=== PATIENT | female | born 1960 | race Caucasian/White ===

== ENCOUNTER → 2016-07-15 | Outpatient (CLI) | payer OTHER ==
[~2016-07-15] MED LIST: ACET500C35 PO; ALBUAER INH; ALBUAER2 INH; AMT50 PO; ASPEC81 PO; AVSI100 INJ; BACL10TA PO; BUTA1CAP18 PO; CHOL1000 PO; CHOLPOW PO; CLIN1LOT5 TOP; DENOINJ PO; DICY20TA10 PO; DIPH-416 PO; DXM/4 PO; FLUT0.15 NAE; FLVHFA110 INH; FRCT/ PO; GADAVIST IV PRN; IBUP-1459 PO; INSDGI SC; INSUINJ14 SC; LAMO100T16 PO; LAMO150T32 PO; LOVA10TA3 PO; LRS10 PO; MDR4 PO; MECL1TAB42 PO; METH1TAB81 PO; MONT1TAB5 PO; MORP1TAB11 PO; MULT-506 PO; NVLGI/PEN SC; OXYC-106 PO; OXYC-57 PO; OXYC5TAB PO; PENT400T2 PO; POLY335019 PO; POTA20TA16 PO; PRLSR20 PO; PRM/45 PO; PRMVC PV; PROC1TAB5 PO; PROM25TA16 PO; ROPI1TAB PO; STDN; SUMA1INJ5 INJ; SUMA50TA15 PO; TIZA4CAP PO; TPM100 PO; TRN400 PO; VERA120C3 PO; VITA1CAP5 PO; VITA1TAB4 PO; VTME400 PO; XLD/500 PO; [UNRECOGNIZED DRUG - OTHER]
--- NOTE | 2016-07-15 11:34 | DIAGNOSTIC IMAGING REPORT ---
MRI OF THE BRAIN WITHOUT AND WITH IV CONTRAST CLINICAL HISTORY: Intracranial metastasis. COMPARISON STUDY: 04/15/2016 TECHNIQUE: MRI of the brain was performed from the vertex to the skull base utilizing various T1 and T2 weighted sequences. Following the IV administration of 5 mL of Gadavist contrast, additional enhanced images were obtained. FINDINGS: Sagittal T1, axial diffusion, proton density and T2 weighted axial, coronal FLAIR, and pre and post axial T1-weighted images were acquired. These were supplemented with post gadolinium coronal T1 weighted images. There is an irregular rim-enhancing 22 mm right dural based parafalcine posterior parietal lobe mass with extensive vasogenic edema. This lesion appears slightly larger than on the preceding study. No additional enhancing masses are visualized. There is increasing surrounding vasogenic edema. Axial diffusion-weighted images reveal no evidence of acute or subacute infarction. There is no evidence of ventricular dilatation. There is slight mass effect on the posterior aspect of the right lateral ventricle. There is minimal right to left midline shift Proton density T2-weighted and FLAIR images reveal extensive vasogenic edema adjacent to the enhancing right parietal mass. There are no abnormal flow voids. There are postsurgical changes of a suboccipital craniotomy. IMPRESSION: 1. Slight further increase in the size of the right parietal lobe mass with increasing associated vasogenic edema 2. No additional lesions identified Electronically signed by: Dallin Valadez M.D. 07/15/2016 11:32 AM Dictated Date/Time: 07/15/2016 11:26 AM
== END | disposition home or self-care (01) ==
LOC: C.MRIBC 10:26
PROVIDERS: ATTEND Specialist
DX: C79.31 Secondary malignant neoplasm of brain (principal)

== ENCOUNTER → 2016-08-04 | Outpatient (CLI) | payer OTHER ==
[~2016-08-04] MED LIST changes: -GADAVIST IV PRN
[2016-08-04 13:49] VITALS: BP 126/83; PULSE 88; TEMP 36.9; O2SAT 96
--- NOTE | 2016-08-04 16:17 | Radiation Oncology Follow-Up ---
Radiation Oncology Follow-Up Date of Visit Aug 04, 2016. (Conchita Conner PA-C) Reason For Visit 6 month follow-up (Conchita Conner PA-C) Radiation Completion Date 12/31/15 (Conchita Conner PA-C) Diagnosis (1) Breast cancer Status: Chronic Onset Date: 02/14/2015 Stage: IV Permanent Comment: DIAGNOSIS: Left breast cancer, invasive ductal carcinoma, grade 3, ER negative, TN weakly positive, Her2 negative, cT1N1, ypT1N0(i+) with a indeterminate lesion in the right parietal lobe followed with MRI TREATMENT: 1. Neoadjuvant chemotherapy - AC/T chemotherapy (Dr. Junior Washington) 2. Lumpectomy with SLN - 08/21/2015 (Dr. Zurita) 3. Status post gamma knife radiation therapy to single brain lesion at [facility] 4. Status post completion of radiation therapy 12/31/2015 received 7240 cGy, left breast, supraclavicular, and axilla area. 5. Status post lung wedge resection 02/10/2016 due to metastatic breast carcinoma 6. Ongoing treatment with Gemzar, Herceptin, Perjeta, and Xgeva. 7. Brain MRI is followed by Dr. Fernando at [facility] Last Edited By: Conchita Conner on Aug 04, 2016 16:05 (Conchita Conner PA-C) Interim History Ms. Blue is a 55-year-old female with a history of Arnold-Chiari malformation who was recently diagnosed with oligometastatic breast cancer. She was initially diagnosed after having palpable axillary adenopathy in January 2015 and having an FNA biopsy which revealed breast cancer. She subsequently underwent neoadjuvant chemotherapy and received AC/T treatment underneath the supervision of Dr. Junior Washington. She then underwent a lumpectomy and sentinel lymph node biopsy on 08/21/[address] Anjali Zurita which revealed a partial response at the primary site of disease and no residual disease in the axilla ypT1N0(+). Afterwards, she did have a follow-up MRI of the brain for her Arnold -Chiari malformation and she did have a solitary 8mm brain metastasis that was treated with gamma knife radiosurgery at [facility]. Due to the fact that she had no other evidence of disease and had a very good performance status, she elected for consolidation radiation therapy to her left breast and axilla which completed in December 2015. She received 5040 cGy to the breast and chest wall and a boost of 2200 cGy to account for multiple prolonged interruptions in her treatment. She now presents for her 1 month follow-up evaluation. In the interim, she did have a PET/CT scan completed on 01/08/2016 which did show an equivocal call left lower lobe mass measuring 1.5 cm in the greatest dimension with minimal FDG avidity on the corresponding PET scan. She did see Dr. Junior Washington regarding this imaging result and he recommended close observation with a repeat scan in 2 months. However, the patient is relatively anxious and wanted to be seen by thoracic surgery so she is seeing Dr. Keyur Livingston next to discuss a potential biopsy or the need for further follow up with repeat imaging. She underwent resection of the metastatic lesion to the lung which was found to be metastatic breast cancer. She continues to be followed closely by Dr. Washington medical oncology. In Dr. Fernando from [facility] for metastatic disease of the brain. She is currently on chemotherapy as well as Herceptin and Xgeva. She had a PET scan 06/03/2016. She was found to have metabolic activity in the sternum as well as left anterior seventh rib. These areas are currently not painful. She recently had an MRI of the brain on 07/15/2016. This showed slight further increase in the size of the right parietal lobe mass with increasing associated vasogenic edema. The neurosurgeon placed her on his tapering dose of steroids. This is now been completed. She was on Trental and vitamin E which she will also soon be completed. She continues to have her headaches. She feels these are stable. When on the tapering dose of prednisone she did have improvement in the headaches. She's had some fullness and discomfort of the breast. She saw Dr. Anjali Zurita. She underwent mammography. It is felt that this was an infectious process. She was given an antibiotic and the breasts greatly improved. She also had an infection of the upper posterior thigh and she is on antibiotic therapy currently for this skin infection. (Conchita Conner PA-C) Allergies Coded Allergies: Erythromycin (Unverified Adverse Reaction, Unknown, GI UPSET, 04/15/16) Home Medications Scheduled Amitriptyline Hcl (Elavil), 50 MG PO HS Baclofen (Baclofen), 10 MG PO TID Cholecalciferol (Vitamin D3), 1 TAB PO DAILY Denosumab (Xgeva), 1 APPLN PO Q6WK Estrogens, Conjugated (Premarin), 0.5 MG PO DAILY Fluticasone Propionate (Flovent Hfa), 2 PUFFS INH BID Fluticasone Propionate (Nasal) (Flonase Allergy Relief), 2 SPRAYS JUDE QAM Insulin Glargine (Lantus), 8 UNITS SC QAM Lamotrigine (Lamictal), 100 MG PO BID Lovastatin (Mevacor), 10 MG PO QPM Montelukast Sodium (Montelukast Sodium), 10 MG PO QAM Multivitamin (Multivitamin), 1 TAB PO QAM Omeprazole (Prilosec), 20 MG PO QAM Ropinirole (Requip), 1 MG PO TID Topiramate (Topiramate), 200 MG PO BID Scheduled PRN Albuterol (Ventolin), 2 PUFFS INH QID PRN for SOB/Wheezing Ynbhplnpmk-Rfigmgbgvbmmk-Qkwxs (Fioricet/Codeine), 1 TAB PO Q4 PRN for Headache Dicyclomine Hcl (Dicyclomine Hcl), 20 MG PO Q6 PRN for GI Upset Diphenoxylate/Atropine (Lomotil), 1 TAB PO QID PRN for Diarrhea Insulin Aspart Penfill (Novolog Penfill), 1-20 UNITS SC AC PRN for hyperglycemia Meclizine Hcl (Meclizine Hcl), 25 MG PO Q6H PRN for Dizziness or Vertigo Oxycodone/Acetaminophen 10MG/325MG (Percocet 10MG/325MG), 1 TAB PO q4-6Hprn PRN for Pain Promethazine HCl (Promethazine HCl), 25 MG PO Q4H PRN for Nausea or Vomiting Review of Systems Gastrointestinal: Symptoms: Nausea GI Comments: Promethazine for nausea - due to chemo Oral: Symptoms: No Problems Respiratory: Symptoms: WNL Urinary: Symptoms: WNL Skin: Symptoms: No Problems Other Skin Symptoms: Wound on left posterior thigh - "boil" managed by PCP Breast: Right Upper Arm Measurement: 24.0 Right Mid Arm Measurement: 21.0 Right Wrist Measurement: 14.2 Left Upper Arm Measurement: 25.0 Left Mid Arm Measurement: 20.5 Left Wrist Measurement: 14.2 Arm Dominence: Right (Conchita Conner PA-C) Physical Exam Vital Signs Date Time Temp Pulse Resp B/P Pulse Ox O2 Delivery O2 Flow Rate FiO2 08/04/16 13:49 36.9 88 16 126/83 96 Fatigue: None General Appearance: no apparent distress Eyes: normal inspection, EOMI ENT: normal ENT inspection, hearing grossly normal Neck: no adenopathy, thyroid normal Respiratory/Chest: lungs clear, no respiratory distress, no accessory muscle use Breast: Breast examination reveals well-healed incisions of the left breast. There are no masses or tenderness no axillary adenopathy. There is some mild firmness in the upper outer quadrant. There is no erythema or edema and no sign of infection currently. There are no skin retractions or nipple changes. Right breast showed no masses or tenderness and no axillary adenopathy. Cardiovascular: regular rate, rhythm, no gallop, no murmur Abdomen: non tender, soft Extremities: no pedal edema Neurologic/Psychiatric: no motor/sensory deficits, alert, normal mood/affect Skin: warm/dry Lymphatic: no adenopathy (Conchita Conner PA-C) Additional Studies MRI OF THE BRAIN WITHOUT AND WITH IV CONTRAST CLINICAL HISTORY: Intracranial metastasis. COMPARISON STUDY: 04/15/2016 TECHNIQUE: MRI of the brain was performed from the vertex to the skull base utilizing various T1 and T2 weighted sequences. Following the IV administration of 5 mL of Gadavist contrast, additional enhanced images were obtained. FINDINGS: Sagittal T1, axial diffusion, proton density and T2 weighted axial, coronal FLAIR, and pre and post axial T1-weighted images were acquired. These were supplemented with post gadolinium coronal T1 weighted images. There is an irregular rim-enhancing 22 mm right dural based parafalcine posterior parietal lobe mass with extensive vasogenic edema. This lesion appears slightly larger than on the preceding study. No additional enhancing masses are visualized. There is increasing surrounding vasogenic edema. Axial diffusion-weighted images reveal no evidence of acute or subacute infarction. There is no evidence of ventricular dilatation. There is slight mass effect on the posterior aspect of the right lateral ventricle. There is minimal right to left midline shift Proton density T2-weighted and FLAIR images reveal extensive vasogenic edema adjacent to the enhancing right parietal mass. There are no abnormal flow voids. There are postsurgical changes of a suboccipital craniotomy. IMPRESSION: 1. Slight further increase in the size of the right parietal lobe mass with increasing associated vasogenic edema 2. No additional lesions identified (Conchita Conner PA-C) Assessment & Plan Patient was seen and examined by Dr. Washington. Her MRI was reviewed. She'll continue her regular follow-up with Dr. Washington for medical oncology. She continues on the above chemotherapy. She is currently showing no increased neurologic symptoms. Her headaches are stable. A follow-up appointment with our office was not given. She may call if she has any questions or concerns would be happy to see her. She also may return if directed by Dr. Junior Washington. (Conchita Conner PA-C) I agree with note created by Conchita Conner PA-C. I reviewed the patient's chart and information with her. I have examined and evaluated the patient. I reviewed relevant clinical information and answered the patient's and/or family' s questions. (Veeral. Washington MD) Total Time In Follow-Up I spent 15 minutes speaking to patient performing examination. I said 15 minutes reviewing information in completing this note. (Conchita Conner PA-C) I spent 15 minutes examining and counseling the patient. (Veeral. Washington MD) Copy To Junior Washington M.D.; Marbin Peace D.O.
== END | disposition home or self-care (01) ==
LOC: C.ONC 13:37
PROVIDERS: ATTEND Radiology Radiation Oncology
DX: Z08 Encounter for follow-up examination after completed treatment for malignant neoplasm (principal); Z92.3 Personal history of irradiation; Z85.3 Personal history of malignant neoplasm of breast

== ENCOUNTER → 2016-09-24 | Outpatient (CLI) | payer OTHER ==
[~2016-09-24] MED LIST changes: -ACET500C35 PO; +GADAVIST IV PRN; -OXYC5TAB PO; -SUMA50TA15 PO; -VTME400 PO
--- NOTE | 2016-09-24 15:06 | DIAGNOSTIC IMAGING REPORT ---
MRI OF THE BRAIN WITHOUT AND WITH IV CONTRAST CLINICAL HISTORY: Metastatic breast carcinoma. History of gamma knife surgery. COMPARISON STUDY: 07/15/2016 TECHNIQUE: MRI of the brain was performed from the vertex to the skull base utilizing various T1 and T2 weighted sequences. Following the IV administration of 5.5 mL of Gadavist contrast, additional enhanced images were obtained. FINDINGS: Sagittal T1, axial diffusion, proton density and T2 weighted axial, coronal FLAIR, and pre and post axial T1-weighted images were acquired. These were supplemented with post gadolinium coronal T1 weighted images. There is slight interval increase in the size of the right posterior parietal dural based parafalcine mass which currently measures 20 x 23 mm. There is associated extensive vasogenic edema which has increased when compared the preceding study. No additional masses are visualized. There is left hemispheric artifact secondary to a metallic foreign body within the left scalp. Axial diffusion-weighted images reveal no evidence of acute or subacute infarction. There is no hydrocephalus. There is 8 mm of right to left midline shift. There are no abnormal flow voids. There are postsurgical changes of a suboccipital craniotomy. IMPRESSION: 1. Slight further increase in the size of the right parietal lobe mass with increasing associated vasogenic edema. Electronically signed by: Dallin Valadez M.D. 09/24/2016 3:05 PM Dictated Date/Time: 09/24/2016 3:00 PM
== END | disposition home or self-care (01) ==
LOC: C.MRIBC 13:50
PROVIDERS: ATTEND Specialist
DX: C79.31 Secondary malignant neoplasm of brain (principal)

== ENCOUNTER → 2016-11-05 | Outpatient (CLI) | payer OTHER ==
[~2016-11-05] MED LIST changes: +AMIT75TA2 PO; +ATV/1 PO; +CEPH-571 PO; +CLIN300C2 PO; +DLCS RE; -GADAVIST IV PRN; +LDDP5 TD; +LEVE500T13 PO; +LPR25 PO; +RLSI SQ; +SULF800T23 PO; +SUMA6KIT
--- NOTE | 2016-11-05 12:24 | DIAGNOSTIC IMAGING REPORT ---
C-SPINE ROUTINE 4 OR 5 VIEWS CLINICAL HISTORY: Metastatic breast carcinoma. Neck pain. COMPARISON STUDY: 05/31/2013 FINDINGS: The prevertebral soft tissues are normal. No fractures or subluxations are visualized. No destructive lesions are evident. IMPRESSION: Normal cervical spine series were age. No conventional radiographic evidence of skeletal metastasis Electronically signed by: Dallin Valadez M.D. 11/05/2016 12:23 PM Dictated Date/Time: 11/05/2016 12:22 PM
--- NOTE | 2016-11-05 12:27 | DIAGNOSTIC IMAGING REPORT ---
THORACIC SPINE 3 VIEWS HISTORY: Breast carcinoma. Back pain. Breast [id number] Breast cancer metastasized to [id number] COMPARISON: None. FINDINGS: There is no fracture. No subluxation. Disc spaces are preserved. IMPRESSION: Negative study Electronically signed by: Bob Hatch M.D. 11/05/2016 12:26 PM Dictated Date/Time: 11/05/2016 12:24 PM
== END | disposition home or self-care (01) ==
LOC: C.RADBC 11:53
PROVIDERS: ATTEND Psychiatry & Neurology Neurology
DX: C50.919 Malignant neoplasm of unspecified site of unspecified female breast (principal); M62.830 Muscle spasm of back

== ENCOUNTER → 2016-11-13 | Outpatient (CLI) | payer OTHER ==
[2016-11-13 14:43] LABS: BASO % 0.3 %; BASO ABS # 0.02 K/uL (0-0.2); COMPLETE YES; EOS % 1.2 %; HEMATOCRIT 38.2 % (37-47); IG% 0.3 %; LYMPH % 13.4 %; LYMPH ABS # 0.92 K/uL (1.2-3.4); MEAN CELL VOLUME 100.8 fL (80-100); MEAN CORPUSCULAR HGB CONC 32.7 g/dl (32-36); MEAN PLATELET VOLUME 9.5 fL (7.4-10.4); MONO % 3.5 %; NEUT % 81.3 %; PLATELET COUNT 203 K/uL (130-400); RED BLOOD COUNT 3.79 M/uL (4.2-5.4); WHITE BLOOD COUNT 6.89 K/uL (4.8-10.8)
[2016-11-13 14:54] LABS: CALCIUM 9.1 mg/dl (8.5-10.1)
[2016-11-13 14:55] LABS: MAGNESIUM 2.3 mg/dl (1.8-2.4)
[2016-11-13 17:47] LABS: LYME DISEASE AB IGG NEG (NEG); LYME DISEASE AB IGM NEG (NEG)
--- NOTE | 2016-12-03 09:07 | CODING QUERY NO DIAGNOSIS ---
TREATMENT RENDERED WITHOUT A DIAGNOSIS To promote full compliance with coding requirements relating to patient care, physician participation is requested in all cases of records administrator uncertainty. Please assist us with providing a diagnosis/symptom for the test(s) below: A diagnosis/symptom was not documented on your Order. A valid diagnosis/symptom is required to bill all insurances. Please remember that we are unable to code a diagnosis of rule out, probable, possible, questionable, or suspected. Tests that require a diagnosis: * CALCIUM DIAGNOSIS: * MAGNESIUM DIAGNOSIS: * CBC W/ AUTO DIFF DIAGNOSIS: * ERTHROCYTE SEDIMENTATION RATE DIAGNOSIS: * LYME IGG & IGM +WB CONFIRM DIAGNOSIS: Provider Signature: Date: Thank you [facility] Information Management Once completed, please kindly fax back to [phone] For questions please call [phone]
== END | disposition home or self-care (01) ==
LOC: C.LABBC 10:07
PROVIDERS: ATTEND Anesthesiology
DX: G43.709 Chronic migraine without aura, not intractable, without status migrainosus (principal); E11.9 Type 2 diabetes mellitus without complications; M62.838 Other muscle spasm; M79.7 Fibromyalgia; C50.911 Malignant neoplasm of unspecified site of right female breast; C50.912 Malignant neoplasm of unspecified site of left female breast; G47.00 Insomnia, unspecified; M62.830 Muscle spasm of back; G89.29 Other chronic pain

== ENCOUNTER 2016-11-17 13:22 | Emergency (ER) | payer OTHER ==
[~2016-11-17] VITALS: Ht 152.4 cm; Wt 52.3 kg
[~2016-11-17 13:22] MED LIST changes: -ALBUAER INH; -AMIT75TA2 PO; -ASPEC81 PO; -ATV/1 PO; -AVSI100 INJ; -CEPH-571 PO; -CHOLPOW PO; -CLIN1LOT5 TOP; -CLIN300C2 PO; -DLCS RE; -DXM/4 PO; -FRCT/ PO; -IBUP-1459 PO; -LAMO150T32 PO; -LDDP5 TD; -LEVE500T13 PO; -LPR25 PO; -LRS10 PO; -MDR4 PO; -METH1TAB81 PO; -MORP1TAB11 PO; -NVLGI/PEN SC; -OXYC-57 PO; -PENT400T2 PO; -POLY335019 PO; -POTA20TA16 PO; -PRMVC PV; -PROC1TAB5 PO; -RLSI SQ; -STDN; -SULF800T23 PO; -SUMA1INJ5 INJ; -SUMA6KIT; -TRN400 PO; -VERA120C3 PO; -VITA1CAP5 PO; -VITA1TAB4 PO; -XLD/500 PO; -[UNRECOGNIZED DRUG - OTHER]
[2016-11-17 13:27] VITALS: Ht 152.4 cm; Wt 52.3 kg
[2016-11-17 14:39] LABS: CALCIUM 8.4 mg/dl (8.5-10.1); POTASSIUM 3.6 mmol/L (3.5-5.1)
[2016-11-17 14:40] LABS: BASO % 0.4 %; BASO ABS # 0.02 K/uL (0-0.2); COMPLETE YES; EOS % 1.2 %; HEMATOCRIT 38.5 % (37-47); IG% 0.2 %; LYMPH % 7.4 %; LYMPH ABS # 0.37 K/uL (1.2-3.4); MEAN CELL VOLUME 98.5 fL (80-100); MEAN CORPUSCULAR HGB CONC 32.5 g/dl (32-36); MEAN PLATELET VOLUME 8.6 fL (7.4-10.4); MONO % 9.9 %; NEUT % 80.9 %; PLATELET COUNT 397 K/uL (130-400); RED BLOOD COUNT 3.91 M/uL (4.2-5.4); WHITE BLOOD COUNT 4.97 K/uL (4.8-10.8)
[2016-11-17 15:09] LABS: BUN/CREATININE RATIO 14.2 (10-20); CREATININE 0.72 mg/dl (0.60-1.20); MAGNESIUM 2.2 mg/dl (1.8-2.4)
[2016-11-17] MEDS ORDERED: GADAVIST IV PRN (15:45)
--- NOTE | 2016-11-17 15:56 | DIAGNOSTIC IMAGING REPORT ---
MRI OF THE BRAIN COMBO CLINICAL HISTORY: Metastatic breast cancer. Gait and balance. Fall. COMPARISON STUDY: MRI of the brain dated 09/24/2016. CT of the brain dated 04/15/2016. TECHNIQUE: MRI of the brain was performed utilizing various T1 and T2-weighted sequences in the axial, sagittal, and coronal planes. Contrast-enhanced sequences were acquired following the administration of 5 cc of Gadavist. The examination is degraded by susceptibility artifact along the left posterior parietal cortex related to a metallic foreign body in the scalp. FINDINGS: Brain parenchyma: There is an enlarging solid and cystic posterior right parafalcine mass with significant associated edema. This measures 3.4 x 3.6 x 2.2 cm (previously measured 2.2 x 2.3 x 2.0 cm) and causes significant mass effect. There is effacement of the overlying cortical sulci and approximately 9 mm of right to left midline shift. There is a new left occipital lesion seen on coronal postcontrast image #22 measuring 7 mm. No hemorrhage is identified and there is no restricted diffusion typical for acute ischemia. No extra-axial fluid collection is seen. The cerebellar tonsils are normal in configuration. Ventricles, sulci, and cisterns: See above. Pituitary and sella: Unremarkable. Intracranial vasculature: Normal flow voids are maintained at the skull base. Orbits: The bony orbits are grossly intact. Orbital contents are normal in appearance noting a right ocular lens implant. Sinuses and mastoids: Clear. Calvarium: There are postoperative changes from suboccipital craniectomy. Cervical cord: Partially visualized cervical spinal cord is normal in morphology and signal intensity. IMPRESSION: 1. There has been continued enlargement of a complex posterior right parafalcine mass with increasing surrounding edema and right to left midline shift when compared to the 09/24/2016 examination. 2. There is a new 7 mm left occipital lesion identified. 3. There is no hemorrhage or evidence of acute ischemia. Electronically signed by: Antonio Akhtar M.D. 11/17/2016 3:55 PM Dictated Date/Time: 11/17/2016 3:43 PM
[2016-11-17] MEDS ORDERED: OXYC-57 PO (15:59)
[2016-11-17] MEDS ORDERED: LAMO150T32 PO (15:59)
[2016-11-17] MEDS ORDERED: ALBUAER INH (15:59)
[2016-11-17] MEDS ORDERED: VERA120C3 PO (15:59)
[2016-11-17] MEDS ORDERED: STDN (15:59)
[2016-11-17] MEDS ORDERED: INSDGI SC (15:59)
[2016-11-17] MEDS ORDERED: PROC1TAB5 PO (15:59)
[2016-11-17] MEDS ORDERED: NVLGI/PEN SC (15:59)
[2016-11-17] MEDS ORDERED: IBUP-1459 PO (15:59)
[2016-11-17] MEDS ORDERED: SUMA1INJ5 INJ (15:59)
[2016-11-17] MEDS ORDERED: TRN400 PO (15:59)
[2016-11-17] MEDS ORDERED: POLY335019 PO (15:59)
[2016-11-17] MEDS ORDERED: DXM/4 PO (16:03)
[2016-11-17] MEDS ORDERED: CHOLPOW PO (16:03)
[2016-11-17] MEDS ORDERED: CLIN1LOT5 TOP (16:03)
[2016-11-17] MEDS ORDERED: POTA20TA16 PO (16:03)
[2016-11-17] MEDS ORDERED: TIZA4CAP PO (16:16)
[2016-11-17] MEDS ORDERED: PRMVC PV (16:16)
[2016-11-17] MEDS ORDERED: VITA1TAB4 PO (16:16)
[2016-11-17] MEDS ORDERED: ONDANSETRON INJ 2 MG/ML 2 ML VIAL IV STA (17:16)
[2016-11-17] MEDS ORDERED: HYDROmorphone INJ 1 MG/ML SYR IV STA (17:16)
--- NOTE | 2016-11-17 17:32 | EMERGENCY ROOM VISIT NOTE ---
History First contact with patient: 13:38 Chief Complaint: NEURO SYMPTOMS Stated Complaint: OFF BALANCE Nursing Triage Summary: pt reports balance has been off and falling.has fallen 5-6 x in last 3-4 days. pt has hx of brain tumor. sent here by neuro and PT History of Present Illness The patient is a 56 year old female who presents to the Emergency Room being sent here by her neurologist, Dr. Goodman for being off balance and falling 5-6 times in the last 3-4 days. The patient was at physical therapy today and her therapist noticed that she was "leaning to the left". She then told her therapist about her feeling off balance and falling several times over the last 3-4 days. The therapist contacted Dr. Goodman who sent her to the emergency room. The patient has a primary cancer of breast cancer with metastatic cancer to the brain. She had an occipital lesion which was removed with a gamma knife August 2015. She currently has a right parietal mass which they are monitoring. Her last MRI was 09/25/2016. This revealed a 20 x 23 mm lesion in the right parietal region which was slightly increased from prior exam. The patient denies any dizziness or visual changes. The patient has headaches but that is not new. She also has pain in her upper thoracic region which also is not new. She did have an x-ray performed recently which did not reveal any metastatic lesions in the thoracic spine. The patient is currently under chemotherapy with Dr. Washington. Her regimen is 2 weeks on one week off. Last week was her week off. Her chemotherapy day is Wednesdays. Review of Systems 10 system review was performed and was negative unless stated otherwise history of present illness. 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 (11) History of breast cancer (12) Hypertension (13) Increased intracranial pressure (14) Irritable bowel syndrome (15) Mass of left lung (16) Metastasis to brain (17) Osteoporosis Surgical Problems: (1) History of cataract surgery (2) History of Chiari malformation (3) History of lumpectomy of left breast (4) History of tonsillectomy and adenoidectomy (5) S/p axillary lymph node biopsy (6) S/p breast cyst removal (7) S/P craniotomy (8) S/p Gamma knife radiosurgery for brain metastatic lesion (9) S/p insertion tunneled central venous access with SQ port (10) S/P partial mastectomy (11) S/P sinus surgery (12) S/P tonsillectomy and adenoidectomy (13) S/P tubal ligation (14) Status post gamma knife treatment Family History Asthma DAUGHTER SON Diabetes mellitus MOTHER Hypertension FATHER Stroke FATHER GRANDFATHER Social History Smoking Status: Never Smoker Drug Use: none Marital Status: Occupation Status: disabled Current/Historical Medications Scheduled Amitriptyline Hcl (Elavil), 75 MG PO HS Baclofen (Lioresal), 20 MG PO TID Cholecalciferol (Vitamin D3), 1 TAB PO DAILY Cholestyramine (Bulk) (Cholestyramine), 4 GM PO QID Clindamycin Phosphate (Topical (Clindamycin Phosphate), 1 APPLN TOP BID Estrogens, Conjugated (Premarin), 1 APPLN PV DAILY Fluticasone Propionate (Flovent Hfa), 2 PUFFS INH BID Fluticasone Propionate (Nasal) (Flonase Allergy Relief), 2 SPRAYS JUDE QAM Insulin Aspart (Novolog Flexpen), 1 UNIT SC UD Insulin Glargine (Lantus), 9 UNITS SC DAILY Lamotrigine (Lamictal), 150 MG PO BID Lovastatin (Mevacor), 10 MG PO QPM Montelukast Sodium (Montelukast Sodium), 10 MG PO QAM Multivitamin (Multivitamin), 1 TAB PO QAM Omeprazole (Prilosec), 20 MG PO QAM Pentoxifylline (Pentoxifylline ER), 400 MG PO BID Potassium Ext Rel (Klor-Con), 20 MEQ PO BID Ropinirole (Requip), 1 MG PO TID Tizanidine (Zanaflex), 4 MG PO QPM Topiramate (Topiramate), 200 MG PO BID Verapamil Hcl (Verapamil Hcl Sr), 120 MG PO BID Vitamin E (Vitamin E), 400 UNITS PO BID Scheduled PRN Albuterol Sulfate (Proventil Hfa), 2 PUFFS INH QID PRN for SOB/Wheezing Jyzjenqtxe-Lvttksvdnfzty-Mpuzu (Fioricet/Codeine), 1 TAB PO Q4 PRN for Headache Dicyclomine Hcl (Dicyclomine Hcl), 20 MG PO Q6 PRN for GI Upset Diphenoxylate/Atropine (Lomotil), 1 TAB PO QID PRN for Diarrhea Ibuprofen (Motrin), 400 MG PO Q8 PRN for Pain Meclizine Hcl (Meclizine Hcl), 25 MG PO Q6H PRN for Dizziness or Vertigo Oxycodone/Acetaminophen 5MG/325MG (Percocet 5MG/325MG), 1 TABLET PO Q6H PRN for Pain Polyethylene Glycol 3350 (Miralax), 17 GM PO DAILY PRN for Constipation Prochlorperazine Maleate (Compazine), 10 MG PO Q6H PRN for Nausea Promethazine HCl (Promethazine HCl), 25 MG PO Q6 PRN for Nausea or Vomiting Sumatriptan Succinate (Sumatriptan Succinate), 6 MG INJ PRN PRN for Migraine Miscellaneous Medications Butorphanol Tartrate (Butorphanol Tartrate) Allergies Coded Allergies: Erythromycin (Unverified Adverse Reaction, Unknown, GI UPSET, 04/15/16) Physical Exam Vital Signs Date Time Temp Pulse Resp B/P Pulse Ox O2 Delivery O2 Flow Rate FiO2 11/17/16 16:45 92 18 143/89 98 Room Air 11/17/16 13:27 36.6 112 20 150/84 97 Room Air Physical Exam GENERAL: 56-year-old white female appears in no acute distress. MENTAL Status: Alert and oriented 3. HEAD: Atraumatic, nontender to palpation throughout. EYES: PERRLA. EOMs intact. EARS: Canals clear. TMs without fluid level noted. NECK: Supple, no lymphadenopathy noted. No carotid bruits noted. LUNGS: Clear auscultation without wheezes rales or rhonchi. CARDIAC: Regular rate and rhythm without murmur. Pulses is full and equal throughout. NEURO:Cranial nerves two through 12 intact. Cerebellar function intact with [id number]. Fine motor intact with alternating finger motions. Negative pronator drift. When the patient ambulated her torso angled to the left. Medical Decision & Procedures ER Provider Diagnostic Interpretation: MRI OF THE BRAIN COMBO CLINICAL HISTORY: Metastatic breast cancer. Gait and balance. Fall. COMPARISON STUDY: MRI of the brain dated 09/24/2016. CT of the brain dated 04/15/2016. TECHNIQUE: MRI of the brain was performed utilizing various T1 and T2-weighted sequences in the axial, sagittal, and coronal planes. Contrast-enhanced sequences were acquired following the administration of 5 cc of Gadavist. The examination is degraded by susceptibility artifact along the left posterior parietal cortex related to a metallic foreign body in the scalp. FINDINGS: Brain parenchyma: There is an enlarging solid and cystic posterior right parafalcine mass with significant associated edema. This measures 3.4 x 3.6 x 2.2 cm (previously measured 2.2 x 2.3 x 2.0 cm) and causes significant mass effect. There is effacement of the overlying cortical sulci and approximately 9 mm of right to left midline shift. There is a new left occipital lesion seen on coronal postcontrast image #22 measuring 7 mm. No hemorrhage is identified and there is no restricted diffusion typical for acute ischemia. No extra-axial fluid collection is seen. The cerebellar tonsils are normal in configuration. Ventricles, sulci, and cisterns: See above. Pituitary and sella: Unremarkable. Intracranial vasculature: Normal flow voids are maintained at the skull base. Orbits: The bony orbits are grossly intact. Orbital contents are normal in appearance noting a right ocular lens implant. Sinuses and mastoids: Clear. Calvarium: There are postoperative changes from suboccipital craniectomy. Cervical cord: Partially visualized cervical spinal cord is normal in morphology and signal intensity. IMPRESSION: 1. There has been continued enlargement of a complex posterior right parafalcine mass with increasing surrounding edema and right to left midline shift when compared to the 09/24/2016 examination. 2. There is a new 7 mm left occipital lesion identified. 3. There is no hemorrhage or evidence of acute ischemia. Electronically signed by: Antonio Akhtar M.D. 11/17/2016 3:55 PM Laboratory Results 11/17/16 14:15 Red Blood Count 3.91, Mean Corpuscular Volume 98.5, Mean Corpuscular Hemoglobin 32.0, Mean Corpuscular Hemoglobin Concent 32.5, Mean Platelet Volume 8.6, Neutrophils (%) (Auto) 80.9, Lymphocytes (%) (Auto) 7.4, Monocytes (%) (Auto) 9.9, Eosinophils (%) (Auto) 1.2, Basophils (%) (Auto) 0.4, Neutrophils # (Auto) 4.02, Lymphocytes # (Auto) 0.37, Monocytes # (Auto) 0.49, Eosinophils # (Auto) 0.06, Basophils # (Auto) 0.02 11/17/16 14:15 Test 11/17/16 14:15 White Blood Count 4.97 K/uL (4.8-10.8) Red Blood Count 3.91 M/uL (4.2-5.4) Hemoglobin 12.5 g/dL (12.0-16.0) Hematocrit 38.5 % (37-47) Mean Corpuscular Volume 98.5 fL (80-100) Mean Corpuscular Hemoglobin 32.0 pg (25-34) Mean Corpuscular Hemoglobin Concent 32.5 g/dl (32-36) Platelet Count 397 K/uL (130-400) Mean Platelet Volume 8.6 fL (7.4-10.4) Neutrophils (%) (Auto) 80.9 % Lymphocytes (%) (Auto) 7.4 % Monocytes (%) (Auto) 9.9 % Eosinophils (%) (Auto) 1.2 % Basophils (%) (Auto) 0.4 % Neutrophils # (Auto) 4.02 K/uL (1.4-6.5) Lymphocytes # (Auto) 0.37 K/uL (1.2-3.4) Monocytes # (Auto) 0.49 K/uL (0.11-0.59) Eosinophils # (Auto) 0.06 K/uL (0-0.5) Basophils # (Auto) 0.02 K/uL (0-0.2) RDW Standard Deviation 53.3 fL (36.4-46.3) RDW Coefficient of Variation 14.9 % (11.5-14.5) Immature Granulocyte % (Auto) 0.2 % Immature Granulocyte # (Auto) 0.01 K/uL (0.00-0.02) Anion Gap 5.0 mmol/L (3-11) Est Creatinine Clear Calc Drug Dose 62.7 ml/min Estimated GFR () 108.5 Estimated GFR (Non- 93.6 BUN/Creatinine Ratio 14.2 (10-20) Calcium Level 8.4 mg/dl (8.5-10.1) Magnesium Level 2.2 mg/dl (1.8-2.4) ED Course The patient was evaluated. The patient's EMR and medication list were reviewed. I reviewed the patient's most recent MRI of the brain of 09/25/2016. I discussed the case with Dr. Vazquez who agreed with treatment plan. IV access was obtained. The patient requested that her port not be use. CBC, renal profile and magnesium level was ordered. Labs are reviewed and were unremarkable. MRI of the brain with and without contrast was ordered and interpreted by the radiologist as above with enlarging right parietal brain mass with midline shift as well as a new occipital lesion. The patient was informed of the findings. I consulted Dr. Goodman and spoke with him about the patient. He stated that the patient needs neurosurgery and will need to be transferred. He recommended either [facility] or [facility] since she is already under the care of Dr. Soto at [facility]. I informed the patient of the new findings and gave her the option of poor she would like to be transferred. She opted for [facility]. I spoke with Dr. Ash in neurosurgery who agreed to accept the patient through the emergency room. I spoke with the transfer center and they do not require and accepting ER physician in addition to Dr. Ash. Dr. Vazquez completed all the necessary transfer forms. While awaiting transfer the patient started complaining of pain and was given Dilaudid 1 mg IV and Zofran 4 mg IV push. The patient will be transferred by ALS. Medical Decision Differential diagnosis include cardiac arrhythmia, benign positional vertigo, metastatic brain lesion My concerns were for enlarging metastatic brain lesion therefore an MRI was ordered. Impression Primary Impression: Malignant neoplasm metastatic to brain Additional Impression: Ataxia Departure Information Dispostion Transfer Acute Care Facility Condition GOOD Referrals Marbin Peace D.O. (PCP) Patient Instructions [facility] Problem Qualifiers
[2016-11-17] MEDS ORDERED: HYDROmorphone INJ 1 MG/ML SYR ONE (19:34)
[2016-11-17 19:40] VITALS: BP 138/82; PULSE 89; O2SAT 98
[2016-11-26] MEDS ORDERED: DXM/4 PO (10:54)
[2016-11-26] MEDS ORDERED: [UNRECOGNIZED DRUG - OTHER] (10:54)
[2016-11-30] MEDS ORDERED: ASPEC81 PO ×2 (10:23→10:25)
[2016-11-30] MEDS ORDERED: DXM/4 PO (10:25)
[2017-01-21] MEDS ORDERED: AMT50 PO (15:15)
[2017-01-21] MEDS ORDERED: XLD/500 PO (15:16)
[2017-01-22] MEDS ORDERED: PENT400T2 PO (10:08)
[2017-01-22] MEDS ORDERED: VITA1CAP5 PO (10:08)
[2017-02-09] MEDS ORDERED: DXM/4 PO (17:27)
[2017-05-10] MEDS ORDERED: MORP1TAB11 PO (18:36)
[2017-05-10] MEDS ORDERED: OXYC-57 PO (18:36)
[2017-05-10] MEDS ORDERED: LEVE500T13 PO (18:36)
[2017-05-10] MEDS ORDERED: LPR25 PO (18:36)
[2017-05-10] MEDS ORDERED: DXM/4 PO (18:36)
[2017-05-10] MEDS ORDERED: LDDP5 TD (19:25)
[2017-05-10] MEDS ORDERED: RLSI SQ (19:25)
[2017-05-10] MEDS ORDERED: DLCS RE (19:25)
== END 2016-11-17 19:40 | disposition short-term general hospital (02) ==
LOC: C.EDB 13:23
DX: C50.919 Malignant neoplasm of unspecified site of unspecified female breast (principal); C79.31 Secondary malignant neoplasm of brain; R27.0 Ataxia, unspecified; J30.9 Allergic rhinitis, unspecified; J45.909 Unspecified asthma, uncomplicated; K22.70 Barrett's esophagus without dysplasia; M54.2 Cervicalgia; G93.5 Compression of brain; E10.9 Type 1 diabetes mellitus without complications; M79.7 Fibromyalgia; G40.409 Other generalized epilepsy and epileptic syndromes, not intractable, without status epilepticus; I10 Essential (primary) hypertension; K58.9 Irritable bowel syndrome, unspecified; R91.8 Other nonspecific abnormal finding of lung field; M81.0 Age-related osteoporosis without current pathological fracture; Z90.10 Acquired absence of unspecified breast and nipple; Z79.4 Long term (current) use of insulin; Z82.5 Family history of asthma and other chronic lower respiratory diseases; Z83.3 Family history of diabetes mellitus; Z82.49 Family history of ischemic heart disease and other diseases of the circulatory system; Z82.3 Family history of stroke

== ENCOUNTER 2016-11-27 11:22 | Inpatient (IN) | payer OTHER ==
[~2016-11-27] VITALS: Ht 152.4 cm; Wt 54.8 kg
[~2016-11-27 11:22] MED LIST changes: +ALBUAER INH; -ALBUAER2 INH; +CHOLPOW PO; +CLIN1LOT5 TOP; -DENOINJ PO; +DXM/4 PO; +IBUP-1459 PO; -INSUINJ14 SC; -LAMO100T16 PO; +LAMO150T32 PO; +NVLGI/PEN SC; -OXYC-106 PO; +OXYC-57 PO; +POLY335019 PO; +POTA20TA16 PO; -PRM/45 PO; +PRMVC PV; +PROC1TAB5 PO; +STDN; +VERA120C3 PO
[2016-11-27] MEDS ORDERED: SODIUM CHLORIDE 0.9% 1000ML 1,000 ML IV SCH (11:35)
[2016-11-27 12:18] LABS: BASO % 0.2 %; BASO ABS # 0.02 K/uL (0-0.2); COMPLETE YES; EOS % 0.2 %; HEMATOCRIT 40.4 % (37-47); IG% 0.8 %; LYMPH % 5.3 %; LYMPH ABS # 0.58 K/uL (1.2-3.4); MEAN CELL VOLUME 99.3 fL (80-100); MEAN CORPUSCULAR HEMOGLOBIN 31.7 pg (25-34); MEAN CORPUSCULAR HGB CONC 31.9 g/dl (32-36); MEAN PLATELET VOLUME 8.5 fL (7.4-10.4); MONO % 0.9 %; NEUT % 92.6 %; PLATELET COUNT 415 K/uL (130-400); RED BLOOD COUNT 4.07 M/uL (4.2-5.4); WHITE BLOOD COUNT 10.95 K/uL (4.8-10.8)
[2016-11-27 12:31] LABS: INR 0.9 (0.9-1.1); PARTIAL THROMBOPLASTIN RATIO 1.2; PROTHROMBIN TIME (PATIENT) 9.8 SECONDS (9.0-12.0)
[2016-11-27 12:36] LABS: BLOOD UREA NITROGEN 16 mg/dl (7-18); BUN/CREATININE RATIO 23.3 (10-20); CARBON DIOXIDE 29 mmol/L (21-32); CHLORIDE 103 mmol/L (98-107); CREATININE 0.69 mg/dl (0.60-1.20); GLUCOSE 173 mg/dl (70-99); POTASSIUM 3.5 mmol/L (3.5-5.1); SODIUM 138 mmol/L (136-145)
[2016-11-27 12:38] LABS: CALCIUM 8.5 mg/dl (8.5-10.1)
[2016-11-27 12:41] LABS: CKMB/CK RATIO 1.4 (0-3.0)
--- NOTE | 2016-11-27 13:27 | DIAGNOSTIC IMAGING REPORT ---
CT OF THE HEAD WITHOUT CONTRAST CLINICAL HISTORY: Possible stroke. Slurred speech. Recent gamma knife therapy. Metastatic breast cancer. COMPARISON STUDY: MRI of the brain November 17, 2016. CT DOSE: 614.27 mGy.cm TECHNIQUE: Helical axial images of the head were obtained without IV contrast. Automated exposure control was utilized for the study. FINDINGS: No acute intracranial hemorrhage is present. Note is again made of the complex right posterior parafalcine mass as shown and MRI of November 17, 2016. This is suboptimally assessed on this unenhanced CT but measures approximately 3.9 x 2.2 cm. Extensive associated vasogenic edema is similar to prior MRI. There is mass effect with mild leftward midline shift of 8 mm. This is unchanged. The basilar cisterns are patent. The patient is status post suboccipital craniectomy. The small left occipital lobe lesion shown on prior MRI is not evident on this exam due to technique. No suspicious calvarial lesions are present. There is no calvarial fracture. IMPRESSION: 1. No acute intracranial hemorrhage. 2. No significant change in appearance of the brain since MRI of November 17, 2016 when allowing for differences in technique. Redemonstration of the right posterior parafalcine metastasis with extensive associated vasogenic edema and mass effect, as described above. Stable sulcal effacement and leftward midline shift. Electronically signed by: Jewel Couch M.D. 11/27/2016 1:25 PM Dictated Date/Time: 11/27/2016 1:12 PM
[2016-11-27] MEDS ORDERED: MoRPHine SULFATE 2 MG/ML CARP IV PRN (14:45)
[2016-11-27] MEDS ORDERED: GLUCAGON FOR INJ 1 MG VIAL SQ PRN (14:45)
[2016-11-27] MEDS ORDERED: ACETAMINOPHEN 325 MG TAB PO PRN (14:45)
[2016-11-27] MEDS ORDERED: GLUCOSE 10 TABS/TUBE PO PRN (14:45)
[2016-11-27] MEDS ORDERED: DEXTROSE 50% 50 ML SYR IV PRN (14:45)
[2016-11-27] MEDS ORDERED: GLUCOSE 40% GEL 15 GM TUBE PO PRN (14:45)
[2016-11-27] MEDS ORDERED: ONDANSETRON INJ 2 MG/ML 2 ML VIAL IV PRN (14:45)
[2016-11-27] MEDS ORDERED: PHARMACY GLYCEMIC MGMT CONSULT PRN (14:50)
[2016-11-27] MEDS ORDERED: ENOXAPARIN 40 MG/0.4 ML SYR SQ ONE (14:54)
[2016-11-27] MEDS ORDERED: MDR4 PO (14:57)
[2016-11-27] MEDS ORDERED: PHARMACIST DISCHARGE MED REC CONSULT PRN (15:00)
[2016-11-27] MEDS ORDERED: ALBUTEROL HFA 8 GM INHALER INH PRN (15:00)
[2016-11-27] MEDS ORDERED: PROCHLORPERAZINE MALEATE 10 MG TAB PO PRN (15:00)
[2016-11-27] MEDS ORDERED: PROMETHAZINE HCL 25 MG TAB PO PRN (15:00)
--- NOTE | 2016-11-27 15:18 | Pharmacy Progress Note ---
Glycemic Control Intl Consult Date of Service Nov 27, 2016. Scope Glycemic Pharmacist consulted by Dr Riddle on 11/27/16 for glycemic control and to write orders per [facility] inpatient glycemic control protocol Objective Weight (Kilograms): 52.400 Accuchecks BSG (last 24hrs): Test 11/27/16 12:03 11/27/16 12:22 Random Glucose 173 mg/dl (70-99) Bedside Glucose 166 mg/dl (70-90) Laboratory Data (last 24hrs) Test 11/27/16 12:03 Anion Gap 6.0 mmol/L BUN/Creatinine Ratio 23.3 Blood Urea Nitrogen 16 mg/dl Creatinine 0.69 mg/dl Potassium Level 3.5 mmol/L Sodium Level 138 mmol/L White Blood Count 10.95 K/uL Red Blood Count 4.07 M/uL Hemoglobin 12.9 g/dL Hematocrit 40.4 % Mean Corpuscular Volume 99.3 fL Mean Corpuscular Hemoglobin 31.7 pg Mean Corpuscular Hemoglobin Concent 31.9 g/dl Platelet Count 415 K/uL Mean Platelet Volume 8.5 fL Neutrophils (%) (Auto) 92.6 % Lymphocytes (%) (Auto) 5.3 % Monocytes (%) (Auto) 0.9 % Eosinophils (%) (Auto) 0.2 % Basophils (%) (Auto) 0.2 % Neutrophils # (Auto) 10.14 K/uL Lymphocytes # (Auto) 0.58 K/uL Monocytes # (Auto) 0.10 K/uL Eosinophils # (Auto) 0.02 K/uL Basophils # (Auto) 0.02 K/uL Recent Pertinent Medications Outpatient Anti-diabetic Regimen: * Lantus 9 units daily (up to 12-14 units if on steroid taper) * Novolog: CR = 20 Risk Factors for Insulin Resistance: * Diet * Steroids Assessment & Plan ASSESSMENT: * 56 yo T1DM F admitted with neurological symptoms, known to our glycemic service from prior admission * Most recent A1c from 2016 shows good glycemic control- order new A1c with labs * Due to recent brain surgery, pt on outpatient methylprednisolone taper which has been continued * BSG taken in ER 166 mg/dL * Will initiate weight-based Novolog now and order Lantus for tomorrow AM * In previous admissions she has required home Lantus when she was on IV steroids RTC * ADA & AACE recommend a goal blood sugar range 140-180 mg/dl for the majority of critically ill & non-critically ill patients. However, more stringent targets may be selected in individual cases. PLAN FOR INPATIENT GLYCEMIC CONTROL: * Basal insulin with LANTUS 8 units SQ daily- will decide tomorrow * Correctional Insulin with NOVOLOG per scale ACHS or Q6hrs while NPO * Goal Range: Low 140 mg/dL - High 180 mg/dL * Correction Factor: 45 mg/dL/unit * Nutritional / Prandial insulin per carb ratio of 1 unit per 15 grams CHO consumed * Please note that the plan above was derived based on current level of insulin resistance and hospital stress. These recommendations are appropriate for inpatient admission only. Plan of care upon discharge will need to be reassessed to avoid potential outpatient hypo/hyperglycemia. Thank you.
--- NOTE | 2016-11-27 15:21 | EMERGENCY ROOM VISIT NOTE ---
History Report prepared by [place]ard: Chaim Arce Under the Supervision of: Dr. Mina Rodriguez D.O. First contact with patient: 11:29 Chief Complaint: STROKE SYMPTOMS Stated Complaint: BRAIN SURG. 11/19-SPEECH SLURRING, THINKING PROBLEM History of Present Illness The patient is a 56 year old female who presents to the Emergency Room with complaints of improving neurologic symptoms beginning yesterday. Per , the patient has had slurred speech, favoring her left side, and has been "stumbling around" today. He states that the patient's speech has improved since it began, but states that the patient is having "a lot of trouble getting her thoughts out". He states that he last saw the patient well yesterday before she went to sleep about 17.5 hours ago. The patient had brain surgery 8 days ago for metastasized breast cancer. She also complains of a headache. Pt denies change in vision, fevers, chest pain, shortness of breath, weakness, numbness, nausea, vomiting, diarrhea, pain with urination, and melena. She denies noticing any problems with speech. She denies any recent falls. The patient is currently undergoing treatment for breast cancer and is receiving radiation and chemotherapy treatments. She has not had a treatment for several weeks. The patient's notes that the patient was recently found to have a new lesion on her spine. Source of History: patient, spouse/significant other () Onset: Yesterday Quality: other (neurologic symptoms) Timing: other (improving) Associated Symptoms: + headache, No chest pain, No SOB, No nausea, No vomiting, No diarrhea, No urinary symptoms Review of Systems See HPI for pertinent positives & negatives. A total of 10 systems reviewed and were otherwise negative. 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 (11) History of breast cancer (12) Hypertension (13) Increased intracranial pressure (14) Irritable bowel syndrome (15) Mass of left lung (16) Metastasis to brain (17) Osteoporosis (18) TIA (transient ischemic attack) Surgical Problems: (1) History of cataract surgery (2) History of Chiari malformation (3) History of lumpectomy of left breast (4) History of tonsillectomy and adenoidectomy (5) S/p axillary lymph node biopsy (6) S/p breast cyst removal (7) S/P craniotomy (8) S/p Gamma knife radiosurgery for brain metastatic lesion (9) S/p insertion tunneled central venous access with SQ port (10) S/P partial mastectomy (11) S/P sinus surgery (12) S/P tonsillectomy and adenoidectomy (13) S/P tubal ligation (14) Status post gamma knife treatment Family History Asthma DAUGHTER SON Diabetes mellitus MOTHER Hypertension FATHER Stroke FATHER GRANDFATHER Social History Smoking Status: Never Smoker Drug Use: none Marital Status: Occupation Status: disabled Current/Historical Medications Scheduled Amitriptyline Hcl (Elavil), 75 MG PO HS Baclofen (Lioresal), 20 MG PO TID Butorphanol Tartrate (Butorphanol Tartrate), 1 SPRY NA UD Cholecalciferol (Vitamin D3), 1 TAB PO DAILY Cholestyramine (Bulk) (Cholestyramine), 4 GM PO QID Clindamycin Phosphate (Topical (Clindamycin Phosphate), 1 APPLN TOP BID Estrogens, Conjugated (Premarin), 1 APPLN PV DAILY Fluticasone Propionate (Flovent Hfa), 2 PUFFS INH BID Fluticasone Propionate (Nasal) (Flonase Allergy Relief), 2 SPRAYS JUDE QAM Insulin Aspart (Novolog Flexpen), 1 UNIT SC UD Insulin Glargine (Lantus), 9 UNITS SC DAILY Lamotrigine (Lamictal), 150 MG PO BID Lovastatin (Mevacor), 10 MG PO QPM Methylprednisolone (Methylprednisolone), 2 TAB PO Q8 Montelukast Sodium (Montelukast Sodium), 10 MG PO QAM Multivitamin (Multivitamin), 1 TAB PO QAM Omeprazole (Prilosec), 20 MG PO QAM Potassium Ext Rel (Klor-Con), 20 MEQ PO BID Ropinirole (Requip), 1 MG PO TID Tizanidine (Zanaflex), 4 MG PO QPM Topiramate (Topiramate), 200 MG PO BID Verapamil Hcl (Verapamil Hcl Sr), 120 MG PO BID Scheduled PRN Albuterol Sulfate (Proventil Hfa), 2 PUFFS INH QID PRN for SOB/Wheezing Culoajqxbx-Qyitqsfvvvyrt-Hddpd (Fioricet/Codeine), 1 TAB PO Q4 PRN for Headache Dicyclomine Hcl (Dicyclomine Hcl), 20 MG PO Q6 PRN for GI Upset Diphenoxylate/Atropine (Lomotil), 1 TAB PO QID PRN for Diarrhea Ibuprofen (Motrin), 400 MG PO Q8 PRN for Pain Meclizine Hcl (Meclizine Hcl), 25 MG PO Q6H PRN for Dizziness or Vertigo Oxycodone/Acetaminophen 5MG/325MG (Percocet 5MG/325MG), 1 TABLET PO Q6H PRN for Pain Polyethylene Glycol 3350 (Miralax), 17 GM PO DAILY PRN for Constipation Prochlorperazine Maleate (Compazine), 10 MG PO Q6H PRN for Nausea Promethazine HCl (Promethazine HCl), 25 MG PO Q6 PRN for Nausea or Vomiting Allergies Coded Allergies: Erythromycin (Unverified Adverse Reaction, Unknown, GI UPSET, 04/15/16) Physical Exam Vital Signs Date Time Temp Pulse Resp B/P (MAP) Pulse Ox O2 Delivery O2 Flow Rate FiO2 11/27/16 15:02 87 18 124/78 95 Room Air 11/27/16 13:09 98 Room Air 11/27/16 13:09 92 18 141/94 98 Room Air 11/27/16 11:26 36.6 116 18 165/89 99 Room Air Physical Exam GENERAL: Sitting up in bed, disheveled, no acute distress EYE EXAM: normal conjunctiva, PERRL and EOM's intact OROPHARYNX: no exudate, no erythema, lips, buccal mucosa, and tongue normal and mucous membranes are moist NECK: supple, no nuchal rigidity, no adenopathy, non-tender LUNGS: Clear to auscultation. Normal chest wall mechanics HEART: no murmurs, S1 normal and S2 normal ABDOMEN: abdomen soft, non-tender, normo-active bowel sounds, no masses, no rebound or guarding. BACK: Back is symmetrical on inspection and there is no deformity, no midline tenderness, no CVA tenderness. SKIN: no rashes and no bruising UPPER EXTREMITIES: upper extremities are grossly normal. LOWER EXTREMITIES: No pitting edema. NEURO EXAM: Awake, alert and oriented to person, place and time. Slight slurred speech. Cranial nerves II-XII otherwise intact. No drift to the upper extremities. Finger to nose intact. Medical Decision & Procedures ER Provider Diagnostic Interpretation: CT:Per my review, radiologist interpretation. CT OF THE HEAD WITHOUT CONTRAST FINDINGS: No acute intracranial hemorrhage is present. Note is again made of the complex right posterior parafalcine mass as shown and MRI of November 17, 2016. This is suboptimally assessed on this unenhanced CT but measures approximately 3.9 x 2.2 cm. Extensive associated vasogenic edema is similar to prior MRI. There is mass effect with mild leftward midline shift of 8 mm. This is unchanged. The basilar cisterns are patent. The patient is status post suboccipital craniectomy. The small left occipital lobe lesion shown on prior MRI is not evident on this exam due to technique. No suspicious calvarial lesions are present. There is no calvarial fracture. IMPRESSION: 1. No acute intracranial hemorrhage. 2. No significant change in appearance of the brain since MRI of November 17, 2016 when allowing for differences in technique. Redemonstration of the right posterior parafalcine metastasis with extensive associated vasogenic edema and mass effect, as described above. Stable sulcal effacement and leftward midline shift. Electronically signed by: Jewel Couch M.D. Laboratory Results 11/27/16 12:03 Red Blood Count 4.07, Mean Corpuscular Volume 99.3, Mean Corpuscular Hemoglobin 31.7, Mean Corpuscular Hemoglobin Concent 31.9, Mean Platelet Volume 8.5, Neutrophils (%) (Auto) 92.6, Lymphocytes (%) (Auto) 5.3, Monocytes (%) (Auto) 0.9, Eosinophils (%) (Auto) 0.2, Basophils (%) (Auto) 0.2, Neutrophils # (Auto) 10.14, Lymphocytes # (Auto) 0.58, Monocytes # (Auto) 0.10, Eosinophils # (Auto) 0.02, Basophils # (Auto) 0.02 11/27/16 12:03 Test 11/27/16 12:03 11/27/16 12:22 White Blood Count 10.95 K/uL (4.8-10.8) Red Blood Count 4.07 M/uL (4.2-5.4) Hemoglobin 12.9 g/dL (12.0-16.0) Hematocrit 40.4 % (37-47) Mean Corpuscular Volume 99.3 fL (80-100) Mean Corpuscular Hemoglobin 31.7 pg (25-34) Mean Corpuscular Hemoglobin Concent 31.9 g/dl (32-36) Platelet Count 415 K/uL (130-400) Mean Platelet Volume 8.5 fL (7.4-10.4) Neutrophils (%) (Auto) 92.6 % Lymphocytes (%) (Auto) 5.3 % Monocytes (%) (Auto) 0.9 % Eosinophils (%) (Auto) 0.2 % Basophils (%) (Auto) 0.2 % Neutrophils # (Auto) 10.14 K/uL (1.4-6.5) Lymphocytes # (Auto) 0.58 K/uL (1.2-3.4) Monocytes # (Auto) 0.10 K/uL (0.11-0.59) Eosinophils # (Auto) 0.02 K/uL (0-0.5) Basophils # (Auto) 0.02 K/uL (0-0.2) RDW Standard Deviation 51.6 fL (36.4-46.3) RDW Coefficient of Variation 14.4 % (11.5-14.5) Immature Granulocyte % (Auto) 0.8 % Immature Granulocyte # (Auto) 0.09 K/uL (0.00-0.02) Prothrombin Time 9.8 SECONDS (9.0-12.0) Prothromb Time International Ratio 0.9 (0.9-1.1) Activated Partial Thromboplast Time 30.7 SECONDS (21.0-31.0) Partial Thromboplastin Ratio 1.2 Anion Gap 6.0 mmol/L (3-11) Est Creatinine Clear Calc Drug Dose 65.4 ml/min Estimated GFR () 112.8 Estimated GFR (Non- 97.3 BUN/Creatinine Ratio 23.3 (10-20) Calcium Level 8.5 mg/dl (8.5-10.1) Total Creatine Kinase 50 U/L (26-192) Creatine Kinase MB 0.7 ng/ml (0.5-3.6) Creatine Kinase MB Ratio 1.4 (0-3.0) Troponin I < 0.015 ng/ml (0-0.045) Bedside Prothrombin Time INR 0.9 (0.9-1.1) Bedside Glucose 166 mg/dl (70-90) Laboratory results per my review. Medications Administered Medications (Trade) Dose Ordered Sig/Crow Route Start Time Stop Time Status Last Admin Dose Admin Sodium Chloride 1,000 ml @ 50 mls/hr Q20H IV 11/27/16 11:35 12/27/16 11:34 11/27/16 13:08 50 MLS/HR ECG Indication: other (neurologic symptoms) Rate (beats per minute): 99 Rhythm: sinus rhythm Findings: left axis deviation, other (Non-specific ST changes in the lateral leads) Comparison ECG Date: November 17, 2016 Change: Non-specific ST changes are new. ED Course ED COURSE: Vital signs were reviewed and showed tachycardia and hypertension The patients medical record was reviewed The above diagnostic studies were performed and reviewed. ED treatments and interventions as stated above. 1131: The patient was evaluated in room A9B. A complete history and physical examination was performed. 1135: Ordered Sodium Chloride 1000 ml @ 50 mls/hr IV. 1341: Upon reevaluation, the patient is resting comfortably. I discussed my findings with the patient and she understands and agrees with the treatment plan. Based on the patients age, coexisting illnesses, exam and lab findings the decision to treat as an inpatient was made. The patient remained stable while under my care. The patient will be evaluated for further management. Medical Decision Differential diagnoses includes but is not limited to toxic, metabolic, infectious, traumatic, cardiac, neurologic, hematologic, psychiatric and inflammatory etiologies. Patient is a 56-year-old female with metastatic breast cancer who recently received gamma knife therapy in [place] on 11/19 who presents the ER for slurred speech, difficulty walking and aphasia. The symptoms completely resolved upon presentation. CT head shows no acute change. She floated neurologically intact with exception of mild slurred speech. CBC along with BMP , and troponin were negative. She does take steroids. She was updated regards to findings. She is admitted for further workup of a TIA versus worsening cerebral edema versus worsening mass. Consults Time Called: 1332 Consulting Physician: Dr. Venkatesh Chew Returned Call: [phone] I reviewed the patient's case with Dr. Riddle. She will evaluate the patient for further management. Impression Primary Impression: TIA (transient ischemic attack) Additional Impression: Cerebral edema Scribe Attestation The scribe's documentation has been prepared under my direction and personally reviewed by me in its entirety. I confirm that the note above accurately reflects all work, treatment, procedures, and medical decision making performed by me. Departure Information Dispostion Being Evaluated By Hospitalist Referrals Marbin Peace D.O. (PCP) Patient Instructions My [facility] Problem Qualifiers Primary Impression: TIA (transient ischemic attack) Transient cerebral ischemia type: unspecified Qualified Codes: G45.9 - Transient cerebral ischemic attack, unspecified
--- NOTE | 2016-11-27 15:21 | History and Physical ---
History & Physical Date & Time of Service: Nov 27, 2016 at 15:02 Chief Complaint: Brain Surg. 11/19-Speech Slurring, Thinking Problem Primary Care Physician: Marbin Peace D.O. History of Present Illness Source: patient, family, clinic records, hospital records 56 yo F with breast cancer diagnosed in May 2015 who has been treated with left breast mastectomy and chemo has had a recurrence of symptoms of dysequilibrium, HANDLEY and garbled speech this morning, bringing her to the ER for evaluation. She has recently had a recurrence of brain mets and underwent repeat gamma knife surgery at [facility] on 11/19. She admits to feeling as though "the inside of my head is swollen" and having a posterior headache. Shortly after arrival to the ER her symptoms resolved and she currently has no neurologic deficits. She states that intermittently ovr the past year, she would experience episodes of dysquilibrium or an "odd sense of balance" along with chronic headaches. She also has a h/o seizure disorder prior to the diagnosis of breast cancer and states that this is well controlled with medication. She has a lifelong h/o migraines thught 2/2 Chiari malformation for which she underwent surgery in the past but was unsuccessful in controlling her symptoms. She still has persistent posterior headaches which are present today. She denies any visual changes, trouble or pain with swallowing, trouble moving arms or legs. She has been on a high dose steroid taper since the surgery and she has been off of her chemotherapy for the last 3 weeks which consisted of Gemzar, Herceptin, Perjeta (and Xgeva). She is seen by Dr. Junior Washington and Dr. Rabia Washington for upcoming planned XRT to an L1 lesion that is new, and based on recent PET findings is concerning for mets. This was planned for next week. Past Medical/Surgical History Medical Problems: (1) Allergic rhinitis Status: Chronic (2) Asthma Status: Chronic (3) Medina's esophagus Status: Chronic (4) Brain metastases Status: Chronic (5) Breast cancer Permanent Comment: DIAGNOSIS: Left breast cancer, invasive ductal carcinoma, grade 3, ER negative, LA weakly positive, Her2 negative, cT1N1, ypT1N0(i+) with a indeterminate lesion in the right parietal lobe followed with MRI TREATMENT: 1. Neoadjuvant chemotherapy - AC/T chemotherapy (Dr. Junior Washington) 2. Lumpectomy with SLN - 08/21/2015 (Dr. Zurita) 3. Status post gamma knife radiation therapy to single brain lesion at [facility] 4. Status post completion of radiation therapy 12/31/2015 received 7240 cGy, left breast, supraclavicular, and axilla area. 5. Status post lung wedge resection 02/10/2016 due to metastatic breast carcinoma 6. Ongoing treatment with Gemzar, Herceptin, Perjeta, and Xgeva. 7. Brain MRI is followed by Dr. Fernando at [facility] 8. Status post gamma knife radiation therapy to 3 lesions 11/19/2016 9. 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 (12) History of breast cancer Status: Resolved (13) Hypertension Status: Chronic (14) Irritable bowel syndrome Status: Chronic (15) Mass of left lung Status: Chronic (16) Metastasis to brain Status: Resolved (17) Metastatic cancer to spine Status: Chronic (18) Osteoporosis Status: Chronic Surgical Problems: (1) History of cataract surgery Status: Chronic (2) History of Chiari malformation Status: Resolved (3) History of lumpectomy of left breast Status: Resolved (4) History of tonsillectomy and adenoidectomy Status: Resolved (5) S/p axillary lymph node biopsy Status: Chronic (6) S/p breast cyst removal Status: Chronic (7) S/P craniotomy Permanent Comment: 09/27/2014- suboccipital craniectomy, C1 laminectomy, duraplasty, mocrodissection Status: Chronic (8) S/p Gamma knife radiosurgery for brain metastatic lesion Permanent Comment: 09/24/2015 Status: Chronic (9) S/p insertion tunneled central venous access with SQ port Status: Chronic (10) S/P partial mastectomy Status: Chronic (11) S/P sinus surgery Status: Chronic (12) S/P tonsillectomy and adenoidectomy Status: Chronic (13) S/P tubal ligation Status: Chronic (14) Status post gamma knife treatment Status: Resolved Family History Asthma DAUGHTER SON Diabetes mellitus MOTHER Hypertension FATHER Stroke FATHER GRANDFATHER Social History Smoking Status: Never Smoker Smokeless Tobacco Use: No Alcohol Use: none Drug Use: none Marital Status: Housing status: lives with significant other Occupational Status: disabled Immunizations History of Influenza Vaccine: Yes Influenza Vaccine Date: Apr 30, 2016 History of Tetanus Vaccine?: Yes Tetanus Immunization Date: Oct 03, 2015 History of Pneumococcal: Yes Pneumococcal Date: Aug 13, 2008 History of Hepatitis B Vaccine: Yes Hepatitis Immunization Date: November 18, 2009 Multi-Drug Resistant Organisms History of MDRO: Yes Type of MDRO: MRSA Allergies Coded Allergies: Erythromycin (Unverified Adverse Reaction, Unknown, GI UPSET, 04/15/16) Home Medications Scheduled Amitriptyline Hcl (Elavil), 75 MG PO HS Baclofen (Lioresal), 20 MG PO TID Butorphanol Tartrate (Butorphanol Tartrate), 1 SPRY NA UD Cholecalciferol (Vitamin D3), 1 TAB PO DAILY Cholestyramine (Bulk) (Cholestyramine), 4 GM PO QID Clindamycin Phosphate (Topical (Clindamycin Phosphate), 1 APPLN TOP BID Estrogens, Conjugated (Premarin), 1 APPLN PV DAILY Fluticasone Propionate (Flovent Hfa), 2 PUFFS INH BID Fluticasone Propionate (Nasal) (Flonase Allergy Relief), 2 SPRAYS JUDE QAM Insulin Aspart (Novolog Flexpen), 1 UNIT SC UD Insulin Glargine (Lantus), 9 UNITS SC DAILY Lamotrigine (Lamictal), 150 MG PO BID Lovastatin (Mevacor), 10 MG PO QPM Methylprednisolone (Methylprednisolone), 2 TAB PO Q8 Montelukast Sodium (Montelukast Sodium), 10 MG PO QAM Multivitamin (Multivitamin), 1 TAB PO QAM Omeprazole (Prilosec), 20 MG PO QAM Potassium Ext Rel (Klor-Con), 20 MEQ PO BID Ropinirole (Requip), 1 MG PO TID Tizanidine (Zanaflex), 4 MG PO QPM Topiramate (Topiramate), 200 MG PO BID Verapamil Hcl (Verapamil Hcl Sr), 120 MG PO BID Scheduled PRN Albuterol Sulfate (Proventil Hfa), 2 PUFFS INH QID PRN for SOB/Wheezing Lbgdnohjae-Gjrcwhvjkcijp-Wnkku (Fioricet/Codeine), 1 TAB PO Q4 PRN for Headache Dicyclomine Hcl (Dicyclomine Hcl), 20 MG PO Q6 PRN for GI Upset Diphenoxylate/Atropine (Lomotil), 1 TAB PO QID PRN for Diarrhea Ibuprofen (Motrin), 400 MG PO Q8 PRN for Pain Meclizine Hcl (Meclizine Hcl), 25 MG PO Q6H PRN for Dizziness or Vertigo Oxycodone/Acetaminophen 5MG/325MG (Percocet 5MG/325MG), 1 TABLET PO Q6H PRN for Pain Polyethylene Glycol 3350 (Miralax), 17 GM PO DAILY PRN for Constipation Prochlorperazine Maleate (Compazine), 10 MG PO Q6H PRN for Nausea Promethazine HCl (Promethazine HCl), 25 MG PO Q6 PRN for Nausea or Vomiting Review of Systems Ten systems were reviewed and negative except as indicated in HPI. Physical Exam Vital Signs Date Time Temp Pulse Resp B/P (MAP) Pulse Ox O2 Delivery O2 Flow Rate FiO2 11/27/16 13:09 98 Room Air 11/27/16 13:09 92 18 141/94 98 Room Air 11/27/16 11:26 36.6 116 18 165/89 99 Room Air GEN: WNWD, in no acute distress, alert and appropriate HEENT: NC/AT, PERRL, normal sclerae, facial erythema/flushing noted on cheeks MMM, pharynx non-acute CARDIO: reg rate, S1/2 heard without m/g/r LUNGS: CTA bilaterally, no crackles, rales or wheezes, good diaphragmatic excursion ABD: soft, non-tender, non-distended, no rebound or guarding, +BS EXTREMITY: RP and DP palpable 2+ bilat, no LE swelling or edema, extremities are warm and well-perfused NEURO: CN 2-12 intact, sensation intact throughout, coordination intact, Romberg negative MUSC: 5/5 strength throughout, no focal deficits, normal gait SKIN: warm and dry Diagnostics Laboratory Results Results Past 24 Hours Test 11/27/16 12:03 11/27/16 12:22 Range/Units White Blood Count 10.95 4.8-10.8 K/uL Red Blood Count 4.07 4.2-5.4 M/uL Hemoglobin 12.9 12.0-16.0 g/dL Hematocrit 40.4 37-47 % Mean Corpuscular Volume 99.3 80-100 fL Mean Corpuscular Hemoglobin 31.7 25-34 pg Mean Corpuscular Hemoglobin Concent 31.9 32-36 g/dl Platelet Count 415 130-400 K/uL Mean Platelet Volume 8.5 7.4-10.4 fL Neutrophils (%) (Auto) 92.6 % Lymphocytes (%) (Auto) 5.3 % Monocytes (%) (Auto) 0.9 % Eosinophils (%) (Auto) 0.2 % Basophils (%) (Auto) 0.2 % Neutrophils # (Auto) 10.14 1.4-6.5 K/uL Lymphocytes # (Auto) 0.58 1.2-3.4 K/uL Monocytes # (Auto) 0.10 0.11-0.59 K/uL Eosinophils # (Auto) 0.02 0-0.5 K/uL Basophils # (Auto) 0.02 0-0.2 K/uL RDW Standard Deviation 51.6 36.4-46.3 fL RDW Coefficient of Variation 14.4 11.5-14.5 % Immature Granulocyte % (Auto) 0.8 % Immature Granulocyte # (Auto) 0.09 0.00-0.02 K/uL Prothrombin Time 9.8 9.0-12.0 SECONDS Prothromb Time International Ratio 0.9 0.9-1.1 Activated Partial Thromboplast Time 30.7 21.0-31.0 SECONDS Partial Thromboplastin Ratio 1.2 Sodium Level 138 136-145 mmol/L Potassium Level 3.5 3.5-5.1 mmol/L Chloride Level 103 98-107 mmol/L Carbon Dioxide Level 29 21-32 mmol/L Anion Gap 6.0 3-11 mmol/L Blood Urea Nitrogen 16 7-18 mg/dl Creatinine 0.69 0.60-1.20 mg/dl Est Creatinine Clear Calc Drug Dose 65.4 ml/min Estimated GFR () 112.8 Estimated GFR (Non- 97.3 BUN/Creatinine Ratio 23.3 10-20 Random Glucose 173 70-99 mg/dl Calcium Level 8.5 8.5-10.1 mg/dl Total Creatine Kinase 50 26-192 U/L Creatine Kinase MB 0.7 0.5-3.6 ng/ml Creatine Kinase MB Ratio 1.4 0-3.0 Troponin I < 0.015 0-0.045 ng/ml Bedside Prothrombin Time INR 0.9 0.9-1.1 Bedside Glucose 166 70-90 mg/dl Diagnostic Radiology MR ANGIOGRAM OF THE BRAIN CLINICAL HISTORY: Slurred speech. Change in mental status. Recent brain surgery. COMPARISON STUDY: MRI of the brain performed concurrently on 11/27/2016. TECHNIQUE: 3-D [id number] MR angiography of the intracranial circulation is performed. 3-D tumble views are created and assessed. IV contrast was not administered for this examination. The examination is modestly degraded by motion artifact. FINDINGS: There is a small left posterior communicating artery. The internal carotid arteries are widely patent bilaterally, as are the anterior and middle cerebral arteries. The vertebrobasilar system and posterior cerebral arteries are widely patent. The vertebral arteries are codominant. There is no aneurysm, high-grade stenosis, or focal vessel cutoff seen throughout the intracranial circulation. IMPRESSION: Unremarkable MR angiogram MRI OF THE BRAIN COMBO CLINICAL HISTORY: Recent brain surgery. Metastatic breast cancer. Loss of balance. Slurred speech. Change in mental status. COMPARISON STUDY: CT of the brain dated 11/27/2016. MRI of the brain dated 11/17/2016. TECHNIQUE: MRI of the brain was performed utilizing various T1 and T2-weighted sequences in the axial, sagittal, and coronal planes. Contrast-enhanced sequences were acquired following the administration of 5 cc of Gadavist. The examination is degraded by susceptibility artifact along the left posterior parietal cortex related to a metallic foreign body in the scalp. FINDINGS: Brain parenchyma: There is unchanged appearance of a solid and cystic posterior right parafalcine mass with significant associated edema as compared to study performed 1 week previously. This measures 3.2 x 3.5 x 2.0 cm (previously measured 3.4 x 3.6 x 2.2 cm) and causes significant mass effect. There is effacement of the overlying cortical sulci and approximately 8 mm of right to left midline shift. A left occipital lesion is also unchanged, best seen on coronal postcontrast image #22 and measuring 7 mm. No new lesions are seen from the 11/17/2016 examination. No hemorrhage is identified and there is no restricted diffusion typical for acute ischemia. No extra-axial fluid collection is seen. The cerebellar tonsils are normal in configuration. Ventricles, sulci, and cisterns: See above. Pituitary and sella: Unremarkable. Intracranial vasculature: Normal flow voids are maintained at the skull base. Orbits: The bony orbits are grossly intact. Orbital contents are normal in appearance noting a right ocular lens implant. Sinuses and mastoids: Clear. Calvarium: There are postoperative changes from suboccipital craniectomy. Cervical cord: Partially visualized cervical spinal cord is normal in morphology and signal intensity. IMPRESSION: 1. There is unchanged appearance of a complex posterior right parafalcine mass with marked surrounding edema and right to left midline shift as compared to the 11/17/2016 examination. 2. A 7 mm left occipital lesion is also unchanged. No new lesions are identified. 3. There is no hemorrhage or evidence of acute ischemia. MR ANGIOGRAM OF THE NECK COMBO CLINICAL HISTORY: Slurred speech. Change in mental status. Recent brain surgery. COMPARISON STUDY: No priors. TECHNIQUE: Axial 3-D [id number] MR angiography of the neck is performed. Subsequently, following the IV administration of 5 cc of Gadavist coronal MR angiogram of the neck was performed to corroborate the findings. 3-D reformats are created and assessed. All measurements were calculated based on NASCET criteria. Subtraction imaging was utilized. FINDINGS: Visualized portions of the thoracic aorta are normal in caliber. The arch demonstrates standard 3-vessel anatomy. The subclavian arteries are widely patent. The right common carotid artery is widely patent, as are the right internal and external carotid arteries. The left common carotid artery is widely patent, as are the left internal and external carotid arteries. The vertebral arteries are widely patent and codominant. The partially visualized intracranial vessels at the skull base appear clear. The jugular veins are patent. IMPRESSION: Unremarkable MR angiogram of the neck. CT OF THE HEAD WITHOUT CONTRAST CLINICAL HISTORY: Possible stroke. Slurred speech. Recent gamma knife therapy. Metastatic breast cancer. COMPARISON STUDY: MRI of the brain November 17, 2016. CT DOSE: 614.27 mGy.cm TECHNIQUE: Helical axial images of the head were obtained without IV contrast. Automated exposure control was utilized for the study. FINDINGS: No acute intracranial hemorrhage is present. Note is again made of the complex right posterior parafalcine mass as shown and MRI of November 17, 2016. This is suboptimally assessed on this unenhanced CT but measures approximately 3.9 x 2.2 cm. Extensive associated vasogenic edema is similar to prior MRI. There is mass effect with mild leftward midline shift of 8 mm. This is unchanged. The basilar cisterns are patent. The patient is status post suboccipital craniectomy. The small left occipital lobe lesion shown on prior MRI is not evident on this exam due to technique. No suspicious calvarial lesions are present. There is no calvarial fracture. IMPRESSION: 1. No acute intracranial hemorrhage EKG SR 99 Impression Assessment and Plan 56 yo F with h/o breast ca with mets to spine and brain s/p recent gamma knife surgery presents with TIA symptoms 1. TIA-etiology may be new vascular issue (true TIA), pt is low risk except that her father had a stroke in her 30s and she has a hypergoagulable state in the setting of active malignancy. Other possibility includes but not limited to radiation side effect, steroid side effect, worsening of her chronic headaches (similar to complicated migraine), new brain mets in addition to what was present last month. Will treat as TIA for now medically with ASA 325 and statin, place on tele, consult Neuro, obtain MRI/MRA of head and neck and TTE. 2. Brain mets-cont dexamethasone. Appreciate Rad Onc input on dosage and taper recommendations. 3. L1 mets to spine-planned for outpatient XRT to spine next week. Consult Rad Onc to see if this should be done as inpatient. Percocet PRN pain 4. Breast cancer with mets-off chemotherapy, will consult Dr. Washington for assistance with overall management. Question if she should be on hormone replacement therapy with active breast cancer?? (taking intravaginal premarin) 5. Epilepsy-on topomax and lamictal. Cont meds, seizure precautions. Defer to Neurology whether obtaining levels is needed. 6. h/o MRSA-contact precautions 7. DMI- Home Lantus dose ordered and ISS with coverage. Apprec pharm consult. 8. Chronic migraines, cont current therapy 9. HTN-controlled DVT proph-Lovenox FULL CODE-discussed with she and on admission Dispo-to telemetry [facility]iddle [facility] Level [facility] Care Telemetry Resuscitation Status FULL RESUSCITATION VTE Prophylaxis VTE Risk Assessment Done? Y/N: Yes Risk Level: Moderate Given or contraindicated: Enoxaparin (Lovenox)SQ
[2016-11-27] MEDS: OXYCODONE/ACETAMINOPHEN 5-325 TAB PO PRN ×2 (15:44→21:50)
[2016-11-27] MEDS ORDERED: BACLOFEN 10 MG TAB PO PRN (16:45)
[2016-11-27] MEDS ORDERED: ASPIRIN 325 MG ECTAB PO ONE (17:00)
[2016-11-27] MEDS ORDERED: GADAVIST IV PRN (17:15)
[2016-11-27 17:35] VITALS: BP 139/81; PULSE 85; TEMP 36.7; O2SAT 97; Ht 152.4 cm; Wt 54.8 kg
--- NOTE | 2016-11-27 17:43 | DIAGNOSTIC IMAGING REPORT ---
MR ANGIOGRAM OF THE NECK COMBO CLINICAL HISTORY: Slurred speech. Change in mental status. Recent brain surgery. COMPARISON STUDY: No priors. TECHNIQUE: Axial 3-D lpet-dn-[id number] MR angiography of the neck is performed. Subsequently, following the IV administration of 5 cc of Gadavist coronal MR angiogram of the neck was performed to corroborate the findings. 3-D reformats are created and assessed. All measurements were calculated based on NASCET criteria. Subtraction imaging was utilized. FINDINGS: Visualized portions of the thoracic aorta are normal in caliber. The arch demonstrates standard 3-vessel anatomy. The subclavian arteries are widely patent. The right common carotid artery is widely patent, as are the right internal and external carotid arteries. The left common carotid artery is widely patent, as are the left internal and external carotid arteries. The vertebral arteries are widely patent and codominant. The partially visualized intracranial vessels at the skull base appear clear. The jugular veins are patent. IMPRESSION: Unremarkable MR angiogram of the neck. Electronically signed by: Antonio Akhtar M.D. 11/27/2016 5:41 PM Dictated Date/Time: 11/27/2016 5:38 PM
--- NOTE | 2016-11-27 17:45 | DIAGNOSTIC IMAGING REPORT ---
MR ANGIOGRAM OF THE BRAIN CLINICAL HISTORY: Slurred speech. Change in mental status. Recent brain surgery. COMPARISON STUDY: MRI of the brain performed concurrently on 11/27/2016. TECHNIQUE: 3-D [id number] MR angiography of the intracranial circulation is performed. 3-D tumble views are created and assessed. IV contrast was not administered for this examination. The examination is modestly degraded by motion artifact. FINDINGS: There is a small left posterior communicating artery. The internal carotid arteries are widely patent bilaterally, as are the anterior and middle cerebral arteries. The vertebrobasilar system and posterior cerebral arteries are widely patent. The vertebral arteries are codominant. There is no aneurysm, high-grade stenosis, or focal vessel cutoff seen throughout the intracranial circulation. IMPRESSION: Unremarkable MR angiogram of the brain. Electronically signed by: Antonio Akhtar M.D. 11/27/2016 5:43 PM Dictated Date/Time: 11/27/2016 5:41 PM
--- NOTE | 2016-11-27 17:55 | DIAGNOSTIC IMAGING REPORT ---
MRI OF THE BRAIN COMBO CLINICAL HISTORY: Recent brain surgery. Metastatic breast cancer. Loss of balance. Slurred speech. Change in mental status. COMPARISON STUDY: CT of the brain dated 11/27/2016. MRI of the brain dated 11/17/2016. TECHNIQUE: MRI of the brain was performed utilizing various T1 and T2-weighted sequences in the axial, sagittal, and coronal planes. Contrast-enhanced sequences were acquired following the administration of 5 cc of Gadavist. The examination is degraded by susceptibility artifact along the left posterior parietal cortex related to a metallic foreign body in the scalp. FINDINGS: Brain parenchyma: There is unchanged appearance of a solid and cystic posterior right parafalcine mass with significant associated edema as compared to study performed 1 week previously. This measures 3.2 x 3.5 x 2.0 cm (previously measured 3.4 x 3.6 x 2.2 cm) and causes significant mass effect. There is effacement of the overlying cortical sulci and approximately 8 mm of right to left midline shift. A left occipital lesion is also unchanged, best seen on coronal postcontrast image #22 and measuring 7 mm. No new lesions are seen from the 11/17/2016 examination. No hemorrhage is identified and there is no restricted diffusion typical for acute ischemia. No extra-axial fluid collection is seen. The cerebellar tonsils are normal in configuration. Ventricles, sulci, and cisterns: See above. Pituitary and sella: Unremarkable. Intracranial vasculature: Normal flow voids are maintained at the skull base. Orbits: The bony orbits are grossly intact. Orbital contents are normal in appearance noting a right ocular lens implant. Sinuses and mastoids: Clear. Calvarium: There are postoperative changes from suboccipital craniectomy. Cervical cord: Partially visualized cervical spinal cord is normal in morphology and signal intensity. IMPRESSION: 1. There is unchanged appearance of a complex posterior right parafalcine mass with marked surrounding edema and right to left midline shift as compared to the 11/17/2016 examination. 2. A 7 mm left occipital lesion is also unchanged. No new lesions are identified. 3. There is no hemorrhage or evidence of acute ischemia. Electronically signed by: Antonio Akhtar M.D. 11/27/2016 5:54 PM Dictated Date/Time: 11/27/2016 5:48 PM
[2016-11-27] MEDS: DEXAMETHASONE 4 MG TAB PO SCH ×2 (18:00→23:51)
[2016-11-27] MEDS: POTASSIUM CHLORIDE 20 MEQ TABCR PO SCH (18:00)
[2016-11-27] MEDS: INSULIN ASPART 100 UNITS/ML 3 ML PEN SC SCH ×3 (18:03→20:40)
--- NOTE | 2016-11-27 19:07 | Radiation Oncology Progress Nt ---
Radiation Oncology Progress Nt Date of Service Date of Service: Nov 27, 2016. Subjective Pt evaluation today including: conversation w/ patient, conversation w/ spa consultant Ms. Blue is a 56 year old female with a history of metastatic breast cancer to the brain and bone. We recently saw the patient in follow-up evaluation due to newly diagnosed metastatic disease involving the lumbar spine. The patient underwent CT simulation for treatment planning and we are currently planning her radiation therapy for her metastatic disease in the lumbar spine. We have been asked to evaluate her in the inpatient setting due to a TIA episode which was felt to be due to recent radiation therapy completed at [facility] in [place] utilizing the gamma knife. Objective Vital Signs Date Time Temp Pulse Resp B/P (MAP) Pulse Ox O2 Delivery O2 Flow Rate FiO2 11/27/16 17:35 36.7 85 18 139/81 97 Room Air 11/27/16 16:16 88 18 124/78 97 11/27/16 15:02 87 18 124/78 95 Room Air 11/27/16 13:09 98 Room Air 11/27/16 13:09 92 18 141/94 98 Room Air 11/27/16 11:26 36.6 116 18 165/89 99 Room Air Physical Exam General Appearance: WD/WN, no apparent distress Neurologic/Psychiatric: radiology assistant II-XII nml as tested, no motor/sensory deficits, alert, normal mood/affect, oriented x [address] Head (11/27/2016) - IMPRESSION: 1. No acute intracranial hemorrhage. 2. No significant change in appearance of the brain since MRI of November 17, 2016 when allowing for differences in technique. Redemonstration of the right posterior parafalcine metastasis with extensive associated vasogenic edema and mass effect , as described above. Stable sulcal effacement and leftward midline shift. Neck MRA (11/27/2016) - IMPRESSION: Unremarkable MR angiogram of the neck. MRI of Brain (11/27/2016) - IMPRESSION: 1. There is unchanged appearance of a complex posterior right parafalcine mass with marked surrounding edema and right to left midline shift as compared to the 11/17/2016 examination. 2. A 7 mm left occipital lesion is also unchanged. No new lesions are identified. 3. There is no hemorrhage or evidence of acute ischemia. Head MRA (11/27/2016) - IMPRESSION: Unremarkable MR angiogram of the brain. Laboratory Results Last 24 Hours Test 11/27/16 12:03 11/27/16 12:22 11/27/16 17:42 White Blood Count 10.95 K/uL Red Blood Count 4.07 M/uL Hemoglobin 12.9 g/dL Hematocrit 40.4 % Mean Corpuscular Volume 99.3 fL Mean Corpuscular Hemoglobin 31.7 pg Mean Corpuscular Hemoglobin Concent 31.9 g/dl Platelet Count 415 K/uL Mean Platelet Volume 8.5 fL Neutrophils (%) (Auto) 92.6 % Lymphocytes (%) (Auto) 5.3 % Monocytes (%) (Auto) 0.9 % Eosinophils (%) (Auto) 0.2 % Basophils (%) (Auto) 0.2 % Neutrophils # (Auto) 10.14 K/uL Lymphocytes # (Auto) 0.58 K/uL Monocytes # (Auto) 0.10 K/uL Eosinophils # (Auto) 0.02 K/uL Basophils # (Auto) 0.02 K/uL RDW Standard Deviation 51.6 fL RDW Coefficient of Variation 14.4 % Immature Granulocyte % (Auto) 0.8 % Immature Granulocyte # (Auto) 0.09 K/uL Prothrombin Time 9.8 SECONDS Prothromb Time International Ratio 0.9 Activated Partial Thromboplast Time 30.7 SECONDS Partial Thromboplastin Ratio 1.2 Sodium Level 138 mmol/L Potassium Level 3.5 mmol/L Chloride Level 103 mmol/L Carbon Dioxide Level 29 mmol/L Anion Gap 6.0 mmol/L Blood Urea Nitrogen 16 mg/dl Creatinine 0.69 mg/dl Est Creatinine Clear Calc Drug Dose 65.4 ml/min Estimated GFR () 112.8 Estimated GFR (Non- 97.3 BUN/Creatinine Ratio 23.3 Random Glucose 173 mg/dl Calcium Level 8.5 mg/dl Total Creatine Kinase 50 U/L Creatine Kinase MB 0.7 ng/ml Creatine Kinase MB Ratio 1.4 Troponin I < 0.015 ng/ml Bedside Prothrombin Time INR 0.9 Bedside Glucose 166 mg/dl 127 mg/dl Assessment and Plan Ms. Blue is a 56-year-old female with metastatic breast cancer to the brain, bone and liver. The patient recently completed a course of Gamma knife radiosurgery at [facility] in [place]. The patient was admitted to the hospital due to a possible stroke/TIA. The patient did have multiple neurological studies completed and all which were negative and stable. Overall, the patient is symptomatically doing better. We been asked to evaluate the patient for consideration of management with respect her previous radiosurgery. We have recommended potentially reaching out to Dr. Soto from [facility] who did treat this patient. In the interim, the patient may be started on Decadron 4 mg every 6 hours with a taper starting within 3 days if the patient is asymptomatic. Otherwise, we suspect that the patient is having potential side effects from her recent course of radiation therapy which should subside with the next several days. If there is suspicion for another underlying etiology, the patient should be evaluated by other consultants including potentially neurology and/or neurosurgery given her history of Arnold-Chiari malformation. With respect to the patient's metastatic disease in the lumbar spine, the patient has been scheduled for palliative radiation therapy in the outpatient setting beginning next week. The patient is aware about this as well. At this point, we will sign off on the case. Please call us with any further questions or concerns.
[2016-11-27 19:53] VITALS: BP 135/86; PULSE 80; TEMP 36.8; O2SAT 95
[2016-11-27] MEDS: FLUTICASONE HFA 110MCG INHALER INH SCH (20:04)
[2016-11-27] MEDS: VERAPAMIL HCL 120 MG TABCR PO SCH (20:06)
[2016-11-27] MEDS: ATORVASTATIN 40 MG TAB PO SCH (20:06)
[2016-11-27] MEDS: MONTELUKAST SOD 10 MG TAB PO SCH (20:06)
[2016-11-27] MEDS: TOPIRAMATE 100 MG TAB PO SCH (20:07)
[2016-11-27] MEDS: AMITRIPTYLINE HCL 50 MG TAB PO SCH (20:07)
[2016-11-27] MEDS: ROPINIROLE HCL 1 MG TAB PO SCH (20:09)
[2016-11-27] MEDS: HEPARIN SOD 5000 UNIT/0.5 ML CARP SQ SCH (20:40)
[2016-11-27] MEDS ORDERED: BACLOFEN TAB 20 MG TAB PO SCH (21:00)
[2016-11-27] MEDS ORDERED: METHYLPREDNISOLONE 4 MG TAB PO SCH (22:00)
[2016-11-27 23:31] VITALS: BP 127/72; PULSE 84; TEMP 36.3; O2SAT 97
[2016-11-28] VITALS (7 sets, daily range): BP systolic 109–157; BP diastolic 76–98; PULSE 66–91; TEMP 36.6–37; O2SAT 97–99
[2016-11-28] MEDS ORDERED: INSULIN ASPART 100 UNITS/ML 3 ML PEN SC SCH (02:00)
[2016-11-28] MEDS: OXYCODONE/ACETAMINOPHEN 5-325 TAB PO PRN ×3 (03:28→21:33)
[2016-11-28] MEDS: DEXAMETHASONE 4 MG TAB PO SCH (06:00)
[2016-11-28] MEDS: HEPARIN SOD 5000 UNIT/0.5 ML CARP SQ SCH ×3 (06:00→20:40)
[2016-11-28 07:07] LABS: BUN/CREATININE RATIO 27.8 (10-20); CALCIUM 8.3 mg/dl (8.5-10.1); CREATININE 0.69 mg/dl (0.60-1.20)
[2016-11-28 07:10] LABS: CHOLESTEROL/HDL RATIO 2.1
[2016-11-28 07:17] LABS: ESTIMATED AVERAGE GLUCOSE 131 mg/dl; HA1C FLAG Normal (Normal)
[2016-11-28] MEDS: TOPIRAMATE 100 MG TAB PO SCH ×2 (08:52→20:34)
[2016-11-28] MEDS: MULTIVITAMIN TAB PO SCH (08:52)
[2016-11-28] MEDS: PANTOprazole SOD 40 MG TAB PO SCH (08:52)
[2016-11-28] MEDS: CHOLECALCIFEROL 1000 INTER.UNIT TAB PO SCH (08:52)
[2016-11-28] MEDS: POTASSIUM CHLORIDE 20 MEQ TABCR PO SCH ×2 (08:53→16:50)
[2016-11-28] MEDS: ROPINIROLE HCL 1 MG TAB PO SCH ×3 (08:54→20:32)
[2016-11-28] MEDS: VERAPAMIL HCL 120 MG TABCR PO SCH ×2 (08:55→20:33)
[2016-11-28] MEDS: FLUTICASONE PROPIONATE NA SPR 16 GM BTL NAE SCH (08:56)
[2016-11-28] MEDS: FLUTICASONE HFA 110MCG INHALER INH SCH ×2 (08:56→20:30)
[2016-11-28] MEDS: INSULIN ASPART 100 UNITS/ML 3 ML PEN SC SCH ×4 (08:59→20:36)
[2016-11-28] MEDS: INSULIN GLARGINE SOLOSTAR 100 UNITS/ML 3 ML PEN SC SCH (09:00)
[2016-11-28] MEDS ORDERED: INSULIN GLARGINE SOLOSTAR 100 UNITS/ML 3 ML PEN SC SCH (09:00)
[2016-11-28] MEDS ORDERED: PREMARIN VAG CRM 14 APPLN/30 GM TUBE PV SCH (09:00)
[2016-11-28] MEDS ORDERED: ASPIRIN 325 MG ECTAB PO SCH (09:00)
--- NOTE | 2016-11-28 09:22 | Pharmacy Progress Note ---
Glycemic Control: Progress Nt Date of Service Nov 28, 2016. Scope Glycemic Pharmacist consulted by Dr Riddle on 11/27/16 for glycemic control and to write orders per [facility] inpatient glycemic control protocol. Objective Accuchecks BSG (last 24hrs): Test 11/27/16 12:03 11/27/16 12:22 11/27/16 17:42 11/27/16 20:32 Random Glucose 173 mg/dl (70-99) Bedside Glucose 166 mg/dl (70-90) 127 mg/dl (70-90) 135 mg/dl (70-90) Test 11/28/16 01:52 11/28/16 06:23 11/28/16 06:30 Bedside Glucose 165 mg/dl (70-90) 147 mg/dl (70-90) Random Glucose 157 mg/dl (70-99) Laboratory Data (last 24hrs) Test 11/27/16 12:03 11/28/16 06:23 Anion Gap 6.0 mmol/L 7.0 mmol/L BUN/Creatinine Ratio 23.3 27.8 Blood Urea Nitrogen 16 mg/dl 19 mg/dl Creatinine 0.69 mg/dl 0.69 mg/dl Potassium Level 3.5 mmol/L 4.0 mmol/L Sodium Level 138 mmol/L 142 mmol/L White Blood Count 10.95 K/uL Red Blood Count 4.07 M/uL Hemoglobin 12.9 g/dL Hematocrit 40.4 % Mean Corpuscular Volume 99.3 fL Mean Corpuscular Hemoglobin 31.7 pg Mean Corpuscular Hemoglobin Concent 31.9 g/dl Platelet Count 415 K/uL Mean Platelet Volume 8.5 fL Neutrophils (%) (Auto) 92.6 % Lymphocytes (%) (Auto) 5.3 % Monocytes (%) (Auto) 0.9 % Eosinophils (%) (Auto) 0.2 % Basophils (%) (Auto) 0.2 % Neutrophils # (Auto) 10.14 K/uL Lymphocytes # (Auto) 0.58 K/uL Monocytes # (Auto) 0.10 K/uL Eosinophils # (Auto) 0.02 K/uL Basophils # (Auto) 0.02 K/uL Hemoglobin A1c 6.2 % HbA1c: Test 11/28/16 06:23 Hemoglobin A1c 6.2 % (4.5-5.6) H Recent Pertinent Medications Outpatient Anti-diabetic Regimen: * Lantus 9-10 units daily (up to 12-15 units if on steroid taper) * Novolog: CF:75,CR:20 Risk Factors for Insulin Resistance: * Diet * Steroids Assessment & Plan ASSESSMENT: * 56 yo T1DM F admitted with neurological symptoms, known to our glycemic service from prior admission * Most recent A1c from 2016 shows good glycemic control- order new A1c with labs * Due to recent brain surgery, pt on outpatient methylprednisolone taper which has been changed to dexamethasone 4 mg PO Q6hr * ER pharmacist was able to speak with patient on admission to verify home regimen (noted above) * Due to recent steroid taper- she took 15 units 11/27/16 NUTRITION AND DIETETICS INSTRUCTOR * Pt's steroids orders were changed again this afternoon to d/c dexamethasone and give Solumedrol 500 mg IV bolus X 1 * In previous admissions she has required home Lantus when she was on IV steroids RTC * I hesitate to change her orders as the patient is very insulin sensitive and carb ratio never changes when she is on steroids, typically her Lantus is adjusted by a few units * Continue similar regimen to home and monitor closely with additional checks * ADA & AACE recommend a goal blood sugar range 140-180 mg/dl for the majority of critically ill & non-critically ill patients. However, more stringent targets may be selected in individual cases. PLAN FOR INPATIENT GLYCEMIC CONTROL: * Basal insulin with LANTUS 12 units SQ daily (may need adjusted slightly up or down depending on trend) * Correctional Insulin with NOVOLOG per scale ACHS + 00,04 * Goal Range: Low 140 mg/dL - High 180 mg/dL * Correction Factor: 60 mg/dL/unit * Nutritional / Prandial insulin per carb ratio of 1 unit per 15 grams CHO consumed (consider changing to 20?) * Please note that the plan above was derived based on current level of insulin resistance and hospital stress. These recommendations are appropriate for inpatient admission only. Plan of care upon discharge will need to be reassessed to avoid potential outpatient hypo/hyperglycemia. Thank you.
--- NOTE | 2016-11-28 09:35 | Neurology Consultation ---
Neurology Consultation Date of Consultation: Nov 28, 2016. Attending Physician: Pooja. Washington S Primary Care Physician: Marbin Peace D.O. Reason for Consultation: Patient is a 56-year-old, who was asked to see the request of Dr. 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 History of Present Illness Source: patient, caregiver, clinic records, hospital records This patient has a very long and complicated history. She has had long- standing migrainous and mixed headaches for decades. They've been very refractory and they ended up such that she had to retire on disability from chronic fatigue and chronic headaches about 8 years ago. In her early 20s, she had some significant seizures but has had no seizures for 30 years, on medication. She first saw Dr. Goodman in January 2011 for these refractory headaches. She has tried and failed a large number of medications for migraine and headache prevention as well as treatment. Currently she is on amitriptyline 50 mg each evening, verapamil 120 mg twice a day, and topiramate 200 mg twice a day for headache prevention. MRI of the brain showed a Chiari malformation and she ended up having decompressive surgery by Dr. Bonilla in September 2014. This really did not help her headaches. By February 2015 she was noted to have a a left breast mass ended up having a left mastectomy (he is partial) with positive axillary nodes and ended up getting some chemotherapy in the fall of 2014 through June 2015. By July 2015 she had another biopsy and was noted to have a right parafalcine/ parietal mass with edema. She had a lumpectomy in July 2015 as well. In August 2015 she underwent gamma knife treatment at [facility] for the right parietal lesion. Following this she had an increase in headaches and ended up being hospitalized. She was seen by Dr. Do. Steroids and narcotics helped Patient then received radiation to her left chest with a total of 7240 cGy. After a lung mass was noted she had a wedge resection on the left in January 2016. She continued receiving chemotherapy with gemcitabine, Herceptin, and Perjeta. She has been seeing Dr. Goodman for headaches this year. She started getting low back pain several months ago. Recent studies in October 2016 revealed an MRI showing a new posterior fossa and left occipital metastasis as well as the original right parietal, para fall seen lesion with edema. A PET scan showed a new L1 bony lesion. Last week she received gamma knife radiation at [facility] to her brain lesions. She is scheduled for radiation to her lumbar spine next week. Her chemotherapy has been put on hold. She has been having trouble sleeping for the last 4-5 days. She is quite fatigued since gamma knife procedure and she woke at 0730 hours on November 27 with increased bioccipital headache of a sharp pressure sensation and the inability to get words out correctly. When she did get the word out she wanted to say it seemed garbled and slurred. Her balance was worse but she didn't notice any new weakness or numbness. Her hands have been numb and tingling intermittently for some time however. She had no incontinence of urine or alterations in consciousness. She arrived in the emergency room at 1126 hours on November 27 with a blood pressure of 168/89, pulse 116, respiratory 18, and temperature 36.6. O2 saturation was 99%. On examination she was felt to be slightly slurred with her speech but otherwise no focal neurologic deficits or meningeal signs were noted. CT scan of the head showed no change in the right para fall seen lesion and no hemorrhage MR angiography of the head and neck were unremarkable with no significant stenoses or other vascular anomalies. MRI of the brain showed the large) fall seen mass unchanged from previous study. There is significant edema with a 8 mm right to left shift, also unchanged from one week ago. She has small enhancing lesions in the posterior fossa and left occipital lesion of approximately 1 cm in size consistent with metastases. These do not have a lot of edema around them. Patient has had no further incidents. Her headache is a little better than yesterday but she still has the rash around her right eye and bioccipital headache. Her speech is back to normal and her balance is much improved. She has no new weakness or numbness in the limbs no vision symptoms, vertigo, or incontinence. Her mood is reasonable. Percocet helps. Decadron is of some help. Past Medical/Surgical History Medical Problems: (1) Ataxia Status: Acute (2) Brain tumor Status: Acute (3) Cerebral edema Status: Acute (4) Headache Status: Acute (5) Headache Status: Acute (6) Intractable headache Status: Acute (7) Intractable headache Status: Acute (8) Malignant neoplasm metastatic to brain Status: Acute (9) Sinus pain Status: Acute Breast cancer post surgery, radiation therapy, and chemotherapy. Multiple J[employer]ET [employer]ER metastases secondary to breast cancer, 1 which is large and old, two which are small and quite new. Post gamma knife radiation to the large lesion 14 months ago and gamma knife treatment to the new lesions last week Several month history of low back pain, now with L1 bony metastatic lesion from breast cancer, recently seen on PET scan History of seizures, in her early 20s, well controlled on lamotrigine. History of severe, refractory migrainous and other headaches, failing multiple medications for headache prevention and treatment. She is currently on verapamil and topiramate which helped some. History of thoracic area back spasms on baclofen and tizanidine which are of some help. 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 Bonilla History of tonsillectomy and tubal ligation Post left pulmonary wedge resection for metastases January 2016 Family History Mother age 83 with Parkinson's disease and diabetes Father age 32 with hypertension and a massive stroke Social History Patient has never smoked cigarettes but had considerable secondhand smoke from her mother Patient occasionally have a drink of alcohol socially but none recently. 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 She had to retire on disability from her headaches and fatigue 8 years ago. Smoking Status: Never smoker Smokeless Tobacco Use: No Alcohol Use: none Drug Use: none Marital Status: Housing Status: lives with significant other Occupation Status: retired, disabled Allergies Coded Allergies: Erythromycin (Unverified Adverse Reaction, Unknown, GI UPSET, 04/15/16) Current Inpatient Medications Current Inpatient Medications Medications (Trade) Dose Ordered Sig/Crow Route Start Time Stop Time Status Last Admin Dose Admin Acetaminophen (Tylenol Tab) 650 mg Q4H PRN PO 11/27/16 14:45 12/27/16 14:44 Ondansetron HCl (Zofran Inj) 4 mg Q6H PRN IV 11/27/16 14:45 12/27/16 14:44 Morphine Sulfate (MoRPHine SULFATE INJ) 2 mg Q2H PRN IV 11/27/16 14:45 12/11/16 14:44 Aspirin (Ecotrin Tab) 325 mg QAM PO 11/28/16 09:00 12/28/16 08:59 Polyethylene (Miralax Powder Packet) 17 gm DAILY PRN PO 11/27/16 14:45 12/27/16 14:44 Insulin Aspart (novoLOG ASPART) SLIDING SCALE If C... ACHS SC 11/27/16 16:00 12/27/16 15:59 11/27/16 18:03 2 UNITS Glucose (Glucose 40% Gel) 15-30 GRAMS 15 GRAMS... UD PRN PO 11/27/16 14:45 12/27/16 14:44 Glucose (Glucose Chew Tab) 4-8 Tablets 4 Tabl... UD PRN PO 11/27/16 14:45 12/27/16 14:44 Dextrose (Dextrose 50% 50ML Syringe) 25-50ML OF 50% DW IV FOR... UD PRN IV 11/27/16 14:45 12/27/16 14:44 Glucagon (Glucagon Inj) 1 mg UD PRN SQ 11/27/16 14:45 12/27/16 14:44 Miscellaneous Information (Consult Glycemic Management Pharmacy) 1 UD PRN N/A 11/27/16 14:50 12/27/16 14:49 Miscellaneous Information (Pharmacist Discharge Med Rec Consult) 1 UD PRN N/A 11/27/16 15:00 12/27/16 14:59 Heparin Sodium (Porcine) (Heparin Sq 5000 Unit/0.5ml) 5,000 unit Q8 SQ 11/27/16 22:00 12/27/16 21:59 Albuterol (Ventolin Hfa Inhaler) 2 puffs QID PRN INH 11/27/16 15:00 12/27/16 14:59 Amitriptyline HCl (Elavil Tab) 75 mg HS PO 11/27/16 21:00 12/27/16 20:59 11/27/16 20:07 75 MG Cholecalciferol (Vitamin D Tab) 1,000 inter.unit DAILY PO 11/28/16 09:00 12/28/16 08:59 Estrogens Conjugated (Premarin Vag Crm) 1 appln DAILY PV 11/28/16 09:00 12/28/16 08:59 Fluticasone Propionate (Flovent Hfa 110MCG Inhaler) 2 puffs BID INH 11/27/16 21:00 12/27/16 20:59 11/27/16 20:04 2 PUFFS Fluticasone Propionate (Flonase Nasal Cotuit) 2 sprays QAM JUDE 11/28/16 09:00 12/28/16 08:59 Lamotrigine (Lamictal Tab) 150 mg BID PO 11/27/16 21:00 12/27/16 20:59 11/27/16 20:08 150 MG Montelukast Sodium (Singulair Tab) 10 mg PM PO 11/27/16 21:00 12/27/16 20:59 11/27/16 20:06 10 MG Multivitamins (Multivitamin Tab) 1 tab QAM PO 11/28/16 09:00 12/28/16 08:59 Oxycodone/ Acetaminophen (Percocet 5-325mg Tab) 1 tab Q6H PRN PO 11/27/16 15:00 12/11/16 14:59 11/28/16 03:28 1 TAB Potassium Chloride (Klor-Con Tab) 20 meq BIDM PO 11/27/16 16:45 12/27/16 16:44 11/27/16 18:00 20 MEQ Prochlorperazine Maleate (Compazine Tab) 10 mg Q6H PRN PO 11/27/16 15:00 12/27/16 14:59 Promethazine HCl (Phenergan Tab) 25 mg Q6 PRN PO 11/27/16 15:00 12/27/16 14:59 Ropinirole HCl (Requip Tab) 1 mg TID PO 11/27/16 21:00 12/27/16 20:59 11/27/16 20:09 1 MG Topiramate (Topamax Tab) 200 mg BID PO 11/27/16 21:00 12/27/16 20:59 11/27/16 20:07 200 MG Verapamil HCl (Calan-Sr Tab) 120 mg BID PO 11/27/16 21:00 12/27/16 20:59 11/27/16 20:06 120 MG Atorvastatin Calcium (Lipitor Tab) 40 mg HS PO 11/27/16 21:00 12/27/16 20:59 11/27/16 20:06 40 MG Pantoprazole Sodium (Protonix Tab) 40 mg QAM PO 11/28/16 09:00 12/28/16 08:59 Baclofen (Lioresal Tab) 10 mg TID PRN PO 11/27/16 16:45 12/27/16 16:44 Dexamethasone (Decadron Tab) 4 mg Q6H PO 11/27/16 18:00 12/27/16 17:59 11/28/16 06:00 4 MG Gadobutrol (Gadavist) 5 mmol UD PRN IV 11/27/16 17:15 12/01/16 17:14 Heparin Sodium (Porcine) (Heparin 100 Unit/ml 5ml Flush) 5 ml PRN PRN IV 11/28/16 06:45 12/28/16 06:44 Insulin Glargine (Lantus Solostar Pen) 12 unit QAM SC 11/28/16 09:00 12/28/16 08:59 Review of Systems Constitutional: + fatigue, No weakness Eyes: No worsening of vision, No diplopia ENT: No sore throat, No tinnitus, No trouble swallowing Respiratory: No cough, No shortness of breath Cardiovascular: No chest pain, No palpitations Abdomen: No pain, No nausea Musculoskeletal: No joint pain, No muscle pain Genitourinary - Female: No dysuria, No urinary incontinence Neurologic: No memory loss, No weakness, No numbness/tingling, No vertigo, No balance problems Psychiatric: No depression symptoms, No anxiety Endocrine: + fatigue Hematologic / Lymphatic: No abnormal bleeding/bruising Integumentary: No rash Allergic / Immunologic: No hives Physical Exam Vital Signs (Past 24 Hrs): Date Time Temp Pulse Resp B/P (MAP) Pulse Ox O2 Delivery O2 Flow Rate FiO2 11/28/16 04:00 Room Air 11/28/16 03:23 36.6 66 18 109/77 (88) 97 Room Air 11/28/16 00:01 Room Air 11/27/16 23:31 36.3 84 16 127/72 (90) 97 Room Air 11/27/16 20:00 Room Air 11/27/16 19:53 36.8 80 20 135/86 (102) 95 Room Air 11/27/16 17:35 36.7 85 18 139/81 97 Room Air 11/27/16 16:16 88 18 124/78 97 6/2/17 15:02 87 18 124/78 95 Room Air 11/27/16 13:09 98 Room Air 11/27/16 13:09 92 18 141/94 98 Room Air 11/27/16 11:26 36.6 116 18 165/89 99 Room Air The patient is right handed. The patient is awake and alert. Speech is normal without aphasia or dysarthria. Mentation and thought processes are intact with orientation and normal fund of knowledge. Mood and affect are normal and appropriate. Appearance and grooming are normal. The discs are sharp with positive venous pulsations. There are no exudates, hemorrhages, or blood vessel changes seen. Pupils are 4mm bilaterally and reactive to light. Extraocular eye muscles are intact without nystagmus. Visual acuity and visual manning seem normal grossly to confrontation. There are no deficits to sensation of the face bilaterally. Corneal reflexes are positive bilaterally. Facial strength and symmetry is normal bilaterally. Hearing seems intact grossly to voice and finger rub. Palate moves well without asymmetry. There is normal sternocleidomastoid and trapezius strength bilaterally. Tongue is midline with good strength bilaterally. Neck is with full range of motion without discomfort. There are no cervical bruits. There are no cranial or ocular bruits. Heart is without murmur. Cervical, thoracic, and lumbar spine are nontender to palpation. Gait is narrow based and stable with arm swing and turns. Stance eyes open or close is stable. With outstretched arms there is no drift. There are no resting, postural, or action tremors. There is no ataxia with [id number] testing. There is good facility in the hands. There are no abnormal involuntary movements noted. 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 Motor strength is 5/5 diffusely in the legs bilaterally including hip flexors, quadriceps, hamstring, gastrocnemius, tibialis anterior, tibialis posterior, and peroneii muscles bilaterally. Toe extensors are normal and there is good bulk in the extensor digitorum brevis muscle bilaterally. The limbs have good tone without rigidity or spasticity, and there is no atrophy noted. Muscle bulk is normal, there is no tenderness, no myotonia noted to percussion, and no fasciculations seen. Sensory examination is intact to pin and touch throughout all four limbs. Reflexes are 1/4 in the biceps, triceps, brachioradialis, quadriceps, and Achilles tendons bilaterally. Toes are downgoing with plantar stimulation bilaterally. Peripheral pulses are present and of normal quality distally in all four limbs. There is no peripheral edema noted. Laboratory Results Past 24 Hours: 11/27/16 12:03 Red Blood Count 4.07, Mean Corpuscular Volume 99.3, Mean Corpuscular Hemoglobin 31.7, Mean Corpuscular Hemoglobin Concent 31.9, Mean Platelet Volume 8.5, Neutrophils (%) (Auto) 92.6, Lymphocytes (%) (Auto) 5.3, Monocytes (%) (Auto) 0.9, Eosinophils (%) (Auto) 0.2, Basophils (%) (Auto) 0.2, Neutrophils # (Auto) 10.14, Lymphocytes # (Auto) 0.58, Monocytes # (Auto) 0.10, Eosinophils # (Auto) 0.02, Basophils # (Auto) 0.02 11/28/16 06:23 Test 11/27/16 12:03 11/27/16 12:22 11/28/16 06:23 11/28/16 06:30 White Blood Count 10.95 K/uL (4.8-10.8) Red Blood Count 4.07 M/uL (4.2-5.4) Hemoglobin 12.9 g/dL (12.0-16.0) Hematocrit 40.4 % (37-47) Mean Corpuscular Volume 99.3 fL (80-100) Mean Corpuscular Hemoglobin 31.7 pg (25-34) Mean Corpuscular Hemoglobin Concent 31.9 g/dl (32-36) Platelet Count 415 K/uL (130-400) Mean Platelet Volume 8.5 fL (7.4-10.4) Neutrophils (%) (Auto) 92.6 % Lymphocytes (%) (Auto) 5.3 % Monocytes (%) (Auto) 0.9 % Eosinophils (%) (Auto) 0.2 % Basophils (%) (Auto) 0.2 % Neutrophils # (Auto) 10.14 K/uL (1.4-6.5) Lymphocytes # (Auto) 0.58 K/uL (1.2-3.4) Monocytes # (Auto) 0.10 K/uL (0.11-0.59) Eosinophils # (Auto) 0.02 K/uL (0-0.5) Basophils # (Auto) 0.02 K/uL (0-0.2) RDW Standard Deviation 51.6 fL (36.4-46.3) RDW Coefficient of Variation 14.4 % (11.5-14.5) Immature Granulocyte % (Auto) 0.8 % Immature Granulocyte # (Auto) 0.09 K/uL (0.00-0.02) Prothrombin Time 9.8 SECONDS (9.0-12.0) Prothromb Time International Ratio 0.9 (0.9-1.1) Activated Partial Thromboplast Time 30.7 SECONDS (21.0-31.0) Partial Thromboplastin Ratio 1.2 Total Creatine Kinase 50 U/L (26-192) Creatine Kinase MB 0.7 ng/ml (0.5-3.6) Creatine Kinase MB Ratio 1.4 (0-3.0) Troponin I < 0.015 ng/ml (0-0.045) Bedside Prothrombin Time INR 0.9 (0.9-1.1) Anion Gap 7.0 mmol/L (3-11) Est Creatinine Clear Calc Drug Dose 65.4 ml/min Estimated GFR () 112.8 Estimated GFR (Non- 97.3 BUN/Creatinine Ratio 27.8 (10-20) Estimated Average Glucose 131 mg/dl Hemoglobin A1c 6.2 % (4.5-5.6) Calcium Level 8.3 mg/dl (8.5-10.1) Triglycerides Level 97 mg/dl (0-150) Cholesterol Level 227 mg/dl (0-200) HDL Cholesterol 108 mg/dl LDL Cholesterol, Calculated 100 mg/dl VLDL Cholesterol, Calculated 19 mg/dl Cholesterol/HDL Ratio 2.1 Bedside Glucose 147 mg/dl (70-90) Imaging MRI OF THE BRAIN COMBO CLINICAL HISTORY: Recent brain surgery. Metastatic breast cancer. Loss of balance. Slurred speech. Change in mental status. COMPARISON STUDY: CT of the brain dated 11/27/2016. MRI of the brain dated 11/17/2016. TECHNIQUE: MRI of the brain was performed utilizing various T1 and T2-weighted sequences in the axial, sagittal, and coronal planes. Contrast-enhanced sequences were acquired following the administration of 5 cc of Gadavist. The examination is degraded by susceptibility artifact along the left posterior parietal cortex related to a metallic foreign body in the scalp. FINDINGS: Brain parenchyma: There is unchanged appearance of a solid and cystic posterior right parafalcine mass with significant associated edema as compared to study performed 1 week previously. This measures 3.2 x 3.5 x 2.0 cm (previously measured 3.4 x 3.6 x 2.2 cm) and causes significant mass effect. There is effacement of the overlying cortical sulci and approximately 8 mm of right to left midline shift. A left occipital lesion is also unchanged, best seen on coronal postcontrast image #22 and measuring 7 mm. No new lesions are seen from the 11/17/2016 examination. No hemorrhage is identified and there is no restricted diffusion typical for acute ischemia. No extra-axial fluid collection is seen. The cerebellar tonsils are normal in configuration. Ventricles, sulci, and cisterns: See above. Pituitary and sella: Unremarkable. Intracranial vasculature: Normal flow voids are maintained at the skull base. Orbits: The bony orbits are grossly intact. Orbital contents are normal in appearance noting a right ocular lens implant. Sinuses and mastoids: Clear. Calvarium: There are postoperative changes from suboccipital craniectomy. Cervical cord: Partially visualized cervical spinal cord is normal in morphology and signal intensity. IMPRESSION: 1. There is unchanged appearance of a complex posterior right parafalcine mass with marked surrounding edema and right to left midline shift as compared to the 11/17/2016 examination. 2. A 7 mm left occipital lesion is also unchanged. No new lesions are identified. 3. There is no hemorrhage or evidence of acute ischemia. Electronically signed by: Antonio Akhtar M.D. 11/27/2016 5:54 PM Impression Overall, this is a very complicated patient neurologically. 1. Events November 27 consisting of increased headaches, slurred speech and difficulty with word finding as well as balance issues. She currently has no speech problems or balance issues and no focal neurologic findings, meningeal signs, or encephalopathy. Etiology of this is likely related to her cerebral edema and central nervous system metastases. Although I cannot entirely exclude a TIA, she has no evidence of previous cerebrovascular disease and MR angiography of the head and neck was unremarkable. Risk factors for stroke include long-standing diabetes. 2. Headaches. Her headaches have been refractory and lifelong. Her migrainous headaches have been fairly well controlled on medication. Currently, her headaches are more likely due to increased cerebral edema with the mild midline shift from increased intracranial pressure. Each time she gets gamma knife radiation treatment she has an increase in her headaches and symptoms. 3. History of seizure disorder. This is long-standing and she has not had any seizures since her early 20s, being quite controlled on Lamictal. 4. Low back pain for the last 3 months. She has a new L1 bony lesion seen on PET scan consistent with metastases. 5. Post Chiari malformation surgery September 2014, with no improvement on headaches. 6. Metastatic breast cancer followed by oncology and radiation oncology. She has had new lesions of the brain and spine discovered in the last month Plan 1. Keep topiramate, amitriptyline, Lamictal, and verapamil the same for now. 2. Consider 500 mg of IV Solu-Medrol today instead of Decadron to see if this will help her headache better. Tomorrow we will assess if she needs another 500 mg or convert her back to Decadron. 3. Continue Percocet as needed for pain. 4. I have no issue with continuing 81 mg baby aspirin tablet daily although we would need to protect her stomach. Theoretically, she is at risk for increased bleeding with her J[employer]ET [employer]PARER metastases. 5. I see no need for additional neurologic testing at this time. I've spoken with Dr. Washington regarding this case including the differential diagnoses and treatment options.
--- NOTE | 2016-11-28 10:50 | Progress Note ---
Internal Med Progress Note Date of Service: Nov 28, 2016. Provider Documentation: SUBJECTIVE: Patient is doing better. Slurred speech, gait imbalance on presentation completely resolved in few hours. Headaches + occipital near site of lesions where gamma knife surgery was performed on 11/19 No nausea, vomiting, localized weakness, sensory loss OBJECTIVE: Vital Signs-as noted below Exam: General-AAOX3, no distress Eyes-No icterus, PEERLA Lungs-AEBE, no wheezing, rhonchi Heart-S1, S2 normal, no murmurs Abdomen-Soft, non tender, non distended, BS present Extremities-No edema Neuro-AAOX3, Power 5/5 all ext,no sensory loss, cranial nerves intact Lab data as noted below. ASSESSMENT & PLAN: Patient has a very complicated past history, comes in with c/o increased headaches, slurred speech and difficulty with word finding as well as balance issues. ASSESSMENT AND PLAN: EPISODE OF SLURRED SPEECH/WORD FINDING DIFFICULTY WITH ACUTE ON CHRONIC HEADACHES: Patient has a complicated PMH as mentioned above. She does have hx of migraines and headaches since neurological procedures- gamma knife as mentioned above. Came back with above symptoms, lasting for few hours which resolved after arrival to ED. Currently, has headaches but no other neurological symptoms or deficits -Etiology likely related to her cerebral edema and central nervous system metastases. Cannot completely exclude TIA, but no evidence of previous cerebrovascular disease and MR angiography of the head and neck was unremarkable. -Had a detailed discussion with Neurologist, Dr Rodriguez about plan -Will continue with Aspirin started this admission, but at a reduced dose of 81 mg than 325 mg as there is an increased risk of bleeding in mets. If continues to do well, may consider discontinuing in future weighing the risks vs benefits -Work up - MRI- . There is unchanged appearance of a complex posterior right parafalcine mass with marked surrounding edema and right to left midline shift as compared to the 11/17/2016 examination. 2. A 7 mm left occipital lesion is also unchanged. No new lesions are identified. No new hemorrhage or stroke, MRA head/neck- unremarkable, CT head- Redemonstration of the right posterior parafalcine metastasis with extensive associated vasogenic edema and mass effect, as described above. Stable sulcal effacement and leftward midline shift. HBA1C- 6.2, LDL- 100 HEADACHES- ACUTE ON CHRONIC Her headaches have been refractory and lifelong. Her migrainous headaches have been fairly well controlled on medication- Topiramate, Lamictal, Verapamil. -Currently, her headaches are more likely due to increased cerebral edema with the mild midline shift from increased intracranial pressure. Each time she gets gamma knife radiation treatment she has an increase in her headaches and symptoms and this is likely related to her recent procedure- 11/19 (Gamma knife surgery) at [facility] -Will give IV solu medrol 500 mg today with the hope of decreasing some inflammation/edema to help with headaches. Will re assess tomorrow for need of additional dose of IV solumedrol and than eventually convert back to tapering decadron doses as prior to admission -Continue with Topiramte, Lamictal, Verapamil, Amitriptyline as prior to home doses. BREAST CARCINOMA WITH METASTASIS S/P Chemo/Radiation -Had new lesions in brain and spine last month -Recently had a new L1 Bony lesion on PET scan--> plan is for radiation rx outpatient -MRI- unchanged from one last week- metastatic lesions with significant edema and midline shift. Did undergo gamma knife surgeries in past and one recently last month 11/19 at [facility] -Continue with pain medication HISTORY OF SEIZURE -Not had any seizures since in her 20s, controlled on lamictal HX OF CHIARI MALFORMATION SURGERY IN 10/10 -No improvement in headaches post surgery DM- ISS, Accuchecks -Monitor on high dose steroids HTN Stable DVT PROPHYLAXIS Lovenox SQ- high risk for ca DISPOSITION Likely discharge tomorrow if improving. Discussed with neurology Vital Signs: Date Time Temp Pulse Resp B/P (MAP) Pulse Ox O2 Delivery O2 Flow Rate FiO2 11/28/16 08:00 36.6 91 16 157/98 (117) 99 Room Air 11/28/16 04:00 Room Air 11/28/16 03:23 36.6 66 18 109/77 (88) 97 Room Air 11/28/16 00:01 Room Air 11/27/16 23:31 36.3 84 16 127/72 (90) 97 Room Air 11/27/16 20:00 Room Air 11/27/16 19:53 36.8 80 20 135/86 (102) 95 Room Air 11/27/16 17:35 36.7 85 18 139/81 97 Room Air 11/27/16 16:16 88 18 124/78 97 11/27/16 15:02 87 18 124/78 95 Room Air 11/27/16 13:09 98 Room Air 11/27/16 13:09 92 18 141/94 98 Room Air 11/27/16 11:26 36.6 116 18 165/89 99 Room Air Lab Results: Results Past 24 Hours Test 11/27/16 12:03 11/27/16 12:22 11/27/16 17:42 11/27/16 20:32 Range/Units White Blood Count 10.95 4.8-10.8 K/uL Red Blood Count 4.07 4.2-5.4 M/uL Hemoglobin 12.9 12.0-16.0 g/dL Hematocrit 40.4 37-47 % Mean Corpuscular Volume 99.3 80-100 fL Mean Corpuscular Hemoglobin 31.7 25-34 pg Mean Corpuscular Hemoglobin Concent 31.9 32-36 g/dl Platelet Count 415 130-400 K/uL Mean Platelet Volume 8.5 7.4-10.4 fL Neutrophils (%) (Auto) 92.6 % Lymphocytes (%) (Auto) 5.3 % Monocytes (%) (Auto) 0.9 % Eosinophils (%) (Auto) 0.2 % Basophils (%) (Auto) 0.2 % Neutrophils # (Auto) 10.14 1.4-6.5 K/uL Lymphocytes # (Auto) 0.58 1.2-3.4 K/uL Monocytes # (Auto) 0.10 0.11-0.59 K/uL Eosinophils # (Auto) 0.02 0-0.5 K/uL Basophils # (Auto) 0.02 0-0.2 K/uL RDW Standard Deviation 51.6 36.4-46.3 fL RDW Coefficient of Variation 14.4 11.5-14.5 % Immature Granulocyte % (Auto) 0.8 % Immature Granulocyte # (Auto) 0.09 0.00-0.02 K/uL Prothrombin Time 9.8 9.0-12.0 SECONDS Prothromb Time International Ratio 0.9 0.9-1.1 Activated Partial Thromboplast Time 30.7 21.0-31.0 SECONDS Partial Thromboplastin Ratio 1.2 Sodium Level 138 136-145 mmol/L Potassium Level 3.5 3.5-5.1 mmol/L Chloride Level 103 98-107 mmol/L Carbon Dioxide Level 29 21-32 mmol/L Anion Gap 6.0 3-11 mmol/L Blood Urea Nitrogen 16 7-18 mg/dl Creatinine 0.69 0.60-1.20 mg/dl Est Creatinine Clear Calc Drug Dose 65.4 ml/min Estimated GFR () 112.8 Estimated GFR (Non- 97.3 BUN/Creatinine Ratio 23.3 10-20 Random Glucose 173 70-99 mg/dl Calcium Level 8.5 8.5-10.1 mg/dl Total Creatine Kinase 50 26-192 U/L Creatine Kinase MB 0.7 0.5-3.6 ng/ml Creatine Kinase MB Ratio 1.4 0-3.0 Troponin I < 0.015 0-0.045 ng/ml Bedside Prothrombin Time INR 0.9 0.9-1.1 Bedside Glucose 166 127 135 70-90 mg/dl Test 11/28/16 01:52 11/28/16 06:23 11/28/16 06:30 Range/Units Bedside Glucose 165 147 70-90 mg/dl Sodium Level 142 136-145 mmol/L Potassium Level 4.0 3.5-5.1 mmol/L Chloride Level 107 98-107 mmol/L Carbon Dioxide Level 28 21-32 mmol/L Anion Gap 7.0 3-11 mmol/L Blood Urea Nitrogen 19 7-18 mg/dl Creatinine 0.69 0.60-1.20 mg/dl Est Creatinine Clear Calc Drug Dose 65.4 ml/min Estimated GFR () 112.8 Estimated GFR (Non- 97.3 BUN/Creatinine Ratio 27.8 10-20 Random Glucose 157 70-99 mg/dl Estimated Average Glucose 131 mg/dl Hemoglobin A1c 6.2 4.5-5.6 % Calcium Level 8.3 8.5-10.1 mg/dl Triglycerides Level 97 0-150 mg/dl Cholesterol Level 227 0-200 mg/dl HDL Cholesterol 108 mg/dl LDL Cholesterol, Calculated 100 mg/dl VLDL Cholesterol, Calculated 19 mg/dl Cholesterol/HDL Ratio 2.1
[2016-11-28] MEDS ORDERED: METHYLPREDNISOLONE IV 500 MG in DEXTROSE 5% 250ML 250 ML IV ONE (11:15)
[2016-11-28] MEDS: POLYETHYLENE (MIRALAX) 17 GM PACK PO PRN (12:38)
[2016-11-28] MEDS ORDERED: MoRPHine SULFATE 2 MG/ML CARP IV PRN (14:45)
[2016-11-28] MEDS ORDERED: NURSING VERBAL MED ORDER ONE (14:45)
--- NOTE | 2016-11-28 15:39 | Hematology/Oncology Prog Note ---
Hematology/Onc Progress Note Date of Service Nov 28, 2016. Subjective 56 year old female, a case of left breast carcinoma, locally advanced disease with palpable left axillary lymph madonna involvement, ER negative, WA weakly positive, Her2/Vikas was negative, she received neoadjuvant chemotherapy in the form of dose dense AC followed by weekly paclitaxel x 12 between 03/11/2015-2015. She underwent lumpectomy and sentinel biopsy on 08/21/2015, final pathology showed residual 1.2 cm invasive carcinoma, grade 3, 1 sentinel lymph node showed isolated tumor cells, another sentinel lymph nodes showed no residual carcinoma, overall she had a very good response with the chemotherapy treatment. She completed adjuvant radiation treatment to the left breast. PET-CT scan (December,) showed new left lower lobe 1.5 cm metabolically active lesion, S/P resection of that mass which is consistent with the poorly differentiated carcinoma consistent with breast primary, hormonal negative, Her2 /Vikas--> Positive by IHC. Started on systemic chemotherapy in the form gemcitabine, Herceptin and pertuzumab on 03/12/2016. She does complain of chronic headache for the last several years, brain imaging done in April, showed no new suspicious findings but MRI of the brain done in July, showed 5 mm focus involving the right parietal lobe suspicious for metastatic disease. Repeat MRI done about 1 month after showed further enlargement of the right parietal lobe lesion measuring 8 mm. Status stereotactic the radiation treatment to the right parietal lobe lesion. PET-CT scan done in April, showed 5 mm started lesion, left 7th rib lesion, multiple hypodensities noted in the liver which was there in the previous MRI done about a year back. PET-CT scan done in August, showed metabolically active left pleural thickening which could be postsurgical, slight increase uptake noted previously noted bone lesions but no other new findings noted. PET-CT scan done on 11/25/2016 showed interval progression of the disease with metabolically active left pleural nodular thickening with some small left pleural effusion, new metabolically active left lobe of the liver lesion (2.6 cm ), metabolic active L1 lesion and stable sternal lesion noted. Recently she had follow-up MRI of the brain at [facility], found to have new posterior foci and occipital metastatic disease as well as the original right parietal lobe metastatic focus without edema noted. She had gamma knife radiation treatment the recently few days back at [facility] under the guidance of Dr. Aguirre. Few days back she was seen by radiation oncologist Dr. Washington for palliative radiation treatment to the L1 vertebral body lesion which is causing lower back pain in her case. Earlier she tolerated chemotherapy treatment quite well, no cardiac side effects noted, her treatment was complicated by infections which required antibiotic treatment an incision drainage of the abscess involving the thigh. Now she is admitted Hospital for slurring of the speech, increasing headache, trouble in the ambulation with some imbalance, had several brain imaging study during this hospitalization, MRI of the brain done on 11/27/2016 showed right parafalcine mass with marked surrounding edema, 7 mm left occipital lesion noted. No hemorrhage or acute ischemia noted. She was seen by neurologist Dr. Rodriguez and now she is on high-dose steroid therapy , improvement of the speech noted, presently she does not any focal neurological symptoms. I saw her at bedside today, she still complains of headache, no nausea or vomiting, no blurring of vision, no diplopia, no new cardiac or pulmonary symptoms, no new infectious complications. No new GI symptoms. Denies any increasing shortness of breath, no leg edema. No bleeding from any sites. On exam: - Alert and oriented x3, well built woman, not in any distress. - HEENT: no icterus, no pallor, Throat: Normal. - Neck: No palpable cervical lymphadenopathy. - Chest: clear to auscultation. - Abdomen: soft, nontender, no hepatomegaly, no splenomegaly. - No focal neuro deficit. - Extremities: no finger clubbing, no leg edema. -WBC 02841, H&H of 12.9/40, Platelet count of 415,000, BUN/Creat: 19/0.6, normal liver function test. (11/26/2016). ASSESSMENT AND PLAN: 56-year-old female, a case of left breast carcinoma, she had a palpable left axillary lymph madonna involvement at that time the diagnosis in February,, she received neoadjuvant dose dense AC followed by weekly paclitaxel which was completed in June,, she then underwent lumpectomy and sentinel lymph madonna biopsy in July,, final pathology showed residual 1.2 cm grade 3 invasive ductal carcinoma, hormonal negative, Her2/Vikas-- > negative, 1 sentinel lymph node positive for isolated tumor cells noted. She then completed adjuvant radiation treatment to the left breast and left axilla. She had shingles focus of metastatic lesion involving the right parietal lobe ( early 2015), S/P stereotactic radiation treatment to the area at [facility] Follow-up PET-CT scan done in December, showed new metabolically active left lower lobe 1.5 cm lesion, underwent wedge resection, final pathology showed recurrence of left breast cancer, hormonal negative but surprisingly it was Her2 /Vikas--> Positive by IHC. Started on systemic chemotherapy with gemcitabine, Herceptin and pertuzumab in February,. Recent the follow-up PET-CT scan done last week showed interval disease progression with metabolic active left pleural nodular thickening, 2.6 cm left lobe of the liver lesion which is new, new L1 vertebral body lesion which is causing local pain. Recently she had a follow-up brain MRI at [facility] which showed a new brain lesions and had stereotactic radiation treatment to that area and now she is admitted in the hospital for neurological symptoms in the form of unsteadiness, increasing headache, receiving high-dose of steroid with improvement of the speech but has persistent headache but no other focal neurological symptoms at this time. I reviewed with her regarding the recent the PET-CT scan which shows disease progression, she is on gemcitabine, Herceptin and pertuzumab chemotherapy since February,, I am planning to discontinue that chemotherapy. She will receive palliative radiation treatment to the symptomatic L1 vertebral body lesion (starting next week). Oral chemotherapy in the form of Xeloda can be considered, will decide about that as an outpatient basis. She is diabetic and now with the high dose of steroid therapy, we have to watch her blood sugars very carefully. She had infectious complications in the past. Thanks for the consultation. Dr. Junior Washington Hem/Onc (This note was completed using the dictation program Fluency Direct. As such, there may be misspellings, word substitutions, or other variations that should not change the essence of the clinical content of this encounter note. If there is need for further clarification, please direct questions to the provider listed above.) Vital Signs Vital Signs Past 12 Hours Date Time Temp Pulse Resp B/P (MAP) Pulse Ox O2 Delivery O2 Flow Rate FiO2 11/28/16 12:00 Room Air 11/28/16 11:40 36.9 90 20 153/91 (111) 98 Room Air 11/28/16 08:00 36.6 91 16 157/98 (117) 99 Room Air 11/28/16 08:00 Room Air 11/28/16 04:00 Room Air
[2016-11-28] MEDS ORDERED: PERFLUTREN LIPID MICROSPHERE (DEFINITY) IV ONE (16:14)
--- NOTE | 2016-11-28 20:16 | ECHOCARDIOGRAM REPORT ---
*NOTICE TO RECEIVING LIBERTARIAN AGENCY This information is strictly Confidential and protected under [place] law. [place] law prohibits you from making any further disclosure of this information unless further disclosure is expressly permitted by the written consent of the person to whom it pertains or is authorized by law. A general authorization for the release of medical or other information is not sufficient for this purpose. Hospital accepts no responsibility if the information is made available to any other person, INCLUDING THE PATIENT. Interpretation Summary * Name: KANU BAL Study Date: 11/28/2016 03:57 PM BP: 109/77 mmHg * Patient Location: .2E\S\E211\S\1 HR: 83 * : 1960 (M/d/yyyy) Gender: Female Height: 60 in * Age: 56 yrs Ethnicity: CA Weight: 115 lb * Ordering Physician: Shu Riddle * Referring Physician: Self, Referred * Performed By: Keyur Lawrence RDCS * * Reason For Study: Cerebral ischemia/embolus BSA: 1.5 m2 * -- Conclusions -- * No regional wall motion abnormalities noted. * There is no LV mural thrombus. * The LV Ejection Fraction = 60-65%. * Grade I diastolic dysfunction, (abnormal relaxation pattern). Procedure Details * A complete two-dimensional transthoracic echocardiogram was performed (2D, M-mode, Doppler and color flow Doppler). * The study was technically difficult. * The study was technically difficult, but visualization was adequate with the administration of Definity ultrasound contrast. * A contrast injection of Definity was performed to improve assessment of LV function. * Contrast was injected into an intravenous site in the central line. * One vial of Definity ultrasound contrast was diluted in normal saline to a total volume of 10 ml. A total of '3' ml of solution was administered during imaging. * Lot # [id number] of Definity utilized for procedure. * Expiration date . * The attending nurse who injected the contrast agent was TIMO Peralta. * A saline contrast injection was performed to assess for cardiac shunting. * The attending nurse who injected the saline contrast was TIMO Peralta. Left Ventricle * The left ventricle is normal in size. * There is no thrombus. * There is normal left ventricular wall thickness. * Left ventricular systolic function is normal. * Ejection Fraction = 60-65%. * The left ventricular wall motion is normal. * No regional wall motion abnormalities noted. Right Ventricle * The right ventricle is normal size. * The right ventricular systolic function is normal as assessed by tricuspid annular plane systolic excursion (TAPSE) (normal >1.5 cm). Atria * The left atrial size is normal. * Right atrial size is normal. * The interatrial septum is intact with no evidence for an atrial septal defect. Mitral Valve * The mitral valve is normal. * There is no mitral valve stenosis. * Significant mitral regurgitation is absent. Tricuspid Valve * The tricuspid valve is normal. * There is no tricuspid stenosis. * Significant tricuspid regurgitation is absent. * Doppler findings do not suggest pulmonary hypertension. Aortic Valve * The aortic valve is trileaflet. * Aortic stenosis is absent. * There is no significant aortic regurgitation. Pulmonic Valve * The pulmonary valve is not well seen, but the Doppler examination is normal without significant regurgitation or stenosis. Great Vessels * The aortic root and proximal ascending aorta are normal sized. Pericardium/Pleural * There is no pericardial effusion. Great Vessels * Normal inferior vena cava diameter and respiratory variation suggests normal central venous pressure. * Normal inferior vena cava size and collapsability with sniff indicates a normal right atrial pressure of 3 mmHg Left Ventricular Diastolic Function * Grade I diastolic dysfunction, (abnormal relaxation pattern). MMode 2D Measurements and Calculations IVSd 0.86 cm IVSs 1.2 cm LVIDd 4.6 cm LVIDs 3.2 cm LVPWd 0.82 cm LVPWs 1.3 cm IVS/LVPW 1.0 FS 28.9 % EDV(Teich) 95.9 ml ESV(Teich) 42.5 ml EF(Teich) 55.7 % EDV(cubed) 95.6 ml ESV(cubed) 34.3 ml EF(cubed) 64.1 % % IVS thick 35.0 % % LVPW thick 64.0 % LV mass(C)d 124.0 grams LV mass(C)dI 84.0 grams/m\S\2 LV mass(C)s 130.1 grams LV mass(C)sI 88.2 grams/m\S\2 SV(Teich) 53.4 ml SI(Teich) 36.2 ml/m\S\2 SV(cubed) 61.2 ml SI(cubed) 41.5 ml/m\S\2 EPSS 0.66 cm Ao root diam 2.8 cm Ao root area 6.1 cm\S\2 ACS 2.0 cm LA dimension 3.2 cm asc Aorta Diam 2.8 cm LA/Ao 1.1 LVOT diam 1.9 cm LVOT area 2.9 cm\S\2 LVAd ap4 26.8 cm\S\2 LVLd ap4 7.4 cm EDV(MOD-sp4) 82.0 ml LVAs ap4 13.8 cm\S\2 LVLs ap4 6.2 cm ESV(MOD-sp4) 26.0 ml EF(MOD-sp4) 68.3 % LVAd ap2 21.7 cm\S\2 LVLd ap2 6.3 cm EDV(MOD-sp2) 63.0 ml LVAs ap2 11.8 cm\S\2 LVLs ap2 6.2 cm ESV(MOD-sp2) 19.0 ml EF(MOD-sp2) 69.8 % SV(MOD-sp4) 56.0 ml SI(MOD-sp4) 38.0 ml/m\S\2 SV(MOD-sp2) 44.0 ml SI(MOD-sp2) 29.8 ml/m\S\2 Doppler Measurements and Calculations MV E max billy 84.9 cm/sec MV A max billy 80.5 cm/sec MV E/A 1.1 MV dec time 0.17 sec Ao V2 max 111.3 cm/sec Ao max PG 5.0 mmHg Ao max PG (full) 2.6 mmHg ANAMARIA(V,A) 2.0 cm\S\2 ANAMARIA(V,D) 2.0 cm\S\2 LV V1 max PG 2.3 mmHg LV V1 max 76.5 cm/sec
[2016-11-28] MEDS: ATORVASTATIN 40 MG TAB PO SCH (20:32)
[2016-11-28] MEDS: MONTELUKAST SOD 10 MG TAB PO SCH (20:32)
[2016-11-28] MEDS: AMITRIPTYLINE HCL 50 MG TAB PO SCH (20:32)
[2016-11-28] MEDS: PREMARIN VAG CRM 14 APPLN/30 GM TUBE PV SCH (20:34)
[2016-11-29 00:01] VITALS: BP 130/73; PULSE 67; TEMP 36.5; O2SAT 96
[2016-11-29 03:01] VITALS: BP 112/73; PULSE 68; TEMP 36.4; O2SAT 96
[2016-11-29] MEDS: INSULIN ASPART 100 UNITS/ML 3 ML PEN SC SCH ×6 (04:33→21:04)
[2016-11-29] MEDS: OXYCODONE/ACETAMINOPHEN 5-325 TAB PO PRN ×3 (04:33→20:58)
[2016-11-29] MEDS: HEPARIN SOD 5000 UNIT/0.5 ML CARP SQ SCH ×3 (04:34→20:45)
[2016-11-29 06:40] LABS: HEMATOCRIT 37.2 % (37-47); MEAN CELL VOLUME 98.7 fL (80-100); MEAN CORPUSCULAR HGB CONC 31.5 g/dl (32-36); MEAN PLATELET VOLUME 8.5 fL (7.4-10.4); PLATELET COUNT 369 K/uL (130-400); RED BLOOD COUNT 3.77 M/uL (4.2-5.4); WHITE BLOOD COUNT 13.93 K/uL (4.8-10.8)
[2016-11-29 07:11] LABS: BUN/CREATININE RATIO 26.3 (10-20); CALCIUM 8.2 mg/dl (8.5-10.1); CREATININE 0.66 mg/dl (0.60-1.20); POTASSIUM 4.1 mmol/L (3.5-5.1)
[2016-11-29 07:23] LABS: BASO % 0.1 %; BASO ABS # 0.01 K/uL (0-0.2); COMPLETE YES; IG% 0.5 %; LYMPH % 9.1 %; LYMPH ABS # 1.27 K/uL (1.2-3.4); MONO % 3.8 %; NEUT % 86.5 %
--- NOTE | 2016-11-29 07:36 | Neurology Progress Notes ---
Neurology Progress Note Date of Service Nov 29, 2016. Subjective Patient did very well yesterday after IV Solu-Medrol. Her headache was remarkably better down to a 4 out of 10 (which is quite good for her). She had decreased low back pain as well. She was feeling well until about 11 PM when her headache became worse and she had some blurry vision. She had no new balance problems or speech issues. She had no new weakness or numbness of her limbs. She slept fairly well. Now she is experiencing a rather significant headache this morning but has no vision problems. Echocardiogram was unremarkable. Laboratory studies revealed an elevated white count (steroid) and a glucose of 130. Calcium was mildly low at 8.2. Objective Date Time Temp Pulse Resp B/P (MAP) Pulse Ox O2 Delivery O2 Flow Rate FiO2 11/29/16 04:00 Room Air 11/29/16 03:01 36.4 68 16 112/73 (86) 96 Room Air 11/29/16 00:01 36.5 67 18 130/73 (92) 96 Room Air 11/28/16 23:59 Room Air 11/28/16 20:05 36.7 73 18 133/76 (95) 99 Room Air 11/28/16 20:00 97 Room Air 11/28/16 20:00 97 Room Air 11/28/16 16:00 97 Room Air 11/28/16 15:52 37.0 80 18 128/83 (98) 97 Room Air 11/28/16 12:00 Room Air 11/28/16 11:40 36.9 90 20 153/91 (111) 98 Room Air 11/28/16 08:00 36.6 91 16 157/98 (117) 99 Room Air 11/28/16 08:00 Room Air Last 24 Hours Test 11/28/16 11:21 11/28/16 16:08 11/28/16 20:13 11/29/16 00:26 Bedside Glucose 155 mg/dl 176 mg/dl 158 mg/dl 159 mg/dl Test 11/29/16 04:30 11/29/16 06:19 11/29/16 06:48 Bedside Glucose 137 mg/dl 129 mg/dl White Blood Count 13.93 K/uL Red Blood Count 3.77 M/uL Hemoglobin 11.7 g/dL Hematocrit 37.2 % Mean Corpuscular Volume 98.7 fL Mean Corpuscular Hemoglobin 31.0 pg Mean Corpuscular Hemoglobin Concent 31.5 g/dl Platelet Count 369 K/uL Mean Platelet Volume 8.5 fL Neutrophils (%) (Auto) 86.5 % Lymphocytes (%) (Auto) 9.1 % Monocytes (%) (Auto) 3.8 % Eosinophils (%) (Auto) 0.0 % Basophils (%) (Auto) 0.1 % Neutrophils # (Auto) 12.05 K/uL Lymphocytes # (Auto) 1.27 K/uL Monocytes # (Auto) 0.53 K/uL Eosinophils # (Auto) 0.00 K/uL Basophils # (Auto) 0.01 K/uL RDW Standard Deviation 50.4 fL RDW Coefficient of Variation 14.1 % Immature Granulocyte % (Auto) 0.5 % Immature Granulocyte # (Auto) 0.07 K/uL Sodium Level 144 mmol/L Potassium Level 4.1 mmol/L Chloride Level 109 mmol/L Carbon Dioxide Level 28 mmol/L Anion Gap 7.0 mmol/L Blood Urea Nitrogen 17 mg/dl Creatinine 0.66 mg/dl Est Creatinine Clear Calc Drug Dose 74.0 ml/min Estimated GFR () 114.5 Estimated GFR (Non- 98.8 BUN/Creatinine Ratio 26.3 Random Glucose 130 mg/dl Calcium Level 8.2 mg/dl Exam: She is awake and alert. Speech is normal without aphasia or dysarthria. Mood and affect are normal and appropriate. Thought processes are intact. Extraocular eye muscles are intact without nystagmus. There is no facial droop. Stance is normal sitting up in the chair. Coordination is normal in the arms. Strength is symmetrical in the limbs. There are no abnormal involuntary movements. Current Inpatient Medications Medications (Trade) Dose Ordered Sig/Crow Route Start Time Stop Time Status Last Admin Dose Admin Acetaminophen (Tylenol Tab) 650 mg Q4H PRN PO 11/27/16 14:45 12/27/16 14:44 Ondansetron HCl (Zofran Inj) 4 mg Q6H PRN IV 11/27/16 14:45 12/27/16 14:44 Polyethylene (Miralax Powder Packet) 17 gm DAILY PRN PO 11/27/16 14:45 12/27/16 14:44 11/28/16 12:38 17 GM Insulin Aspart (novoLOG ASPART) SLIDING SCALE If C... ACHS SC 11/27/16 16:00 12/27/16 15:59 11/28/16 16:50 4 UNITS Glucose (Glucose 40% Gel) 15-30 GRAMS 15 GRAMS... UD PRN PO 11/27/16 14:45 12/27/16 14:44 Glucose (Glucose Chew Tab) 4-8 Tablets 4 Tabl... UD PRN PO 11/27/16 14:45 12/27/16 14:44 Dextrose (Dextrose 50% 50ML Syringe) 25-50ML OF 50% DW IV FOR... UD PRN IV 11/27/16 14:45 12/27/16 14:44 Glucagon (Glucagon Inj) 1 mg UD PRN SQ 11/27/16 14:45 12/27/16 14:44 Miscellaneous Information (Consult Glycemic Management Pharmacy) 1 ea UD PRN N/A 11/27/16 14:50 12/27/16 14:49 Heparin Sodium (Porcine) (Heparin Sq 5000 Unit/0.5ml) 5,000 unit Q8 SQ 11/27/16 22:00 12/27/16 21:59 Albuterol (Ventolin Hfa Inhaler) 2 puffs QID PRN INH 11/27/16 15:00 12/27/16 14:59 Amitriptyline HCl (Elavil Tab) 75 mg HS PO 11/27/16 21:00 12/27/16 20:59 11/28/16 20:32 75 MG Cholecalciferol (Vitamin D Tab) 1,000 inter.unit DAILY PO 11/28/16 09:00 12/28/16 08:59 11/28/16 08:52 1,000 INTER.UNIT Fluticasone Propionate (Flovent Hfa 110MCG Inhaler) 2 puffs BID INH 11/27/16 21:00 12/27/16 20:59 11/28/16 20:30 2 PUFFS Fluticasone Propionate (Flonase Nasal [place]) 2 sprays QAM JUDE 11/28/16 09:00 12/28/16 08:59 11/28/16 08:56 2 SPRAYS Lamotrigine (Lamictal Tab) 150 mg BID PO 11/27/16 21:00 12/27/16 20:59 11/28/16 20:30 150 MG Montelukast Sodium (Singulair Tab) 10 mg PM PO 11/27/16 21:00 12/27/16 20:59 11/28/16 20:32 10 MG Multivitamins (Multivitamin Tab) 1 tab QAM PO 11/28/16 09:00 12/28/16 08:59 11/28/16 08:52 1 TAB Oxycodone/ Acetaminophen (Percocet 5-325mg Tab) 1 tab Q6H PRN PO 11/27/16 15:00 12/11/16 14:59 11/29/16 04:33 1 TAB Potassium Chloride (Klor-Con Tab) 20 meq BIDM PO 11/27/16 16:45 12/27/16 16:44 11/28/16 16:50 20 MEQ Prochlorperazine Maleate (Compazine Tab) 10 mg Q6H PRN PO 11/27/16 15:00 12/27/16 14:59 Promethazine HCl (Phenergan Tab) 25 mg Q6 PRN PO 11/27/16 15:00 12/27/16 14:59 Ropinirole HCl (Requip Tab) 1 mg TID PO 11/27/16 21:00 12/27/16 20:59 11/28/16 20:32 1 MG Topiramate (Topamax Tab) 200 mg BID PO 11/27/16 21:00 12/27/16 20:59 11/28/16 20:34 200 MG Verapamil HCl (Calan-Sr Tab) 120 mg BID PO 11/27/16 21:00 12/27/16 20:59 11/28/16 20:33 120 MG Atorvastatin Calcium (Lipitor Tab) 40 mg HS PO 11/27/16 21:00 12/27/16 20:59 11/28/16 20:32 40 MG Pantoprazole Sodium (Protonix Tab) 40 mg QAM PO 11/28/16 09:00 12/28/16 08:59 11/28/16 08:52 40 MG Baclofen (Lioresal Tab) 10 mg TID PRN PO 11/27/16 16:45 12/27/16 16:44 11/28/16 08:55 10 MG Gadobutrol (Gadavist) 5 mmol UD PRN IV 11/27/16 17:15 12/01/16 17:14 Heparin Sodium (Porcine) (Heparin 100 Unit/ml 5ml Flush) 5 ml PRN PRN IV 11/28/16 06:45 12/28/16 06:44 11/28/16 16:29 5 ML Insulin Glargine (Lantus Solostar Pen) 12 unit QAM SC 11/28/16 09:00 12/28/16 08:59 11/28/16 09:00 12 UNIT Morphine Sulfate (MoRPHine SULFATE INJ) 2 mg Q4H PRN IV 11/28/16 14:45 12/11/16 14:44 11/29/16 00:21 2 MG Aspirin (Ecotrin Tab) 81 mg QAM PO 11/29/16 09:00 12/29/16 08:59 Insulin Aspart (novoLOG ASPART) SLIDING SCALE If C... 0000,0400 SC 11/29/16 00:00 12/29/16 00:00 Estrogens Conjugated (Premarin Vag Crm) 1 appln HS PV 11/28/16 21:00 12/28/16 20:59 11/28/16 20:34 1 APPLN Impression Overall, this is a very complicated patient neurologically. 1. Events November 27 consisted of increased headaches, slurred speech, difficulty with word finding, and nonspecific balance issues. She currently has no speech problems or balance issues and no focal neurologic findings, meningeal signs, or encephalopathy. Etiology of this is likely related to her cerebral edema and central nervous system metastases. Although I cannot entirely exclude a TIA, she has no evidence of previous cerebrovascular disease and MR angiography of the head and neck was unremarkable. Risk factors for stroke include long-standing diabetes. 2. Headaches. Her headaches have been refractory and lifelong. Her migrainous headaches have been fairly well controlled on medication. Currently, her headaches are more likely due to increased cerebral edema (with the mild midline shift) creating increased intracranial pressure. Each time she received gamma knife radiation treatment, she had an increase in her headaches and symptoms. 3. History of seizure disorder. This is long-standing and she has not had any seizures since her early 20s, being quite controlled on Lamictal. 4. Low back pain for the last 3 months. She has a new L1 bony lesion seen on PET scan consistent with metastases. 5. Post Chiari malformation surgery September 2014, with no improvement on headaches. 6. Metastatic breast cancer followed by oncology and radiation oncology. She has had new lesions of the brain and spine discovered in the last month Plan 1. Keep topiramate, amitriptyline, Lamictal, and verapamil the same for now. 2. One more dose of 500 mg IV Solu-Medrol today After this, continue Decadron with slow taper 3. Continue Percocet as needed for pain. 4. Continue 81 mg baby aspirin tablet daily, although we would need to protect her stomach. Theoretically, she is at risk for increased bleeding with her [employer] metastases. 5. I see no need for additional neurologic testing at this time. I have no further neurologic testing or treatment recommendations to make at this time. Please contact me if I can be of further assistance on this case. Otherwise, she will follow-up with Dr. Goodman as an outpatient.
[2016-11-29 07:55] VITALS: BP 108/68; PULSE 79; TEMP 36.6; O2SAT 97
[2016-11-29] MEDS: ROPINIROLE HCL 1 MG TAB PO SCH ×3 (08:26→20:59)
[2016-11-29] MEDS: TOPIRAMATE 100 MG TAB PO SCH ×2 (08:26→20:59)
[2016-11-29] MEDS: VERAPAMIL HCL 120 MG TABCR PO SCH ×2 (08:27→21:00)
[2016-11-29] MEDS: PANTOprazole SOD 40 MG TAB PO SCH (08:27)
[2016-11-29] MEDS: FLUTICASONE HFA 110MCG INHALER INH SCH ×2 (08:28→21:00)
[2016-11-29] MEDS: FLUTICASONE PROPIONATE NA SPR 16 GM BTL NAE SCH (08:28)
[2016-11-29] MEDS: ASPIRIN 81 MG ECTAB PO SCH (08:28)
[2016-11-29] MEDS: MULTIVITAMIN TAB PO SCH (08:29)
[2016-11-29] MEDS: CHOLECALCIFEROL 1000 INTER.UNIT TAB PO SCH (08:30)
[2016-11-29] MEDS: POTASSIUM CHLORIDE 20 MEQ TABCR PO SCH ×2 (08:30→17:56)
[2016-11-29] MEDS: INSULIN GLARGINE SOLOSTAR 100 UNITS/ML 3 ML PEN SC SCH (08:35)
--- NOTE | 2016-11-29 10:43 | Progress Note ---
Internal Med Progress Note Date of Service: Nov 29, 2016. Provider Documentation: SUBJECTIVE: Patient is doing better. Slurred speech, gait imbalance on presentation completely resolved in few hours of presentation. No nausea, vomiting, localized weakness, sensory loss. Headaches + occipital near site of lesions where gamma knife surgery was performed on 11/19. Improved after IV solu medrol x 1 dose of 500 mg and but re curred at 11 PM and today AM it is worse again OBJECTIVE: Vital Signs-as noted below Exam: General-AAOX3, no distress Eyes-No icterus, PEERLA Lungs-AEBE, no wheezing, rhonchi Heart-S1, S2 normal, no murmurs Abdomen-Soft, non tender, non distended, BS present Extremities-No edema Neuro-AAOX3, Power 5/5 all ext,no sensory loss, cranial nerves intact Lab data as noted below. ASSESSMENT & PLAN: Patient has a very complicated past history, comes in with c/o increased headaches, slurred speech and difficulty with word finding as well as balance issues. ASSESSMENT AND PLAN: EPISODE OF SLURRED SPEECH/WORD FINDING DIFFICULTY WITH ACUTE ON CHRONIC HEADACHES: Patient has a complicated PMH as mentioned above. She does have hx of migraines and headaches since neurological procedures- gamma knife as mentioned above. Came back with above symptoms, lasting for few hours which resolved after arrival to ED. Currently, has headaches but no other neurological symptoms or deficits -Etiology likely related to her cerebral edema and central nervous system metastases. Cannot completely exclude TIA, but no evidence of previous cerebrovascular disease and MR angiography of the head and neck was unremarkable. -Had a detailed discussion with Neurologist, Dr Rodriguez about plan -Will continue with Aspirin started this admission, but at a reduced dose of 81 mg than 325 mg as there is an increased risk of bleeding in mets. If continues to do well, may consider discontinuing in future weighing the risks vs benefits -Work up - MRI- . There is unchanged appearance of a complex posterior right parafalcine mass with marked surrounding edema and right to left midline shift as compared to the 11/17/2016 examination. 2. A 7 mm left occipital lesion is also unchanged. No new lesions are identified. No new hemorrhage or stroke, MRA head/neck- unremarkable, CT head- Redemonstration of the right posterior parafalcine metastasis with extensive associated vasogenic edema and mass effect, as described above. Stable sulcal effacement and leftward midline shift. HBA1C- 6.2, LDL- 100 HEADACHES- ACUTE ON CHRONIC Her headaches have been refractory and lifelong. Her migrainous headaches have been fairly well controlled on medication- Topiramate, Lamictal, Verapamil. -Currently, her headaches are more likely due to increased cerebral edema with the mild midline shift from increased intracranial pressure. Each time she gets gamma knife radiation treatment she has an increase in her headaches and symptoms and this is likely related to her recent procedure- 11/19 (Gamma knife surgery) at [facility] -S/P IV solu medrol 500 mg yesterday---> Helped significantly. Recurred today AM--> Will give another dose of IV 500 mg Solu medrol today. -Change to Decadron taper as prior to admission but with a longer taper. -Continue with Topiramte, Lamictal, Verapamil, Amitriptyline as prior to home doses. -Continue with percocet prn at prior to home dose BREAST CARCINOMA WITH METASTASIS TO BRAIN, BONE, LIVER S/P Chemo/Radiation -Had new lesions in brain and spine last month -Recently had a new L1 Bony lesion on PET scan--> plan is for radiation rx outpatient -MRI- unchanged from one last week- metastatic lesions with significant edema and midline shift. Did undergo gamma knife surgeries in past and one recently last month 11/19 at [facility] -Continue with pain medication -Hem/Onc consulted- will follow up closely outpatient due to recent spread noted on PET scan outpatient HISTORY OF SEIZURE -Not had any seizures since in her 20s, controlled on lamictal HX OF CHIARI MALFORMATION SURGERY IN 10/10 -No improvement in headaches post surgery DM- ISS, Accuchecks -Monitor on high dose steroids HTN Stable DVT PROPHYLAXIS Lovenox SQ- high risk for ca DISPOSITION Likely discharge today evening if improvement in headaches Discussed with neurology about discharge plan. Appreciate inputs Follow up with PCP, neurology, hem/onc outpatient Vital Signs: Date Time Temp Pulse Resp B/P (MAP) Pulse Ox O2 Delivery O2 Flow Rate FiO2 11/29/16 07:55 36.6 79 20 108/68 (81) 97 Room Air 11/29/16 04:00 Room Air 11/29/16 03:01 36.4 68 16 112/73 (86) 96 Room Air 11/29/16 00:01 36.5 67 18 130/73 (92) 96 Room Air 11/28/16 23:59 Room Air 11/28/16 20:05 36.7 73 18 133/76 (95) 99 Room Air 11/28/16 20:00 97 Room Air 11/28/16 20:00 97 Room Air 11/28/16 16:00 97 Room Air 11/28/16 15:52 37.0 80 18 128/83 (98) 97 Room Air 11/28/16 12:00 Room Air 11/28/16 11:40 36.9 90 20 153/91 (111) 98 Room Air Lab Results: Results Past 24 Hours Test 11/28/16 11:21 11/28/16 16:08 11/28/16 20:13 11/29/16 00:26 Range/Units Bedside Glucose 155 176 158 159 70-90 mg/dl Test 11/29/16 04:30 11/29/16 06:19 11/29/16 06:48 Range/Units Bedside Glucose 137 129 70-90 mg/dl White Blood Count 13.93 4.8-10.8 K/uL Red Blood Count 3.77 4.2-5.4 M/uL Hemoglobin 11.7 12.0-16.0 g/dL Hematocrit 37.2 37-47 % Mean Corpuscular Volume 98.7 80-100 fL Mean Corpuscular Hemoglobin 31.0 25-34 pg Mean Corpuscular Hemoglobin Concent 31.5 32-36 g/dl Platelet Count 369 130-400 K/uL Mean Platelet Volume 8.5 7.4-10.4 fL Neutrophils (%) (Auto) 86.5 % Lymphocytes (%) (Auto) 9.1 % Monocytes (%) (Auto) 3.8 % Eosinophils (%) (Auto) 0.0 % Basophils (%) (Auto) 0.1 % Neutrophils # (Auto) 12.05 1.4-6.5 K/uL Lymphocytes # (Auto) 1.27 1.2-3.4 K/uL Monocytes # (Auto) 0.53 0.11-0.59 K/uL Eosinophils # (Auto) 0.00 0-0.5 K/uL Basophils # (Auto) 0.01 0-0.2 K/uL RDW Standard Deviation 50.4 36.4-46.3 fL RDW Coefficient of Variation 14.1 11.5-14.5 % Immature Granulocyte % (Auto) 0.5 % Immature Granulocyte # (Auto) 0.07 0.00-0.02 K/uL Sodium Level 144 136-145 mmol/L Potassium Level 4.1 3.5-5.1 mmol/L Chloride Level 109 98-107 mmol/L Carbon Dioxide Level 28 21-32 mmol/L Anion Gap 7.0 3-11 mmol/L Blood Urea Nitrogen 17 7-18 mg/dl Creatinine 0.66 0.60-1.20 mg/dl Est Creatinine Clear Calc Drug Dose 74.0 ml/min Estimated GFR () 114.5 Estimated GFR (Non- 98.8 BUN/Creatinine Ratio 26.3 10-20 Random Glucose 130 70-99 mg/dl Calcium Level 8.2 8.5-10.1 mg/dl
[2016-11-29] MEDS ORDERED: METHYLPREDNISOLONE IV 500 MG in DEXTROSE 5% 250ML 250 ML IV ONE (11:30)
[2016-11-29 11:42] VITALS: BP 131/75; PULSE 86; TEMP 36.9; O2SAT 100
[2016-11-29 15:53] VITALS: BP 122/67; PULSE 93; TEMP 36.4; O2SAT 96
[2016-11-29 20:22] VITALS: BP 139/77; PULSE 74; TEMP 37; O2SAT 100
[2016-11-29] MEDS: PREMARIN VAG CRM 14 APPLN/30 GM TUBE PV SCH (20:59)
[2016-11-29] MEDS: MONTELUKAST SOD 10 MG TAB PO SCH (21:00)
[2016-11-29] MEDS: ATORVASTATIN 40 MG TAB PO SCH (21:00)
[2016-11-29] MEDS: AMITRIPTYLINE HCL 50 MG TAB PO SCH (21:01)
[2016-11-29] MEDS: POLYETHYLENE (MIRALAX) 17 GM PACK PO PRN (21:08)
[2016-11-30 00:14] VITALS: BP 116/68; PULSE 79; TEMP 37; O2SAT 98
[2016-11-30] MEDS: OXYCODONE/ACETAMINOPHEN 5-325 TAB PO PRN (04:04)
[2016-11-30 04:24] VITALS: BP 111/62; PULSE 68; TEMP 36.6; O2SAT 97
[2016-11-30] MEDS: HEPARIN SOD 5000 UNIT/0.5 ML CARP SQ SCH (06:00)
[2016-11-30 06:47] LABS: HEMATOCRIT 43.3 % (37-47); MEAN CORPUSCULAR HEMOGLOBIN 32.1 pg (25-34); MEAN CORPUSCULAR HGB CONC 32.1 g/dl (32-36); MEAN PLATELET VOLUME 8.9 fL (7.4-10.4); PLATELET COUNT 426 K/uL (130-400); RED BLOOD COUNT 4.33 M/uL (4.2-5.4); WHITE BLOOD COUNT 17.23 K/uL (4.8-10.8)
[2016-11-30 07:22] LABS: BUN/CREATININE RATIO 24.2 (10-20); CALCIUM 8.5 mg/dl (8.5-10.1); CREATININE 0.79 mg/dl (0.60-1.20); POTASSIUM 3.5 mmol/L (3.5-5.1)
[2016-11-30 07:32] LABS: BASO % 0.1 %; BASO ABS # 0.01 K/uL (0-0.2); COMPLETE YES; IG% 0.6 %; LYMPH ABS # 1.55 K/uL (1.2-3.4); MONO % 3.3 %
[2016-11-30 08:04] VITALS: BP 113/59; PULSE 86; TEMP 37.1; O2SAT 99
[2016-11-30] MEDS: TOPIRAMATE 100 MG TAB PO SCH (08:23)
[2016-11-30] MEDS: ASPIRIN 81 MG ECTAB PO SCH (08:23)
[2016-11-30] MEDS: ROPINIROLE HCL 1 MG TAB PO SCH (08:23)
[2016-11-30] MEDS: POTASSIUM CHLORIDE 20 MEQ TABCR PO SCH (08:25)
[2016-11-30] MEDS: PANTOprazole SOD 40 MG TAB PO SCH (08:26)
[2016-11-30] MEDS: MULTIVITAMIN TAB PO SCH (08:26)
[2016-11-30] MEDS: VERAPAMIL HCL 120 MG TABCR PO SCH (08:27)
[2016-11-30] MEDS: CHOLECALCIFEROL 1000 INTER.UNIT TAB PO SCH (08:27)
[2016-11-30] MEDS: FLUTICASONE PROPIONATE NA SPR 16 GM BTL NAE SCH (08:28)
[2016-11-30] MEDS: FLUTICASONE HFA 110MCG INHALER INH SCH (08:28)
[2016-11-30] MEDS: INSULIN ASPART 100 UNITS/ML 3 ML PEN SC SCH (08:31)
[2016-11-30] MEDS: INSULIN GLARGINE SOLOSTAR 100 UNITS/ML 3 ML PEN SC SCH (08:32)
--- NOTE | 2016-11-30 10:16 | Progress Note ---
Internal Med Progress Note Date of Service: Nov 30, 2016. Provider Documentation: SUBJECTIVE: Patient is doing better. Slurred speech, gait imbalance on presentation completely resolved in few hours of presentation. No nausea, vomiting, localized weakness, sensory loss. Headaches + occipital near site of lesions where gamma knife surgery was performed on 11/19. Improved after IV solu medrol x 2 doses of 500 mg and but persistent. OBJECTIVE: Vital Signs-as noted below Exam: General-AAOX3, no distress Eyes-No icterus, PEERLA Lungs-AEBE, no wheezing, rhonchi Heart-S1, S2 normal, no murmurs Abdomen-Soft, non tender, non distended, BS present Extremities-No edema Neuro-AAOX3, Power 5/5 all ext,no sensory loss, cranial nerves intact Lab data as noted below. ASSESSMENT & PLAN: Patient has a very complicated past history, comes in with c/o increased headaches, slurred speech and difficulty with word finding as well as balance issues. ASSESSMENT AND PLAN: EPISODE OF SLURRED SPEECH/WORD FINDING DIFFICULTY WITH ACUTE ON CHRONIC HEADACHES: Patient has a complicated PMH as mentioned above. She does have hx of migraines and headaches since neurological procedures- gamma knife as mentioned above. Came back with above symptoms, lasting for few hours which resolved after arrival to ED. Currently, has headaches but no other neurological symptoms or deficits -Etiology likely related to her cerebral edema and central nervous system metastases. Cannot completely exclude TIA, but no evidence of previous cerebrovascular disease and MR angiography of the head and neck was unremarkable. -Had a detailed discussion with Neurologist, Dr Rodriguez about plan -Will continue with Aspirin started this admission, but at a reduced dose of 81 mg than 325 mg as there is an increased risk of bleeding in mets. If continues to do well, may consider discontinuing in future weighing the risks vs benefits -Work up - MRI- . There is unchanged appearance of a complex posterior right parafalcine mass with marked surrounding edema and right to left midline shift as compared to the 11/17/2016 examination. 2. A 7 mm left occipital lesion is also unchanged. No new lesions are identified. No new hemorrhage or stroke, MRA head/neck- unremarkable, CT head- Redemonstration of the right posterior parafalcine metastasis with extensive associated vasogenic edema and mass effect, as described above. Stable sulcal effacement and leftward midline shift. HBA1C- 6.2, LDL- 100 HEADACHES- ACUTE ON CHRONIC Her headaches have been refractory and lifelong. Her migrainous headaches have been fairly well controlled on medication- Topiramate, Lamictal, Verapamil. -Currently, her headaches are more likely due to increased cerebral edema with the mild midline shift from increased intracranial pressure. Each time she gets gamma knife radiation treatment she has an increase in her headaches and symptoms and this is likely related to her recent procedure- 11/19 (Gamma knife surgery) at [facility] -S/P IV solu medrol 500 mg x 2 ---> Helped significantly. But recurred. Would avoid further doses of IV solu medrol. -Change to Decadron taper as prior to admission - restart taper today. Would avoid higher doses due to concern about side effects -Continue with Topiramte, Lamictal, Verapamil, Amitriptyline as prior to home doses. -Continue with percocet prn at prior to home dose BREAST CARCINOMA WITH METASTASIS TO BRAIN, BONE, LIVER S/P Chemo/Radiation -Had new lesions in brain and spine last month -Recently had a new L1 Bony lesion on PET scan--> plan is for radiation rx outpatient -MRI- unchanged from one last week- metastatic lesions with significant edema and midline shift. Did undergo gamma knife surgeries in past and one recently last month 11/19 at [facility] -Continue with pain medication -Hem/Onc consulted- will follow up closely outpatient due to recent spread noted on PET scan outpatient. Has an appointment tomorrow HISTORY OF SEIZURE -Not had any seizures since in her 20s, controlled on lamictal HX OF CHIARI MALFORMATION SURGERY IN 10/10 -No improvement in headaches post surgery DM- ISS, Accuchecks -Monitor on high dose steroids HTN Stable DVT PROPHYLAXIS Lovenox SQ- high risk for ca DISPOSITION Headaches persistent, but they are tolerable as prior to admission./ chronic headaches. Okay to discharge home today Has appointment with her Hem/Onc, Radiation oncology tomorrow. Vital Signs: Date Time Temp Pulse Resp B/P (MAP) Pulse Ox O2 Delivery O2 Flow Rate FiO2 11/30/16 08:04 37.1 86 20 113/59 (77) 99 Room Air 11/30/16 08:00 Room Air 11/30/16 04:24 36.6 68 16 111/62 (78) 97 Room Air 11/30/16 04:00 Room Air 11/30/16 00:14 37.0 79 16 116/68 (84) 98 Room Air 11/29/16 23:59 Room Air 11/29/16 20:22 37.0 74 18 139/77 (97) 100 Room Air 11/29/16 20:00 Room Air 11/29/16 16:00 Room Air 11/29/16 15:53 36.4 93 18 122/67 (85) 96 Room Air 11/29/16 12:00 Room Air 11/29/16 11:42 36.9 86 18 131/75 (93) 100 Room Air Lab Results: Results Past 24 Hours Test 11/29/16 10:52 11/29/16 16:04 11/29/16 19:49 11/30/16 06:30 Range/Units Bedside Glucose 113 254 185 70-90 mg/dl White Blood Count 17.23 4.8-10.8 K/uL Red Blood Count 4.33 4.2-5.4 M/uL Hemoglobin 13.9 12.0-16.0 g/dL Hematocrit 43.3 37-47 % Mean Corpuscular Volume 100.0 80-100 fL Mean Corpuscular Hemoglobin 32.1 25-34 pg Mean Corpuscular Hemoglobin Concent 32.1 32-36 g/dl Platelet Count 426 130-400 K/uL Mean Platelet Volume 8.9 7.4-10.4 fL Neutrophils (%) (Auto) 87.0 % Lymphocytes (%) (Auto) 9.0 % Monocytes (%) (Auto) 3.3 % Eosinophils (%) (Auto) 0.0 % Basophils (%) (Auto) 0.1 % Neutrophils # (Auto) 14.99 1.4-6.5 K/uL Lymphocytes # (Auto) 1.55 1.2-3.4 K/uL Monocytes # (Auto) 0.57 0.11-0.59 K/uL Eosinophils # (Auto) 0.00 0-0.5 K/uL Basophils # (Auto) 0.01 0-0.2 K/uL RDW Standard Deviation 51.3 36.4-46.3 fL RDW Coefficient of Variation 14.1 11.5-14.5 % Immature Granulocyte % (Auto) 0.6 % Immature Granulocyte # (Auto) 0.11 0.00-0.02 K/uL Sodium Level 144 136-145 mmol/L Potassium Level 3.5 3.5-5.1 mmol/L Chloride Level 107 98-107 mmol/L Carbon Dioxide Level 31 21-32 mmol/L Anion Gap 6.0 3-11 mmol/L Blood Urea Nitrogen 19 7-18 mg/dl Creatinine 0.79 0.60-1.20 mg/dl Est Creatinine Clear Calc Drug Dose 61.8 ml/min Estimated GFR () 97.0 Estimated GFR (Non- 83.7 BUN/Creatinine Ratio 24.2 10-20 Random Glucose 106 70-99 mg/dl Calcium Level 8.5 8.5-10.1 mg/dl Test 11/30/16 06:57 Range/Units Bedside Glucose 105 70-90 mg/dl
[2016-11-30] MEDS ORDERED: ASPEC81 PO ×2 (10:23→10:25)
[2016-11-30] MEDS ORDERED: DXM/4 PO (10:25)
--- NOTE | 2016-11-30 10:27 | Discharge Instructions ---
Discharge Instructions Date of Service Nov 30, 2016. Admission Reason for Admission: TIA Discharge Discharge Diagnosis / Problem: 1. Headaches 2. Stroke ruled out Discharge Goals Goal(s): Improve disease control Activity Recommendations Activity Limitations: resume your previous activity (as tolerated prior to admission) . Instructions / Follow-Up Instructions / Follow-Up MEDICATION CHANGES: 1. New medication: Aspirin 81 mg daily 2. New medication; Decadron taper as directed. MONITOR: Blood sugar outpatient while being on steroids FOLLOW UP 1. Follow up with Dr Peace 12/01/16 at 11:00 AM 2. Follow up with Dr Junior walker tomorrow as scheduled 3. Follow up with Radiation oncology tomorrow as scheduled 4. Follow up with Dr Goodman , neurology as scheduled Current Hospital Diet Patient's current hospital diet: AHA Diet (Heart Healthy), Diabetes Type 2 Diet Discharge Diet Recommended Diet: AHA Diet (Heart Healthy), Low Sodium Diet (2gm Na), Diabetes Type 2 Diet Pending Studies Studies pending at discharge: no Laboratory Results Hemoglobin A1c Test 11/28/16 06:23 Range/Units Estimated Average Glucose 131 mg/dl Hemoglobin A1c 6.2 H 4.5-5.6 % Lipid Panel Test 11/28/16 06:23 Range/Units Triglycerides Level 97 0-150 mg/dl Cholesterol Level 227 H 0-200 mg/dl HDL Cholesterol 108 mg/dl Cholesterol/HDL Ratio 2.1 LDL Cholesterol, Calculated 100 mg/dl Medical Emergencies . Who to Call and When: Medical Emergencies: If at any time you feel your situation is an emergency, please call 911 immediately. . Non-Emergent Contact Non-Emergency issues call your: Primary Care Provider . . "Provider Documentation" section prepared by Dania Walker. . VTE Core Measure Inpt VTE Proph given/why not?: Enoxaparin (Lovenox)SQ
--- NOTE | 2016-11-30 10:31 | Discharge Summary ---
Discharge Summary Date of Service Nov 30, 2016. Discharge Summary Admission Date: Nov 27, 2016 at 14:48 Discharge Date: Nov 30, 2016 Discharge Disposition: Home Principal Diagnosis: 1. Episode of slurred speech/word finding difficulty, stroke ruled out 2. Headaches, acute on chronic likely secondary to Gamma knife procedure/ vasogenic edema/brain mets 3. Leucocytosis secondary to steroids Secondary Diagnoses/Problems: 1. 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 DM-2 3. HTN 4. Hx of Chiari malformation s/p surgery 5. History of seizure disorder Procedures: Tele monitoring MRI brain MRA Head/neck CT head IV Solumedrol x 2 doses 500 mg each Consultations: Neurology, Dr Rodriguez Pending Studies/Follow-Up: Instructions / Follow-Up Instructions / Follow-Up MEDICATION CHANGES: 1. New medication: Aspirin 81 mg daily 2. New medication; Decadron taper as directed. MONITOR: Blood sugar outpatient while being on steroids FOLLOW UP 1. Follow up with Dr Peace 12/01/16 at 11:00 AM 2. Follow up with Dr Junior walker tomorrow as scheduled 3. Follow up with Radiation oncology tomorrow as scheduled Medication Reconciliation New Medications: Dexamethasone (Decadron) 4 Mg Tab 4 TAB PO UD for 30 Days, #50 TAB Take it as directed Aspirin (Aspirin EC Low Dose) 81 Mg Ectab 81 MG PO QAM for 30 Days, #30 TAB 0 Refills Continued Medications: Albuterol Sulfate (Proventil Hfa) 108 Mcg/Act Aer 2 PUFFS INH QID PRN for SOB/Wheezing Amitriptyline Hcl (Elavil) 50 Mg Tab 75 MG PO HS Baclofen (Lioresal) 10 Mg Tab 20 MG PO TID, TAB Apelqrdnyl-Tttuzmgnqbkbd-Fnbfu (Fioricet/Codeine) 1 Cap Cap 1 TAB PO Q4 PRN for Headache Butorphanol Tartrate (Butorphanol Tartrate) 25 Sprays/2.5 Ml [place] 1 SPRY NA UD, #3 Cholecalciferol (Vitamin D3) 1,000 Unit Tab 1 TAB PO DAILY for 30 Days, #30 TAB 5 Refills Cholestyramine (Bulk) (Cholestyramine) 1 Pow Pow 4 GM PO QID Clindamycin Phosphate (Topical (Clindamycin Phosphate) 1 % Lot 1 APPLN TOP BID for 30 Days, #60 ML Dicyclomine Hcl (Dicyclomine Hcl) 20 Mg Tab 20 MG PO Q6 PRN for GI Upset, 1 Refill Diphenoxylate/Atropine (Lomotil) Tab 1 TAB PO QID PRN for Diarrhea, TAB Estrogens, Conjugated (Premarin) 14 Appln/30 Gm Cr 1 APPLN PV DAILY Fluticasone Propionate (Flovent Hfa) 120 Puffs/40395 Mcg Aero 2 PUFFS INH BID, 2 Refills Fluticasone Propionate (Nasal) (Flonase Allergy Relief) 50 Mcg/Act Spr 2 SPRAYS JUDE QAM Ibuprofen (Motrin) 400 Mg Tab 400 MG PO Q8 PRN for Pain, TAB Insulin Aspart (Novolog Flexpen) 100 Units/Ml Inj 1 UNIT SC UD INJECT 1 UNIT FOR EVERY 20 GRAMS OF CARBS Insulin Glargine (Lantus) 100 Unit/Ml Inj 9 UNITS SC DAILY *PATIENT INCREASES DOSE TO 12-14 UNITS DAILY WHEN TAKING STEROID TAPERS. Lamotrigine (Lamictal) 150 Mg Tab 150 MG PO BID, #180 Lovastatin (Mevacor) 10 Mg Tab 10 MG PO QPM, TAB Meclizine Hcl (Meclizine Hcl) 25 Mg Tab 25 MG PO Q6H PRN for Dizziness or Vertigo Montelukast Sodium (Montelukast Sodium) 10 Mg Tab 10 MG PO QAM, 5 Refills Multivitamin (Multivitamin) Tab 1 TAB PO QAM, TAB Omeprazole (Prilosec) 20 Mg Capcr 20 MG PO QAM Oxycodone/Acetaminophen 5MG/325MG (Percocet 5MG/325MG) Tab 1 TABLET PO Q6H PRN for Pain, TAB PAIN Polyethylene Glycol 3350 (Miralax) 1 Pow Pow 17 GM PO DAILY PRN for Constipation, #255 GM Potassium Ext Rel (Klor-Con) 20 Meq Tabcr 20 MEQ PO BID, TAB Prochlorperazine Maleate (Compazine) 10 Mg Tab 10 MG PO Q6H PRN for Nausea, TAB Promethazine HCl (Promethazine HCl) 25 Mg Tab 25 MG PO Q6 PRN for Nausea or Vomiting, TAB Ropinirole (Requip) 1 Mg Tab 1 MG PO TID Tizanidine (Zanaflex) 4 Mg Cap 4 MG PO QPM, CAP Topiramate (Topiramate) 100 Mg Tab 200 MG PO BID Verapamil Hcl (Verapamil Hcl Sr) 120 Mg Cap 120 MG PO BID Discontinued Medications: Methylprednisolone (Methylprednisolone) 4 Mg Tab 2 TAB PO Q8 Admission Information HPI (per Admitting provider): 56 yo F with breast cancer diagnosed in May 2015 who has been treated with left breast mastectomy and chemo has had a recurrence of symptoms of dysequilibrium, HANDLEY and garbled speech this morning, bringing her to the ER for evaluation. She has recently had a recurrence of brain mets and underwent repeat gamma knife surgery at [facility] on 11/19. She admits to feeling as though "the inside of my head is swollen" and having a posterior headache. Shortly after arrival to the ER her symptoms resolved and she currently has no neurologic deficits. She states that intermittently ovr the past year, she would experience episodes of dysquilibrium or an "odd sense of balance" along with chronic headaches. She also has a h/o seizure disorder prior to the diagnosis of breast cancer and states that this is well controlled with medication. She has a lifelong h/o migraines thught 2/2 Chiari malformation for which she underwent surgery in the past but was unsuccessful in controlling her symptoms. She still has persistent posterior headaches which are present today. She denies any visual changes, trouble or pain with swallowing, trouble moving arms or legs. She has been on a high dose steroid taper since the surgery and she has been off of her chemotherapy for the last 3 weeks which consisted of Gemzar, Herceptin, Perjeta (and Xgeva). She is seen by Dr. Junior Walker and Dr. Rabia Walker for upcoming planned XRT to an L1 lesion that is new, and based on recent PET findings is concerning for mets. This was planned for next week. Physical Exam (per Admitting): GEN: WNWD, in no acute distress, alert and appropriate HEENT: NC/AT, PERRL, normal sclerae, facial erythema/flushing noted on cheeks MMM, pharynx non-acute CARDIO: reg rate, S1/2 heard without m/g/r LUNGS: CTA bilaterally, no crackles, rales or wheezes, good diaphragmatic excursion ABD: soft, non-tender, non-distended, no rebound or guarding, +BS EXTREMITY: RP and DP palpable 2+ bilat, no LE swelling or edema, extremities are warm and well-perfused NEURO: CN 2-12 intact, sensation intact throughout, coordination intact, Romberg negative MUSC: 5/5 strength throughout, no focal deficits, normal gait SKIN: warm and dry Hospital Course Patient has a very complicated past history, comes in with c/o increased headaches, slurred speech and difficulty with word finding as well as balance issues. ASSESSMENT AND PLAN: EPISODE OF SLURRED SPEECH/WORD FINDING DIFFICULTY WITH ACUTE ON CHRONIC HEADACHES: Patient has a complicated PMH as mentioned above. She does have hx of migraines and headaches since neurological procedures- gamma knife as mentioned above. Came back with above symptoms, lasting for few hours which resolved after arrival to ED. Currently, has headaches but no other neurological symptoms or deficits -Etiology likely related to her cerebral edema and central nervous system metastases. Cannot completely exclude TIA, but no evidence of previous cerebrovascular disease and MR angiography of the head and neck was unremarkable. -Had a detailed discussion with Neurologist, Dr Rodriguez about plan -Will continue with Aspirin started this admission, but at a reduced dose of 81 mg than 325 mg as there is an increased risk of bleeding in mets. If continues to do well, may consider discontinuing in future weighing the risks vs benefits -Work up - MRI- . There is unchanged appearance of a complex posterior right parafalcine mass with marked surrounding edema and right to left midline shift as compared to the 11/17/2016 examination. 2. A 7 mm left occipital lesion is also unchanged. No new lesions are identified. No new hemorrhage or stroke, MRA head/neck- unremarkable, CT head- Redemonstration of the right posterior parafalcine metastasis with extensive associated vasogenic edema and mass effect, as described above. Stable sulcal effacement and leftward midline shift. HBA1C- 6.2, LDL- 100 HEADACHES- ACUTE ON CHRONIC Her headaches have been refractory and lifelong. Her migrainous headaches have been fairly well controlled on medication- Topiramate, Lamictal, Verapamil. -Currently, her headaches are more likely due to increased cerebral edema with the mild midline shift from increased intracranial pressure. Each time she gets gamma knife radiation treatment she has an increase in her headaches and symptoms and this is likely related to her recent procedure- 11/19 (Gamma knife surgery) at [facility] -S/P IV solu medrol 500 mg x 2 ---> Helped significantly. But recurred. Would avoid further doses of IV solu medrol. -Change to Decadron taper as prior to admission - restart taper today. Would avoid higher doses due to concern about side effects -Continue with Topiramte, Lamictal, Verapamil, Amitriptyline as prior to home doses. -Continue with percocet prn at prior to home dose LEUCOCYTOSIS Secondary to high dose of steroids received while in hospital -No signs of infection BREAST CARCINOMA WITH METASTASIS TO BRAIN, BONE, LIVER S/P Chemo/Radiation -Had new lesions in brain and spine last month -Recently had a new L1 Bony lesion on PET scan--> plan is for radiation rx outpatient -MRI- unchanged from one last week- metastatic lesions with significant edema and midline shift. Did undergo gamma knife surgeries in past and one recently last month 11/19 at [facility] -Continue with pain medication -Hem/Onc consulted- will follow up closely outpatient due to recent spread noted on PET scan outpatient. Has an appointment tomorrow HISTORY OF SEIZURE -Not had any seizures since in her 20s, controlled on lamictal HX OF CHIARI MALFORMATION SURGERY IN 10/10 -No improvement in headaches post surgery DM- ISS, Accuchecks -Monitor on high dose steroids HTN Stable DVT PROPHYLAXIS Lovenox SQ- high risk for ca DISPOSITION Headaches persistent, but they are tolerable as prior to admission./ chronic headaches. Okay to discharge home today Has appointment with her Hem/Onc, Radiation oncology tomorrow. Total time spent on discharge = 35 minutes This includes examination of the patient, discharge planning, medication reconciliation, and communication with other providers. Discharge Instructions Activity Recommendations Activity Limitations: resume your previous activity (as tolerated prior to admission) . Instructions / Follow-Up Instructions / Follow-Up MEDICATION CHANGES: 1. New medication: Aspirin 81 mg daily 2. New medication; Decadron taper as directed. MONITOR: Blood sugar outpatient while being on steroids FOLLOW UP 1. Follow up with Dr Peace 12/01/16 at 11:00 AM 2. Follow up with Dr Junior walker tomorrow as scheduled 3. Follow up with Radiation oncology tomorrow as scheduled Current Hospital Diet Patient's current hospital diet: AHA Diet (Heart Healthy), Diabetes Type 2 Diet Discharge Diet Recommended Diet: AHA Diet (Heart Healthy), Low Sodium Diet (2gm Na), Diabetes Type 2 Diet Pending Studies Studies pending at discharge: no Laboratory Results Hemoglobin A1c Test 6/3/17 06:23 Range/Units Estimated Average Glucose 131 mg/dl Hemoglobin A1c 6.2 H 4.5-5.6 % Lipid Panel Test 11/28/16 06:23 Range/Units Triglycerides Level 97 0-150 mg/dl Cholesterol Level 227 H 0-200 mg/dl HDL Cholesterol 108 mg/dl Cholesterol/HDL Ratio 2.1 LDL Cholesterol, Calculated 100 mg/dl Medical Emergencies . Who to Call and When: Medical Emergencies: If at any time you feel your situation is an emergency, please call 911 immediately. . Non-Emergent Contact Non-Emergency issues call your: Primary Care Provider . . "Provider Documentation" section prepared by Dania Walker. . VTE Core Measure Inpt VTE Proph given/why not?: Enoxaparin (Lovenox)SQ
[2016-11-30 10:32] VITALS: BP 113/59; PULSE 86; TEMP 37.1; O2SAT 99
--- NOTE | 2016-11-30 15:34 | Hematology/Oncology Prog Note ---
Hematology/Onc Progress Note Date of Service Nov 30, 2016. Diagnoses See Below Medications Medications Administered Medications (Trade) Dose Ordered Sig/Crow Route Start Time Stop Time Status Last Admin Dose Admin Sodium Chloride 1,000 ml @ 50 mls/hr Q20H IV 11/27/16 11:35 11/27/16 16:18 DC 11/27/16 13:08 50 MLS/HR Acetaminophen (Tylenol Tab) 650 mg Q4H PRN PO 11/27/16 14:45 11/30/16 13:17 DC 11/30/16 08:37 650 MG Aspirin (Ecotrin Tab) 325 mg QAM PO 11/28/16 09:00 11/28/16 10:52 DC 11/28/16 08:51 325 MG Polyethylene (Miralax Powder Packet) 17 gm DAILY PRN PO 11/27/16 14:45 11/30/16 13:17 DC 11/29/16 21:08 17 GM Insulin Aspart (novoLOG ASPART) SLIDING SCALE If C... ACHS SC 11/27/16 16:00 11/30/16 13:17 DC 11/30/16 08:31 2 UNITS Aspirin (Ecotrin Tab) 325 mg NOW ONCE PO 11/27/16 17:00 11/27/16 17:01 DC 11/27/16 18:01 325 MG Amitriptyline HCl (Elavil Tab) 75 mg HS PO 11/27/16 21:00 11/30/16 13:17 DC 11/29/16 21:01 75 MG Cholecalciferol (Vitamin D Tab) 1,000 inter.unit DAILY PO 11/28/16 09:00 11/30/16 13:17 DC 11/30/16 08:27 1,000 INTER.UNIT Fluticasone Propionate (Flovent Hfa 110MCG Inhaler) 2 puffs BID INH 11/27/16 21:00 11/30/16 13:17 DC 11/30/16 08:28 2 PUFFS Fluticasone Propionate (Flonase Nasal [place]) 2 sprays QAM JUDE 11/28/16 09:00 11/30/16 13:17 DC 11/30/16 08:28 2 SPRAYS Lamotrigine (Lamictal Tab) 150 mg BID PO 11/27/16 21:00 11/30/16 13:17 DC 11/30/16 08:24 150 MG Montelukast Sodium (Singulair Tab) 10 mg PM PO 11/27/16 21:00 11/30/16 13:17 DC 11/29/16 21:00 10 MG Multivitamins (Multivitamin Tab) 1 tab QAM PO 11/28/16 09:00 11/30/16 13:17 DC 11/30/16 08:26 1 TAB Oxycodone/ Acetaminophen (Percocet 5-325mg Tab) 1 tab Q6H PRN PO 11/27/16 15:00 11/30/16 13:17 DC 11/30/16 04:04 1 TAB Potassium Chloride (Klor-Con Tab) 20 meq BIDM PO 11/27/16 16:45 11/30/16 13:17 DC 11/30/16 08:25 20 MEQ Ropinirole HCl (Requip Tab) 1 mg TID PO 11/27/16 21:00 11/30/16 13:17 DC 11/30/16 08:23 1 MG Topiramate (Topamax Tab) 200 mg BID PO 11/27/16 21:00 11/30/16 13:17 DC 11/30/16 08:23 200 MG Verapamil HCl ([place]-Sr Tab) 120 mg BID PO 11/27/16 21:00 11/30/16 13:17 DC 11/30/16 08:27 120 MG Atorvastatin Calcium (Lipitor Tab) 40 mg HS PO 11/27/16 21:00 11/30/16 13:17 DC 11/29/16 21:00 40 MG Pantoprazole Sodium (Protonix Tab) 40 mg QAM PO 11/28/16 09:00 11/30/16 13:17 DC 11/30/16 08:26 40 MG Baclofen (Lioresal Tab) 10 mg TID PRN PO 11/27/16 16:45 11/30/16 13:17 DC 11/28/16 08:55 10 MG Dexamethasone (Decadron Tab) 4 mg Q6H PO 11/27/16 18:00 11/28/16 10:52 DC 11/28/16 06:00 4 MG Heparin Sodium (Porcine) (Heparin 100 Unit/ml 5ml Flush) 5 ml PRN PRN IV 11/28/16 06:45 11/30/16 13:17 DC 11/28/16 16:29 5 ML Insulin Glargine (Lantus Solostar Pen) 12 unit QAM SC 11/28/16 09:00 11/30/16 08:54 DC 11/30/16 08:32 12 UNIT Morphine Sulfate (MoRPHine SULFATE INJ) 2 mg Q4H PRN IV 11/28/16 14:45 11/30/16 13:17 DC 11/29/16 00:21 2 MG Aspirin (Ecotrin Tab) 81 mg QAM PO 11/29/16 09:00 11/30/16 13:17 DC 11/30/16 08:23 81 MG Methylprednisolone Sodium Succinate 500 mg/Dextrose 258 ml @ 250 mls/hr TODAY@1115 ONCE IV 11/28/16 11:15 11/28/16 12:16 DC 11/28/16 12:33 250 MLS/HR Estrogens Conjugated (Premarin Vag Crm) 1 appln HS PV 11/28/16 21:00 11/30/16 13:17 DC 11/29/16 20:59 1 APPLN Perflutren Lipid Microsphere (Definity) 3 ml ONE ONCE IV 11/28/16 16:14 11/28/16 16:15 DC 11/28/16 16:15 3 ML Methylprednisolone Sodium Succinate 500 mg/Dextrose 258 ml @ 250 mls/hr 1130 ONCE IV 11/29/16 11:30 11/29/16 12:31 DC 11/29/16 11:28 250 MLS/HR Subjective Patient was rounded on briefly bedside prior to discharge today. She reports that her headache has improved since starting on high dose steroid and she is now going to be discharged on a Decadron taper. she does have intermittent blurred vision. She has constant intracranial pressure. She has no respiratory complaints. She has had some constipation with using p.r.n. narcotic. She is currently on MiraLax regimen. She plans to take some magnesium citrate when she returns home. Review of Systems: Abdomen: + see HPI Neurologic: + see HPI Vital Signs Vital Signs Past 12 Hours Date Time Temp Pulse Resp B/P (MAP) Pulse Ox O2 Delivery O2 Flow Rate FiO2 11/30/16 12:00 Room Air 11/30/16 10:32 37.1 86 20 99 Room Air 11/30/16 08:04 37.1 86 20 113/59 (77) 99 Room Air 11/30/16 08:00 Room Air 11/30/16 04:24 36.6 68 16 111/62 (78) 97 Room Air 11/30/16 04:00 Room Air Physical Exam Constitutional: General Apperance: heathly-appearing, well-developed Lungs: Respiratory Effort: no dyspnea Auscuitation: breath sounds normal Cardiovascular: Heart Auscultation: RRR Neurologic: Cranial Nerves: grossly intact Laboratory 11/29/16 06:19 Red Blood Count 3.77, Mean Corpuscular Volume 98.7, Mean Corpuscular Hemoglobin 31.0, Mean Corpuscular Hemoglobin Concent 31.5, Mean Platelet Volume 8.5, Neutrophils (%) (Auto) 86.5, Lymphocytes (%) (Auto) 9.1, Monocytes (%) (Auto) 3.8, Eosinophils (%) (Auto) 0.0, Basophils (%) (Auto) 0.1, Neutrophils # (Auto) 12.05, Lymphocytes # (Auto) 1.27, Monocytes # (Auto) 0.53, Eosinophils # (Auto) 0.00, Basophils # (Auto) 0.01 11/30/16 06:30 Red Blood Count 4.33, Mean Corpuscular Volume 100.0, Mean Corpuscular Hemoglobin 32.1, Mean Corpuscular Hemoglobin Concent 32.1, Mean Platelet Volume 8.9, Neutrophils (%) (Auto) 87.0, Lymphocytes (%) (Auto) 9.0, Monocytes (%) ( Auto) 3.3, Eosinophils (%) (Auto) 0.0, Basophils (%) (Auto) 0.1, Neutrophils # ( Auto) 14.99, Lymphocytes # (Auto) 1.55, Monocytes # (Auto) 0.57, Eosinophils # ( Auto) 0.00, Basophils # (Auto) 0.01 11/28/16 06:23 11/29/16 06:19 11/30/16 06:30 Test 11/27/16 17:42 11/27/16 20:32 11/28/16 01:52 11/28/16 06:23 Bedside Glucose 127 mg/dl (70-90) 135 mg/dl (70-90) 165 mg/dl (70-90) Anion Gap 7.0 mmol/L (3-11) Est Creatinine Clear Calc Drug Dose 65.4 ml/min Estimated GFR () 112.8 Estimated GFR (Non- 97.3 BUN/Creatinine Ratio 27.8 (10-20) Estimated Average Glucose 131 mg/dl Hemoglobin A1c 6.2 % (4.5-5.6) Calcium Level 8.3 mg/dl (8.5-10.1) Triglycerides Level 97 mg/dl (0-150) Cholesterol Level 227 mg/dl (0-200) HDL Cholesterol 108 mg/dl LDL Cholesterol, Calculated 100 mg/dl VLDL Cholesterol, Calculated 19 mg/dl Cholesterol/HDL Ratio 2.1 Test 11/28/16 06:30 11/28/16 11:21 11/28/16 16:08 11/28/16 20:13 Bedside Glucose 147 mg/dl (70-90) 155 mg/dl (70-90) 176 mg/dl (70-90) 158 mg/dl (70-90) Test 11/29/16 00:26 11/29/16 04:30 11/29/16 06:19 11/29/16 06:48 Bedside Glucose 159 mg/dl (70-90) 137 mg/dl (70-90) 129 mg/dl (70-90) White Blood Count 13.93 K/uL (4.8-10.8) Red Blood Count 3.77 M/uL (4.2-5.4) Hemoglobin 11.7 g/dL (12.0-16.0) Hematocrit 37.2 % (37-47) Mean Corpuscular Volume 98.7 fL (80-100) Mean Corpuscular Hemoglobin 31.0 pg (25-34) Mean Corpuscular Hemoglobin Concent 31.5 g/dl (32-36) Platelet Count 369 K/uL (130-400) Mean Platelet Volume 8.5 fL (7.4-10.4) Neutrophils (%) (Auto) 86.5 % Lymphocytes (%) (Auto) 9.1 % Monocytes (%) (Auto) 3.8 % Eosinophils (%) (Auto) 0.0 % Basophils (%) (Auto) 0.1 % Neutrophils # (Auto) 12.05 K/uL (1.4-6.5) Lymphocytes # (Auto) 1.27 K/uL (1.2-3.4) Monocytes # (Auto) 0.53 K/uL (0.11-0.59) Eosinophils # (Auto) 0.00 K/uL (0-0.5) Basophils # (Auto) 0.01 K/uL (0-0.2) RDW Standard Deviation 50.4 fL (36.4-46.3) RDW Coefficient of Variation 14.1 % (11.5-14.5) Immature Granulocyte % (Auto) 0.5 % Immature Granulocyte # (Auto) 0.07 K/uL (0.00-0.02) Anion Gap 7.0 mmol/L (3-11) Est Creatinine Clear Calc Drug Dose 74.0 ml/min Estimated GFR () 114.5 Estimated GFR (Non- 98.8 BUN/Creatinine Ratio 26.3 (10-20) Calcium Level 8.2 mg/dl (8.5-10.1) Test 11/29/16 10:52 11/29/16 16:04 11/29/16 19:49 11/30/16 06:30 Bedside Glucose 113 mg/dl (70-90) 254 mg/dl (70-90) 185 mg/dl (70-90) White Blood Count 17.23 K/uL (4.8-10.8) Red Blood Count 4.33 M/uL (4.2-5.4) Hemoglobin 13.9 g/dL (12.0-16.0) Hematocrit 43.3 % (37-47) Mean Corpuscular Volume 100.0 fL (80-100) Mean Corpuscular Hemoglobin 32.1 pg (25-34) Mean Corpuscular Hemoglobin Concent 32.1 g/dl (32-36) Platelet Count 426 K/uL (130-400) Mean Platelet Volume 8.9 fL (7.4-10.4) Neutrophils (%) (Auto) 87.0 % Lymphocytes (%) (Auto) 9.0 % Monocytes (%) (Auto) 3.3 % Eosinophils (%) (Auto) 0.0 % Basophils (%) (Auto) 0.1 % Neutrophils # (Auto) 14.99 K/uL (1.4-6.5) Lymphocytes # (Auto) 1.55 K/uL (1.2-3.4) Monocytes # (Auto) 0.57 K/uL (0.11-0.59) Eosinophils # (Auto) 0.00 K/uL (0-0.5) Basophils # (Auto) 0.01 K/uL (0-0.2) RDW Standard Deviation 51.3 fL (36.4-46.3) RDW Coefficient of Variation 14.1 % (11.5-14.5) Immature Granulocyte % (Auto) 0.6 % Immature Granulocyte # (Auto) 0.11 K/uL (0.00-0.02) Anion Gap 6.0 mmol/L (3-11) Est Creatinine Clear Calc Drug Dose 61.8 ml/min Estimated GFR () 97.0 Estimated GFR (Non- 83.7 BUN/Creatinine Ratio 24.2 (10-20) Calcium Level 8.5 mg/dl (8.5-10.1) Test 11/30/16 06:57 11/30/16 11:25 Bedside Glucose 105 mg/dl (70-90) 83 mg/dl (70-90) Assessment & Plan 1. Stage IV breast cancer, hormonal negative, Her-2 positive with known metastasis to the brain (right parietal, underwent RT in early 2015, SRS for recent multiple new brain lesions), lung (s/p LLL metastatectomy in 01/10), more recently left pleura involvement, bony mets with L1 involvement, liver * Gemcitabine/Herceptin/Perjeta to be discontinued and patient to start palliative Xeloda * To start palliative RT to L1 on 12/02/16 * Patient being discharged on Decadron taper for continued control of intracranial edema related to metastatic disease * Patient to have f/u with neurosurgeon- Dr. Soto * Patient has medical oncology follow up tomorrow * * I have discussed the patient's case, impression and plan with Jessica Bell. Her note reflects my findings and plan. She was discharged before I could see her in the hospital but I am planning to see her in the office on the following day. Dr. Junior [place] Hem/Onc
[2016-12-01] MEDS ORDERED: INSULIN GLARGINE SOLOSTAR 100 UNITS/ML 3 ML PEN SC SCH (09:00)
[2017-01-21] MEDS ORDERED: AMT50 PO (15:15)
[2017-01-21] MEDS ORDERED: XLD/500 PO (15:16)
[2017-01-22] MEDS ORDERED: PENT400T2 PO (10:08)
[2017-01-22] MEDS ORDERED: VITA1CAP5 PO (10:08)
[2017-02-09] MEDS ORDERED: DXM/4 PO (17:27)
[2017-05-10] MEDS ORDERED: DXM/4 PO (18:36)
[2017-05-10] MEDS ORDERED: LEVE500T13 PO (18:36)
[2017-05-10] MEDS ORDERED: LPR25 PO (18:36)
[2017-05-10] MEDS ORDERED: OXYC-57 PO (18:36)
[2017-05-10] MEDS ORDERED: MORP1TAB11 PO (18:36)
[2017-05-10] MEDS ORDERED: DLCS RE (19:25)
[2017-05-10] MEDS ORDERED: RLSI SQ (19:25)
[2017-05-10] MEDS ORDERED: LDDP5 TD (19:25)
== END 2016-11-30 13:17 | disposition home or self-care (01) | DRG 92 ==
LOC: C.EDB 11:23 → C.2E 14:48 → ENRESERV 15:06 → EDBEDREQ 15:07
PROVIDERS: ADMIT Hospitalist; ATTEND Internal Medicine
DX: R47.81 Slurred speech (principal); C79.51 Secondary malignant neoplasm of bone; C78.7 Secondary malignant neoplasm of liver and intrahepatic bile duct; C79.31 Secondary malignant neoplasm of brain; R51 Headache; D72.829 Elevated white blood cell count, unspecified; T38.0X5A Adverse effect of glucocorticoids and synthetic analogues, initial encounter; C50.919 Malignant neoplasm of unspecified site of unspecified female breast; E11.9 Type 2 diabetes mellitus without complications; G40.909 Epilepsy, unspecified, not intractable, without status epilepticus; Z83.3 Family history of diabetes mellitus; Z82.49 Family history of ischemic heart disease and other diseases of the circulatory system; Z82.3 Family history of stroke; Z79.4 Long term (current) use of insulin

== ENCOUNTER 2016-12-10 07:11 | Day surgery (SDC) | payer OTHER ==
[2016-12-07 09:45] VITALS: BMI 22.0
[~2016-12-10] VITALS: Ht 152.4 cm; Wt 52.5 kg
[~2016-12-10 07:11] MED LIST changes: -DXM/4 PO; +LACTATED RINGER'S 1000ML 1,000 ML IV SCH
[2016-12-10 07:35] VITALS: BP 124/79; PULSE 82; TEMP 36.7; O2SAT 99; Ht 152.4 cm; Wt 52.5 kg
[2016-12-10] MEDS ORDERED: LACTATED RINGER'S 1000ML 1,000 ML IV ONE (08:17)
--- NOTE | 2016-12-10 08:20 | Endo History and Physical ---
History & Physical Date of Service: Dec 10, 2016. Chief Complaint: Abnormal PET Referring Physician: Dr. Junior Washington History of Present Illness Patient with a long history of Breast cancer referred for EUS evaluation due to a new large liver mass seen on a recent PET scan. Past Medical History Diabetes, Asthma, Cancer, Hypertension Past Surgical History Hx Cardiac Surgery: No Hx Pacemaker: No Hx Abdominal Surgery: Yes (TUBAL) Hx Post-Op Nausea and Vomiting: No Hx Cancer Surgery: Yes (r breast lumpectomy) Hx Thoracic Surgery: Yes (leftlobectomy/WEDGE RESECTION) Hx Orthopedic: Yes (C1 LAMINECTOMY) Hx Urinary Tract Surgery: No Social History Smoking Status: Never Smoker Hx Substance Use: No Hx Alcohol Use: Yes (VERY RARE) Allergies Coded Allergies: Erythromycin (Unverified Adverse Reaction, Unknown, GI UPSET, 12/10/16) Current Medications Reported Home Medications Medications Dose Route/Sig Max Daily Dose Days Date Category Dose Instructions Premarin (Estrogens, Conjugated) 14 Appln/30 Gm Cr 1 Appln PV DAILY 11/17/16 Reported Zanaflex (Tizanidine HCl) 4 Mg Cap 4 Mg PO QPM 11/17/16 Reported Clindamycin Phosphate (Clindamycin Phosphate (Topical) 1 % Lot 1 Appln TOP BID 30 11/17/16 Reported Cholestyramine (Cholestyramine (Bulk)) 1 Pow Pow 4 Gm PO QID 11/17/16 Reported Klor-Con (Potassium Chloride) 20 Meq Tabcr 20 Meq PO BID 11/17/16 Reported Miralax (Polyethylene Glycol 3350) 1 Pow Pow 17 Gm PO DAILY PRN 11/17/16 Reported Novolog Flexpen (Insulin Aspart) 100 Units/Ml Inj 1 Unit SC UD 11/17/16 Reported INJECT 1 UNIT FOR EVERY 20 GRAMS OF CARBS Proventil Hfa (Albuterol Sulfate) 108 Mcg/Act Aer 2 Puffs INH QID PRN 11/17/16 Reported Motrin (Ibuprofen) 400 Mg Tab 400 Mg PO Q8 PRN 11/17/16 Reported Verapamil Hcl Sr (Verapamil Hcl) 120 Mg Cap 120 Mg PO BID 11/17/16 Reported Percocet 5MG/325MG (Oxycodone/Acetaminophen) Tab 1 Tablet PO Q6H PRN 11/17/16 Reported PAIN Lantus (Insulin Glargine) 100 Unit/Ml Inj 9 Units SC QAM 11/17/16 Reported *PATIENT INCREASES DOSE TO 12-14 UNITS DAILY WHEN TAKING STEROID TAPERS. Butorphanol Tartrate 25 Sprays/2.5 Ml [place] 1 [place] NA UD 11/17/16 Reported Lamictal (Lamotrigine) 150 Mg Tab 150 Mg PO BID 11/17/16 Reported Lioresal (Baclofen) 10 Mg Tab 20 Mg PO TID 11/13/16 Reported Vitamin D3 (Cholecalciferol) 1,000 Unit Tab 1 Tab PO DAILY 30 05/01/16 Reported Elavil (Amitriptyline HCl) 50 Mg Tab 75 Mg PO HS 05/01/16 Reported Flonase Allergy Relief (Fluticasone Propionate (Nasal)) 50 Mcg/Act Spr 2 Sprays JUDE QAM 02/07/16 Reported Topiramate 100 Mg Tab 200 Mg PO BID 10/29/15 Reported Meclizine Hcl 25 Mg Tab 25 Mg PO Q6H PRN 09/04/15 Reported Fioricet/Codeine (Jtpfaujhta-Zarybokctfmeb-Qhlnz) 1 Cap Cap 1 Tab PO Q4 PRN 09/04/15 Reported Dicyclomine Hcl 20 Mg Tab 20 Mg PO Q6 PRN 09/04/15 Reported Flovent Hfa (Fluticasone Propionate) 120 Puffs/71617 Mcg Aero 2 Puffs INH BID 09/04/15 Reported Multivitamin (Multivitamins) Tab 1 Tab PO QAM 09/04/15 Reported Lomotil (Diphenoxylate HCl/Atropine) Tab 1 Tab PO QID PRN 09/04/15 Reported Promethazine HCl 25 Mg Tab 25 Mg PO Q6 PRN 09/04/15 Reported Montelukast Sodium 10 Mg Tab 10 Mg PO QAM 09/04/15 Reported Prilosec (Omeprazole) 20 Mg Capcr 20 Mg PO QAM 09/07/14 Reported Mevacor (Lovastatin) 10 Mg Tab 10 Mg PO QPM 09/07/14 Reported Requip (Ropinirole HCl) 1 Mg Tab 1 Mg PO TID 09/21/13 Reported Vital Signs Weight (Kilograms): 52.5 Height (Feet): 5 Height (Inches): 0 Physical Exam General Appearance: no apparent distress Respiratory/Chest: Auscultation: breath sounds normal Cardiovascular: Heart Auscultation: RRR Abdomen: Inspection & Palpation: soft Assessment and Plan EGD / EUS planned for evaluation of a large left sided liver mass. EUS guided FNA requested by oncology for further evaluation. We have discussed the risks to include bleeding, infection, perforation, pain, hematoma, bile leak and insufficient celluarity.
[2016-12-10 08:21] LABS: BASO % 0.1 %; BASO ABS # 0.01 K/uL (0-0.2); EOS % 2.9 %; HEMATOCRIT 42.4 % (37-47); LYMPH % 11.5 %; LYMPH ABS # 1.19 K/uL (1.2-3.4); MEAN CELL VOLUME 96.8 fL (80-100); MEAN CORPUSCULAR HEMOGLOBIN 31.3 pg (25-34); MEAN PLATELET VOLUME 8.9 fL (7.4-10.4); MONO % 2.1 %; NEUT % 82.4 %; PLATELET COUNT 314 K/uL (130-400); RED BLOOD COUNT 4.38 M/uL (4.2-5.4); WHITE BLOOD COUNT 10.39 K/uL (4.8-10.8)
[2016-12-10 08:29] LABS: COMPLETE YES; MEAN CORPUSCULAR HGB CONC 32.3 g/dl (32-36)
[2016-12-10] MEDS ORDERED: METH1TAB81 PO (08:31)
[2016-12-10] MEDS ORDERED: MIDAZOLAM HCL 1 MG/ML 2ML VIAL ONE (08:31)
[2016-12-10] MEDS ORDERED: LIDOCAINE HCL 2% 2 ML VIAL (20MG/ML) ONE (08:31)
[2016-12-10] MEDS ORDERED: PROPOFOL IV EMULSION 10 MG/ML 20 ML VIAL IV ONE ×3 (08:31→09:18)
[2016-12-10] MEDS ORDERED: ONDANSETRON INJ 2 MG/ML 2 ML VIAL IV PRN ×2 (08:45→10:00)
[2016-12-10] MEDS ORDERED: FENTANYL CITRATE INJ 50 MCG/1 ML 2 ML VIAL IV PRN (08:45)
[2016-12-10] MEDS ORDERED: ATROPINE SULFATE 0.1 MG/ML 5ML SYR IV PRN (08:45)
[2016-12-10] MEDS ORDERED: PHENYLEPHRINE 100MCG/ML 5ML SYR ONE (09:01)
--- NOTE | 2016-12-10 09:55 | [facility] Post Operative Brief Note ---
Immediate Operative Summary Operative Date Dec 10, 2016. Pre-Operative Diagnosis Large Liver Mass Post-Operative Diagnosis Large Liver Mass Procedure(s) Performed Upper Endoscopic Ultrasonography, Liver Biopsy Surgeon Dr. Mauri Zurita Telephone Cleaner Surgeon(s) none Estimated Blood Loss 0 ml Findings 2 cm liver mass (FNA) Diffuse gastritis Specimens Specimens: 4 passes at liver mass gastric biopsy Anesthesia MAC Complication(s) None Disposition Recovery Room / PACU
--- NOTE | 2016-12-10 09:56 | Discharge Instructions ---
Endoscopy Patient Instructions Date / Procedure(s) Performed Dec 10, 2016. EGD, Other (endoscopic ultrasound) Allergy Information Coded Allergies: Erythromycin (Unverified Adverse Reaction, Unknown, GI UPSET, 12/10/16) Discharge Date / Findings Dec 10, 2016. 2 cm liver mass (biosied) Diffuse gastritis (biopsied) Medication Instructions Reported Home Medications Medications Dose Route/Sig Max Daily Dose Days Date Category Dose Instructions Medrol (Methylprednisolone) 4 Mg Tab 8 Mg PO UD 12/10/16 Reported pt on steroid taper currently Premarin (Estrogens, Conjugated) 14 Appln/30 Gm Cr 1 Appln PV DAILY 11/17/16 Reported Zanaflex (Tizanidine HCl) 4 Mg Cap 4 Mg PO QPM 11/17/16 Reported Clindamycin Phosphate (Clindamycin Phosphate (Topical) 1 % Lot 1 Appln TOP BID 30 11/17/16 Reported Cholestyramine (Cholestyramine (Bulk)) 1 Pow Pow 4 Gm PO QID 11/17/16 Reported Klor-Con (Potassium Chloride) 20 Meq Tabcr 20 Meq PO BID 11/17/16 Reported Miralax (Polyethylene Glycol 3350) 1 Pow Pow 17 Gm PO DAILY PRN 11/17/16 Reported Novolog Flexpen (Insulin Aspart) 100 Units/Ml Inj 1 Unit SC UD 11/17/16 Reported INJECT 1 UNIT FOR EVERY 20 GRAMS OF CARBS Proventil Hfa (Albuterol Sulfate) 108 Mcg/Act Aer 2 Puffs INH QID PRN 11/17/16 Reported Motrin (Ibuprofen) 400 Mg Tab 400 Mg PO Q8 PRN 11/17/16 Reported Verapamil Hcl Sr (Verapamil Hcl) 120 Mg Cap 120 Mg PO BID 11/17/16 Reported Percocet 5MG/325MG (Oxycodone/Acetaminophen) Tab 1 Tablet PO Q6H PRN 11/17/16 Reported PAIN Lantus (Insulin Glargine) 100 Unit/Ml Inj 9 Units SC QAM 11/17/16 Reported *PATIENT INCREASES DOSE TO 12-14 UNITS DAILY WHEN TAKING STEROID TAPERS. Butorphanol Tartrate 25 Sprays/2.5 Ml [place] 1 [place] NA UD 11/17/16 Reported Lamictal (Lamotrigine) 150 Mg Tab 150 Mg PO BID 11/17/16 Reported Lioresal (Baclofen) 10 Mg Tab 20 Mg PO TID 11/13/16 Reported Vitamin D3 (Cholecalciferol) 1,000 Unit Tab 1 Tab PO DAILY 30 05/01/16 Reported Elavil (Amitriptyline HCl) 50 Mg Tab 75 Mg PO HS 05/01/16 Reported Flonase Allergy Relief (Fluticasone Propionate (Nasal)) 50 Mcg/Act Spr 2 Sprays JUDE QAM 02/07/16 Reported Topiramate 100 Mg Tab 200 Mg PO BID 10/29/15 Reported Meclizine Hcl 25 Mg Tab 25 Mg PO Q6H PRN 09/04/15 Reported Fioricet/Codeine (Gjotwzopqk-Ibmnmrdixubkb-Fbqnj) 1 Cap Cap 1 Tab PO Q4 PRN 09/04/15 Reported Dicyclomine Hcl 20 Mg Tab 20 Mg PO Q6 PRN 09/04/15 Reported Flovent Hfa (Fluticasone Propionate) 120 Puffs/93164 Mcg Aero 2 Puffs INH BID 09/04/15 Reported Multivitamin (Multivitamins) Tab 1 Tab PO QAM 09/04/15 Reported Lomotil (Diphenoxylate HCl/Atropine) Tab 1 Tab PO QID PRN 09/04/15 Reported Promethazine HCl 25 Mg Tab 25 Mg PO Q6 PRN 09/04/15 Reported Montelukast Sodium 10 Mg Tab 10 Mg PO QAM 09/04/15 Reported Prilosec (Omeprazole) 20 Mg Capcr 20 Mg PO QAM 09/07/14 Reported Mevacor (Lovastatin) 10 Mg Tab 10 Mg PO QPM 09/07/14 Reported Requip (Ropinirole HCl) 1 Mg Tab 1 Mg PO TID 09/21/13 Reported Provider Instructions Activity Restrictions - No exercising or heavy lifting for 24 hours. - Do not drink alcohol the day of the procedure. - Do not drive a car or operate machinery until the day after the procedure. - Do not make any important decisions or sign important papers in 24 hours after the procedure. Following Day: - Return to full activity which may include returning to work/school. Diet Start your diet with liquids and light foods (jello, soup, juice, toast). Then eat your usual diet if not nauseated. Treatment For Common After Affects For mild abdominal pain, bloating, or excessive gas: - Rest - Eat lightly - Lie on right side Follow-Up Information Follow-up with Dr. Washington as scheduled Follow-up with Dr. Peace with regard to rash Anesthesia Information What You Should Know You have had a procedure that required some medicine to reduce anxiety and discomfort. This treatment is called moderate sedation. After receiving the treatment, you may be sleepy, but you will be able to breathe on your own. The effects of the treatment may last for several hours. Follow these instructions along with Activity/Diet recommendations noted above: * Do NOT do anything where dizziness or clumsiness would be dangerous. * Rest quietly at home today, then you can be up and about tomorrow. * Have a responsible person stay with you the rest of today. * You may have had an I.V. today. If so, you may take the dressing off later today. Recommendations Call your doctor if: * Trouble breathing * Continuous vomiting for more than 24 hours * Temperature above 101 degrees * Severe abdominal pain or bloating * Pain not relieved by pain medicine ordered * There is increased drainage or redness from any incision * A large amount of rectal bleeding greater than 2-3 tablespoons. (If you had a polyp/s removed or have hemorrhoids, a small amount of blood - from the rectum is to be expected.) * You have any unanswered questions or concerns. IN THE EVENT OF A SERIOUS EMERGENCY, GO TO THE NEAREST EMERGENCY ROOM Your discharge instructions were prepared by provider Mauri Zurita. Patient Instructions Signature Page Sabrina Blue Patient (or Guardian) Signature/Date: I have read and understand the instructions given to me by my caregivers. Caregiver/RN/Doctor Signature/Date: The above-named patient and/or guardian has received patient instructions on this date. + Original Patient Signature Page (only) stays with chart. Please make copy for patient.
--- NOTE | 2016-12-10 09:59 | GI REPORT ---
Procedure Date: 12/10/2016 8:46 AM Procedure: Upper GI endoscopy Indications: Abnormal PET scan of the GI tract Medicines: Monitored Anesthesia Care Complications: No immediate complications. Estimated blood loss: Minimal. Estimated Blood Loss: Estimated blood loss was minimal. Procedure: Pre-Anesthesia Assessment: - Prior to the procedure, a History and Physical was performed, and patient medications, allergies and sensitivities were reviewed. The patient's tolerance of previous anesthesia was reviewed. - The risks and benefits of the procedure and the sedation options and risks were discussed with the patient. All questions were answered and informed consent was obtained. - Patient identification and proposed procedure were verified prior to the procedure by the physician, the nurse and the machine operator helper. The procedure was verified in the procedure room. - Pre-procedure physical examination revealed no contraindications to sedation. - ASA Grade Assessment: III - A patient with severe systemic disease. - After reviewing the risks and benefits, the patient was deemed in satisfactory condition to undergo the procedure. - The anesthesia plan was to use monitored anesthesia care (MAC). - The physical status of the patient was re-assessed after the procedure. After obtaining informed consent, the endoscope was passed under direct vision. Throughout the procedure, the patient's blood pressure, pulse, and oxygen saturations were monitored continuously. The On-site loaner was introduced through the mouth, and advanced to the third part of duodenum. The upper GI endoscopy was accomplished without difficulty. The patient tolerated the procedure well. Findings: The examined esophagus was normal. The Z-line was regular and was found 37 cm from the incisors. Diffuse moderate inflammation characterized by congestion (edema), erythema and granularity was found in the entire examined stomach. Biopsies were taken with a cold forceps for histology. Estimated blood loss was minimal. The examined duodenum was normal. Impression: - Normal esophagus. - Z-line regular, 37 cm from the incisors. - Gastritis. Biopsied. - Normal examined duodenum. Recommendation: - Perform an upper endoscopic ultrasound (UEUS) today. - Await pathology results. - Continue Omeprazole 20 mg per day Mauri Zurita D.O. Mauri Zurita DO 12/10/2016 9:57:58 AM This report has been signed electronically. Note Initiated On: 12/10/2016 8:46 AM I attest to the content of the Intraoperative Record and orders documented therein, exceptions below
--- NOTE | 2016-12-10 10:03 | GI REPORT ---
Procedure Date: 12/10/2016 8:45 AM Procedure: Upper EUS Indications: Abnormal abdominal PET scan Medicines: Monitored Anesthesia Care Complications: No immediate complications. Estimated blood loss: Minimal. Estimated Blood Loss: Estimated blood loss was minimal. Procedure: Pre-Anesthesia Assessment: - Prior to the procedure, a History and Physical was performed, and patient medications, allergies and sensitivities were reviewed. The patient's tolerance of previous anesthesia was reviewed. - The risks and benefits of the procedure and the sedation options and risks were discussed with the patient. All questions were answered and informed consent was obtained. - Patient identification and proposed procedure were verified prior to the procedure by the physician, the nurse and the social worker assistant. The procedure was verified in the procedure room. - Pre-procedure physical examination revealed no contraindications to sedation. - After reviewing the risks and benefits, the patient was deemed in satisfactory condition to undergo the procedure. - ASA Grade Assessment: III - A patient with severe systemic disease. - The anesthesia plan was to use monitored anesthesia care (MAC). - The heart rate, respiratory rate, oxygen saturations, blood pressure, adequacy of pulmonary ventilation, and response to care were monitored throughout the procedure. - The physical status of the patient was re-assessed after the procedure. After obtaining informed consent, the endoscope was passed under direct vision. Throughout the procedure, the patient's blood pressure, pulse, and oxygen saturations were monitored continuously. The Endosonoscope was introduced through the mouth, and advanced to the second part of duodenum. The upper EUS was accomplished without difficulty. The patient tolerated the procedure well. Findings: Endosonographic Finding : There was no sign of significant endosonographic abnormality in the common bile duct. The maximum diameter of the duct was 3 mm. No stones and no biliary sludge were identified. There was no sign of significant endosonographic abnormality in the gallbladder. No stones and no biliary sludge were identified. There was no sign of significant endosonographic abnormality in the entire pancreas. The pancreatic duct measured up to 2.2 mm in diameter. No masses, no cysts, the pancreatic duct was thin in caliber. No lymphadenopathy seen. There was no sign of significant endosonographic abnormality in the left adrenal gland. No adrenal gland enlargement was identified. A small amount of fluid, visualized as an irregular hypoechoic structure, was found in the periduodenal peritoneal space. A rounded mass was identified endosonographically in the left lobe of the liver. The mass was hypoechoic. The mass measured 22 mm by 16 mm in maximal cross-sectional diameter. The outer margins were irregular. Fine needle aspiration for cytology was performed. Color Doppler imaging was utilized prior to needle puncture to confirm a lack of significant vascular structures within the needle path. Four passes were made with the 22 gauge needle using a transgastric approach. A stylet was used. A photoengraving apprentice was present to evaluate the adequacy of the specimen. Final cytology results are pending. Estimated blood loss was minimal. Impression: - There was no sign of significant pathology in the common bile duct. - There was no sign of significant pathology in the gallbladder. - There was no sign of significant pathology in the entire pancreas. - Endosonographic images of the left adrenal gland were unremarkable. - A small amount of ascites was found on endosonographic examination of the peritoneal cavity. - A mass was found in the left lobe of the liver. Fine needle aspiration performed. Recommendation: - Discharge patient to home (ambulatory). - Advance diet as tolerated today. - Await cytology results. Mauri Zurita D.O. Mauri Zurita, 12/10/2016 10:02:32 AM This report has been signed electronically. Note Initiated On: 12/10/2016 8:45 AM I attest to the content of the Intraoperative Record and orders documented therein, exceptions below
[2016-12-10 10:12] VITALS: BP 105/73; PULSE 89; TEMP 36.8; O2SAT 93
[2016-12-10 10:42] VITALS: BP 120/79; PULSE 84; TEMP 36.9; O2SAT 98
[2016-12-10 11:12] VITALS: BP 115/70; PULSE 80; TEMP 36.9; O2SAT 98
--- NOTE | 2016-12-10 12:28 | Anesthesiology Progress Note ---
Anesthesia Post Op Note Date & Time Dec 10, 2016 at 12:28 Vital Signs Pain Intensity: 0 Vital Signs Past 12 Hours Date Time Temp Pulse Resp B/P (MAP) Pulse Ox O2 Delivery O2 Flow Rate FiO2 12/10/16 11:12 36.9 80 16 115/70 98 Room Air 12/10/16 10:42 36.9 84 16 120/79 98 Room Air 12/10/16 10:12 36.8 89 16 105/73 93 Room Air 12/10/16 10:00 36.8 83 15 111/66 (91) 96 Room Air 12/10/16 09:50 82 12 93/68 (73) 96 Room Air 12/10/16 09:42 36.1 86 14 91/52 99 Mask 10 12/10/16 07:35 36.7 82 18 124/79 (94) 99 Room Air Notes Mental Status: alert / awake / arousable, participated in evaluation Pt Amnestic to Procedure: Yes Nausea / Vomiting: adequately controlled Pain: adequately controlled Airway Patency, RR, SpO2: stable & adequate BP & HR: stable & adequate Hydration State: stable & adequate Anesthetic Complications: no major complications apparent
[2017-01-21] MEDS ORDERED: AMT50 PO (15:15)
[2017-01-21] MEDS ORDERED: XLD/500 PO (15:16)
[2017-01-22] MEDS ORDERED: PENT400T2 PO (10:08)
[2017-01-22] MEDS ORDERED: VITA1CAP5 PO (10:08)
[2017-02-09] MEDS ORDERED: DXM/4 PO (17:27)
[2017-05-10] MEDS ORDERED: MORP1TAB11 PO (18:36)
[2017-05-10] MEDS ORDERED: DXM/4 PO (18:36)
[2017-05-10] MEDS ORDERED: OXYC-57 PO (18:36)
[2017-05-10] MEDS ORDERED: LPR25 PO (18:36)
[2017-05-10] MEDS ORDERED: LEVE500T13 PO (18:36)
[2017-05-10] MEDS ORDERED: LDDP5 TD (19:25)
[2017-05-10] MEDS ORDERED: RLSI SQ (19:25)
[2017-05-10] MEDS ORDERED: DLCS RE (19:25)
== END 2016-12-10 11:45 | disposition home or self-care (01) ==
LOC: C.ACU 07:11
PROVIDERS: ATTEND Internal Medicine Gastroenterology
DX: K29.70 Gastritis, unspecified, without bleeding (principal); R16.0 Hepatomegaly, not elsewhere classified; R18.8 Other ascites; I10 Essential (primary) hypertension; E11.9 Type 2 diabetes mellitus without complications; J45.909 Unspecified asthma, uncomplicated; Z79.4 Long term (current) use of insulin; Z79.899 Other long term (current) drug therapy

== ENCOUNTER → 2017-01-21 | Outpatient (CLI) | payer OTHER ==
[~2017-01-21] MED LIST changes: +AVSI100 INJ; -CLIN1LOT5 TOP; +DXM/4 PO; +FRCT/ PO; -LACTATED RINGER'S 1000ML 1,000 ML IV SCH; +MDR4 PO; +MORP1TAB11 PO; +PENT400T2 PO; -PROC1TAB5 PO; +VITA1CAP5 PO; +XLD/500 PO
[2017-01-21 14:46] VITALS: BP 129/73; PULSE 108; TEMP 37.1; O2SAT 96
--- NOTE | 2017-01-21 16:02 | Radiation Oncology Follow-Up ---
Radiation Oncology Follow-Up Date of Visit Jan 21, 2017. (Conchita Conner PA-C) Reason For Visit One-month follow-up (Conchita Conner PA-C) Radiation Completion Date Metastatic breast cancer;RT to thoracic/lumbar spine 12/17/16 (Conchita Conner PA-C) Diagnosis (1) Breast cancer Status: Chronic Onset Date: 02/14/2015 Permanent Comment: DIAGNOSIS: Left breast cancer, invasive ductal carcinoma, grade 3, ER negative, NM weakly positive, Her2 negative, cT1N1, ypT1N0(i+) with a indeterminate lesion in the right parietal lobe followed with MRI TREATMENT: 1. Neoadjuvant chemotherapy - AC/T chemotherapy (Dr. Junior Washington) 2. Lumpectomy with SLN - 08/21/2015 (Dr. Zurita) 3. Status post gamma knife radiation therapy to single brain lesion at [facility] 4. Status post completion of radiation therapy 12/31/2015 received 7240 cGy, left breast, supraclavicular, and axilla area. 5. Status post lung wedge resection 02/10/2016 due to metastatic breast carcinoma 6. Ongoing treatment with Gemzar, Herceptin, Perjeta, and Xgeva. 7. Brain MRI is followed by Dr. Fernando at [facility] 8. Status post gamma knife radiation therapy to 3 lesions 11/19/2016 9. Back pain with finding of metastasis to L1 10. Status post completion of radiation therapy to the thoracic/lumbar spine received 3000 cGy Last Edited By: Conchita Conner on Dec 28, 2016 14: 12 (Conchita Conner PA-C) History of Present Illness Ms. Blue is a 56-year-old female with metastatic breast cancer to the brain, bone and liver. The patient recently completed a course of Gamma knife radiosurgery at [facility] in [place]. The patient was admitted to the hospital due to a possible stroke/TIA. The patient did have multiple neurological studies completed and all which were negative and stable. Overall, the patient is symptomatically doing better. We been asked to evaluate the patient for consideration of management with respect her previous radiosurgery. We have recommended potentially reaching out to Dr. Soto from [facility] who did treat this patient. In the interim, the patient may be started on Decadron 4 mg every 6 hours with a taper starting within 3 days if the patient is asymptomatic. Otherwise, we suspect that the patient is having potential side effects from her recent course of radiation therapy which should subside with the next several days. If there is suspicion for another underlying etiology, the patient should be evaluated by other consultants including potentially neurology and/or neurosurgery given her history of Arnold-Chiari malformation. With respect to the patient's metastatic disease in the lumbar spine, the patient has been scheduled for palliative radiation therapy in the outpatient setting beginning next week. (Conchita Conner PA-C) Interim History Patient does feel she had a clinical response to the treatment of the lumbar spine and lower thoracic spine. She does have some continued pain in the upper thoracic spine. For her back pain she uses Percocet and also has a muscle relaxer. She is being followed by pain management. She does feel off balance at times. There is been no loss of consciousness. She has been in contact with her neurosurgeon in [place]. She was previously on Trental and vitamin E. She stated that the prescription for Trental was to be called in. She is also been having difficulty with a cough. This is a dry cough that has been going on for a few weeks. She has been on several regimens of antibiotic therapy. She saw Dr. Peace and had a chest x-ray. The chest x-ray showed left lung volume loss and elevation of the left diaphragm, consistent with partial left lung resection. Small left pleural effusion. She has a healed right posterior lateral ninth rib fracture. (Conchita Conner PA-C) Allergies Coded Allergies: Erythromycin (Unverified Adverse Reaction, Unknown, GI UPSET, 12/10/16) Home Medications Scheduled Amitriptyline Hcl (Elavil), 100 MG PO HS Baclofen (Lioresal), 20 MG PO TID Butorphanol Tartrate (Butorphanol Tartrate), 1 SPRY NA BID Capecitabine (Xeloda), 1,500 MG PO Q12H Cholecalciferol (Vitamin D3), 1 TAB PO DAILY Cholestyramine (Bulk) (Cholestyramine), 4 GM PO QID Estrogens, Conjugated (Premarin), 1 APPLN PV DAILY Fluticasone Propionate (Flovent Hfa), 2 PUFFS INH BID Fluticasone Propionate (Nasal) (Flonase Allergy Relief), 2 SPRAYS JUDE QAM Insulin Aspart (Novolog Flexpen), 1 UNIT SC UD Insulin Glargine (Lantus), 9 UNITS SC QAM Lamotrigine (Lamictal), 150 MG PO BID Lovastatin (Mevacor), 10 MG PO QPM Montelukast Sodium (Montelukast Sodium), 10 MG PO QAM Multivitamin (Multivitamin), 1 TAB PO QAM Omeprazole (Prilosec), 20 MG PO QAM Pentoxifylline (Trental), 400 MG PO BID Potassium Ext Rel (Klor-Con), 20 MEQ PO BID Ropinirole (Requip), 1 MG PO TID Tizanidine (Zanaflex), 4 MG PO QPM Topiramate (Topiramate), 200 MG PO BID Verapamil Hcl (Verapamil Hcl Sr), 120 MG PO BID Vitamin E (E400), 400 UNIT PO BID Scheduled PRN Albuterol Sulfate (Proventil Hfa), 2 PUFFS INH QID PRN for SOB/Wheezing Iuvcrxplpz-Lhopfthblrtib-Crxsa (Fioricet/Codeine), 1 TAB PO Q4 PRN for Headache Dicyclomine Hcl (Dicyclomine Hcl), 20 MG PO Q6 PRN for GI Upset Diphenoxylate/Atropine (Lomotil), 1 TAB PO QID PRN for Diarrhea Meclizine Hcl (Meclizine Hcl), 25 MG PO Q6H PRN for Dizziness or Vertigo Oxycodone/Acetaminophen 5MG/325MG (Percocet 5MG/325MG), 1 TABLET PO Q6H PRN for Pain Polyethylene Glycol 3350 (Miralax), 17 GM PO DAILY PRN for Constipation Promethazine HCl (Promethazine HCl), 25 MG PO Q6 PRN for Nausea or Vomiting Review of Systems Gastrointestinal: Symptoms: Constipation GI Comments: Constipation manageable at home;Takes metamucil w/relief; Oral: Symptoms: No Problems Other Oral Symptoms: Mouth gets a burning sensation w/brushing teeth; Respiratory: Symptoms: Dry Cough, SOB At Rest, SOB With Exertion Respiratory Comments: Recent course of antibiotics and steroids with no relief; Sputum Character: No relief from inhaler; Urinary: Symptoms: WNL Skin: Symptoms: No Problems Breast: Right Upper Arm Measurement: 23.0 Right Mid Arm Measurement: 20.0 Right Wrist Measurement: 13.8 Left Upper Arm Measurement: 23.8 Left Mid Arm Measurement: 19.8 Left Wrist Measurement: 14.0 Arm Dominence: Right (Conchita Conner PA-C) Physical Exam Vital Signs Date Time Temp Pulse Resp B/P (MAP) Pulse Ox O2 Delivery O2 Flow Rate FiO2 01/21/17 14:46 37.1 108 20 129/73 96 General Appearance: no apparent distress, + pertinent finding (frequently coughs when trying to speak.) Eyes: normal inspection, EOMI ENT: normal ENT inspection, hearing grossly normal Neck: no adenopathy, thyroid normal Respiratory/Chest: no respiratory distress, no accessory muscle use, + decreased breath sounds (marked decreased breath sounds middle and lower lung manning. There is no wheezing. Right lung clear.) Cardiovascular: regular rate, rhythm, no gallop, no murmur Abdomen: non tender, soft Extremities: no pedal edema Neurologic/Psychiatric: no motor/sensory deficits, alert, normal mood/affect Skin: warm/dry (Conchita Conner PA-C) Laboratory Studies Test 11/13/16 10:11 11/17/16 14:15 11/27/16 12:03 11/27/16 12:22 Erythrocyte Sedimentation Rate 15 mm/hr (0-21) Magnesium Level 2.3 mg/dl (1.8-2.4) 2.2 mg/dl (1.8-2.4) Lyme Disease IgG Antibody NEG (NEG) Lyme Disease IgM Antibody NEG (NEG) Prothrombin Time 9.8 SECONDS (9.0-12.0) Prothrombin Time INR 0.9 (0.9-1.1) PTT 30.7 SECONDS (21.0-31.0) Partial Thromboplastin Ratio 1.2 Total Creatine Kinase 50 U/L (26-192) Creatine Kinase MB 0.7 ng/ml (0.5-3.6) Creatine Kinase MB Ratio 1.4 (0-3.0) Troponin I < 0.015 ng/ml (0-0.045) POC Prothrombin Time INR 0.9 (0.9-1.1) Test 11/28/16 06:23 11/29/16 06:19 11/30/16 06:30 12/10/16 07:53 Estimated Average Glucose 131 mg/dl Hemoglobin A1c 6.2 % (4.5-5.6) Triglycerides Level 97 mg/dl (0-150) Cholesterol Level 227 mg/dl (0-200) HDL Cholesterol 108 mg/dl LDL Cholesterol, Calculated 100 mg/dl VLDL Cholesterol, Calculated 19 mg/dl Cholesterol/HDL Ratio 2.1 Sodium Level 144 mmol/L (136-145) 144 mmol/L (136-145) Potassium Level 4.1 mmol/L (3.5-5.1) 3.5 mmol/L (3.5-5.1) Chloride Level 109 mmol/L (98-107) 107 mmol/L (98-107) Carbon Dioxide Level 28 mmol/L (21-32) 31 mmol/L (21-32) Anion Gap 7.0 mmol/L (3-11) 6.0 mmol/L (3-11) Blood Urea Nitrogen 17 mg/dl (7-18) 19 mg/dl (7-18) Creatinine 0.66 mg/dl (0.60-1.20) 0.79 mg/dl (0.60-1.20) Est Creatinine Clear Calc Drug Dose 74.0 ml/min 61.8 ml/min Estimated GFR () 114.5 97.0 Estimated GFR (Non- 98.8 83.7 BUN/Creatinine Ratio 26.3 (10-20) 24.2 (10-20) Random Glucose 130 mg/dl (70-99) 106 mg/dl (70-99) Calcium Level 8.2 mg/dl (8.5-10.1) 8.5 mg/dl (8.5-10.1) White Blood Count 17.23 K/uL (4.8-10.8) 10.39 K/uL (4.8-10.8) Red Blood Count 4.33 M/uL (4.2-5.4) 4.38 M/uL (4.2-5.4) Hemoglobin 13.9 g/dL (12.0-16.0) 13.7 g/dL (12.0-16.0) Hematocrit 43.3 % (37-47) 42.4 % (37-47) Mean Corpuscular Volume 100.0 fL (80-100) 96.8 fL (80-100) Mean Corpuscular Hemoglobin 32.1 pg (25-34) 31.3 pg (25-34) Mean Corpuscular Hemoglobin Concent 32.1 g/dl (32-36) 32.3 g/dl (32-36) Platelet Count 426 K/uL (130-400) 314 K/uL (130-400) Mean Platelet Volume 8.9 fL (7.4-10.4) 8.9 fL (7.4-10.4) Neutrophils (%) (Auto) 87.0 % 82.4 % Lymphocytes (%) (Auto) 9.0 % 11.5 % Monocytes (%) (Auto) 3.3 % 2.1 % Eosinophils (%) (Auto) 0.0 % 2.9 % Basophils (%) (Auto) 0.1 % 0.1 % Neutrophils # (Auto) 14.99 K/uL (1.4-6.5) 8.57 K/uL (1.4-6.5) Lymphocytes # (Auto) 1.55 K/uL (1.2-3.4) 1.19 K/uL (1.2-3.4) Monocytes # (Auto) 0.57 K/uL (0.11-0.59) 0.22 K/uL (0.11-0.59) Eosinophils # (Auto) 0.00 K/uL (0-0.5) 0.30 K/uL (0-0.5) Basophils # (Auto) 0.01 K/uL (0-0.2) 0.01 K/uL (0-0.2) RDW Standard Deviation 51.3 fL (36.4-46.3) 50.1 fL (36.4-46.3) RDW Coefficient of Variation 14.1 % (11.5-14.5) 14.0 % (11.5-14.5) Immature Granulocyte % (Auto) 0.6 % 1.0 % Immature Granulocyte # (Auto) 0.11 K/uL (0.00-0.02) 0.10 K/uL (0.00-0.02) Test 12/10/16 09:45 12/10/16 11:05 POC Glucose 101 mg/dl (70-90) 120 mg/dl (70-90) (Conchita Conner PA-C) Assessment & Plan Plan: The patient is also seen today by Dr. Washington. She'll be following up with [facility] in regards to her prescription refill. Because of the persistent cough we'll obtain a CT of the chest to evaluate for possible recurrence. no follow-up with Dr. Washington and medical oncology. She'll be notified as to results of the CT of the chest. We will refer if needed. We asked to return to our office 6 months. She may call if she has any questions or concerns in the interim. (Conchita Conner PA-C) I agree with note created by Conchita Conner PA-C. I reviewed the patient's chart and information with her. I have examined and evaluated the patient. I reviewed relevant clinical information and answered the patient's and/or family' s questions. (Veeral. Washington MD) Total Time In Follow-Up I spent 20 minutes speaking to the patient performing examination. I spent 15 minutes reviewing information in completing this note. AK (Conchita Conner PA-C) I spent 15 minutes examining and counseling the patient. (Veeral. Washington MD) Copy To Junior Washington M.D.; Marbin Peace D.O.
== END | disposition home or self-care (01) ==
LOC: C.ONC 14:31
PROVIDERS: ATTEND Physician Assistant Medical
DX: Z08 Encounter for follow-up examination after completed treatment for malignant neoplasm (principal); Z92.3 Personal history of irradiation; Z85.3 Personal history of malignant neoplasm of breast

== ENCOUNTER → 2017-01-22 | Outpatient (CLI) | payer OTHER ==
[~2017-01-22] MED LIST changes: -IBUP-1459 PO; +OPTIRAY 320 IV PRN
--- NOTE | 2017-01-22 11:44 | DIAGNOSTIC IMAGING REPORT ---
(CHEST) THORAX WITH CLINICAL HISTORY: 56 years-old Female presenting with metastatic breast cancer. TECHNIQUE: Multidetector CT imaging of the chest was performed after the administration of intravenous contrast. IV contrast: 93 mL of Optiray 320. A dose lowering technique was used consistent with the principles of ALARA (as low as reasonably achievable). COMPARISON: PET/CT from 11/25/2016. CT DOSE (mGy.cm): The estimated cumulative dose is 151.59 mGycm. FINDINGS: [employer] topogram: Left pleural effusion. On soft tissue windows, right subclavian Mediport terminates in the superior vena cava. Thyroid and thoracic inlet normal. Skin thickening over the left breast consistent with postradiation change. No axillary, supraclavicular, internal mammary, hilar, or mediastinal lymphadenopathy. Normal aorta. Normal heart size. Abnormal circumferential soft tissue in the left pleural cavity and along the left paramediastinal region. Small amount of left pleural fluid. Smaller fluid volume than on recent PET/CT. Multiple liver lesions again noted, the largest in the left hepatic lobe. This lesion now demonstrates a satellite nodule along its right superior margin (series 2 image 46). . Within limitations of comparison to prior noncontrast CT, the dominant left hepatic lobe lesion has enlarged now measuring 3 cm, previously 2 cm. On lung windows, multifocal right lung nodules have increased in size and number from prior exam. These are predominantly peripheral/subpleural. New and enlarging left peripheral/subpleural lesions also noted. Airways patent. On bone windows, multilevel degenerative changes of the thoracic spine. Previously noted lesion in the lower left sternum is minimally apparent. IMPRESSION: 1. Findings consistent with progression of disease with interval increase in size and number of peripheral/subpleural bilateral lung nodules, consistent with metastatic disease. Although with a smaller fluid component, persistent left pleural metastatic disease. 2. Apparent interval increase in size of dominant left hepatic lobe liver lesion with a new satellite lesion along the right superior aspect. Electronically signed by: Eleno Felix M.D. 01/22/2017 11:42 AM Dictated Date/Time: 01/22/2017 11:32 AM
== END | disposition home or self-care (01) ==
LOC: C.CTS 10:57
PROVIDERS: ATTEND Physician Assistant Medical
DX: C50.412 Malignant neoplasm of upper-outer quadrant of left female breast (principal); C79.51 Secondary malignant neoplasm of bone; R05 Cough; J90 Pleural effusion, not elsewhere classified

== ENCOUNTER 2017-02-07 17:57 | Inpatient (IN) | payer OTHER ==
[~2017-02-07] VITALS: Ht 152.4 cm; Wt 49.4 kg
[2017-02-07] MEDS: CAPECITABINE 500 MG PO SCH (16:45)
[~2017-02-07 17:57] MED LIST changes: -AVSI100 INJ; -DXM/4 PO; -FRCT/ PO; -MDR4 PO; -MORP1TAB11 PO; -OPTIRAY 320 IV PRN
[2017-02-07] MEDS ORDERED: SODIUM CHLORIDE 0.9% 1000ML 1,000 ML IV STA ×2 (18:11→21:54)
[2017-02-07] MEDS ORDERED: MDR4 PO (18:35)
[2017-02-07 18:41] LABS: URINE APPEARANCE TURBID (CLEAR); URINE BILIRUBIN NEG (NEG); URINE COLOR YELLOW; URINE EPITHELIAL CELL AUTO >30 /lpf (0-5); URINE NITRITE NEG (NEG); URINE PH 8.5 (4.5-7.5); UROBILINOGEN NEG (NEG)
[2017-02-07 18:43] LABS: MANUAL MICROSCOPIC REQUIRED? NO; REVIEW REQ? YES
--- NOTE | 2017-02-07 18:45 | EMERGENCY ROOM VISIT NOTE ---
History Report prepared by Titus: Roberta Meier Under the Supervision of: Dr. Teddy Russell M.D. First contact with patient: 18:08 Chief Complaint: CONFUSION Stated Complaint: INCREASED CONFUSION POST RADIATION TO BRAIN METAST Nursing Triage Summary: Per pts , pt has Brain CA, multiple surgeries. Pt has had an increase in confusion starting at 1615 today. "blank stare, misplaced silverware, difficulty word finding, and she didn't know where she was". Per , "this is absolutley abnormal for her, but these incidents have happened in the past 4-5 times and every time it is because there has been an increase in brain mets". Per pts oncologist, they would like her to have an MRI today, referred here by Dr. Crum. History of Present Illness The patient is a 56 year old female who presents to the Emergency Room with complaints of an episode of severe confusion starting two hours ago. The patient states that she is currently being treated with chemotherapy for breast cancer. The states that he noticed this confusion after he woke her up. He states that he then went to let the dog out and when he came back in she had piled a huge pile of silverware on the coffee table in the living room. He states when he asked her why she did it she stated she didn't know. He notes that she had a blank stare. The states that she was also saying some strange things. He state that she kept telling him her sister was there to bring baby shower gifts. He states that when they decided to leave she appeared to not be able to find her way to the kitchen or the car. He states that when she got outside she walked right past the car and started wandering through the yard. He states she told him she didn't see the car. He states that her gait appeared to be off because she appeared to be stumbling around. The notes that these symptoms have occurred in the past when she had an increased amount of metastases in her brain. The patient denies remembering doing any of these things. The states they came in because her oncologist said to come in and get an MRI if these symptoms occurred. The patient complains of nausea, vomiting, dizziness, and being short of breath. The notes that she gets nausea and vomiting from her chemo treatment and they just started a round yesterday. The also notes that the a side effect of the chemo treatment is getting a cough. He states that she always gets the cough with the treatment and sometimes this makes her short of breath. The patient denies fever , chills, congestion, urinary symptoms, and abnormal bowel movements. Source of History: patient, spouse/significant other Onset: two hours ago Position: other (global) Symptom Intensity: severe Quality: other (similar to previous episodes) Timing: other (episode) Associated Symptoms: + cough, + SOB, + nausea, + vomiting, No fevers, No chills, No urinary symptoms Note: The patient's complains that the patient had a blank stare, was saying strange things, and couldn't walk properly. The patient complains of dizziness. The patient denies remembering doing these things, congestion, and abnormal bowel movements. Review of Systems See HPI for pertinent positives and negatives. A total of ten systems were reviewed and were otherwise negative. 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 (13) History of breast cancer (14) Hypertension (15) Increased intracranial pressure (16) Irritable bowel syndrome (17) Mass of left lung (18) Metastasis to brain (19) Metastatic breast cancer (20) Metastatic cancer to spine (21) Osteoporosis (22) TIA (transient ischemic attack) Surgical Problems: (1) History of cataract surgery (2) History of Chiari malformation (3) History of lumpectomy of left breast (4) History of tonsillectomy and adenoidectomy (5) S/p axillary lymph node biopsy (6) S/p breast cyst removal (7) S/P craniotomy (8) S/p Gamma knife radiosurgery for brain metastatic lesion (9) S/p insertion tunneled central venous access with SQ port (10) S/P partial mastectomy (11) S/P sinus surgery (12) S/P tonsillectomy and adenoidectomy (13) S/P tubal ligation (14) Status post gamma knife treatment Family History Asthma DAUGHTER SON Diabetes mellitus MOTHER Hypertension FATHER Stroke FATHER GRANDFATHER Social History Smoking Status: Never Smoker Drug Use: none Marital Status: Housing Status: lives with significant other Occupation Status: retired, disabled Current/Historical Medications Scheduled Amitriptyline Hcl (Elavil), 100 MG PO HS Baclofen (Lioresal), 20 MG PO TID Butorphanol Tartrate (Butorphanol Tartrate), 1 SPRY NA BID Capecitabine (Xeloda), 1,500 MG PO Q12H Cholecalciferol (Vitamin D3), 1 TAB PO DAILY Cholestyramine (Bulk) (Cholestyramine), 4 GM PO QID Estrogens, Conjugated (Premarin), 1 APPLN PV DAILY Fluticasone Propionate (Flovent Hfa), 2 PUFFS INH BID Fluticasone Propionate (Nasal) (Flonase Allergy Relief), 2 SPRAYS JUDE QAM Insulin Aspart (Novolog Flexpen), 1 UNIT SC UD Insulin Glargine (Lantus), 9 UNITS SC QAM Lamotrigine (Lamictal), 150 MG PO BID Lovastatin (Mevacor), 10 MG PO QPM Methylprednisolone (Methylprednisolone), 4 MG PO DIRECTED Montelukast Sodium (Montelukast Sodium), 10 MG PO QAM Multivitamin (Multivitamin), 1 TAB PO QAM Omeprazole (Prilosec), 20 MG PO QAM Pentoxifylline (Trental), 400 MG PO BID Potassium Ext Rel (Klor-Con), 20 MEQ PO BID Ropinirole (Requip), 1 MG PO TID Tizanidine (Zanaflex), 4 MG PO QPM Topiramate (Topiramate), 200 MG PO BID Verapamil Hcl (Verapamil Hcl Sr), 120 MG PO BID Vitamin E (E400), 400 UNIT PO BID Scheduled PRN Albuterol Sulfate (Proventil Hfa), 2 PUFFS INH QID PRN for SOB/Wheezing Jdteicswxr-Qzrgjantnehtm-Egxkw (Fioricet/Codeine), 1 TAB PO Q4 PRN for Headache Dicyclomine Hcl (Dicyclomine Hcl), 20 MG PO Q6 PRN for GI Upset Diphenoxylate/Atropine (Lomotil), 1 TAB PO QID PRN for Diarrhea Meclizine Hcl (Meclizine Hcl), 25 MG PO Q6H PRN for Dizziness or Vertigo Oxycodone/Acetaminophen 5MG/325MG (Percocet 5MG/325MG), 1 TABLET PO Q6H PRN for Pain Polyethylene Glycol 3350 (Miralax), 17 GM PO DAILY PRN for Constipation Promethazine HCl (Promethazine HCl), 25 MG PO Q6 PRN for Nausea or Vomiting Allergies Coded Allergies: Erythromycin (Unverified Adverse Reaction, Unknown, GI UPSET, 12/10/16) Physical Exam Vital Signs Date Time Temp Pulse Resp B/P (MAP) Pulse Ox O2 Delivery O2 Flow Rate FiO2 02/08/17 02:29 89 02/08/17 01:52 92 18 95/62 98 Room Air 02/08/17 00:51 92 18 111/66 98 Room Air 02/07/17 23:48 95 20 122/76 99 Room Air 02/07/17 23:03 93 105/71 97 Room Air 02/07/17 22:31 104 02/07/17 22:01 103/71 02/07/17 21:58 96 24 97 02/07/17 21:43 95 22 98 02/07/17 21:31 123/78 02/07/17 21:31 96 22 123/78 98 Room Air 02/07/17 19:38 101/66 02/07/17 19:37 02/07/17 19:27 103 38 02/07/17 19:12 98 18 02/07/17 18:42 96 19 02/07/17 18:41 95 02/07/17 18:00 36.7 106 16 98/67 97 Room Air Physical Exam GENERAL: Awake, alert, well-appearing, in no acute distress HENT: Normocephalic, atraumatic. Dry mucus membranes. EYES: Normal conjunctiva. Sclera non-icteric. NECK: Supple. No nuchal rigidity. FROM. No JVD. RESPIRATORY: Diminished throughout the lung field especially at the bases anteriorly. CARDIAC: Regular rate, normal rhythm. Extremities warm and well perfused. Pulses equal. ABDOMEN: Soft, non-distended. No tenderness to palpation. No rebound or guarding. No masses. Ecchymosis and small hematoma in lower abdomen due to Insulin shots. RECTAL: Deferred. MUSCULOSKELETAL: Chest examination reveals no tenderness. The back is symmetrical on inspection without obvious abnormality. There is no CVA tenderness to palpation. No joint edema. LOWER EXTREMITIES: Calves are equal size bilaterally and non-tender. No edema. No discoloration. NEURO: Normal sensorium. Mild pronator drifts on the left. Finger to nose is sluggish bilaterally, but more left than right. Oriented x3, but has mild confusion such as when I asked her to do finger to nose, the patient touched the rail of the bed first. 5/5 strength in all extremities. Gait is wide based. No ataxia present. SKIN: No rash or jaundice noted. Medical Decision & Procedures ER Provider Diagnostic Interpretation: Radiology results as stated below per my review and radiologist interpretation: CHEST ONE VIEW PORTABLE CLINICAL HISTORY: Shortness of breath. Cough. Metastatic breast cancer. COMPARISON STUDY: Chest CT January 22, 2017. FINDINGS: A right subclavian [id number] is in place. A small left pleural effusion is present. There is no pneumothorax or evidence of pulmonary edema. Multiple pulmonary and pleural nodules are again noted. These are better depicted on prior chest CT. IMPRESSION: No significant change in appearance of the chest. Redemonstration of multiple pulmonary and pleural nodules consistent with metastatic disease with a small left pleural effusion. Electronically signed by: Jewel Couch M.D. 02/07/2017 6:56 PM Dictated Date/Time: 02/07/2017 6:54 PM MRI OF THE BRAIN WITHOUT AND WITH IV CONTRAST CLINICAL HISTORY: Confusion. Metastatic breast cancer. Radiation therapy. COMPARISON STUDY: MRI of the brain November 27, 2016. TECHNIQUE: Utilizing a 1.5 Sarah magnet and dedicated coil, multiplanar, multiecho imaging of the brain was performed pre and postcontrast administration. IV administration of 4.5 mL of Gadavist contrast was uneventful. Thin cut post contrast imaging was performed. FINDINGS: There are no areas of restricted diffusion. No intracranial hemorrhage is identified on this examination. The previously described irregular peripherally enhancing right parietal lobe parafalcine mass has slightly increased in size since exam of November 27, 2016. This lesion now measures 3.7 x 2.6 cm. It measured 3.4 x 2 cm on study of November 27, 2016. Associated vasogenic edema has improved since exam of November 27, 2016. Compression of the right lateral ventricle and leftward midline shift has diminished. The previously described left occipital lobe lesion shown on axial image 48 of 132 of the thin cut postcontrast images has decreased in size. This lesion now measures 3 mm. It previously measured 7 mm. There has been interval development of multiple (greater than 10) small infra and supratentorial lesions since MRI of November 27, 2016 and include a 5 mm lesion within the right cerebellar hemisphere shown image 22, a 5 mm right temporal lobe lesion shown image 36, a 5 mm left parietal lesion shown on image 59 as well as numerous smaller lesions. These have no significant associated edema. Ventricular system is otherwise stable. Basilar cisterns are patent. The patient is status post Chiari decompression. Susceptibility artifact within the left parietal scalp is again noted. There are no calvarial lesions. Flow-voids for the major intracranial vessels are present. IMPRESSION: 1. Interval development of numerous (at least 10) small supratentorial and infratentorial metastases since MRI of November 27, 2016. These lesions measure up to 5 mm. 2. Mild increase in size with slight interval decrease in degree of enhancement of the right parietal parafalcine mass since prior exam of November 27, 2016 with moderate interval improvement in associated vasogenic edema and mass effect since prior study. 3. Interval decrease in size of the previously described left occipital lobe lesion. 4. No evidence for acute infarction. No acute intracranial hemorrhage. Electronically signed by: Jewel Couch M.D. 02/07/2017 10:03 PM Dictated Date/Time: 02/07/2017 9:44 PM Laboratory Results 02/07/17 18:52 Red Blood Count 3.69, Mean Corpuscular Volume 99.5, Mean Corpuscular Hemoglobin 31.7, Mean Corpuscular Hemoglobin Concent 31.9, Mean Platelet Volume 8.4, Neutrophils (%) (Auto) 94.1, Lymphocytes (%) (Auto) 2.7, Monocytes (%) (Auto) 3.0, Eosinophils (%) (Auto) 0.0, Basophils (%) (Auto) 0.1, Neutrophils # (Auto) 7.24, Lymphocytes # (Auto) 0.21, Monocytes # (Auto) 0.23, Eosinophils # (Auto) 0.00, Basophils # (Auto) 0.01 02/07/17 18:52 Test 02/07/17 18:12 02/07/17 18:52 Urine Color YELLOW Urine Appearance TURBID (CLEAR) Urine pH 8.5 (4.5-7.5) Urine Specific [place] 1.020 (1.000-1.030) Urine Protein NEG (NEG) Urine Glucose (UA) NEG (NEG) Urine Ketones NEG (NEG) Urine Occult Blood NEG (NEG) Urine Nitrite NEG (NEG) Urine Bilirubin NEG (NEG) Urine Urobilinogen NEG (NEG) Urine Leukocyte Esterase MODERATE (NEG) Urine WBC (Auto) 5-10 /hpf (0-5) Urine RBC (Auto) 0-4 /hpf (0-4) Urine Hyaline Casts (Auto) 1-5 /lpf (0-5) Urine Epithelial Cells (Auto) >30 /lpf (0-5) Urine Bacteria (Auto) NEG (NEG) Urine Yeast (Auto) (NONE PRSENT) White Blood Count 7.70 K/uL (4.8-10.8) Red Blood Count 3.69 M/uL (4.2-5.4) Hemoglobin 11.7 g/dL (12.0-16.0) Hematocrit 36.7 % (37-47) Mean Corpuscular Volume 99.5 fL (80-100) Mean Corpuscular Hemoglobin 31.7 pg (25-34) Mean Corpuscular Hemoglobin Concent 31.9 g/dl (32-36) Platelet Count 267 K/uL (130-400) Mean Platelet Volume 8.4 fL (7.4-10.4) Neutrophils (%) (Auto) 94.1 % Lymphocytes (%) (Auto) 2.7 % Monocytes (%) (Auto) 3.0 % Eosinophils (%) (Auto) 0.0 % Basophils (%) (Auto) 0.1 % Neutrophils # (Auto) 7.24 K/uL (1.4-6.5) Lymphocytes # (Auto) 0.21 K/uL (1.2-3.4) Monocytes # (Auto) 0.23 K/uL (0.11-0.59) Eosinophils # (Auto) 0.00 K/uL (0-0.5) Basophils # (Auto) 0.01 K/uL (0-0.2) RDW Standard Deviation 57.6 fL (36.4-46.3) RDW Coefficient of Variation 16.3 % (11.5-14.5) Immature Granulocyte % (Auto) 0.1 % Immature Granulocyte # (Auto) 0.01 K/uL (0.00-0.02) Red Blood Cell Morphology Unremarkable Anion Gap 4.0 mmol/L (3-11) Est Creatinine Clear Calc Drug Dose 63.9 ml/min Estimated GFR () 101.6 Estimated GFR (Non- 87.7 BUN/Creatinine Ratio 23.0 (10-20) Calcium Level 8.6 mg/dl (8.5-10.1) Phosphorus Level 3.7 mg/dl (2.5-4.9) Magnesium Level 2.3 mg/dl (1.8-2.4) Total Bilirubin 0.3 mg/dl (0.2-1) Direct Bilirubin < 0.1 mg/dl (0-0.2) Aspartate Amino Transf (AST/SGOT) 23 U/L (15-37) Alanine Aminotransferase (ALT/SGPT) 25 U/L (12-78) Alkaline Phosphatase 123 U/L (45-117) Troponin I < 0.015 ng/ml (0-0.045) Total Protein 6.2 gm/dl (6.4-8.2) Albumin 2.8 gm/dl (3.4-5.0) Lipase 91 U/L (73-393) Laboratory results reviewed by me Medications Administered Medications (Trade) Dose Ordered Sig/Crow Route Start Time Stop Time Status Last Admin Dose Admin Sodium Chloride 1,000 ml @ 999 mls/hr Q1H1M STAT IV 02/07/17 18:11 02/07/17 19:11 DC 02/07/17 19:06 999 MLS/HR Sodium Chloride 1,000 ml @ 999 mls/hr Q1H1M STAT IV 02/07/17 21:54 02/07/17 22:54 DC 02/07/17 22:42 999 MLS/HR Dexamethasone Sodium Phosphate (Decadron Inj) 10 mg NOW ONCE IV 02/07/17 22:30 02/07/17 22:31 DC 02/07/17 22:41 10 MG Oxycodone/ Acetaminophen (Percocet 5-325mg Tab) 1 tab NOW STAT PO 02/08/17 01:54 02/08/17 01:56 DC 02/08/17 02:03 1 TAB Acetaminophen (Tylenol Tab) 650 mg Q4H PRN PO 02/08/17 04:00 03/10/17 03:59 02/08/17 08:46 650 MG ECG Indication: other (confusion) Rate (beats per minute): 98 Rhythm: normal sinus Findings: no acute ischemic change, other (normal axis) ED Course 1810: Ordered NSS 1000 ml @ 999 mls/hr IV. 1813: The patient was evaluated in room C2B. A complete history and physical exam was performed. 2153: Ordered NSS 1000 ml @ 999 mls/hr IV. 2229: Ordered Decadron Inj 10 mg IV. 0020: I received the report from [facility] from her visit on 01/27/2017. It showed lesions in the right parietal lobe superiorly and is greatest in the anteroposterior dimension. There are also lesions in the right cerebellar hemisphere, inferolateral right temporal lobe, and right temporal lobe with several lesions in the left parietal. The right cerebellar lesion is new for this scan. The left occipital lobe lesion has decreased since last scan. It showed an 8 mm shift of the midline of the brain from right to left due to edema. 0023: I reevaluated the patient and she is doing well. 0154: Ordered Percocet 5-325 mg Tab 1 tab PO. 0227: I discussed the case with Dr. Soto. They suggest the patient be bought in. 0242: I updated the patient and her family on the plan. 0250: Discussed the patient's case with Dr. Shipley. The patient will be evaluated for further treatment and disposition. Medical Decision I reviewed the patient's past medical history, medications, and the nursing notes as described above. Differential diagnoses include worsening intracranial metastatic disease, stroke , intracranial hemorrhage, electrolyte imbalance, dehydration, infectious cause pulmonary vs . Patient is a 56-year-old woman with a past medical history of metastatic breast cancer with brain metastases undergoing CyberKnife radiation treatment also currently on oral chemotherapy to emergency department with worsening confusion and difficulty with gait since 4:30 this afternoon per history of present illness. Arrival the patient is in no acute distress. Afebrile stable vital signs. On exam the patient is aO 3 but exhibits mild confusion when asked to do finger to nose she initially touches the brail bed with her finger. Otherwise she is to have slowed thought process. Has no recollection of episode earlier today where apparently she had taken out all the silverware and was confused as to why she did it. Left upper extremity with mild drift. Upon standing has mild wide-based gait feels it is improved from prior to arrival. Otherwise, active strength is 5 out of 5 in all extremities. Extraocular muscles intact. HUMBERTO. Sitting the patients metastatic history we will proceed with MRI of the brain with and without contrast. While stroke is in the differential, I feel worsening metastatic lesions is much more likely, more over her history of intracranial metastatic disease make her not a candidate for TPA therefore no indication for stroke activation. Otherwise will additionally evaluate for infectious metabolic causes of her symptoms. MRI obtained and describes multiple new lesions compared to MRI from December for patient recently had [facility] [place] at [facility] that showed similarly described lesions. Moreover when comparing descriptions MRI today appears improved terms of edema and mls. Otherwise the patient appears clinically dry consistent with her BUN/creatinine>20. Symptoms entirely resolved after IV fluid hydration. Considering the patient's numerous metastatic brain lesions she was given 10 mg of dexamethasone. Otherwise WBC within normal limits. UA negative for UTI. LFTs unremarkable. I discussed the case with the patient's neurosurgeon at [facility], Dr. Soto, who managed the patient's recent visits for CyberKnife treatment. He did not feel that the patient needed transfer for surgical or radiation oncology treatment, rather at this time will need medical optimization with medical oncology recommendations. He does however recommend EEG AND monitoring for seizure activity and to continue the patient's AEDs. Additionally when he had last seen the patient the recommendation was to begin Avastin, however this change is currently pending the return of the patient's medical oncologist,Dr. [place], who is currently on vacation abroad. Findings and plan as described above discussed with Dr. Louise, who will admit the patient to the medicine service for further management. Medication Reconcilliation Current Medication List: was personally reviewed by me Blood Pressure Screening Patient's blood pressure: Normal blood pressure Blood pressure disposition: Did not require urgent referral Consults Time Called: 45 Consulting Physician: Dr. Soto- [facility] Returned Call: [phone] I discussed the case with Dr. Soto. They suggest the patient be bought in. Additional Consults: Time Called: 246 Consulted Physician: Dr. Shipley- internal Medicine Returned Call: [phone] Additional Comments: Discussed the patient's case with Dr. Violetta. The patient will be evaluated for further treatment and disposition. Impression Primary Impression: Altered mental status Scribe Attestation The scribe's documentation has been prepared under my direction and personally reviewed by me in its entirety. I confirm that the note above accurately reflects all work, treatment, procedures, and medical decision making performed by me. Departure Information Dispostion Being Evaluated By Hospitalist Referrals No Doctor, Assigned (PCP) Patient Instructions My [facility]
[2017-02-07 18:53] LABS: ZZUR CULT IF INDIC CLEAN CATCH NO
--- NOTE | 2017-02-07 18:57 | DIAGNOSTIC IMAGING REPORT ---
CHEST ONE VIEW PORTABLE CLINICAL HISTORY: Shortness of breath. Cough. Metastatic breast cancer. COMPARISON STUDY: Chest CT January 22, 2017. FINDINGS: A right subclavian Vipers-f-Wvsj is in place. A small left pleural effusion is present. There is no pneumothorax or evidence of pulmonary edema. Multiple pulmonary and pleural nodules are again noted. These are better depicted on prior chest CT. IMPRESSION: No significant change in appearance of the chest. Redemonstration of multiple pulmonary and pleural nodules consistent with metastatic disease with a small left pleural effusion. Electronically signed by: Jewel Couch M.D. 02/07/2017 6:56 PM Dictated Date/Time: 02/07/2017 6:54 PM
[2017-02-07 19:01] LABS: HEMATOCRIT 36.7 % (37-47); MEAN CELL VOLUME 99.5 fL (80-100); MEAN CORPUSCULAR HEMOGLOBIN 31.7 pg (25-34); MEAN CORPUSCULAR HGB CONC 31.9 g/dl (32-36); MEAN PLATELET VOLUME 8.4 fL (7.4-10.4); PLATELET COUNT 267 K/uL (130-400); RED BLOOD COUNT 3.69 M/uL (4.2-5.4)
[2017-02-07 19:18] LABS: ALT/SGPT 25 U/L (12-78); BLOOD UREA NITROGEN 18 mg/dl (7-18); CALCIUM 8.6 mg/dl (8.5-10.1); CARBON DIOXIDE 32 mmol/L (21-32); CHLORIDE 103 mmol/L (98-107); CREATININE 0.76 mg/dl (0.60-1.20); GLUCOSE 187 mg/dl (70-99); MAGNESIUM 2.3 mg/dl (1.8-2.4); SODIUM 139 mmol/L (136-145)
[2017-02-07 19:22] LABS: ALKALINE PHOSPHATASE 123 U/L (45-117); AST/SGOT 23 U/L (15-37); PHOSPHORUS 3.7 mg/dl (2.5-4.9)
[2017-02-07 19:33] LABS: BASO % 0.1 %; BASO ABS # 0.01 K/uL (0-0.2); COMPLETE YES; IG% 0.1 %; LYMPH % 2.7 %; LYMPH ABS # 0.21 K/uL (1.2-3.4); NEUT % 94.1 %
[2017-02-07] MEDS ORDERED: GADAVIST IV PRN (21:45)
--- NOTE | 2017-02-07 22:05 | DIAGNOSTIC IMAGING REPORT ---
MRI OF THE BRAIN WITHOUT AND WITH IV CONTRAST CLINICAL HISTORY: Confusion. Metastatic breast cancer. Radiation therapy. COMPARISON STUDY: MRI of the brain November 27, 2016. TECHNIQUE: Utilizing a 1.5 Sarah magnet and dedicated coil, multiplanar, multiecho imaging of the brain was performed pre and postcontrast administration. IV administration of 4.5 mL of Gadavist contrast was uneventful. Thin cut post contrast imaging was performed. FINDINGS: There are no areas of restricted diffusion. No intracranial hemorrhage is identified on this examination. The previously described irregular peripherally enhancing right parietal lobe parafalcine mass has slightly increased in size since exam of November 27, 2016. This lesion now measures 3.7 x 2.6 cm. It measured 3.4 x 2 cm on study of November 27, 2016. Associated vasogenic edema has improved since exam of November 27, 2016. Compression of the right lateral ventricle and leftward midline shift has diminished. The previously described left occipital lobe lesion shown on axial image 48 of 132 of the thin cut postcontrast images has decreased in size. This lesion now measures 3 mm. It previously measured 7 mm. There has been interval development of multiple (greater than 10) small infra and supratentorial lesions since MRI of November 27, 2016 and include a 5 mm lesion within the right cerebellar hemisphere shown image 22, a 5 mm right temporal lobe lesion shown image 36, a 5 mm left parietal lesion shown on image 59 as well as numerous smaller lesions. These have no significant associated edema. Ventricular system is otherwise stable. Basilar cisterns are patent. The patient is status post Chiari decompression. Susceptibility artifact within the left parietal scalp is again noted. There are no calvarial lesions. Flow-voids for the major intracranial vessels are present. IMPRESSION: 1. Interval development of numerous (at least 10) small supratentorial and infratentorial metastases since MRI of November 27, 2016. These lesions measure up to 5 mm. 2. Mild increase in size with slight interval decrease in degree of enhancement of the right parietal parafalcine mass since prior exam of November 27, 2016 with moderate interval improvement in associated vasogenic edema and mass effect since prior study. 3. Interval decrease in size of the previously described left occipital lobe lesion. 4. No evidence for acute infarction. No acute intracranial hemorrhage. Electronically signed by: Jewel Couch M.D. 02/07/2017 10:03 PM Dictated Date/Time: 02/07/2017 9:44 PM
[2017-02-07] MEDS ORDERED: DEXAMETHASONE SOD INJ 10 MG/ML VIAL IV ONE (22:30)
[2017-02-08] MEDS ORDERED: OXYCODONE/ACETAMINOPHEN 5-325 TAB PO STA (01:54)
[2017-02-08] MEDS ORDERED: ONDANSETRON INJ 2 MG/ML 2 ML VIAL IV PRN (04:00)
[2017-02-08] MEDS ORDERED: ACETAMINOPHEN 325 MG TAB PO PRN (04:00)
[2017-02-08] MEDS ORDERED: DIPHENOXYLATE/ATROPINE 2.5/0.025MG TAB PO PRN (04:15)
[2017-02-08] MEDS ORDERED: OXYCODONE/ACETAMINOPHEN 5-325 TAB PO PRN (04:15)
[2017-02-08] MEDS ORDERED: ALBUTEROL HFA 8 GM INHALER INH PRN (04:15)
[2017-02-08] MEDS ORDERED: DICYCLOMINE HCL 20 MG TAB PO PRN (04:15)
[2017-02-08] MEDS ORDERED: PROMETHAZINE HCL 25 MG TAB PO PRN (04:15)
[2017-02-08] MEDS ORDERED: MECLIZINE HCL 12.5 MG TAB PO PRN (04:15)
[2017-02-08] MEDS ORDERED: POLYETHYLENE (MIRALAX) 17 GM PACK PO PRN (04:15)
[2017-02-08 05:04] VITALS: BP 127/71; PULSE 87; TEMP 36.6; O2SAT 97; Ht 152.4 cm; Wt 49.4 kg
[2017-02-08 06:23] LABS: INR 0.9 (0.9-1.1)
--- NOTE | 2017-02-08 07:06 | HISTORY & PHYSICAL EXAMINATION ---
DATE OF ADMISSION: 02/08/2017 PRIMARY CARE PHYSICIAN: Dr. Peace. ONCOLOGIST: Dr. Junior Washington. CHIEF COMPLAINT: Acute confusion since yesterday morning. HISTORY OF PRESENT COMPLAINT: She is a 56-year-old female with significant past medical history of breast cancer with metastases to brain, bone, liver and lung, type 1 diabetes, seizure disorder, fibromyalgia, irritable bowel syndrome, hypertension, history of asthma. Apparently, underwent gamma knife surgery at [facility] on the 3rd of this month for multiple brain metastases with increasing symptoms of confusion and unsteadiness in gait. 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 The condition got worse and that point, she was very confused and she was lethargic as well. No seizure activity, no incontinence. No fever, chills or rigors. No headache, no nausea, no vomiting, no problem with urine and/or bowel habit. In the Emergency Room, she was pleasantly confused and apparent tests came out to be unremarkable, including CBC, PRP and MRI of the brain that did show metastasis, but no other acute findings. She was started with intravenous fluid and also given IV Decadron 10 mg. With that, the symptoms were relieving. The ER physician did talk to the radiologist, who did the gamma knife surgery in [facility] and they did not want to take the patient. They wanted to have medical team take care of acute confusion and a local oncologist to take care from there. They did not have anything to offer at this time. From that point, the patient was admitted to telemetry unit for continuation of care. PAST MEDICAL HISTORY: Significant for breast cancer, diagnosed 2 years ago, with metastases to the brain, bone, lung and liver and diabetes mellitus type 1, seizure disorder, hypertension irritable bowel syndrome, asthma, migraine, fibromyalgia and also history of Medina's esophagus. PAST SURGICAL HISTORY: Significant for lumpectomy and lymph node resections on the left side, YAG capsulotomy, left eye, partial mastectomy on the left side, tonsillectomy as a child, cataract surgery, removal of a metallic foreign body from the skull in 2007. FAMILY HISTORY: Significant that father has hypertension and also a stroke and mother has type 2 diabetes. SOCIAL HISTORY: She is . She has 3 children. She lives with her . She used smokeless tobacco. She drinks alcohol occasionally and she has been reasonably ambulant. ALLERGIES: ERYTHROMYCIN. MEDICATIONS: She has been taking methylprednisone 8 mg a day, which is a tapering dose, Proventil HFA 2 puffs q.i.d. as needed, amitriptyline 50-mg tablet 2 tablets at night, baclofen 20 mg 3 times daily, Fioricet 1 capsule every 4 hours as needed, Butorphanol Tartrate 1 spray nasal b.i.d., Xeloda 500-mg tablet 1500 mg q. 12 hours, vitamin D3 1000 units daily, cholestyramine 4 grams q.i.d., dicyclomine 20 mg q. 6 hourly as needed, Lomotil 1 tablet p.o. q.i.d. as needed, Premarin as directed, Flovent HFA 2 puffs b.i.d., Flonase nasal spray 2 sprays each nostril daily, insulin sliding scale as directed, Lantus 9 units in the morning, Lamictal 150 mg b.i.d., Mevacor 10 mg daily, meclizine 25 mg q. 6 hourly as needed, Singulair 10 mg daily, multivitamin 1 tablet daily, omeprazole 20 mg daily, oxycodone/acetaminophen 1 tablet q. 6 hourly p.r.n., pentoxifylline 400 mg b.i.d., MiraLax 17 grams daily as needed, Klor-Con 20 mEq twice daily, promethazine 25 mg q. 6 hourly p.r.n., Requip 1 mg t.i.d. Zanaflex 4 mg q.p.m., topiramate 200 mg b.i.d., verapamil 120 mg b.i.d. and vitamin E 400 units twice daily. REVIEW OF SYSTEMS: Other systems review unremarkable, except for those mentioned in history of present complaint. PHYSICAL EXAMINATION: GENERAL: On examination in the Emergency Room, she was feeling better. She did not have any more problem with speech, but she remains weak and lethargic. VITAL SIGNS: Temperature 36.7, pulse was 92, blood pressure 95/62, saturation 98% on room air. HEENT: Unremarkable. NECK: Supple. No JVD, no bruit. CHEST: Clear to auscultate bilaterally. HEART: S1, S2 regular. ABDOMEN: Soft, benign, mildly tender. No organomegaly. Bowel sounds present. EXTREMITIES: Negative for any edema. MUSCULOSKELETAL: Examination did not show any acute arthritis involving any joint. CENTRAL NERVOUS SYSTEM: Alert, awake, oriented x3. LABORATORY DATA: Noted today, white count was 7.70, H&H 11.7/36.7, platelet was 267. Sodium 139, potassium 4.0, chloride 103, carbon dioxide 32, BUN 18, creatinine 0.76, random glucose 187. Calcium 8.6, phosphorus 3.7, magnesium 2.3. LFTs unremarkable. Troponin 0.015. Lipase is 91. UA examination unremarkable. Chest x-ray, no significant change in appearance of the chest and re-demonstration of multiple pulmonary and pleural nodules, consistent with metastatic disease with a small left pleural effusion. MRI of the brain, interval development of numerous, at lest 10, small supratentorial and infratentorial metastasis since am MRI of November 2016. That lesion measures up to 5 mm; mild increase in size with slight interval decrease in degree of enhancement of the right parietal parafalcine mass since prior exam of 12/27/2016 with interval improvement and associated vasogenic edema and mass effect since prior study, interval decrease site of the previously described left occipital lobe lesion; no evidence of acute infarction or intracranial change. MRI that was done in [facility] reported as multiple brain metastases from breast cancer with tumors located in the right lateral cerebellum, right mid temporal, left mid temporal, left occipital, left inferior parietal, left mid parietal, left lateral parietal, right anterior frontal, left mid frontal, left inferior cerebellum, left parasagittal faux, left anterior temporal lobe, a total of 12 brain metastases. Those were radiated with gamma knife. IMPRESSION AND PLAN: 1. Acute confusion, most likely secondary to metastatic disease in the brain with associated edema. She will be admitted to the telemetry unit. Neuro observation will be done in the unit. She was getting methylprednisolone, reducing dose, and she is now at 8 mg daily. She received 10 mg of Decadron in the Emergency Room. We will continue with Decadron 4 mg b.i.d. for ongoing probable edema in the brain. We will give some IV fluid for some dehydration as well.Clinically she is already better. 2. Cancer of breast with metastases to brain, bones, liver and lung. As per imaging studies, the metastasis seems to be stable and/or decreasing. She has been on chemotherapeutic agent, Xeloda. We will continue with that and she will have her usual followup with Dr. Washington, as an outpatient. She underwent gamma radiation in [facility] recently and she has had prior radiation therapy for breast cancer and she is done with it. 3. Seizure disorder, secondary to brain metastasis. Continue with her current medication. 4. Diabetes, on insulin. No acute issue at this time. We will continue with her insulin and sliding scale coverage while in the hospital. 5. Hypertension. Blood pressure is on the lower side. We will continue with medications with hold parameters. 6. Esophageal reflux with Medina's esophagus. Continue with PPI. 7. Mild history of asthma. Continue with inhalers. No acute exacerbation at this time. 8. Migraine. No acute attack at this time. We will continue with her medications. 9. Deep venous thrombosis prophylaxis with Lovenox. CODE STATUS. Discussed with her in detail. She will be a full code. In my clinical assessment, the beneficiary meets criteria, as per CMS for 2 midnight stay in the hospital. RAMON
[2017-02-08] MEDS ORDERED: XELODA~ORDER AWAITING ACTION SCH (08:00)
[2017-02-08 08:07] VITALS: BP 92/58; PULSE 72; TEMP 36.7; O2SAT 95
[2017-02-08] MEDS: FLUTICASONE HFA 110MCG INHALER INH SCH ×2 (08:20→19:57)
[2017-02-08] MEDS: PANTOprazole SOD 40 MG TAB PO SCH (08:21)
[2017-02-08] MEDS: FLUTICASONE PROPIONATE NA SPR 16 GM BTL NAE SCH (08:21)
[2017-02-08] MEDS: TOCOPHERYL, DL-ALPHA 400 INTER.UNIT CAP PO SCH ×2 (08:22→20:03)
[2017-02-08] MEDS: TOPIRAMATE 100 MG TAB PO SCH ×2 (08:22→20:00)
[2017-02-08] MEDS: VERAPAMIL HCL 120 MG TABCR PO SCH ×2 (08:22→20:04)
[2017-02-08] MEDS: POTASSIUM CHLORIDE 20 MEQ TABCR PO SCH ×2 (08:23→20:03)
[2017-02-08] MEDS: ROPINIROLE HCL 1 MG TAB PO SCH ×3 (08:23→20:06)
[2017-02-08] MEDS: MULTIVITAMIN TAB PO SCH (08:23)
[2017-02-08] MEDS: DEXAMETHASONE 4 MG TAB PO SCH ×2 (08:23→20:08)
[2017-02-08] MEDS: MONTELUKAST SOD 10 MG TAB PO SCH (08:24)
[2017-02-08] MEDS: BACLOFEN TAB 20 MG TAB PO SCH ×3 (08:24→19:59)
[2017-02-08] MEDS: CHOLECALCIFEROL 1000 INTER.UNIT TAB PO SCH (08:26)
[2017-02-08] MEDS: INSULIN ASPART 100 UNITS/ML 3 ML PEN SC SCH ×4 (08:28→20:12)
[2017-02-08] MEDS: INSULIN GLARGINE SOLOSTAR 100 UNITS/ML 3 ML PEN SC SCH (08:29)
[2017-02-08] MEDS: CHOLESTYRAMINE LIGHT 4 GM PKT PO SCH ×2 (08:37→12:30)
[2017-02-08] MEDS: PENTOXIFYLLINE 400MG EXT REL TAB PO SCH ×2 (08:39→19:53)
[2017-02-08] MEDS ORDERED: HEPARIN SOD 5000 UNIT/0.5 ML CARP SQ SCH (09:00)
[2017-02-08] MEDS ORDERED: ENOXAPARIN 40 MG/0.4 ML SYR SQ SCH (09:00)
[2017-02-08] MEDS ORDERED: PREMARIN VAG CRM 14 APPLN/30 GM TUBE PV SCH ×2 (09:00→21:00)
[2017-02-08] MEDS ORDERED: BUTORPHANOL TARTRATE 10 MG/ML SCH (09:00)
[2017-02-08] MEDS ORDERED: BUTORPHANOL TARTRATE 10 MG/ML PRN (09:00)
[2017-02-08 12:36] VITALS: BP 111/74; PULSE 82; TEMP 36.5; O2SAT 96
[2017-02-08] MEDS ORDERED: NON-FORMULARY MEDICATION SCH (14:30)
[2017-02-08] MEDS ORDERED: NURSING VERBAL MED ORDER ONE (14:30)
--- NOTE | 2017-02-08 14:43 | Progress Note ---
Medicine Progress Note Date & Time of Visit: Feb 08, 2017 at 14:29. Subjective tolerating PO has headache reports persistent dizziness but is alert and oriented denies pain otherwise discussed MRI findings with and patient. discussed case with Dr. Washington Objective Last 8 Hrs Date Time Temp Pulse Resp B/P (MAP) Pulse Ox O2 Delivery O2 Flow Rate FiO2 02/08/17 12:36 36.5 82 18 111/74 (86) 96 02/08/17 12:05 Room Air 02/08/17 08:07 36.7 72 18 92/58 (69) 95 02/08/17 08:05 Room Air Physical Exam: GEN: WNWD, in no acute distress, alert and appropriate HEENT: NC/AT, PERRL, normal sclerae, EOMI CARDIO: reg rate, S1/2 heard without m/g/r LUNGS: CTA bilaterally, no crackles, rales or wheezes, good diaphragmatic excursion ABD: soft, non-tender, non-distended, no rebound or guarding, +BS EXTREMITY: RP and DP palpable 2+ bilat, no LE swelling or edema, extremities are warm and well-perfused NEURO: CN 2-12 intact, sensation intact throughout, (reflexes) BR 2+ bilat, knee 2+ bilat, achilles 2+ bilat, gait not assessed as patient is fall risk. MUSC: 5/5 strength throughout, no focal deficits SKIN: warm and dry Laboratory Results: 02/07/17 18:52 Red Blood Count 3.69, Mean Corpuscular Volume 99.5, Mean Corpuscular Hemoglobin 31.7, Mean Corpuscular Hemoglobin Concent 31.9, Mean Platelet Volume 8.4, Neutrophils (%) (Auto) 94.1, Lymphocytes (%) (Auto) 2.7, Monocytes (%) (Auto) 3.0, Eosinophils (%) (Auto) 0.0, Basophils (%) (Auto) 0.1, Neutrophils # (Auto) 7.24, Lymphocytes # (Auto) 0.21, Monocytes # (Auto) 0.23, Eosinophils # (Auto) 0.00, Basophils # (Auto) 0.01 02/07/17 18:52 Test 02/07/17 18:12 02/07/17 18:52 02/08/17 05:25 02/08/17 11:12 Urine Color YELLOW Urine Appearance TURBID (CLEAR) Urine pH 8.5 (4.5-7.5) Urine Specific [place] 1.020 (1.000-1.030) Urine Protein NEG (NEG) Urine Glucose (UA) NEG (NEG) Urine Ketones NEG (NEG) Urine Occult Blood NEG (NEG) Urine Nitrite NEG (NEG) Urine Bilirubin NEG (NEG) Urine Urobilinogen NEG (NEG) Urine Leukocyte Esterase MODERATE (NEG) Urine WBC (Auto) 5-10 /hpf (0-5) Urine RBC (Auto) 0-4 /hpf (0-4) Urine Hyaline Casts (Auto) 1-5 /lpf (0-5) Urine Epithelial Cells (Auto) >30 /lpf (0-5) Urine Bacteria (Auto) NEG (NEG) Urine Yeast (Auto) (NONE PRSENT) White Blood Count 7.70 K/uL (4.8-10.8) Red Blood Count 3.69 M/uL (4.2-5.4) Hemoglobin 11.7 g/dL (12.0-16.0) Hematocrit 36.7 % (37-47) Mean Corpuscular Volume 99.5 fL (80-100) Mean Corpuscular Hemoglobin 31.7 pg (25-34) Mean Corpuscular Hemoglobin Concent 31.9 g/dl (32-36) Platelet Count 267 K/uL (130-400) Mean Platelet Volume 8.4 fL (7.4-10.4) Neutrophils (%) (Auto) 94.1 % Lymphocytes (%) (Auto) 2.7 % Monocytes (%) (Auto) 3.0 % Eosinophils (%) (Auto) 0.0 % Basophils (%) (Auto) 0.1 % Neutrophils # (Auto) 7.24 K/uL (1.4-6.5) Lymphocytes # (Auto) 0.21 K/uL (1.2-3.4) Monocytes # (Auto) 0.23 K/uL (0.11-0.59) Eosinophils # (Auto) 0.00 K/uL (0-0.5) Basophils # (Auto) 0.01 K/uL (0-0.2) RDW Standard Deviation 57.6 fL (36.4-46.3) RDW Coefficient of Variation 16.3 % (11.5-14.5) Immature Granulocyte % (Auto) 0.1 % Immature Granulocyte # (Auto) 0.01 K/uL (0.00-0.02) Red Blood Cell Morphology Unremarkable Anion Gap 4.0 mmol/L (3-11) Est Creatinine Clear Calc Drug Dose 63.9 ml/min Estimated GFR () 101.6 Estimated GFR (Non- 87.7 BUN/Creatinine Ratio 23.0 (10-20) Calcium Level 8.6 mg/dl (8.5-10.1) Phosphorus Level 3.7 mg/dl (2.5-4.9) Magnesium Level 2.3 mg/dl (1.8-2.4) Total Bilirubin 0.3 mg/dl (0.2-1) Direct Bilirubin < 0.1 mg/dl (0-0.2) Aspartate Amino Transf (AST/SGOT) 23 U/L (15-37) Alanine Aminotransferase (ALT/SGPT) 25 U/L (12-78) Alkaline Phosphatase 123 U/L (45-117) Troponin I < 0.015 ng/ml (0-0.045) Total Protein 6.2 gm/dl (6.4-8.2) Albumin 2.8 gm/dl (3.4-5.0) Lipase 91 U/L (73-393) Prothrombin Time 10.0 SECONDS (9.0-12.0) Prothromb Time International Ratio 0.9 (0.9-1.1) Hepatitis C Antibody Screen NEG (NEG) Bedside Glucose 144 mg/dl (70-90) Last 24 Hours Test 02/07/17 18:12 02/07/17 18:52 02/08/17 05:25 02/08/17 06:36 Urine Color YELLOW Urine Appearance TURBID Urine pH 8.5 Urine Specific [place] 1.020 Urine Protein NEG Urine Glucose (UA) NEG Urine Ketones NEG Urine Occult Blood NEG Urine Nitrite NEG Urine Bilirubin NEG Urine Urobilinogen NEG Urine Leukocyte Esterase MODERATE Urine WBC (Auto) 5-10 /hpf Urine RBC (Auto) 0-4 /hpf Urine Hyaline Casts (Auto) 1-5 /lpf Urine Epithelial Cells (Auto) >30 /lpf Urine Bacteria (Auto) NEG Urine Yeast (Auto) White Blood Count 7.70 K/uL Red Blood Count 3.69 M/uL Hemoglobin 11.7 g/dL Hematocrit 36.7 % Mean Corpuscular Volume 99.5 fL Mean Corpuscular Hemoglobin 31.7 pg Mean Corpuscular Hemoglobin Concent 31.9 g/dl Platelet Count 267 K/uL Mean Platelet Volume 8.4 fL Neutrophils (%) (Auto) 94.1 % Lymphocytes (%) (Auto) 2.7 % Monocytes (%) (Auto) 3.0 % Eosinophils (%) (Auto) 0.0 % Basophils (%) (Auto) 0.1 % Neutrophils # (Auto) 7.24 K/uL Lymphocytes # (Auto) 0.21 K/uL Monocytes # (Auto) 0.23 K/uL Eosinophils # (Auto) 0.00 K/uL Basophils # (Auto) 0.01 K/uL RDW Standard Deviation 57.6 fL RDW Coefficient of Variation 16.3 % Immature Granulocyte % (Auto) 0.1 % Immature Granulocyte # (Auto) 0.01 K/uL Red Blood Cell Morphology Unremarkable Sodium Level 139 mmol/L Potassium Level 4.0 mmol/L Chloride Level 103 mmol/L Carbon Dioxide Level 32 mmol/L Anion Gap 4.0 mmol/L Blood Urea Nitrogen 18 mg/dl Creatinine 0.76 mg/dl Est Creatinine Clear Calc Drug Dose 63.9 ml/min Estimated GFR () 101.6 Estimated GFR (Non- 87.7 BUN/Creatinine Ratio 23.0 Random Glucose 187 mg/dl Calcium Level 8.6 mg/dl Phosphorus Level 3.7 mg/dl Magnesium Level 2.3 mg/dl Total Bilirubin 0.3 mg/dl Direct Bilirubin < 0.1 mg/dl Aspartate Amino Transf (AST/SGOT) 23 U/L Alanine Aminotransferase (ALT/SGPT) 25 U/L Alkaline Phosphatase 123 U/L Troponin I < 0.015 ng/ml Total Protein 6.2 gm/dl Albumin 2.8 gm/dl Lipase 91 U/L Prothrombin Time 10.0 SECONDS Prothromb Time International Ratio 0.9 Hepatitis C Antibody Screen NEG Bedside Glucose 169 mg/dl Test 02/08/17 11:12 Bedside Glucose 144 mg/dl Assessment & Plan 56 yoF with complicated h/o breast cancer with mets to brain, bone and lung, chronic migraines and s/p Arnold Chiari malformation surgery in the past presents with persistent dizziness with acute confusion x 1 day upon awakening. She came to the ER where a brain MRI revealed no worsening of her brain mets since gamma knife surgery on 01/28. She was switched from methylprednisolone 8mg BID to Decadrom 4mg PO BID. After DEcadrom 10mg IV in the ER and some IVF, her confusion resolved. MRI was briefly reviewed with Rad Onc (Dr. Washington) who noted some persistent swelling around one of the mets and agrees with the decadron for now with a taper off. Once feeling better and cleared by PT/OT, she can go with outpatient follow-up with her Neurology/Neurosurgery team at [facility] 1. Acute confusion-resolved in ER yesterday after Decadron and IVF. Etiologies include but not limited to most likely secondary to metastatic disease in the brain with associated edema, new Xeloda chemotherapy recently started, steroids, complication of her migraines. She was evaluated by her Neurologist on Wednesday (Dr. Goodman) and had dizziness at that time with a normal neuro exam. She appears to be at her baseline right now. 2. Breast cancer with mets-per imaging, mets appear stable. Cont Xeloda. F/u with Dr. Washington (oncology) as outpatient 3. Seizure disorder, secondary to brain metastasis. Continue with her current medication. 4. Diabetes, on insulin. At goal, cont with ISS/carb coverage and glargine. 5. Hypertension. Controlled, CCM. 6. Esophageal reflux with Medina's esophagus. Continue with PPI. 7. Mild history of asthma. Continue with inhalers. No acute exacerbation at this time. 8. Migraine-has headache currently-uses Fioricet per home regimen. DVT [id number] declines FULL CODE Dispo-Once feeling better and cleared by PT/OT, she can go with outpatient follow-up with her Neurology/Neurosurgery team at [facility] Shu Riddle DO [facility] Current Inpatient Medications: Current Inpatient Medications Medications (Trade) Dose Ordered Sig/Crow Route Start Time Stop Time Status Last Admin Dose Admin Gadobutrol (Gadavist) 4.5 mmol UD PRN IV 02/07/17 21:45 02/11/17 21:44 Acetaminophen (Tylenol Tab) 650 mg Q4H PRN PO 02/08/17 04:00 03/10/17 03:59 02/08/17 08:46 650 MG Ondansetron HCl (Zofran Inj) 4 mg Q6H PRN IV 02/08/17 04:00 03/10/17 03:59 Albuterol (Ventolin Hfa Inhaler) 2 puffs QID PRN INH 02/08/17 04:15 03/10/17 04:14 Amitriptyline HCl (Elavil Tab) 100 mg HS PO 02/08/17 21:00 03/10/17 20:59 Baclofen (Lioresal Tab) 20 mg TID PO 02/08/17 09:00 03/10/17 08:59 02/08/17 08:24 20 MG Cholecalciferol (Vitamin D Tab) 1,000 inter.unit DAILY PO 02/08/17 09:00 03/10/17 08:59 02/08/17 08:26 1,000 INTER.UNIT Dicyclomine HCl (Bentyl Tab) 20 mg Q6 PRN PO 02/08/17 04:15 03/10/17 04:14 Diphenoxylate HCl/ Atropine (Lomotil Tab) 1 tab QID PRN PO 02/08/17 04:15 03/10/17 04:14 Estrogens Conjugated (Premarin Vag Crm) 1 appln DAILY PV 02/08/17 09:00 03/10/17 08:59 Fluticasone Propionate (Flovent Hfa 110MCG Inhaler) 2 puffs BID INH 02/08/17 09:00 03/10/17 08:59 02/08/17 08:20 2 PUFFS Fluticasone Propionate (Flonase Nasal Ralston) 2 sprays QAM JUDE 02/08/17 09:00 03/10/17 08:59 02/08/17 08:21 2 SPRAYS Insulin Aspart (novoLOG ASPART) ACHS SC 02/08/17 07:00 03/10/17 06:59 02/08/17 12:30 3 UNITS Insulin Glargine (Lantus Solostar Pen) 9 units QAM SC 02/08/17 09:00 03/10/17 08:59 02/08/17 08:29 9 UNITS Lamotrigine (Lamictal Tab) 150 mg BID PO 02/08/17 09:00 03/10/17 08:59 02/08/17 08:22 150 MG Meclizine HCl (Antivert Tab) 25 mg Q6H PRN PO 02/08/17 04:15 03/10/17 04:14 02/08/17 12:16 25 MG Montelukast Sodium (Singulair Tab) 10 mg QAM PO 02/08/17 09:00 03/10/17 08:59 02/08/17 08:24 10 MG Multivitamins (Multivitamin Tab) 1 tab QAM PO 02/08/17 09:00 03/10/17 08:59 02/08/17 08:23 1 TAB Oxycodone/ Acetaminophen (Percocet 5-325mg Tab) 1 tab Q6H PRN PO 02/08/17 04:15 02/22/17 04:14 Pentoxifylline (Trental Tab) 400 mg BID PO 02/08/17 09:00 03/10/17 08:59 Potassium Chloride (Klor-Con Tab) 20 meq BID PO 02/08/17 09:00 03/10/17 08:59 02/08/17 08:23 20 MEQ Promethazine HCl (Phenergan Tab) 25 mg Q6 PRN PO 02/08/17 04:15 03/10/17 04:14 Ropinirole HCl (Requip Tab) 1 mg TID PO 02/08/17 09:00 03/10/17 08:59 02/08/17 08:23 1 MG Topiramate (Topamax Tab) 200 mg BID PO 02/08/17 09:00 03/10/17 08:59 02/08/17 08:22 200 MG vp-Aqgat-Cgnqqwroft Acetate (Vitamin E Cap) 400 interunit BID PO 02/08/17 09:00 03/10/17 08:59 02/08/17 08:22 400 INTERUNIT Miscellaneous Information (Order Awaiting Action) 1 ea QS N/A 02/08/17 08:00 03/10/17 07:59 Miscellaneous Information (Order Awaiting Action) 1 ea QS N/A 02/08/17 08:00 03/10/17 07:59 Cholestyramine Resin (Questran Powder Light) 4 gm QID PO 02/08/17 09:00 03/10/17 08:59 Lovastatin (Mevacor Tab) 10 mg QPM PO 02/08/17 21:00 03/10/17 20:59 Pantoprazole Sodium (Protonix Tab) 40 mg QAM PO 02/08/17 09:00 03/10/17 08:59 02/08/17 08:21 40 MG Polyethylene (Miralax Powder Packet) 17 gm DAILY PRN PO 02/08/17 04:15 03/10/17 04:14 Tizanidine HCl (Zanaflex Tab) 4 mg QPM PO 02/08/17 21:00 03/10/17 20:59 Verapamil HCl (Calan-Sr Tab) 120 mg BID PO 02/08/17 09:00 03/10/17 08:59 02/08/17 08:22 120 MG Dexamethasone (Decadron Tab) 4 mg BID PO 02/08/17 09:00 03/10/17 08:59 02/08/17 08:23 4 MG Butorphanol Tartrate (Butorphanol Tartrate Ralston) 1 sprays BID PRN NA 02/08/17 09:00 03/10/17 08:59 Heparin Sodium (Porcine) (Heparin Sq 5000 Unit/0.5ml) 5,000 unit Q12 SQ 02/08/17 09:00 03/10/17 08:59
[2017-02-08 16:22] VITALS: BP 134/85; PULSE 101; TEMP 36.8; O2SAT 97
[2017-02-08 18:20] VITALS: BP_SYST 134; BP_SYST 146; BP_DIAS 85; BP_DIAS 90; PULSE 101; PULSE 102; TEMP 36.7; TEMP 36.8; O2SAT 100; O2SAT 97
[2017-02-08] MEDS: BUTALBITAL/ACETAMIN/CAFFEINE TAB PO PRN (18:51)
[2017-02-08 19:19] VITALS: BP 123/82; PULSE 98; TEMP 36.7; O2SAT 99
[2017-02-08] MEDS ORDERED: AMITRIPTYLINE HCL 50 MG TAB PO SCH (21:00)
[2017-02-08] MEDS ORDERED: LOVASTATIN 20 MG TAB PO SCH (21:00)
[2017-02-09 00:09] VITALS: BP 111/75; PULSE 86; TEMP 36.4; O2SAT 98
[2017-02-09 03:44] VITALS: BP 129/86; PULSE 93; TEMP 36.3; O2SAT 97
[2017-02-09 06:09] LABS: HEMATOCRIT 35.6 % (37-47); MEAN CELL VOLUME 97.5 fL (80-100); MEAN CORPUSCULAR HEMOGLOBIN 31.2 pg (25-34); MEAN PLATELET VOLUME 8.5 fL (7.4-10.4); PLATELET COUNT 269 K/uL (130-400); RED BLOOD COUNT 3.65 M/uL (4.2-5.4); WHITE BLOOD COUNT 9.94 K/uL (4.8-10.8)
[2017-02-09 06:39] LABS: BUN/CREATININE RATIO 26.2 (10-20); CREATININE 0.5 mg/dl (0.60-1.20); POTASSIUM 4.1 mmol/L (3.5-5.1)
[2017-02-09 07:19] VITALS: BP 123/81; PULSE 85; TEMP 36.4; O2SAT 98
[2017-02-09] MEDS: FLUTICASONE HFA 110MCG INHALER INH SCH (07:59)
[2017-02-09] MEDS: FLUTICASONE PROPIONATE NA SPR 16 GM BTL NAE SCH (08:00)
[2017-02-09] MEDS: PENTOXIFYLLINE 400MG EXT REL TAB PO SCH (08:00)
[2017-02-09] MEDS: VERAPAMIL HCL 120 MG TABCR PO SCH (08:00)
[2017-02-09] MEDS: CAPECITABINE 500 MG PO SCH ×2 (08:01→17:36)
[2017-02-09] MEDS: MONTELUKAST SOD 10 MG TAB PO SCH (08:02)
[2017-02-09] MEDS: PANTOprazole SOD 40 MG TAB PO SCH (08:02)
[2017-02-09] MEDS: TOPIRAMATE 100 MG TAB PO SCH (08:02)
[2017-02-09] MEDS: CHOLECALCIFEROL 1000 INTER.UNIT TAB PO SCH (08:03)
[2017-02-09] MEDS: BACLOFEN TAB 20 MG TAB PO SCH ×2 (08:04→14:07)
[2017-02-09] MEDS: TOCOPHERYL, DL-ALPHA 400 INTER.UNIT CAP PO SCH (08:05)
[2017-02-09] MEDS: MULTIVITAMIN TAB PO SCH (08:06)
[2017-02-09] MEDS: POTASSIUM CHLORIDE 20 MEQ TABCR PO SCH (08:06)
[2017-02-09] MEDS: ROPINIROLE HCL 1 MG TAB PO SCH ×2 (08:06→14:07)
[2017-02-09] MEDS: INSULIN ASPART 100 UNITS/ML 3 ML PEN SC SCH ×3 (08:43→17:38)
[2017-02-09] MEDS: DEXAMETHASONE 4 MG TAB PO SCH (08:44)
[2017-02-09] MEDS: INSULIN GLARGINE SOLOSTAR 100 UNITS/ML 3 ML PEN SC SCH (08:44)
[2017-02-09] MEDS: BUTALBITAL/ACETAMIN/CAFFEINE TAB PO PRN ×2 (10:27→15:44)
[2017-02-09 11:22] VITALS: BP 138/84; PULSE 93; TEMP 36.5; O2SAT 98
[2017-02-09] MEDS ORDERED: FRCT/ PO (15:20)
[2017-02-09 15:23] VITALS: BP 118/76; PULSE 108; TEMP 36.8; O2SAT 97
[2017-02-09] MEDS ORDERED: DXM/4 PO (17:27)
[2017-02-09 17:47] VITALS: BP 118/76; PULSE 108; TEMP 36.8; O2SAT 97
--- NOTE | 2017-02-09 18:29 | Progress Note ---
Medicine Progress Note Date & Time of Visit: Feb 09, 2017 at 16:09. Subjective Pt was seen and examined Sitting in bed comfortable with no distress Pt said that she feels much better denies any chest pain palpitation, dizziness and SOB Objective Last 8 Hrs Date Time Temp Pulse Resp B/P (MAP) Pulse Ox O2 Delivery O2 Flow Rate FiO2 02/09/17 15:23 36.8 108 18 118/76 (90) 97 Room Air 02/09/17 11:22 36.5 93 18 138/84 (102) 98 Room Air Physical Exam: General- No acute distress, very pleasant Head- atraumatic Eyes- PERRL, EOMI ENT- oropharynx clear Neck- supple, no JVD Lungs- clear to auscultation Heart- regular rhythm; no murmur Abdomen- normal bowel sounds, soft Extremities- no pretibial edema, no calf tenderness Neuro- alert, oriented x 3; PERRL, EOMI Skin- warm & dry Laboratory Results: Last 24 Hours Test 02/08/17 16:17 02/08/17 20:13 02/09/17 05:49 02/09/17 07:28 Bedside Glucose 189 mg/dl 108 mg/dl 132 mg/dl White Blood Count 9.94 K/uL Red Blood Count 3.65 M/uL Hemoglobin 11.4 g/dL Hematocrit 35.6 % Mean Corpuscular Volume 97.5 fL Mean Corpuscular Hemoglobin 31.2 pg Mean Corpuscular Hemoglobin Concent 32.0 g/dl RDW Standard Deviation 56.0 fL RDW Coefficient of Variation 16.1 % Platelet Count 269 K/uL Mean Platelet Volume 8.5 fL Sodium Level 142 mmol/L Potassium Level 4.1 mmol/L Chloride Level 111 mmol/L Carbon Dioxide Level 25 mmol/L Anion Gap 6.0 mmol/L Blood Urea Nitrogen 13 mg/dl Creatinine 0.50 mg/dl Est Creatinine Clear Calc Drug Dose 90.2 ml/min Estimated GFR () 125.4 Estimated GFR (Non- 108.2 BUN/Creatinine Ratio 26.2 Random Glucose 158 mg/dl Calcium Level 8.0 mg/dl Test 02/09/17 11:32 Bedside Glucose 178 mg/dl Assessment & Plan 56 yoF with complicated h/o breast cancer with mets to brain, bone and lung, chronic migraines and s/p Arnold Chiari malformation surgery in the past presents with persistent dizziness with acute confusion x 1 day upon awakening. She came to the ER where a brain MRI revealed no worsening of her brain mets since gamma knife surgery on 01/28. She was switched from methylprednisolone 8mg BID to Decadrom 4mg PO BID. After DEcadrom 10mg IV in the ER and some IVF, her confusion resolved. MRI was briefly reviewed with Rad Onc (Dr. Washington) who noted some persistent swelling around one of the mets and agrees with the decadron for now with a taper off. Once feeling better and cleared by PT/OT, she can go with outpatient follow-up with her Neurology/Neurosurgery team at [facility] Acute confusion Most likely secondary to metastatic disease in the brain with associated edema Started on Xeloda chemotherapy and steroids taper dose Received IV Decadron in the ER On decadron 4 mg PO BID Will discharge on taper dose Breast cancer with mets Cont Xeloda. F/u with Dr. Washington (oncology) as outpatient Seizure disorder Possible secondary to brain metastasis. Continue with her current medication. Diabetes cont with ISS/carb coverage and glargine. Hypertension. Stable Esophageal reflux with Medina's esophagus. \ Continue with PPI. Migraine Continue Fioricet per home regimen. DVT [id number] declines CODE STATUS FULL CODE Disposition Discharge home today Outpatient follow-up with her Neurology/Neurosurgery team at [facility] Current Inpatient Medications: Current Inpatient Medications Medications (Trade) Dose Ordered Sig/Crow Route Start Time Stop Time Status Last Admin Dose Admin Gadobutrol (Gadavist) 4.5 mmol UD PRN IV 02/07/17 21:45 02/11/17 21:44 Acetaminophen (Tylenol Tab) 650 mg Q4H PRN PO 02/08/17 04:00 03/10/17 03:59 02/08/17 08:46 650 MG Ondansetron HCl (Zofran Inj) 4 mg Q6H PRN IV 02/08/17 04:00 03/10/17 03:59 Albuterol (Ventolin Hfa Inhaler) 2 puffs QID PRN INH 02/08/17 04:15 03/10/17 04:14 Amitriptyline HCl (Elavil Tab) 100 mg HS PO 02/08/17 21:00 03/10/17 20:59 02/08/17 20:02 100 MG Baclofen (Lioresal Tab) 20 mg TID PO 02/08/17 09:00 03/10/17 08:59 02/09/17 14:07 20 MG Cholecalciferol (Vitamin D Tab) 1,000 inter.unit DAILY PO 02/08/17 09:00 03/10/17 08:59 02/09/17 08:03 1,000 INTER.UNIT Dicyclomine HCl (Bentyl Tab) 20 mg Q6 PRN PO 02/08/17 04:15 03/10/17 04:14 Diphenoxylate HCl/ Atropine (Lomotil Tab) 1 tab QID PRN PO 02/08/17 04:15 03/10/17 04:14 Fluticasone Propionate (Flovent Hfa 110MCG Inhaler) 2 puffs BID INH 02/08/17 09:00 03/10/17 08:59 02/09/17 07:59 2 PUFFS Fluticasone Propionate (Flonase Nasal [place]) 2 sprays QAM JUDE 02/08/17 09:00 03/10/17 08:59 02/09/17 08:00 2 SPRAYS Insulin Aspart (novoLOG ASPART) ACHS SC 02/08/17 07:00 03/10/17 06:59 02/09/17 12:40 4 UNITS Insulin Glargine (Lantus Solostar Pen) 9 units QAM SC 02/08/17 09:00 03/10/17 08:59 02/09/17 08:44 9 UNITS Lamotrigine (Lamictal Tab) 150 mg BID PO 02/08/17 09:00 03/10/17 08:59 02/09/17 08:03 150 MG Meclizine HCl (Antivert Tab) 25 mg Q6H PRN PO 02/08/17 04:15 03/10/17 04:14 02/08/17 12:16 25 MG Montelukast Sodium (Singulair Tab) 10 mg QAM PO 02/08/17 09:00 03/10/17 08:59 02/09/17 08:02 10 MG Multivitamins (Multivitamin Tab) 1 tab QAM PO 02/08/17 09:00 03/10/17 08:59 02/09/17 08:06 1 TAB Oxycodone/ Acetaminophen (Percocet 5-325mg Tab) 1 tab Q6H PRN PO 02/08/17 04:15 02/22/17 04:14 02/09/17 03:36 1 TAB Pentoxifylline (Trental Tab) 400 mg BID PO 02/08/17 09:00 03/10/17 08:59 Potassium Chloride (Klor-Con Tab) 20 meq BID PO 02/08/17 09:00 03/10/17 08:59 02/09/17 08:06 20 MEQ Promethazine HCl (Phenergan Tab) 25 mg Q6 PRN PO 02/08/17 04:15 03/10/17 04:14 Ropinirole HCl (Requip Tab) 1 mg TID PO 02/08/17 09:00 03/10/17 08:59 02/09/17 14:07 1 MG Topiramate (Topamax Tab) 200 mg BID PO 02/08/17 09:00 03/10/17 08:59 02/09/17 08:02 200 MG [id number]-Knaqicivbh Acetate (Vitamin E Cap) 400 interunit BID PO 02/08/17 09:00 03/10/17 08:59 02/09/17 08:05 400 INTERUNIT Miscellaneous Information (Order Awaiting Action) 1 ea QS N/A 02/08/17 08:00 03/10/17 07:59 Lovastatin (Mevacor Tab) 10 mg QPM PO 02/08/17 21:00 03/10/17 20:59 02/08/17 20:00 10 MG Pantoprazole Sodium (Protonix Tab) 40 mg QAM PO 02/08/17 09:00 03/10/17 08:59 02/09/17 08:02 40 MG Polyethylene (Miralax Powder Packet) 17 gm DAILY PRN PO 02/08/17 04:15 03/10/17 04:14 Tizanidine HCl (Zanaflex Tab) 4 mg QPM PO 02/08/17 21:00 03/10/17 20:59 02/08/17 20:06 4 MG Verapamil HCl (Calan-Sr Tab) 120 mg BID PO 02/08/17 09:00 03/10/17 08:59 02/09/17 08:00 120 MG Dexamethasone (Decadron Tab) 4 mg BID PO 02/08/17 09:00 03/10/17 08:59 02/09/17 08:44 4 MG Butorphanol Tartrate (Butorphanol Tartrate [place]) 1 sprays BID PRN NA 02/08/17 09:00 03/10/17 08:59 Capecitabine (Capecitabine) 1,500 mg BIDM PO 02/08/17 16:45 02/12/17 16:45 02/09/17 08:01 1,500 MG Estrogens Conjugated (Premarin Vag Crm) 1 appln HS PV 02/08/17 21:00 03/10/17 08:59 02/08/17 20:04 1 APPLN Capecitabine (Capecitabine) 1,500 mg BIDM PO 02/20/17 07:30 02/27/17 07:29 Acetaminophen/ Butalbital/ Caffeine (Fioricet Tab) 1 tab Q4H PRN PO 02/08/17 17:45 03/10/17 17:44 02/09/17 15:44 1 TAB
--- NOTE | 2017-02-09 18:33 | Discharge Instructions ---
Discharge Instructions Date of Service Feb 09, 2017. Admission Reason for Admission: Acute Delirium, Metastatic Breast Cancer Discharge Discharge Diagnosis / Problem: Confusion, Breast cancer mets to brain Discharge Goals Goal(s): Decrease discomfort, Improve function, Improve disease control Activity Recommendations Activity Limitations: resume your previous activity (as tolerated) . Instructions / Follow-Up Instructions / Follow-Up Follow up with your physician Dr. Peace on 02/18 @ 8:45 am Follow with Oncology Complete Decadron taper Discontinue methylprednisone Current Hospital Diet Patient's current hospital diet: Regular Diet Discharge Diet Recommended Diet: Diabetes Type 2 Diet Pending Studies Studies pending at discharge: no Laboratory Results Hemoglobin A1c Test 11/28/16 06:23 Range/Units Estimated Average Glucose 131 mg/dl Hemoglobin A1c 6.2 H 4.5-5.6 % Lipid Panel Test 11/28/16 06:23 Range/Units Triglycerides Level 97 0-150 mg/dl Cholesterol Level 227 H 0-200 mg/dl HDL Cholesterol 108 mg/dl Cholesterol/HDL Ratio 2.1 LDL Cholesterol, Calculated 100 mg/dl Medical Emergencies . Who to Call and When: Medical Emergencies: If at any time you feel your situation is an emergency, please call 911 immediately. . Non-Emergent Contact Non-Emergency issues call your: Primary Care Provider . . "Provider Documentation" section prepared by Kota Matthews. . VTE Core Measure Inpt VTE Proph given/why not?: Refusal of treatmnt by pt
--- NOTE | 2017-02-14 00:46 | Discharge Summary ---
Discharge Summary Date of Service Feb 14, 2017. Discharge Summary Admission Date: Feb 08, 2017 at 04:00 Discharge Date: Feb 09, 2017 Discharge Disposition: Home Principal Diagnosis: Confusion Secondary Diagnoses/Problems: Breast cancer mets to brain Seizures disorder DMII HTN Esophageal reflux with Medina's esophagus Migraine Procedures: MRI OF THE BRAIN WITHOUT AND WITH IV CONTRAST CLINICAL HISTORY: Confusion. Metastatic breast cancer. Radiation therapy. COMPARISON STUDY: MRI of the brain November 27, 2016. TECHNIQUE: Utilizing a 1.5 Sarah magnet and dedicated coil, multiplanar, multiecho imaging of the brain was performed pre and postcontrast administration. IV administration of 4.5 mL of Gadavist contrast was uneventful. Thin cut post contrast imaging was performed. FINDINGS: There are no areas of restricted diffusion. No intracranial hemorrhage is identified on this examination. The previously described irregular peripherally enhancing right parietal lobe parafalcine mass has slightly increased in size since exam of November 27, 2016. This lesion now measures 3.7 x 2.6 cm. It measured 3.4 x 2 cm on study of November 27, 2016. Associated vasogenic edema has improved since exam of November 27, 2016. Compression of the right lateral ventricle and leftward midline shift has diminished. The previously described left occipital lobe lesion shown on axial image 48 of 132 of the thin cut postcontrast images has decreased in size. This lesion now measures 3 mm. It previously measured 7 mm. There has been interval development of multiple (greater than 10) small infra and supratentorial lesions since MRI of November 27, 2016 and include a 5 mm lesion within the right cerebellar hemisphere shown image 22, a 5 mm right temporal lobe lesion shown image 36, a 5 mm left parietal lesion shown on image 59 as well as numerous smaller lesions. These have no significant associated edema. Ventricular system is otherwise stable. Basilar cisterns are patent. The patient is status post Chiari decompression. Susceptibility artifact within the left parietal scalp is again noted. There are no calvarial lesions. Flow-voids for the major intracranial vessels are present. IMPRESSION: 1. Interval development of numerous (at least 10) small supratentorial and infratentorial metastases since MRI of November 27, 2016. These lesions measure up to 5 mm. 2. Mild increase in size with slight interval decrease in degree of enhancement of the right parietal parafalcine mass since prior exam of November 27, 2016 with moderate interval improvement in associated vasogenic edema and mass effect since prior study. 3. Interval decrease in size of the previously described left occipital lobe lesion. 4. No evidence for acute infarction. No acute intracranial hemorrhage. Electronically signed by: Jewel Couch M.D. 02/07/2017 10:03 PM Dictated Date/Time: 02/07/2017 9:44 PM CHEST ONE VIEW PORTABLE CLINICAL HISTORY: Shortness of breath. Cough. Metastatic breast cancer. COMPARISON STUDY: Chest CT January 22, 2017. FINDINGS: A right subclavian Nbbuuq-a-Uosu is in place. A small left pleural effusion is present. There is no pneumothorax or evidence of pulmonary edema. Multiple pulmonary and pleural nodules are again noted. These are better depicted on prior chest CT. IMPRESSION: No significant change in appearance of the chest. Redemonstration of multiple pulmonary and pleural nodules consistent with metastatic disease with a small left pleural effusion. Electronically signed by: Jewel Couch M.D. 02/07/2017 6:56 PM Dictated Date/Time: 02/07/2017 6:54 PM Medication Reconciliation New Medications: Dexamethasone (Decadron) 4 Mg Tab 2 MG PO UD for 10 Days, TAB 2 mg PO BID for 3 days, then 3 mg po daily for 4 days, then 2 mg po daily x 3 days, then stop Continued Medications: Acetamin/Butalbital/Caffeine (Fioricet) 1 Ea Tab 1 TAB PO Q4 PRN for Headache, TAB Albuterol Sulfate (Proventil Hfa) 108 Mcg/Act Aer 2 PUFFS INH QID PRN for SOB/Wheezing Amitriptyline Hcl (Elavil) 50 Mg Tab 100 MG PO HS, TAB Baclofen (Lioresal) 10 Mg Tab 20 MG PO TID, TAB Butorphanol Tartrate (Butorphanol Tartrate) 25 Sprays/2.5 Ml [place] 1 SPRY NA BID, #3 Capecitabine (Xeloda) 500 Mg Tab 1500 MG PO Q12H, TAB Takes one week and off one week. Cholecalciferol (Vitamin D3) 1,000 Unit Tab 1 TAB PO DAILY for 30 Days, #30 TAB 5 Refills Cholestyramine (Bulk) (Cholestyramine) 1 Pow Pow 4 GM PO QID Dicyclomine Hcl (Dicyclomine Hcl) 20 Mg Tab 20 MG PO Q6 PRN for GI Upset, 1 Refill Diphenoxylate/Atropine (Lomotil) Tab 1 TAB PO QID PRN for Diarrhea, TAB Estrogens, Conjugated (Premarin) 14 Appln/30 Gm Cr 1 APPLN PV DAILY Fluticasone Propionate (Flovent Hfa) 120 Puffs/69589 Mcg Aero 2 PUFFS INH BID, 2 Refills Fluticasone Propionate (Nasal) (Flonase Allergy Relief) 50 Mcg/Act Spr 2 SPRAYS JUDE QAM Insulin Aspart (Novolog Flexpen) 100 Units/Ml Inj 1 UNIT SC UD INJECT 1 UNIT FOR EVERY 20 GRAMS OF CARBS Insulin Glargine (Lantus) 100 Unit/Ml Inj 9 UNITS SC QAM *PATIENT INCREASES DOSE TO 12-14 UNITS DAILY WHEN TAKING STEROID TAPERS. Lamotrigine (Lamictal) 150 Mg Tab 150 MG PO BID, #180 Lovastatin (Mevacor) 10 Mg Tab 10 MG PO QPM, TAB Meclizine Hcl (Meclizine Hcl) 25 Mg Tab 25 MG PO Q6H PRN for Dizziness or Vertigo Montelukast Sodium (Montelukast Sodium) 10 Mg Tab 10 MG PO QAM, 5 Refills Multivitamin (Multivitamin) Tab 1 TAB PO QAM, TAB Omeprazole (Prilosec) 20 Mg Capcr 20 MG PO QAM Oxycodone/Acetaminophen 5MG/325MG (Percocet 5MG/325MG) Tab 1 TABLET PO Q6H PRN for Pain, TAB PAIN Polyethylene Glycol 3350 (Miralax) 1 Pow Pow 17 GM PO DAILY PRN for Constipation, #255 GM Potassium Ext Rel (Klor-Con) 20 Meq Tabcr 20 MEQ PO BID, TAB Promethazine HCl (Promethazine HCl) 25 Mg Tab 25 MG PO Q6 PRN for Nausea or Vomiting, TAB Ropinirole (Requip) 1 Mg Tab 1 MG PO TID Tizanidine (Zanaflex) 4 Mg Cap 4 MG PO QPM, CAP Topiramate (Topiramate) 100 Mg Tab 200 MG PO BID Verapamil Hcl (Verapamil Hcl Sr) 120 Mg Cap 120 MG PO BID Vitamin E (E400) 400 Unit Cap 400 UNIT PO BID Discontinued Medications: Methylprednisolone (Methylprednisolone) 4 Mg Tab 4 MG PO DIRECTED, #84 TAPERED DOSE. STARTED 01/29/17 X21 DAY TAPER CURRENTLY TAKING 8 TABS AM&PM PER Admission Information HPI (per Admitting provider): CHIEF COMPLAINT: Acute confusion since yesterday morning. HISTORY OF PRESENT COMPLAINT: She is a 56-year-old female with significant past medical history of breast cancer with metastases to brain, bone, liver and lung, type 1 diabetes, seizure disorder, fibromyalgia, irritable bowel syndrome, hypertension, history of asthma. Apparently, underwent gamma knife surgery at [facility] on the 3rd of this month for multiple brain metastases with increasing symptoms of confusion and unsteadiness in gait. 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 The condition got worse and that point, she was very confused and she was lethargic as well. No seizure activity, no incontinence. No fever, chills or rigors. No headache, no nausea, no vomiting, no problem with urine and/or bowel habit. In the Emergency Room, she was pleasantly confused and apparent tests came out to be unremarkable, including CBC, PRP and MRI of the brain that did show metastasis, but no other acute findings. She was started with intravenous fluid and also given IV Decadron 10 mg. With that, the symptoms were relieving. The ER physician did talk to the radiologist, who did the gamma knife surgery in [facility] and they did not want to take the patient. They wanted to have medical team take care of acute confusion and a local oncologist to take care from there. They did not have anything to offer at this time. From that point, the patient was admitted to telemetry unit for continuation of care. Physical Exam (per Admitting): GENERAL: On examination in the Emergency Room, she was feeling better. She did not have any more problem with speech, but she remains weak and lethargic. VITAL SIGNS: Temperature 36.7, pulse was 92, blood pressure 95/62, saturation 98% on room air. HEENT: Unremarkable. NECK: Supple. No JVD, no bruit. CHEST: Clear to auscultate bilaterally. HEART: S1, S2 regular. ABDOMEN: Soft, benign, mildly tender. No organomegaly. Bowel sounds present. EXTREMITIES: Negative for any edema. MUSCULOSKELETAL: Examination did not show any acute arthritis involving any joint. CENTRAL NERVOUS SYSTEM: Alert, awake, oriented x3. Hospital Course 56 yoF with complicated h/o breast cancer with mets to brain, bone and lung, chronic migraines and s/p Arnold Chiari malformation surgery in the past presents with persistent dizziness with acute confusion x 1 day upon awakening. She came to the ER where a brain MRI revealed no worsening of her brain mets since gamma knife surgery on 01/28. She was switched from methylprednisolone 8mg BID to Decadrom 4mg PO BID. After DEcadrom 10mg IV in the ER and some IVF, her confusion resolved. MRI was briefly reviewed with Rad Onc (Dr. Washington) who noted some persistent swelling around one of the mets and agrees with the decadron for now with a taper off. Once feeling better and cleared by PT/OT, she can go with outpatient follow-up with her Neurology/Neurosurgery team at [facility] Acute confusion Most likely secondary to metastatic disease in the brain with associated edema Started on Xeloda chemotherapy and steroids taper dose Received IV Decadron in the ER On decadron 4 mg PO BID Will discharge on taper dose Breast cancer with mets Cont Xeloda. F/u with Dr. Washington (oncology) as outpatient Seizure disorder Possible secondary to brain metastasis. Continue with her current medication. Diabetes cont with ISS/carb coverage and glargine. Hypertension. Stable Esophageal reflux with Medina's esophagus. Continue with PPI. Migraine Continue Fioricet per home regimen. DVT xqykj-Zksogpy-ti declines CODE STATUS FULL CODE Disposition Discharge home today Outpatient follow-up with her Neurology/Neurosurgery team at [facility] Total time spent on discharge = 35 minutes This includes examination of the patient, discharge planning, medication reconciliation, and communication with other providers. Discharge Instructions Discharge Instructions Date of Service Feb 09, 2017. Admission Reason for Admission: Acute Delirium, Metastatic Breast Cancer Discharge Discharge Diagnosis / Problem: Confusion, Breast cancer mets to brain Discharge Goals Goal(s): Decrease discomfort, Improve function, Improve disease control Activity Recommendations Activity Limitations: resume your previous activity (as tolerated) . Instructions / Follow-Up Instructions / Follow-Up Follow up with your physician Dr. Peace on 02/18 @ 8:45 am Follow with Oncology Complete Decadron taper Discontinue methylprednisone Current Hospital Diet Patient's current hospital diet: Regular Diet Discharge Diet Recommended Diet: Diabetes Type 2 Diet Pending Studies Studies pending at discharge: no Laboratory Results Hemoglobin A1c Test 11/28/16 06:23 Range/Units Estimated Average Glucose 131 mg/dl Hemoglobin A1c 6.2 H 4.5-5.6 % Lipid Panel Test 11/28/16 06:23 Range/Units Triglycerides Level 97 0-150 mg/dl Cholesterol Level 227 H 0-200 mg/dl HDL Cholesterol 108 mg/dl Cholesterol/HDL Ratio 2.1 LDL Cholesterol, Calculated 100 mg/dl Medical Emergencies . Who to Call and When: Medical Emergencies: If at any time you feel your situation is an emergency, please call 911 immediately. . Non-Emergent Contact Non-Emergency issues call your: Primary Care Provider . . "Provider Documentation" section prepared by Kota Matthews. . VTE Core Measure Inpt VTE Proph given/why not?: Refusal of treatmnt by pt Additional Copies To Marbin Peace D.O.
[2017-02-20] MEDS ORDERED: CAPECITABINE 500 MG PO SCH (07:30)
== END 2017-02-09 18:29 | disposition home or self-care (01) | DRG 54 ==
LOC: C.EDB 17:58 → C.2T 02-08 04:00 → ENRESERV 02-08 04:07 → C.4E 02-08 18:24
PROVIDERS: ADMIT Internal Medicine; ATTEND Internal Medicine
DX: C79.31 Secondary malignant neoplasm of brain (principal); G93.6 Cerebral edema; C79.51 Secondary malignant neoplasm of bone; C78.7 Secondary malignant neoplasm of liver and intrahepatic bile duct; C78.00 Secondary malignant neoplasm of unspecified lung; C50.919 Malignant neoplasm of unspecified site of unspecified female breast; K22.70 Barrett's esophagus without dysplasia; G43.909 Migraine, unspecified, not intractable, without status migrainosus; M81.0 Age-related osteoporosis without current pathological fracture; G40.909 Epilepsy, unspecified, not intractable, without status epilepticus; M79.7 Fibromyalgia; K58.9 Irritable bowel syndrome, unspecified; J45.909 Unspecified asthma, uncomplicated; F17.290 Nicotine dependence, other tobacco product, uncomplicated; Y92.009 Unspecified place in unspecified non-institutional (private) residence as the place of occurrence of the external cause; Z92.3 Personal history of irradiation

== ENCOUNTER → 2017-03-02 | Outpatient (CLI) | payer OTHER ==
[~2017-03-02] MED LIST changes: +AMIT75TA2 PO; +AVSI100 INJ; -BUTA1CAP18 PO; +CEPH-571 PO; +CLIN300C2 PO; +FRCT/ PO; +LEVE500T13 PO; +MORP1TAB11 PO; +OPTIRAY 320 IV PRN; -PENT400T2 PO; +SULF800T23 PO
--- NOTE | 2017-03-02 16:43 | DIAGNOSTIC IMAGING REPORT ---
ABD/PELVIS IV AND ORAL CONT CT DOSE: HISTORY: Breast carcinoma BREAST CA TECHNIQUE: Multiaxial CT images of the abdomen and pelvis were performed following the use of intravenous and oral contrast. A dose lowering technique was utilized adhering to the principles of ALARA. COMPARISON STUDY: PET/CT scan 11/25/2016 FINDINGS: Progressive basilar pulmonary nodularity. An increase in size and number of nodules in the right lung base are noted. Numerous nodules right base are present largest of which now measures 11 mm in the right middle lobe region. Persistent infiltrative and nodular-type change left lung base with somewhat progressive pleural thickening seen circumferentially at the left base. Radiopaque markers at the left base are present. Findings of progressive hepatic metastatic disease. The largest metastatic deposit now measures 4.2 cm in the anteromedial aspect of the right hepatic lobe increase in size from the prior dimension of 1.9 cm. Multiple additional smaller metastatic deposits are present throughout the liver. Baseline fatty infiltration of liver is noted. Several retroperitoneal nodes are present as well as retrocrural nodes. These are mildly progressive. Retrocrural nodes measure to 1.6 cm. . Aortic note measure to 8 mm. All are mildly progressive compared to the prior exam. Kidneys enhance uniformly and are negative for hydronephrosis. Increased fecal load is noted within the ascending and proximal to mid transverse colonic region. This consistent with a component of fecal stasis. Several small sclerotic bone lesions are present considered generally stable from the prior study. IMPRESSION: 1. Progressive metastatic disease involving both lungs, liver, as well as abdominal adenopathy as described. 2. Small stable metastatic deposits within the osseous structures. 3. Increased fecal load within the cecum, descending, as well as proximal to mid transverse colon. The above report was generated using voice recognition software. It may contain grammatical, syntax or spelling errors. Electronically signed by: Bob Hatch M.D. 03/02/2017 4:42 PM Dictated Date/Time: 03/02/2017 4:32 PM
--- NOTE | 2017-03-02 16:44 | DIAGNOSTIC IMAGING REPORT ---
CHEST CT WITH CONTRAST CT DOSE: 467.09 mGycm HISTORY: Follow-up study subsequent treatment strategy. History of breast cancer. BREAST CA TECHNIQUE: Multiaxial CT images of the chest were performed following the intravenous administration of 114 mL Optiray 320. A dose lowering technique was utilized adhering to the principles of ALARA. COMPARISON: CT chest 01/22/2017, PET CT 11/25/2016. FINDINGS: No dominant thyroid nodule identified. Unchanged soft tissue scarring is seen within the region of the superior left axilla. Enlarged subcarinal lymph node is seen, 1.4 x 0.9 cm, unchanged. No new adenopathy identified. Heart is normal in size with small pericardial effusion. Thoracic aorta is normal in course and caliber without aneurysm or dissection. The pulmonary chill tree demonstrates no focal filling defects. Right subclavian Eomret-h-Hjim catheter is seen with distal tip terminating in the right atrium. Innumerable metastatic pulmonary nodules are seen within the multilobar distribution bilaterally. Index nodule in the lateral basal segment right lower lobe, 8 mm on image 208 previously measured 8 mm. 7 mm lesion of the right lower lobe on image 210. The measured 6 mm. Spiculated 10 mm nodule in the medial segment right middle lobe on image 156 previously measured 9 mm. Nodular intralobular septal thickening is noted throughout the left lung with nodules tracking along the fissures. Small left pleural effusion is again noted which has slightly decreased in size. Extensive metastatic pleural disease with decreased volume of the left lung is redemonstrated. These findings have not significantly changed from prior study. Additionally, there is thickening of the left pericardium with small left pericardial effusion compatible with metastasis. Small circular catheter type device the left lung base is unchanged. There is moderate wall thickening of the distal esophagus. Hepatic metastasis redemonstrated with large mass of the left hepatic lobe seen, 4.7 x 2.9 cm. Previously noted lesion of the lower sternum is only faintly seen on the sagittal images. No definite additional suspicious lytic or blastic bony lesions are identified to suggest metastasis. IMPRESSION: 1. Stable to slightly progressed disease about the chest as above including innumerable pulmonary metastasis bilaterally with left-sided pleural metastasis, malignant left pleural effusion and likely malignant pericardial effusion with asymmetric left-sided pericardial thickening. 2. The degree of fluid within the pleural clavicle has slightly decreased from comparison. 3. Redemonstration of hepatic metastasis. 4. No new adenopathy. 5. Ill-defined sclerotic metastatic focus of the inferior sternum redemonstrated. Electronically signed by: Agpaito Maloney M.D. 03/02/2017 4:43 PM Dictated Date/Time: 03/02/2017 4:32 PM
== END | disposition home or self-care (01) ==
LOC: C.CTS 15:19
PROVIDERS: ATTEND Internal Medicine Hematology
DX: C50.912 Malignant neoplasm of unspecified site of left female breast (principal); C50.911 Malignant neoplasm of unspecified site of right female breast; C79.51 Secondary malignant neoplasm of bone; C79.31 Secondary malignant neoplasm of brain; C78.7 Secondary malignant neoplasm of liver and intrahepatic bile duct

== ENCOUNTER 2017-03-13 10:11 | Emergency (ER) | payer OTHER ==
[~2017-03-13] VITALS: Ht 152.4 cm; Wt 47.0 kg
[~2017-03-13 10:11] MED LIST changes: -AMIT75TA2 PO; -AVSI100 INJ; -CEPH-571 PO; -CLIN300C2 PO; -LEVE500T13 PO; -MORP1TAB11 PO; -OPTIRAY 320 IV PRN; -SULF800T23 PO
[2017-03-13 10:14] VITALS: Ht 152.4 cm; Wt 47.0 kg
--- NOTE | 2017-03-13 10:33 | EMERGENCY ROOM VISIT NOTE ---
History Report prepared by Titus: Kavya Myers Under the Supervision of: Dr. Teddy Russell M.D. First contact with patient: 10:20 Chief Complaint: NEURO SYMPTOMS Stated Complaint: CEREBELLAR DEFICITS, INVOL. MUSCLE MOVEMENTS History of Present Illness The patient is a 56 year old female who presents to the Emergency Room with complaints of persistent neuro symptoms that began prior to arrival. Per the patient's , the patient has a history of brain lesions with a gamma knife surgery. He states that when the patient was diagnosed the patient was experiencing confusion and disorientation. The patient's states that the patient is on Topamax and Gabapentin for seizures. He states that he did not give the patient her morning medications due to her new symptoms. The patient's states that this morning when he woke the patient could not talk this morning. He states that the patient has been experiencing involuntary movements and twitching in her arms and legs for the past 20 minutes. The patient's states that the patient is currently on chemotherapy and states that she has recently been placed on an additional chemotherapy medication. He states that last evening the patient was doing well and ate decently and was able to move normally. The patient's denies the patient having any recent fever, chills, cough, or congestion. He states that recently the patient was able to attend a high school football game and sit through the entire game. Source of History: patient, spouse/significant other () Onset: prior to arrival Position: other (global) Quality: other (neuro symptoms) Timing: other (persistent) Associated Symptoms: No fevers, No chills, No cough Note: Associated Symptoms: involuntary movements and twitching in arms and legs. Review of Systems See HPI for pertinent positives and negatives. A total of ten systems were reviewed and were otherwise negative. 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 (13) History of breast cancer (14) Hypertension (15) Increased intracranial pressure (16) Irritable bowel syndrome (17) Mass of left lung (18) Metastasis to brain (19) Metastatic breast cancer (20) Metastatic cancer to spine (21) Osteoporosis (22) TIA (transient ischemic attack) Surgical Problems: (1) History of cataract surgery (2) History of Chiari malformation (3) History of lumpectomy of left breast (4) History of tonsillectomy and adenoidectomy (5) S/p axillary lymph node biopsy (6) S/p breast cyst removal (7) S/P craniotomy (8) S/p Gamma knife radiosurgery for brain metastatic lesion (9) S/p insertion tunneled central venous access with SQ port (10) S/P partial mastectomy (11) S/P sinus surgery (12) S/P tonsillectomy and adenoidectomy (13) S/P tubal ligation (14) Status post gamma knife treatment Family History Asthma DAUGHTER SON Diabetes mellitus MOTHER Hypertension FATHER Stroke FATHER GRANDFATHER Social History Smoking Status: Never Smoker Drug Use: none Marital Status: Housing Status: lives with significant other Occupation Status: retired, disabled Current/Historical Medications Scheduled Amitriptyline Hcl (Elavil), 100 MG PO HS Baclofen (Lioresal), 20 MG PO TID Bevacizumab (Avastin), Unknown Dose INJ Q2WK Capecitabine (Xeloda), 1,500 MG PO Q12H Cholecalciferol (Vitamin D3), 1 TAB PO DAILY Cholestyramine (Bulk) (Cholestyramine), 4 GM PO QID Estrogens, Conjugated (Premarin), 1 APPLN PV DAILY Fluticasone Propionate (Flovent Hfa), 2 PUFFS INH BID Fluticasone Propionate (Nasal) (Flonase Allergy Relief), 2 SPRAYS JUDE QAM Insulin Aspart (Novolog Flexpen), 1 UNIT SC UD Insulin Glargine (Lantus), 9 UNITS SC QAM Lamotrigine (Lamictal), 150 MG PO BID Lovastatin (Mevacor), 10 MG PO QPM Montelukast Sodium (Montelukast Sodium), 10 MG PO QAM Morphine Sulfate (Morphine Sulfate Er), 15 MG PO BID Multivitamin (Multivitamin), 1 TAB PO QAM Omeprazole (Prilosec), 20 MG PO QAM Potassium Ext Rel (Klor-Con), 20 MEQ PO BID Ropinirole (Requip), 1 MG PO TID Tizanidine (Zanaflex), 4 MG PO QPM Topiramate (Topiramate), 200 MG PO BID Verapamil Hcl (Verapamil Hcl Sr), 120 MG PO BID Vitamin E (E400), 400 UNIT PO BID Scheduled PRN Acetamin/Butalbital/Caffeine (Fioricet), 1 TAB PO Q4 PRN for Headache Albuterol Sulfate (Proventil Hfa), 2 PUFFS INH QID PRN for SOB/Wheezing Dicyclomine Hcl (Dicyclomine Hcl), 20 MG PO Q6 PRN for GI Upset Diphenoxylate/Atropine (Lomotil), 1 TAB PO QID PRN for Diarrhea Meclizine Hcl (Meclizine Hcl), 25 MG PO Q6H PRN for Dizziness or Vertigo Oxycodone/Acetaminophen 5MG/325MG (Percocet 5MG/325MG), 1 TABLET PO Q6H PRN for Pain Polyethylene Glycol 3350 (Miralax), 17 GM PO DAILY PRN for Constipation Promethazine HCl (Promethazine HCl), 25 MG PO Q6 PRN for Nausea or Vomiting Allergies Coded Allergies: Erythromycin (Unverified Adverse Reaction, Unknown, GI UPSET, 03/13/17) Physical Exam Vital Signs Date Time Temp Pulse Resp B/P (MAP) Pulse Ox O2 Delivery O2 Flow Rate FiO2 03/13/17 20:24 36.5 108 20 105/76 97 Room Air 03/13/17 19:31 104 22 123/79 03/13/17 19:00 97 17 97/69 03/13/17 18:54 107 16 111/80 98 Room Air 03/13/17 17:22 97 16 115/85 97 Room Air 03/13/17 16:00 100 14 110/71 99 Room Air 03/13/17 15:00 77 14 88/63 99 Room Air 03/13/17 13:56 80 14 100/67 96 Room Air 03/13/17 12:25 81 14 90/63 98 Room Air 03/13/17 11:38 98 Room Air 03/13/17 11:38 98 Room Air 03/13/17 11:37 90 14 102/68 98 Room Air 03/13/17 10:54 103 03/13/17 10:14 36.3 122 20 121/80 96 Room Air Physical Exam GENERAL: Awake, aphasic/dysarthric HENT: Normocephalic, atraumatic. Dry mucous membranes. EYES: Normal conjunctiva. Sclera non-icteric. NECK: Supple. No nuchal rigidity. FROM. No JVD. RESPIRATORY: Clear to auscultation. CARDIAC: Regular rate, normal rhythm. Extremities warm and well perfused. Pulses equal. ABDOMEN: Soft, non-distended. No tenderness to palpation. No rebound or guarding. No masses. RECTAL: Deferred. MUSCULOSKELETAL: Chest examination reveals no tenderness. The back is symmetrical on inspection without obvious abnormality. There is no CVA tenderness to palpation. No joint edema. LOWER EXTREMITIES: Calves are equal size bilaterally and non-tender. No edema. No discoloration. NEURO: tonic right upper extremity with hemiparesis of left upper extremity. Bilateral lower extremity paresis. 1/5 strength in RUE, BLE extremities, sensation intact in all four extremities. Speech dysarthric and aphasic with limited words. Otherwise follows simple commands and exhibited understanding. Otherwise cranial nerves are grossly intact. SKIN: No rash or jaundice noted. Medical Decision & Procedures ER Provider Diagnostic Interpretation: Radiology results as stated below per my review and radiologist interpretation: CT HEAD WITHOUT CONTRAST (CT) CLINICAL HISTORY: seizure like activity HISTORY OF BRAIN METASTASIS COMPARISON STUDY: Noncontrast head CT dated 12-12, MRI the brain dated 02/07/2017 TECHNIQUE: Axial CT of the brain is performed from the vertex to the skull base. IV contrast was not administered for this examination. A dose lowering technique was utilized adhering to the principles of ALARA. CT DOSE: 537.48 mGy.cm FINDINGS: There are postsurgical changes of a suboccipital craniotomy. There is a 15 mm right parafalcine parietal mass with extensive right hemispheric edema. The multiple additional cerebral metastasis described on the recent MRI study are not visible on CT scanning. There is minor white matter edema adjacent to the anterior horn left lateral ventricle. There is no evidence of pathologic ventricular dilatation. There is no evidence of acute sinusitis There is 4 mm of right to left midline shift. IMPRESSION: 1. Persistent 15 mm right parafalcine parietal mass with extensive right hemispheric edema and 4 mm of right to left midline shift. 2. The multiple additional intracerebral metastasis described on the recent MRI scan are not visible on this noncontrast head CT 3. No evidence of acute hemorrhage. No evidence of hydrocephalus. Electronically signed by: Dallin Valadez M.D. 03/13/2017 10:58 AM Dictated Date/Time: 03/13/2017 10:54 AM CHEST ONE VIEW PORTABLE CLINICAL HISTORY: Atypical chest pain COMPARISON STUDY: 02/07/2017 FINDINGS: A right-sided A-Port catheter is visualized. The cardiac and mediastinal contours remain stable. There is a small left pleural effusion. There are bilateral interstitial opacities. There is suspected underlying pulmonary nodularity, consistent with the patient's known metastatic disease.[ IMPRESSION: No significant change from the prior study. Underlying pleural nodularity consistent with the patient's known metastatic disease. Interstitial thickening left greater than right with a small left pleural effusion Electronically signed by: Dallin Valadez M.D. 03/13/2017 12:14 PM Dictated Date/Time: 03/13/2017 12:12 PM MRI OF THE BRAIN WITHOUT AND WITH IV CONTRAST CLINICAL HISTORY: Carpal speech, seizure. History of brain metastasis. COMPARISON STUDY: 02/07/2017 TECHNIQUE: MRI of the brain was performed from the vertex to the skull base utilizing various T1 and T2 weighted sequences. Following the IV administration of 4.5 mL of Gadavist contrast, additional enhanced images were obtained. FINDINGS: Sagittal T1, axial diffusion, proton density and T2 weighted axial, coronal FLAIR, and pre and post axial T1-weighted images were acquired. These were supplemented with post gadolinium coronal T1 weighted images. There is artifact secondary to magnetic field inhomogeneity introduced by a metallic needle within the left parietal scalp. There is a right parafalcine mass with an apparent posterior cystic component measuring 3 cm in diameter. This lesion demonstrates diminished enhancement as compared to the preceding examination. There is extensive right hemispheric vasogenic edema unchanged from the prior study. There is 7 mm of right to left midline shift, unchanged from the preceding study. There is interval decrease in the size and number of the multiple additional enhancing parenchymal lesions. Axial diffusion-weighted images reveal no evidence of acute or subacute infarction. There is no evidence of ventricular dilatation. Proton density T2-weighted and FLAIR images reveal extensive right hemispheric vasogenic edema, similar to the preceding study. There are a few additional foci of increased T2 and FLAIR signal within the white matter. There are no abnormal flow voids. IMPRESSION: 1. Interval decrease in the size and enhancement of the right parafalcine mass, with persistent extensive associated right hemispheric vasogenic edema 2. Interval decrease in the size and number of the multiple additional enhancing lesions 3. The above-mentioned findings indicate a treatment response 4. No evidence of acute or subacute infarction Electronically signed by: Dallin Valadez M.D. 03/13/2017 1:55 PM Dictated Date/Time: 03/13/2017 1:47 PM [facility] 3 VIEWS HISTORY: pre-MRI screening. COMPARISON: CT scan dated 03/13/2017 FINDINGS: There are no radiopaque foreign bodies identified within the orbits. There is a needlelike foreign body within the left parietal region. IMPRESSION: No radiopaque foreign bodies identified within the orbits. Electronically signed by: Dallin Valadez M.D. 03/13/2017 12:26 PM Dictated Date/Time: 03/13/2017 12:25 PM Laboratory Results 03/13/17 11:14 Red Blood Count 3.38, Mean Corpuscular Volume 97.9, Mean Corpuscular Hemoglobin 31.7, Mean Corpuscular Hemoglobin Concent 32.3, Mean Platelet Volume 8.6, Neutrophils (%) (Auto) 84.5, Lymphocytes (%) (Auto) 6.3, Monocytes (%) (Auto) 8.4, Eosinophils (%) (Auto) 0.2, Basophils (%) (Auto) 0.2, Neutrophils # (Auto) 4.31, Lymphocytes # (Auto) 0.32, Monocytes # (Auto) 0.43, Eosinophils # (Auto) 0.01, Basophils # (Auto) 0.01 03/13/17 11:14 Test 03/13/17 11:14 03/13/17 14:03 White Blood Count 5.10 K/uL (4.8-10.8) Red Blood Count 3.38 M/uL (4.2-5.4) Hemoglobin 10.7 g/dL (12.0-16.0) Hematocrit 33.1 % (37-47) Mean Corpuscular Volume 97.9 fL (80-100) Mean Corpuscular Hemoglobin 31.7 pg (25-34) Mean Corpuscular Hemoglobin Concent 32.3 g/dl (32-36) Platelet Count 302 K/uL (130-400) Mean Platelet Volume 8.6 fL (7.4-10.4) Neutrophils (%) (Auto) 84.5 % Lymphocytes (%) (Auto) 6.3 % Monocytes (%) (Auto) 8.4 % Eosinophils (%) (Auto) 0.2 % Basophils (%) (Auto) 0.2 % Neutrophils # (Auto) 4.31 K/uL (1.4-6.5) Lymphocytes # (Auto) 0.32 K/uL (1.2-3.4) Monocytes # (Auto) 0.43 K/uL (0.11-0.59) Eosinophils # (Auto) 0.01 K/uL (0-0.5) Basophils # (Auto) 0.01 K/uL (0-0.2) RDW Standard Deviation 59.7 fL (36.4-46.3) RDW Coefficient of Variation 17.4 % (11.5-14.5) Immature Granulocyte % (Auto) 0.4 % Immature Granulocyte # (Auto) 0.02 K/uL (0.00-0.02) Prothrombin Time 10.4 SECONDS (9.0-12.0) Prothromb Time International Ratio 1.0 (0.9-1.1) Activated Partial Thromboplast Time 40.9 SECONDS (21.0-31.0) Partial Thromboplastin Ratio 1.6 Anion Gap 8.0 mmol/L (3-11) Est Creatinine Clear Calc Drug Dose 86.8 ml/min Estimated GFR () 123.8 Estimated GFR (Non- 106.8 BUN/Creatinine Ratio 21.0 (10-20) Calcium Level 8.5 mg/dl (8.5-10.1) Total Bilirubin 0.2 mg/dl (0.2-1) Direct Bilirubin < 0.1 mg/dl (0-0.2) Aspartate Amino Transf (AST/SGOT) 66 U/L (15-37) Alanine Aminotransferase (ALT/SGPT) 31 U/L (12-78) Alkaline Phosphatase 118 U/L (45-117) Troponin I < 0.015 ng/ml (0-0.045) Total Protein 6.1 gm/dl (6.4-8.2) Albumin 2.7 gm/dl (3.4-5.0) Lipase 81 U/L (73-393) Urine Color YELLOW Urine Appearance CLEAR (CLEAR) Urine pH 7.5 (4.5-7.5) Urine Specific [place] 1.019 (1.000-1.030) Urine Protein NEG (NEG) Urine Glucose (UA) NEG (NEG) Urine Ketones NEG (NEG) Urine Occult Blood NEG (NEG) Urine Nitrite NEG (NEG) Urine Bilirubin NEG (NEG) Urine Urobilinogen NEG (NEG) Urine Leukocyte Esterase NEG (NEG) Laboratory results reviewed by me Medications Administered Medications (Trade) Dose Ordered Sig/Crow Route Start Time Stop Time Status Last Admin Dose Admin Dexamethasone Sodium Phosphate (Decadron Inj) 10 mg NOW ONCE IV 03/13/17 10:45 03/13/17 10:46 DC 03/13/17 11:39 10 MG Sodium Chloride 1,000 ml @ 999 mls/hr Q1H1M STAT IV 03/13/17 10:35 03/13/17 11:35 DC 03/13/17 11:39 999 MLS/HR Lorazepam (Ativan Inj) 1 mg NOW STAT IV 03/13/17 10:37 03/13/17 10:48 DC 03/13/17 11:39 1 MG Levetiracetam 1000 mg/Dextrose 110 ml @ 440 mls/hr ONE ONCE IV 03/13/17 11:15 03/13/17 11:29 DC 03/13/17 11:39 440 MLS/HR Sodium Chloride 1,000 ml @ 999 mls/hr Q1H1M STAT IV 03/13/17 15:48 03/13/17 16:48 DC 03/13/17 15:55 999 MLS/HR Potassium Chloride/Dextrose/ Sod Cl 1,000 ml @ 75 mls/hr [id number] STAT IV 03/13/17 15:56 03/14/17 05:15 03/13/17 17:23 75 MLS/HR Dexamethasone Sodium Phosphate (Decadron Inj) 4 mg ONE IV 03/13/17 16:15 04/12/17 16:14 03/13/17 17:27 4 MG ECG Indication: other (neuro symptoms) Rate (beats per minute): 95 Rhythm: normal sinus Findings: no acute ischemic change, other (normal axis) ED Course 1025: The patient was evaluated in room B6. A complete history and physical exam was performed. 1035: Ordered Sodium Chloride 1000 ml @ 999 mls/hr IV. 1037: Ordered Ativan Inj 1 mg IV. 1045: Ordered Decadron Inj 10 mg IV. 1105: I reevaluated the patient and she is resting. I discussed the CT results with her . The patient will have an MRI. 1115: Ordered Levetiracetam 1000 mg/Dextrose 110 ml @ 440 mls/hr IV. 1410: I reevaluated the patient and she is a little bit better. I discussed the exam findings with the patients . Neurology will be consulted. 1417: I spoke to Dr. Valadez, Radiology at this time regarding the patients radiographic readings. 1429: I discussed the patients case with Dr. Rodriguez, [facility] Neurology. He suggests that the patient should be transferred to [facility] for further evaluation and care. 1530: I d/w Dr Servin, [facility] neurologist, and Dr. Huitron [facility] neuro prepleater who agree and accept for transfer for neuro ICU admission and transfer via life flight. Confirmation for available bed pending. Medical Decision I reviewed the patient's past medical history, medications, and the nursing notes as described above. The patient's presentation and history were concerning for Worsening malignancy , cerebral edema, seizure, dehydration, electrolyte abnormality, pneumonia, UTI. The patient is a 56-year-old woman with a past medical history of metastatic breast cancer with significant brain metastases and history of multiple gamma knife treatments in the setting of cerebral edema with midline shift, associated seizure disorder in the setting of SEALER SANDER metastases on topiramate and lamotrigine presents to the emergency department with worsening mental status and seizure like activity per history of present illness. Arrival of the patient is alert however she is dysarthric and aphasic with limited forward use unable to follow commands. Her right upper extremity is in a tonic position placed above her head and otherwise she has 1 out of 5 strength in her left upper extremity and bilateral lower extremities. Sensation is intact as the patient grimaces with painful stimulation in all extremities however will not localize but again will follow commands and wiggle fingers on her right hand on command as well as Flicker in right lower extremity. During the patient's complicated past medical history there was concern for worsening SEALER SANDER lesions and cerebral edema as well as status epilepticus/partial seizure/subclinical seizures. Thus patient was given 10 mg of dexamethasone as well as 1 mg of Ativan and was Keppra loaded with [address] head shows significant intracranial metastases however no significant change. Moreover 4 mm of midline shift is improved from prior head imaging. Stat MRI with and without contrast was done and was negative for any signs of stroke. Otherwise numerous SEALER SANDER lesions appear to be decreased in size and vasogenic edema is stable to improved, overall suggestive of treatment response. This case was further reviewed with radiologist confirming overall improvement. Labs unremarkable with WBC within normal limits. UA negative. BUN/creatinine > 20 suggesting some mild dehydration. Otherwise chest x-ray unremarkable. Considering the patient is afebrile with normal WBC and hemodynamically stable, no indication for further infectious workup or abx coverage at this time. Patient was reassessed and showed interval improvement after treatments with 3/ 5 strength in RLE. Increased ability to communicate. And while initially waxing and waning between a GCS of 11 and 12, patient is now at a GCS of 14 ( able to communicate needing to go to the bathroom to her ). This case was discussed with Dr. Rodriguez of our [facility] neurology group who had evaluated the patient during her admission back in November agreed with management up to this point and additionally agreed that the patient likely requires continuous EEG monitoring and potentially burst suppression. I did review this possibility with the patient's who confirms the patient is full code at this time and if intubation were required for either sitting mental status or for burst suppression this would be OK. Further family requests transfer to [facility] as that is where the majority of their family is located for support additionally the patient has been admitted there in the past for gamma knife treatments. Case was then d/w with Dr. Natarajan, [facility] neurology, additionally agrees with plan and for admission to neuro ICU for further management of likely continuous EEG and possible burst suppression if indicated. Case was then discussed with Dr. Huitron, [facility] neuro prepleater, who additionally agrees with plan and will accept the patient for neuro ICU admission. We agree that will be transferred via [facility] to minimize time in route considering the patient's tenuous mental status and risk of requiring intubation. Of note, when patient reevaluated and shown to be improved to GCS 14, I feel that emergent intubation in route is unlikely. Medication Reconcilliation Current Medication List: was personally reviewed by me Blood Pressure Screening Patient's blood pressure: Normal blood pressure Blood pressure disposition: Did not require urgent referral Consults Time Called: 1420 Consulting Physician: Dr. Rodriguez, [facility] Neurology Returned Call: [phone] I discussed the patients case with Dr. Rodriguez, [facility] Neurology. He suggests that the patient should be transferred to [facility] for further evaluation and care. Impression Primary Impression: Seizure Critical Care I have personally spent greater than 80 minutes of critical care time in the direct management of this patient. This includes bedside care, interpretation of diagnostic studies, and testing, discussion with consultants, patient, and family members, and other required patient management activities. This 80 minutes is in excess of all separately billable procedures. Scribe Attestation The scribe's documentation has been prepared under my direction and personally reviewed by me in its entirety. I confirm that the note above accurately reflects all work, treatment, procedures, and medical decision making performed by me. Departure Information Dispostion Transfer Acute Care Facility Referrals No Doctor, Assigned (PCP)
[2017-03-13] MEDS ORDERED: SODIUM CHLORIDE 0.9% 1000ML 1,000 ML IV STA ×2 (10:35→15:48)
[2017-03-13] MEDS ORDERED: LORAZEPAM 2 MG/ML 1 ML VIAL IV STA (10:37)
[2017-03-13] MEDS ORDERED: DEXAMETHASONE SOD INJ 10 MG/ML VIAL IV ONE (10:45)
--- NOTE | 2017-03-13 11:00 | DIAGNOSTIC IMAGING REPORT ---
CT HEAD WITHOUT CONTRAST (CT) CLINICAL HISTORY: seizure like activity HISTORY OF BRAIN METASTASIS COMPARISON STUDY: Noncontrast head CT dated 12-12, MRI the brain dated 02/07/2017 TECHNIQUE: Axial CT of the brain is performed from the vertex to the skull base. IV contrast was not administered for this examination. A dose lowering technique was utilized adhering to the principles of ALARA. CT DOSE: 537.48 mGy.cm FINDINGS: There are postsurgical changes of a suboccipital craniotomy. There is a 15 mm right parafalcine parietal mass with extensive right hemispheric edema. The multiple additional cerebral metastasis described on the recent MRI study are not visible on CT scanning. There is minor white matter edema adjacent to the anterior horn left lateral ventricle. There is no evidence of pathologic ventricular dilatation. There is no evidence of acute sinusitis There is 4 mm of right to left midline shift. IMPRESSION: 1. Persistent 15 mm right parafalcine parietal mass with extensive right hemispheric edema and 4 mm of right to left midline shift. 2. The multiple additional intracerebral metastasis described on the recent MRI scan are not visible on this noncontrast head CT 3. No evidence of acute hemorrhage. No evidence of hydrocephalus. Electronically signed by: Dallin Valadez M.D. 03/13/2017 10:58 AM Dictated Date/Time: 03/13/2017 10:54 AM
[2017-03-13] MEDS ORDERED: LEVETIRACETAM IV 1,000 MG in DEXTROSE 5% 100ML 100 ML IV ONE (11:15)
[2017-03-13 11:32] LABS: BASO % 0.2 %; BASO ABS # 0.01 K/uL (0-0.2); COMPLETE YES; EOS % 0.2 %; HEMATOCRIT 33.1 % (37-47); IG% 0.4 %; LYMPH % 6.3 %; LYMPH ABS # 0.32 K/uL (1.2-3.4); MEAN CELL VOLUME 97.9 fL (80-100); MEAN CORPUSCULAR HEMOGLOBIN 31.7 pg (25-34); MEAN CORPUSCULAR HGB CONC 32.3 g/dl (32-36); MEAN PLATELET VOLUME 8.6 fL (7.4-10.4); MONO % 8.4 %; NEUT % 84.5 %; PLATELET COUNT 302 K/uL (130-400); RED BLOOD COUNT 3.38 M/uL (4.2-5.4)
[2017-03-13 11:38] VITALS: O2SAT 98
[2017-03-13 11:42] LABS: ALT/SGPT 31 U/L (12-78); BLOOD UREA NITROGEN 11 mg/dl (7-18); CALCIUM 8.5 mg/dl (8.5-10.1); CARBON DIOXIDE 27 mmol/L (21-32); CHLORIDE 105 mmol/L (98-107); CREATININE 0.52 mg/dl (0.60-1.20); GLUCOSE 130 mg/dl (70-99); POTASSIUM 3.1 mmol/L (3.5-5.1); SODIUM 140 mmol/L (136-145)
[2017-03-13 11:44] LABS: PARTIAL THROMBOPLASTIN RATIO 1.6; PROTHROMBIN TIME (PATIENT) 10.4 SECONDS (9.0-12.0)
[2017-03-13 11:48] LABS: ALKALINE PHOSPHATASE 118 U/L (45-117); AST/SGOT 66 U/L (15-37)
--- NOTE | 2017-03-13 12:15 | DIAGNOSTIC IMAGING REPORT ---
CHEST ONE VIEW PORTABLE CLINICAL HISTORY: Atypical chest pain COMPARISON STUDY: 02/07/2017 FINDINGS: A right-sided A-Port catheter is visualized. The cardiac and mediastinal contours remain stable. There is a small left pleural effusion. There are bilateral interstitial opacities. There is suspected underlying pulmonary nodularity, consistent with the patient's known metastatic disease.[ IMPRESSION: No significant change from the prior study. Underlying pleural nodularity consistent with the patient's known metastatic disease. Interstitial thickening left greater than right with a small left pleural effusion Electronically signed by: Dallin Valadez M.D. 03/13/2017 12:14 PM Dictated Date/Time: 03/13/2017 12:12 PM
--- NOTE | 2017-03-13 12:27 | DIAGNOSTIC IMAGING REPORT ---
[facility] 3 VIEWS HISTORY: pre-MRI screening. COMPARISON: CT scan dated 03/13/2017 FINDINGS: There are no radiopaque foreign bodies identified within the orbits. There is a needlelike foreign body within the left parietal region. IMPRESSION: No radiopaque foreign bodies identified within the orbits. Electronically signed by: Dallin Valadez M.D. 03/13/2017 12:26 PM Dictated Date/Time: 03/13/2017 12:25 PM
[2017-03-13] MEDS ORDERED: GADAVIST IV PRN (13:30)
--- NOTE | 2017-03-13 13:57 | DIAGNOSTIC IMAGING REPORT ---
MRI OF THE BRAIN WITHOUT AND WITH IV CONTRAST CLINICAL HISTORY: Carpal speech, seizure. History of brain metastasis. COMPARISON STUDY: 02/07/2017 TECHNIQUE: MRI of the brain was performed from the vertex to the skull base utilizing various T1 and T2 weighted sequences. Following the IV administration of 4.5 mL of Gadavist contrast, additional enhanced images were obtained. FINDINGS: Sagittal T1, axial diffusion, proton density and T2 weighted axial, coronal FLAIR, and pre and post axial T1-weighted images were acquired. These were supplemented with post gadolinium coronal T1 weighted images. There is artifact secondary to magnetic field inhomogeneity introduced by a metallic needle within the left parietal scalp. There is a right parafalcine mass with an apparent posterior cystic component measuring 3 cm in diameter. This lesion demonstrates diminished enhancement as compared to the preceding examination. There is extensive right hemispheric vasogenic edema unchanged from the prior study. There is 7 mm of right to left midline shift, unchanged from the preceding study. There is interval decrease in the size and number of the multiple additional enhancing parenchymal lesions. Axial diffusion-weighted images reveal no evidence of acute or subacute infarction. There is no evidence of ventricular dilatation. Proton density T2-weighted and FLAIR images reveal extensive right hemispheric vasogenic edema, similar to the preceding study. There are a few additional foci of increased T2 and FLAIR signal within the white matter. There are no abnormal flow voids. IMPRESSION: 1. Interval decrease in the size and enhancement of the right parafalcine mass, with persistent extensive associated right hemispheric vasogenic edema 2. Interval decrease in the size and number of the multiple additional enhancing lesions 3. The above-mentioned findings indicate a treatment response 4. No evidence of acute or subacute infarction Electronically signed by: Dallin Valadez M.D. 03/13/2017 1:55 PM Dictated Date/Time: 03/13/2017 1:47 PM
[2017-03-13 14:16] LABS: URINE APPEARANCE CLEAR (CLEAR); URINE BILIRUBIN NEG (NEG); URINE COLOR YELLOW; URINE NITRITE NEG (NEG); URINE PH 7.5 (4.5-7.5); URINE SPECIFIC GRAVITY 1.019 (1.000-1.030); UROBILINOGEN NEG (NEG); ZZURINE CULT IF INDIC CATH NO
[2017-03-13 14:19] LABS: MANUAL MICROSCOPIC REQUIRED? NO; REVIEW REQ? NO
[2017-03-13] MEDS ORDERED: MORP1TAB11 PO (14:30)
[2017-03-13] MEDS ORDERED: AVSI100 INJ (14:30)
[2017-03-13] MEDS ORDERED: D5NSS + 20MEQ KCL 1,000 ML IV STA (15:56)
[2017-03-13] MEDS ORDERED: DEXAMETHASONE SOD INJ 10 MG/ML VIAL IV SCH (16:15)
[2017-03-13 20:24] VITALS: BP 105/76; PULSE 108; TEMP 36.5; O2SAT 97
== END 2017-03-13 21:04 | disposition short-term general hospital (02) ==
LOC: C.EDB 10:13
DX: G40.409 Other generalized epilepsy and epileptic syndromes, not intractable, without status epilepticus (principal); J45.909 Unspecified asthma, uncomplicated; K22.70 Barrett's esophagus without dysplasia; C79.31 Secondary malignant neoplasm of brain; C50.919 Malignant neoplasm of unspecified site of unspecified female breast; E10.9 Type 1 diabetes mellitus without complications; I10 Essential (primary) hypertension; M81.0 Age-related osteoporosis without current pathological fracture; Z86.73 Personal history of transient ischemic attack (TIA), and cerebral infarction without residual deficits; Z98.51 Tubal ligation status; Z98.49 Cataract extraction status, unspecified eye; Z90.89 Acquired absence of other organs; Z90.10 Acquired absence of unspecified breast and nipple; Z98.890 Other specified postprocedural states; Z82.5 Family history of asthma and other chronic lower respiratory diseases; Z83.3 Family history of diabetes mellitus; Z82.49 Family history of ischemic heart disease and other diseases of the circulatory system; Z82.3 Family history of stroke; Z79.4 Long term (current) use of insulin; Z79.899 Other long term (current) drug therapy

== ENCOUNTER 2017-04-11 15:52 | Emergency (ER) | payer OTHER ==
[~2017-04-11] VITALS: Ht 152.4 cm; Wt 49.0 kg
[~2017-04-11 15:52] MED LIST changes: +AVSI100 INJ; +MORP1TAB11 PO; -STDN
[2017-04-11 16:04] VITALS: TEMP 36.9; Ht 152.4 cm; Wt 49.0 kg
[2017-04-11] MEDS ORDERED: SULFAMETHOXAZOLE/TRIMETHOPRIM DS 800/160MG TAB PO STA (16:21)
[2017-04-11] MEDS ORDERED: AMIT75TA2 PO (16:29)
[2017-04-11] MEDS ORDERED: LEVE500T13 PO (16:29)
[2017-04-11] MEDS ORDERED: CLIN300C2 PO (16:29)
[2017-04-11] MEDS ORDERED: LIDOCAINE/EPINEPHRINE 1% 20 ML VIAL INFIL ONE (16:30)
[2017-04-11] MEDS ORDERED: AMPICILLIN/SULBACTAM SOD INJ 3,000 MG in SODIUM CHLORIDE 0.9% 100ML 100 ML IV ONE (16:30)
[2017-04-11 17:18] LABS: HEMATOCRIT 36.6 % (37-47); MEAN CELL VOLUME 100.8 fL (80-100); MEAN CORPUSCULAR HEMOGLOBIN 33.3 pg (25-34); MEAN CORPUSCULAR HGB CONC 33.1 g/dl (32-36); MEAN PLATELET VOLUME 8.4 fL (7.4-10.4); PLATELET COUNT 231 K/uL (130-400); RED BLOOD COUNT 3.63 M/uL (4.2-5.4); WHITE BLOOD COUNT 10.08 K/uL (4.8-10.8)
[2017-04-11 17:35] LABS: BUN/CREATININE RATIO 37.9 (10-20); CALCIUM 8.3 mg/dl (8.5-10.1); CREATININE 0.48 mg/dl (0.60-1.20); POTASSIUM 3.7 mmol/L (3.5-5.1)
[2017-04-11 17:36] LABS: BASO % 0.1 %; BASO ABS # 0.01 K/uL (0-0.2); COMPLETE YES; IG% 0.4 %; LYMPH % 3.5 %; LYMPH ABS # 0.35 K/uL (1.2-3.4); MONO % 2.3 %; NEUT % 93.7 %
[2017-04-11] MEDS ORDERED: CEPH-571 PO (18:56)
[2017-04-11] MEDS ORDERED: SULF800T23 PO (18:56)
[2017-04-11 19:20] VITALS: BP 149/95; PULSE 89; O2SAT 96
--- NOTE | 2017-04-11 22:58 | EMERGENCY ROOM VISIT NOTE ---
History Report prepared by Titus: Cortez Garcia Under the Supervision of: Dr. Mina Rodriguez D.O. First contact with patient: 16:07 Chief Complaint: WOUND INFECTION Stated Complaint: INFECTED SORE ON BACK OF LEG History of Present Illness The patient is a 56 year old female who presents to the Emergency Room with complaints of worsening sore to the back of her left leg beginning four or five days ago. The patient states she went to an outpatient clinic where the wound was cleaned of most of the infection. She reports the infection has worsened. The patient notes she is on Clindamycin three times a day, and she started it two days ago. She states she does not know when the wound started draining, and she has been applying heat to it. Pt denies headache, change in vision, fevers , chest pain, shortness of breath, nausea, vomiting, diarrhea, pain with urination, and use of blood thinners. The patient notes she has a history of Type I Diabetes, and she is currently receiving chemotherapy for metastatic breast cancer. Source of History: patient Onset: 4-5 days ago Position: leg (left) Timing: worsening Associated Symptoms: No fevers, No headache, No chest pain, No SOB, No nausea, No vomiting, No diarrhea Note: Denies: change in vision, pain with urination, and use of blood thinners Review of Systems See HPI for pertinent positives & negatives. A total of 10 systems reviewed and were otherwise negative. 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 (13) History of breast cancer (14) Hypertension (15) Increased intracranial pressure (16) Irritable bowel syndrome (17) Mass of left lung (18) Metastasis to brain (19) Metastatic breast cancer (20) Metastatic cancer to spine (21) Osteoporosis (22) TIA (transient ischemic attack) Surgical Problems: (1) History of cataract surgery (2) History of Chiari malformation (3) History of lumpectomy of left breast (4) History of tonsillectomy and adenoidectomy (5) S/p axillary lymph node biopsy (6) S/p breast cyst removal (7) S/P craniotomy (8) S/p Gamma knife radiosurgery for brain metastatic lesion (9) S/p insertion tunneled central venous access with SQ port (10) S/P partial mastectomy (11) S/P sinus surgery (12) S/P tonsillectomy and adenoidectomy (13) S/P tubal ligation (14) Status post gamma knife treatment Family History Asthma DAUGHTER SON Diabetes mellitus MOTHER Hypertension FATHER Stroke FATHER GRANDFATHER Social History Smoking Status: Never Smoker Drug Use: none Marital Status: Housing Status: lives with significant other Occupation Status: retired, disabled Current/Historical Medications Scheduled Amitriptyline Hcl (Elavil), 75 MG PO HS Baclofen (Lioresal), 20 MG PO TID Bevacizumab (Avastin), Unknown Dose INJ Q2WK Capecitabine (Xeloda), 1,500 MG PO Q12H Cephalexin (Keflex), 1 CAP PO TID Cholecalciferol (Vitamin D3), 1,000 UNITS PO DAILY Cholestyramine (Bulk) (Cholestyramine), 4 GM PO QID Clindamycin Hcl (Cleocin), 300 MG PO TID Estrogens, Conjugated (Premarin), 1 APPLN PV DAILY Fluticasone Propionate (Flovent Hfa), 2 PUFFS INH BID Fluticasone Propionate (Nasal) (Flonase Allergy Relief), 2 SPRAYS JUDE QAM Insulin Aspart (Novolog Flexpen), 1 UNIT SC UD Insulin Glargine (Lantus), 9 UNITS SC QAM Lamotrigine (Lamictal), 150 MG PO BID Levetiracetam (Keppra), 500 MG PO BID Lovastatin (Mevacor), 10 MG PO QPM Montelukast Sodium (Montelukast Sodium), 10 MG PO QAM Morphine Sulfate (Morphine Sulfate Er), 15 MG PO BID Multivitamin (Multivitamin), 1 TAB PO QAM Omeprazole (Prilosec), 20 MG PO QAM Potassium Ext Rel (Klor-Con), 20 MEQ PO BID Ropinirole (Requip), 1 MG PO TID Sulfa/Trimethoprim (Bactrim Ds 800MG/160MG), 1 TAB PO BID Tizanidine (Zanaflex), 4 MG PO QPM Topiramate (Topiramate), 200 MG PO BID Verapamil Hcl (Verapamil Hcl Sr), 120 MG PO BID Vitamin E (E400), 400 UNIT PO BID Scheduled PRN Acetamin/Butalbital/Caffeine (Fioricet), 1 TAB PO Q4 PRN for Headache Albuterol Sulfate (Proventil Hfa), 2 PUFFS INH QID PRN for SOB/Wheezing Dicyclomine Hcl (Dicyclomine Hcl), 20 MG PO Q6 PRN for GI Upset Diphenoxylate/Atropine (Lomotil), 1 TAB PO QID PRN for Diarrhea Meclizine Hcl (Meclizine Hcl), 25 MG PO Q6H PRN for Dizziness or Vertigo Oxycodone/Acetaminophen 5MG/325MG (Percocet 5MG/325MG), 1 TABLET PO Q6H PRN for Pain Polyethylene Glycol 3350 (Miralax), 17 GM PO DAILY PRN for Constipation Promethazine HCl (Promethazine HCl), 25 MG PO Q6 PRN for Nausea or Vomiting Allergies Coded Allergies: Erythromycin (Unverified Adverse Reaction, Unknown, GI UPSET, 04/11/17) Physical Exam Vital Signs Date Time Temp Pulse Resp B/P (MAP) Pulse Ox O2 Delivery O2 Flow Rate FiO2 04/11/17 19:20 89 17 149/95 96 04/11/17 18:10 111 17 176/104 97 Room Air 04/11/17 16:45 104 21 158/108 98 Room Air 04/11/17 16:04 36.9 113 16 184/119 97 Room Air Physical Exam GENERAL: Sitting up in chair, alert, well appearing, well nourished, no distress , non-toxic EYE EXAM: normal conjunctiva OROPHARYNX: no exudate, no erythema, lips, buccal mucosa, and tongue normal and mucous membranes are moist NECK: supple, no nuchal rigidity, no adenopathy, non-tender LUNGS: Clear to auscultation. Normal chest wall mechanics HEART: no murmurs, S1 normal and S2 normal ABDOMEN: abdomen soft, non-tender, normo-active bowel sounds, no masses, no rebound or guarding. BACK: Back is symmetrical on inspection and there is no deformity, no midline tenderness, no CVA tenderness. SKIN: no rashes and no bruising UPPER EXTREMITIES: upper extremities are grossly normal. LOWER EXTREMITIES: No pitting edema. Left posterior thigh below the gluteus fold : 3.5 by 4 cm dark erythema surrounded by 3.5 by 12 cm area with yellow purulent drainage with induration. NEURO EXAM: Normal sensorium, cranial nerves II-XII grossly intact, normal speech, no gross weakness of arms, no gross weakness of legs. Amble to ambulate without difficulty. Medical Decision & Procedures ER Provider Diagnostic Interpretation: Radiology results as stated below per my review and the radiologist's interpretation: Bedside US showed cobble stoning and no focal fluid collection. Laboratory Results 04/11/17 16:45 Red Blood Count 3.63, Mean Corpuscular Volume 100.8, Mean Corpuscular Hemoglobin 33.3, Mean Corpuscular Hemoglobin Concent 33.1, Mean Platelet Volume 8.4, Neutrophils (%) (Auto) 93.7, Lymphocytes (%) (Auto) 3.5, Monocytes (%) ( Auto) 2.3, Eosinophils (%) (Auto) 0.0, Basophils (%) (Auto) 0.1, Neutrophils # ( Auto) 9.45, Lymphocytes # (Auto) 0.35, Monocytes # (Auto) 0.23, Eosinophils # ( Auto) 0.00, Basophils # (Auto) 0.01 04/11/17 16:45 Test 04/11/17 16:45 White Blood Count 10.08 K/uL (4.8-10.8) Red Blood Count 3.63 M/uL (4.2-5.4) Hemoglobin 12.1 g/dL (12.0-16.0) Hematocrit 36.6 % (37-47) Mean Corpuscular Volume 100.8 fL (80-100) Mean Corpuscular Hemoglobin 33.3 pg (25-34) Mean Corpuscular Hemoglobin Concent 33.1 g/dl (32-36) Platelet Count 231 K/uL (130-400) Mean Platelet Volume 8.4 fL (7.4-10.4) Neutrophils (%) (Auto) 93.7 % Lymphocytes (%) (Auto) 3.5 % Monocytes (%) (Auto) 2.3 % Eosinophils (%) (Auto) 0.0 % Basophils (%) (Auto) 0.1 % Neutrophils # (Auto) 9.45 K/uL (1.4-6.5) Lymphocytes # (Auto) 0.35 K/uL (1.2-3.4) Monocytes # (Auto) 0.23 K/uL (0.11-0.59) Eosinophils # (Auto) 0.00 K/uL (0-0.5) Basophils # (Auto) 0.01 K/uL (0-0.2) RDW Standard Deviation 66.9 fL (36.4-46.3) RDW Coefficient of Variation 18.2 % (11.5-14.5) Immature Granulocyte % (Auto) 0.4 % Immature Granulocyte # (Auto) 0.04 K/uL (0.00-0.02) Anion Gap 6.0 mmol/L (3-11) Est Creatinine Clear Calc Drug Dose 94.0 ml/min Estimated GFR () 127.1 Estimated GFR (Non- 109.7 BUN/Creatinine Ratio 37.9 (10-20) Calcium Level 8.3 mg/dl (8.5-10.1) Laboratory results per my review. Medications Administered Medications (Trade) Dose Ordered Sig/Crow Route Start Time Stop Time Status Last Admin Dose Admin Lidocaine/ Epinephrine (Xylocaine/Epine 1% Inj) 20 ml ONE ONCE INFIL 04/11/17 16:30 04/11/17 16:31 DC 04/11/17 17:03 20 ML Ampicillin Sodium/ Sulbactam Sodium 3000 mg/Sodium Chloride 108 ml @ 200 mls/hr ONE ONCE IV 04/11/17 16:30 04/11/17 17:02 DC 04/11/17 17:00 200 MLS/HR Trimethoprim/ Sulfamethoxazole (Septra Ds 800/ 160MG Tab) 1 tab NOW STAT PO 04/11/17 16:21 04/11/17 16:22 DC 04/11/17 17:00 1 TAB Heparin Sodium (Porcine) (Heparin 100 Unit/ml 5ml Flush) 5 ml STK-MED ONCE .ROUTE 04/11/17 19:12 04/11/17 19:13 DC 04/11/17 19:15 5 ML Procedure Incision & Drainage Indication: Abscess. Location: below left gluteal fold. Verbal consent was obtained after the risks and benefits were explained, including but not limited to bleeding, scarring, infection, pain, and bone/joint /nerve damage. At this time, the risks of the procedure are less than the risks of NOT performing the procedure. A time out was taken and the correct patient and site identified. The skin was prepped with betadine and a sterile field set. The wound was anesthetized with 3 ml of 1% lidocaine without epinephrine. The abscess cavity was entered with a number 11 blade and yellow purulent material expressed. The wound was explored for foreign bodies and none found. Debridement was not performed. Detailed wound care instructions and signs and symptoms of worsening infection reviewed with the patient. No complications and the patient tolerated the procedure well. ED Course ED COURSE: Vital signs were reviewed and showed hypertension and tachycardia. The patients medical record was reviewed The above diagnostic studies were performed and reviewed. ED treatments and interventions as stated above. 1609: The patient was evaluated in room B09. A complete history and physical examination was performed. 1621: Ordered Trimethoprim/Sulfamethoxazole 1 tab PO 1630: Ordered Ampicillin Sodium/Sulbactam Sodium 3000 mg/Sodium Chloride 108ml @ 200mls/hr IV, Lidocaine/Epinephrine 20ml INFIL 1822: I updated the patient of her current exam findings. Please refer to the I& D procedure note. 1849: I discussed the patient's case with Dr. Alonzo, General Surgery. He states he will make sure the patient is evaluated tomorrow. 1901: Upon reevaluation, the patient is resting and feeling better. I discussed my findings with the patient and she understands and agrees with the treatment plan. Based on the patients age, coexisting illnesses, exam and lab findings the decision to treat as an outpatient was made. The patient remained stable while under my care. The patient appeared well at the time of discharge. Medical Decision Differential diagnosis includes etiologies such as cellulitis, abscess, MRSA infection, DVT, necrotizing fasciitis, dermatitis, drug eruption, as well as others were entertained. Patient is a 56-year-old female with metastatic breast carcinoma that presents to ER for an infection in the back of her left leg. She was placed on clindamycin and I&D performed by urgent care. She presents today as she feels it is draining. No fevers. No significant leukocytosis. BMP was unremarkable. Patient was slightly tachycardic upon arrival but favors likely secondary to the pain. Incision was opened up more. Bedside ultrasound did not show an obvious abscess. Due to the complexity/size along with her immune compromised state I contacted general surgery. She was given IV antibiotics. She'll follow-up with them and likely be seen around 10 in the morning per Dr. Alonzo. Her antibiotics were switched to Bactrim and Keflex from clindamycin. Discussed with Pt concerning signs and symptoms to watch out for. Pt was instructed to follow up with their PCP and discussed with the patient their option to return to the ED at anytime for persistent or worsening symptoms. The appropriate anticipatory guidance and out-patient management, including indications for return to the emergency department, were explained at length to the patient and understood. Medication Reconcilliation Current Medication List: was personally reviewed by me Blood Pressure Screening Patient's blood pressure: Elevated blood pressure Blood pressure disposition: Referred to PCP Consults Time Called: 1845 Consulting Physician: Dr. Alonzo, General Surgery Returned Call: [phone] I discussed the patient's case with Dr. Alonzo, General Surgery. He states he will make sure the patient is evaluated tomorrow. Impression Primary Impression: Abscess Scribe Attestation The scribe's documentation has been prepared under my direction and personally reviewed by me in its entirety. I confirm that the note above accurately reflects all work, treatment, procedures, and medical decision making performed by me. Departure Information Dispostion Home / Self-Care Prescriptions Cephalexin (KEFLEX) 500 Mg Cap 1 CAP PO TID for 10 Days, #30 CAP Prov: Mina Rodriguez, DO 04/11/17 Sulfa/Trimethoprim (Bactrim Ds 800MG/160MG) Tab 1 TAB PO BID, #20 TAB Prov: Mina Rodriguez, DO 04/11/17 Referrals Marbin Peace, DMer[facility]erced (PCP) Roberto Alonzo M.D. Forms HOME CARE DOCUMENTATION FORM, IMPORTANT VISIT INFORMATION, WORK / SCHOOL INSTRUCTIONS Patient Instructions ED Abscess IandD, My [facility] Additional Instructions Please follow up with general surgery with in the next 24 hours. Any worsening of your symptoms, please return to the ED immediately. This includes any fevers greater than 100.4, worsening pain, chest pain, shortness breath, persistent nausea, vomiting, unable to eat or drink, or any other concerning signs or symptoms from your standpoint. Please call their office tomorrow morning first thing and they will try to get you in around 10 AM. Please stop taking clindamycin and start taking Bactrim and Keflex.
== END 2017-04-11 19:20 | disposition home or self-care (01) ==
LOC: C.EDB 15:53
DX: L02.31 Cutaneous abscess of buttock (principal); I10 Essential (primary) hypertension; E10.9 Type 1 diabetes mellitus without complications; G93.5 Compression of brain; K58.9 Irritable bowel syndrome, unspecified; G40.409 Other generalized epilepsy and epileptic syndromes, not intractable, without status epilepticus; J45.909 Unspecified asthma, uncomplicated; M81.0 Age-related osteoporosis without current pathological fracture; Z86.73 Personal history of transient ischemic attack (TIA), and cerebral infarction without residual deficits; Z85.3 Personal history of malignant neoplasm of breast; Z85.841 Personal history of malignant neoplasm of brain; Z98.49 Cataract extraction status, unspecified eye; Z98.51 Tubal ligation status; Z98.890 Other specified postprocedural states; Z90.10 Acquired absence of unspecified breast and nipple; Z79.4 Long term (current) use of insulin; Z79.899 Other long term (current) drug therapy; Z83.3 Family history of diabetes mellitus; Z82.49 Family history of ischemic heart disease and other diseases of the circulatory system; Z82.3 Family history of stroke; Z82.5 Family history of asthma and other chronic lower respiratory diseases

== ENCOUNTER 2017-05-01 13:49 | Inpatient (IN) | payer OTHER ==
[~2017-05-01] VITALS: Ht 152.4 cm; Wt 50.2 kg
[~2017-05-01 13:49] MED LIST changes: +AMIT75TA2 PO; -AMT50 PO; +CLIN300C2 PO; +LEVE500T13 PO; +SULF800T23 PO
[2017-05-01] MEDS ORDERED: SODIUM CHLORIDE 0.9% 1000ML 1,000 ML IV STA (14:09)
[2017-05-01] MEDS ORDERED: DEXAMETHASONE INJ 4 MG in SYRINGE 0 ML IV STA (14:19)
--- NOTE | 2017-05-01 14:26 | EMERGENCY ROOM VISIT NOTE ---
History Report prepared by Davidibe: Shannan Hinton Under the Supervision of: Dr. Sun Baker M.D. First contact with patient: 14:07 Chief Complaint: SEIZURE Stated Complaint: SEIZURE History of Present Illness The patient is a 56 year old female who presents to the Emergency Room with complaints of a possible seizure. She was brought to the ED via private vehicle and is accompanied by her son and daughter. Her daughter reports she has a history of metastatic breast cancer with metastasis to her brain. She was discharged from [facility] yesterday after undergoing gamma knife radiation in [place]. Her daughter states last night she started "not acting right", and repeating words. At 0100 this morning, when the patient was up to take pills , she began "twitching repetitively" and became unresponsive. The patient does not display grand mal seizure activity, but her daughter states her seizures are characterized by the twitching movements and unresponsiveness. Her last seizure lasted for approximately 1 day and she was life-flighted to [facility]. The patient receives palliative care at home and also has in home nursing care. Additional information is unable to be obtained secondary to the patients current condition. Source of History: family (son and daughter) History Limited By: AMS Onset: last night Position: other (global) Timing: other (persistent) Review of Systems See HPI for pertinent positives & negatives. ROS is limited secondary to the patients current condition. 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 (13) History of breast cancer (14) Hypertension (15) Increased intracranial pressure (16) Irritable bowel syndrome (17) Mass of left lung (18) Metastasis to brain (19) Metastatic breast cancer (20) Metastatic cancer to spine (21) Osteoporosis (22) TIA (transient ischemic attack) Surgical Problems: (1) History of cataract surgery (2) History of Chiari malformation (3) History of lumpectomy of left breast (4) History of tonsillectomy and adenoidectomy (5) S/p axillary lymph node biopsy (6) S/p breast cyst removal (7) S/P craniotomy (8) S/p Gamma knife radiosurgery for brain metastatic lesion (9) S/p insertion tunneled central venous access with SQ port (10) S/P partial mastectomy (11) S/P sinus surgery (12) S/P tonsillectomy and adenoidectomy (13) S/P tubal ligation (14) Status post gamma knife treatment Family History Asthma DAUGHTER SON Diabetes mellitus MOTHER Hypertension FATHER Stroke FATHER GRANDFATHER Social History Smoking Status: Never Smoker Drug Use: none Marital Status: Housing Status: lives with significant other Occupation Status: retired, disabled Current/Historical Medications Scheduled Amitriptyline Hcl (Elavil), 100 MG PO HS Baclofen (Lioresal), 20 MG PO TID Capecitabine (Xeloda), 1,500 MG PO Q12H Cholecalciferol (Vitamin D3), 1,000 UNITS PO DAILY Cholestyramine (Bulk) (Cholestyramine), 4 GM PO QID Dexamethasone (Decadron), 4 MG PO TID Estrogens, Conjugated (Premarin), 1 APPLN PV DAILY Fluticasone Propionate (Flovent Hfa), 2 PUFFS INH BID Fluticasone Propionate (Nasal) (Flonase Allergy Relief), 2 SPRAYS JUDE QAM Insulin Aspart (Novolog Flexpen), 1 UNIT SC UD Insulin Glargine (Lantus), 9 UNITS SC QAM Lamotrigine (Lamictal), 150 MG PO BID Levetiracetam (Keppra), 750 MG PO BID Lovastatin (Mevacor), 10 MG PO QPM Montelukast Sodium (Montelukast Sodium), 10 MG PO QAM Morphine Sulfate (Morphine Sulfate Er), 15 MG PO BID Multivitamin (Multivitamin), 1 TAB PO QAM Omeprazole (Prilosec), 20 MG PO QAM Potassium Ext Rel (Klor-Con), 20 MEQ PO BID Ropinirole (Requip), 1 MG PO TID Sulfa/Trimethoprim (Bactrim Ds 800MG/160MG), 1 TAB PO BID Topiramate (Topiramate), 200 MG PO BID Verapamil Hcl (Verapamil Hcl Sr), 120 MG PO BID Scheduled PRN Acetamin/Butalbital/Caffeine (Fioricet), 1 TAB PO Q4 PRN for Headache Albuterol Sulfate (Proventil Hfa), 2 PUFFS INH QID PRN for SOB/Wheezing Dicyclomine Hcl (Dicyclomine Hcl), 20 MG PO Q6 PRN for GI Upset Diphenoxylate/Atropine (Lomotil), 1 TAB PO QID PRN for Diarrhea Lorazepam (Ativan), 1 MG PO HS PRN for Sleep Meclizine Hcl (Meclizine Hcl), 25 MG PO Q6H PRN for Dizziness or Vertigo Oxycodone/Acetaminophen 5MG/325MG (Percocet 5MG/325MG), 1 TABLET PO Q6H PRN for Pain Polyethylene Glycol 3350 (Miralax), 17 GM PO DAILY PRN for Constipation Prochlorperazine Maleate (Compazine), 10 MG PO Q6H PRN for Nausea Promethazine HCl (Promethazine HCl), 25 MG PO Q6 PRN for Nausea or Vomiting Miscellaneous Medications Sumatriptan Succinate (Imitrex Statdose) Allergies Coded Allergies: Erythromycin (Unverified Adverse Reaction, Unknown, GI UPSET, 05/01/17) Physical Exam Vital Signs Date Time Temp Pulse Resp B/P (MAP) Pulse Ox O2 Delivery O2 Flow Rate FiO2 05/01/17 16:17 83 18 107/75 98 Room Air 05/01/17 15:18 83 12 113/75 98 Room Air 05/01/17 14:49 85 12 97 05/01/17 14:45 105/73 05/01/17 14:34 81 16 97 05/01/17 14:30 110/81 05/01/17 14:25 128/74 05/01/17 14:19 89 12 97 05/01/17 14:08 90 05/01/17 14:06 36.5 89 18 119/81 96 Room Air 05/01/17 14:05 119/81 Physical Exam Vital signs reviewed. General: Largely unresponsive, occasional eye opening to commands. HEENT: No scleral icterus, PERRLA, neck supple. Atraumatic. Cardiovascular: Regular rate and rhythm, no extra sounds. Pulmonary: Clear to auscultation bilaterally, non-labored breathing. Abdomen: Soft, nontender, nondistended, positive bowel sounds. Musculoskeletal: Atraumatic, no peripheral edema. Neurologic: Patient is obtunded with occasional peripheral twitching. Unable to cooperate with remainder of exam. Skin: Warm, dry, no rash Medical Decision & Procedures ER Provider Diagnostic Interpretation: Radiology results as stated below per my review and radiologist interpretation: CHEST ONE VIEW PORTABLE CLINICAL HISTORY: Seizure. Metastatic breast carcinoma COMPARISON STUDY: 03/13/2017 FINDINGS: There is a right-sided A-Port catheter. There is left lung volume loss. There is left-sided pleural thickening. There are interstitial opacities left greater than right. IMPRESSION: Persistent left lung volume loss with left-sided pleural thickening. Interstitial opacities left greater than right, similar to the prior study given the differences in technique. Electronically signed by: Dallin Valadez M.D. 05/01/2017 2:[address] HEAD WITHOUT CONTRAST (CT) CLINICAL HISTORY: seizure, mets breast CA COMPARISON STUDY: 03/13/2017 TECHNIQUE: Axial CT of the brain is performed from the vertex to the skull base. IV contrast was not administered for this examination. A dose lowering technique was utilized adhering to the principles of ALARA. CT DOSE: 537.48 mGy.cm FINDINGS: There is a persistent right parafalcine mass measuring approximate 17 mm. There is surrounding vasogenic edema which is decreased when compared the preceding study. There is no evidence of acute hemorrhage. There is 4 mm of right to left midline shift. In addition to the vasogenic edema, there is minor periventricular white matter edema most pronounced adjacent to the anterior horn left lateral ventricle. There is no evidence of pathologic ventricular dilatation. There is no evidence of acute sinusitis There are postsurgical changes of a prior suboccipital craniotomy IMPRESSION: 1. Persistent right parafalcine mass with diminished surrounding vasogenic edema. 2. No evidence of acute hemorrhage Electronically signed by: Dallin Valadez M.D. 05/01/2017 3:17 PM Laboratory Results 05/01/17 14:24 Red Blood Count 3.28, Mean Corpuscular Volume 97.9, Mean Corpuscular Hemoglobin 32.6, Mean Corpuscular Hemoglobin Concent 33.3, Mean Platelet Volume 8.6, Neutrophils (%) (Auto) 94.7, Lymphocytes (%) (Auto) 2.6, Monocytes (%) (Auto) 2.3, Eosinophils (%) (Auto) 0.0, Basophils (%) (Auto) 0.0, Neutrophils # (Auto) 7.41, Lymphocytes # (Auto) 0.20, Monocytes # (Auto) 0.18, Eosinophils # (Auto) 0.00, Basophils # (Auto) 0.00 05/01/17 14:24 Test 05/01/17 14:24 White Blood Count 7.82 K/uL (4.8-10.8) Red Blood Count 3.28 M/uL (4.2-5.4) Hemoglobin 10.7 g/dL (12.0-16.0) Hematocrit 32.1 % (37-47) Mean Corpuscular Volume 97.9 fL (80-100) Mean Corpuscular Hemoglobin 32.6 pg (25-34) Mean Corpuscular Hemoglobin Concent 33.3 g/dl (32-36) Platelet Count 242 K/uL (130-400) Mean Platelet Volume 8.6 fL (7.4-10.4) Neutrophils (%) (Auto) 94.7 % Lymphocytes (%) (Auto) 2.6 % Monocytes (%) (Auto) 2.3 % Eosinophils (%) (Auto) 0.0 % Basophils (%) (Auto) 0.0 % Neutrophils # (Auto) 7.41 K/uL (1.4-6.5) Lymphocytes # (Auto) 0.20 K/uL (1.2-3.4) Monocytes # (Auto) 0.18 K/uL (0.11-0.59) Eosinophils # (Auto) 0.00 K/uL (0-0.5) Basophils # (Auto) 0.00 K/uL (0-0.2) RDW Standard Deviation 56.5 fL (36.4-46.3) RDW Coefficient of Variation 15.8 % (11.5-14.5) Immature Granulocyte % (Auto) 0.4 % Immature Granulocyte # (Auto) 0.03 K/uL (0.00-0.02) Anion Gap 8.0 mmol/L (3-11) Est Creatinine Clear Calc Drug Dose 158.3 ml/min Estimated GFR () 132.8 Estimated GFR (Non- 114.6 BUN/Creatinine Ratio 29.2 (10-20) Calcium Level 8.0 mg/dl (8.5-10.1) Total Bilirubin 0.2 mg/dl (0.2-1) Direct Bilirubin < 0.1 mg/dl (0-0.2) Aspartate Amino Transf (AST/SGOT) 30 U/L (15-37) Alanine Aminotransferase (ALT/SGPT) 31 U/L (12-78) Alkaline Phosphatase 132 U/L (45-117) Total Protein 6.4 gm/dl (6.4-8.2) Albumin 2.3 gm/dl (3.4-5.0) Laboratory results per my review. Medications Administered Medications (Trade) Dose Ordered Sig/Crow Route Start Time Stop Time Status Last Admin Dose Admin Sodium Chloride 1,000 ml @ 125 mls/hr Q8H STAT IV 05/01/17 14:09 05/01/17 17:39 DC 05/01/17 14:35 125 MLS/HR Levetiracetam 1000 mg/Dextrose 110 ml @ 440 mls/hr ONE ONCE IV 05/01/17 14:30 05/01/17 14:44 DC 05/01/17 14:51 440 MLS/HR Dexamethasone Sodium Phosphate (Decadron Inj) 4 mg STK-MED ONCE .ROUTE 05/01/17 14:31 05/01/17 14:32 DC 05/01/17 14:31 4 MG ECG Indication: weakness Rate (beats per minute): 85 Rhythm: normal sinus Findings: other (non-sepcific ST changes in the lateral leads) ED Course 1412: Past medical records reviewed. The patient was evaluated in room A1. A complete history and physical examination was performed. 1409: NSS 1000 ml @ 125 mls/hr IV. 1430: Levetiracetam 1000 mg/Dextrose 110 ml @ 440 mls/hr IV. 1431: Decadron 4 mg IV. 1608: I reevaluated the patient. She is still the same. I discussed my recommendation she remain in the hospital for further evaluation and management and her family verbalized complete understanding and agreement. 1622: I [facility] the patients [facility] The patient will be further evaluated. Medical Decision The differential diagnosis of the patient's presentation includes intracranial mass, intracranial hemorrhage, primary seizure disorder, metabolic abnormality, infectious etiology and subtherapeutic medication levels. This patient was evaluated and appeared to be in no significant distress, but is relatively unresponsive. She is not able to comply with any verbal commands. Her daughter states this has happened previously. Patient's indwelling port was accessed and she was given 1 g of IV Keppra, 4 mg of IV Decadron. CT scan of the head was performed and reveals a persistent mass with diminishing edema. Laboratory work is fairly unrevealing. Case management has met with the patient's family. They state she needed 24-48 hours to return to baseline mental status last time. The patient will be evaluated by the hospitalist service. Family has requested that patient is not transferred to [facility]. They states she is in palliative care currently and may require higher levels of care including forward. They are considering hospice placement. Medication Reconcilliation Current Medication List: was personally reviewed by me Blood Pressure Screening Patient's blood pressure: Normal blood pressure Consults Time Called: 1616 Consulting Physician: Dashawn Ramirez Hospitalist Returned Call: 1622 [facility] The patient will be further evaluated. Impression Primary Impression: Altered mental status Additional Impression: Metastatic breast cancer Scribe Attestation The scribe's documentation has been prepared under my direction and personally reviewed by me in its entirety. I confirm that the note above accurately reflects all work, treatment, procedures, and medical decision making performed by me. Departure Information Dispostion Being Evaluated By Hospitalist Referrals Marbin Peace D.O. (PCP) Patient Instructions My [facility] Problem Qualifiers
[2017-05-01] MEDS ORDERED: LEVETIRACETAM IV 1,000 MG in DEXTROSE 5% 100ML 100 ML IV ONE (14:30)
[2017-05-01] MEDS ORDERED: DEXAMETHASONE SOD INJ 4 MG/ML VIAL ONE (14:31)
[2017-05-01] MEDS ORDERED: ATV/1 PO (14:33)
[2017-05-01] MEDS ORDERED: PROC1TAB5 PO (14:33)
[2017-05-01] MEDS ORDERED: DXM/4 PO (14:33)
[2017-05-01] MEDS ORDERED: SUMA6KIT (14:33)
[2017-05-01 14:36] LABS: COMPLETE YES; HEMATOCRIT 32.1 % (37-47); IG% 0.4 %; LYMPH % 2.6 %; MEAN CELL VOLUME 97.9 fL (80-100); MEAN CORPUSCULAR HEMOGLOBIN 32.6 pg (25-34); MEAN CORPUSCULAR HGB CONC 33.3 g/dl (32-36); MEAN PLATELET VOLUME 8.6 fL (7.4-10.4); MONO % 2.3 %; NEUT % 94.7 %; PLATELET COUNT 242 K/uL (130-400); RED BLOOD COUNT 3.28 M/uL (4.2-5.4); WHITE BLOOD COUNT 7.82 K/uL (4.8-10.8)
--- NOTE | 2017-05-01 14:48 | DIAGNOSTIC IMAGING REPORT ---
CHEST ONE VIEW PORTABLE CLINICAL HISTORY: Seizure. Metastatic breast carcinoma COMPARISON STUDY: 03/13/2017 FINDINGS: There is a right-sided A-Port catheter. There is left lung volume loss. There is left-sided pleural thickening. There are interstitial opacities left greater than right.[ IMPRESSION: Persistent left lung volume loss with left-sided pleural thickening. Interstitial opacities left greater than right, similar to the prior study given the differences in technique. Electronically signed by: Dallin Valadez M.D. 05/01/2017 2:46 PM Dictated Date/Time: 05/01/2017 2:45 PM
[2017-05-01 14:59] LABS: ALT/SGPT 31 U/L (12-78); AST/SGOT 30 U/L (15-37); BLOOD UREA NITROGEN 12 mg/dl (7-18); BUN/CREATININE RATIO 29.2 (10-20); CARBON DIOXIDE 23 mmol/L (21-32); CHLORIDE 106 mmol/L (98-107); CREATININE 0.42 mg/dl (0.60-1.20); GLUCOSE 157 mg/dl (70-99); MAGNESIUM 2.3 mg/dl (1.8-2.4); POTASSIUM 3.3 mmol/L (3.5-5.1); SODIUM 137 mmol/L (136-145)
[2017-05-01 15:02] LABS: ALKALINE PHOSPHATASE 132 U/L (45-117)
--- NOTE | 2017-05-01 15:19 | DIAGNOSTIC IMAGING REPORT ---
CT HEAD WITHOUT CONTRAST (CT) CLINICAL HISTORY: seizure, mets breast CA COMPARISON STUDY: 03/13/2017 TECHNIQUE: Axial CT of the brain is performed from the vertex to the skull base. IV contrast was not administered for this examination. A dose lowering technique was utilized adhering to the principles of ALARA. CT DOSE: 537.48 mGy.cm FINDINGS: There is a persistent right parafalcine mass measuring approximate 17 mm. There is surrounding vasogenic edema which is decreased when compared the preceding study. There is no evidence of acute hemorrhage. There is 4 mm of right to left midline shift. In addition to the vasogenic edema, there is minor periventricular white matter edema most pronounced adjacent to the anterior horn left lateral ventricle. There is no evidence of pathologic ventricular dilatation. There is no evidence of acute sinusitis There are postsurgical changes of a prior suboccipital craniotomy IMPRESSION: 1. Persistent right parafalcine mass with diminished surrounding vasogenic edema. 2. No evidence of acute hemorrhage Electronically signed by: Dallin Valadez M.D. 05/01/2017 3:17 PM Dictated Date/Time: 05/01/2017 3:14 PM
[2017-05-01] MEDS ORDERED: LORAZEPAM 2 MG/ML 1 ML VIAL ONE (17:33)
[2017-05-01] MEDS: POTASSIUM CHLR 10 MEQ / WTR 10 MEQ in PREMIXED WATER 100 ML IV SCH ×4 (18:00→23:09)
[2017-05-01 18:03] VITALS: BP 112/76; PULSE 86; TEMP 36.4; O2SAT 99; Ht 152.4 cm; Wt 50.2 kg
[2017-05-01] MEDS ORDERED: PHENYTOIN IV 1,000 MG in SYRINGE 0 ML IV ONE (18:15)
[2017-05-01] MEDS ORDERED: DEXTROSE 50% 50 ML SYR IV PRN (18:30)
[2017-05-01] MEDS ORDERED: GLUCOSE 40% GEL 15 GM TUBE PO PRN (18:30)
[2017-05-01] MEDS ORDERED: GLUCOSE 10 TABS/TUBE PO PRN (18:30)
[2017-05-01] MEDS ORDERED: GLUCAGON FOR INJ 1 MG VIAL SQ PRN (18:30)
[2017-05-01 18:34] LABS: URINE APPEARANCE CLOUDY (CLEAR); URINE BILIRUBIN NEG (NEG); URINE COLOR YELLOW; URINE EPITHELIAL CELL AUTO 20-30 /lpf (0-5); URINE NITRITE NEG (NEG); URINE PH 7.5 (4.5-7.5); URINE SPECIFIC GRAVITY 1.024 (1.000-1.030); UROBILINOGEN NEG (NEG); ZZUR CULT IF INDIC CLEAN CATCH NO
[2017-05-01 18:40] LABS: MANUAL MICROSCOPIC REQUIRED? NO; REVIEW REQ? NO; SULFASALICYLIC ACID NEG (NEG)
[2017-05-01] MEDS ORDERED: PHARMACY GLYCEMIC MGMT CONSULT PRN (19:00)
[2017-05-01] MEDS ORDERED: PHENYTOIN IV INFUSION 1,000 MG in SODIUM CHLORIDE 0.9% 100ML 100 ML IV SCH (19:00)
[2017-05-01] MEDS ORDERED: DEXAMETHASONE INJ 6 MG in SYRINGE 0 ML IV ONE (19:00)
[2017-05-01] MEDS ORDERED: LORAZEPAM 2 MG/ML 1 ML VIAL IV ONE (19:00)
[2017-05-01] MEDS: D5W AND NSS 1,000 ML IV SCH (19:14)
[2017-05-01 19:32] VITALS: O2SAT 100
[2017-05-01 19:59] VITALS: BP 126/87; PULSE 94; TEMP 36.3; O2SAT 99
[2017-05-01] MEDS ORDERED: INSULIN ASPART 100 UNITS/ML 3 ML PEN SC SCH (21:00)
--- NOTE | 2017-05-01 21:21 | History and Physical ---
History & Physical Date & Time of Service: May 01, 2017 at 21:12 Chief Complaint: Altered Mental Status Primary Care Physician: Marbin Peace D.O. History of Present Illness Source: family 56 year old female with history of Breast CA, with mets to the brain, bone, liver; Seizure, DM 1, other problems notes below presenting with altered mental status. Patient underwent Gamma Knife Surgery last 04/15 and was transitioned to . She did well and was able to return home last . She was doing well until last night when she started to have some confusion. Through the night, the patient's children noted that she was twitching. This morning patient was unresponsive, hence was brought to the ED. Past Medical/Surgical History Medical Problems: (1) Allergic rhinitis Status: Chronic (2) Asthma Status: Chronic (3) Medina's esophagus Status: Chronic (4) Brain metastases Status: Chronic (5) Breast cancer Permanent Comment: DIAGNOSIS: Left breast cancer, invasive ductal carcinoma, grade 3, ER negative, DE weakly positive, Her2 negative, cT1N1, ypT1N0(i+) with a indeterminate lesion in the right parietal lobe followed with MRI TREATMENT: 1. Neoadjuvant chemotherapy - AC/T chemotherapy (Dr. Junior [place]) 2. Lumpectomy with SLN - 08/21/2015 (Dr. Zurita) 3. Status post gamma knife radiation therapy to single brain lesion at [facility] 4. Status post completion of radiation therapy 12/31/2015 received 7240 cGy, left breast, supraclavicular, and axilla area. 5. Status post lung wedge resection 02/10/2016 due to metastatic breast carcinoma 6. Ongoing treatment with Gemzar, Herceptin, Perjeta, and Xgeva. 7. Brain MRI is followed by Dr. Fernando at [facility] 8. Status post gamma knife radiation therapy to 3 lesions 11/19/2016 9. Back pain with finding of metastasis to L1 10. 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 (12) History of breast cancer Status: Resolved (13) Hypertension Status: Chronic (14) Irritable bowel syndrome Status: Chronic (15) Mass of left lung Status: Chronic (16) Metastasis to brain Status: Resolved (17) Metastatic cancer to spine Status: Chronic (18) Osteoporosis Status: Chronic Surgical Problems: (1) History of cataract surgery Status: Chronic (2) History of Chiari malformation Status: Resolved (3) History of lumpectomy of left breast Status: Resolved (4) History of tonsillectomy and adenoidectomy Status: Resolved (5) S/p axillary lymph node biopsy Status: Chronic (6) S/p breast cyst removal Status: Chronic (7) S/P craniotomy Permanent Comment: 09/27/2014- suboccipital craniectomy, C1 laminectomy, duraplasty, mocrodissection Status: Chronic (8) S/p Gamma knife radiosurgery for brain metastatic lesion Permanent Comment: 09/24/2015 Status: Chronic (9) S/p insertion tunneled central venous access with SQ port Status: Chronic (10) S/P partial mastectomy Status: Chronic (11) S/P sinus surgery Status: Chronic (12) S/P tonsillectomy and adenoidectomy Status: Chronic (13) S/P tubal ligation Status: Chronic (14) Status post gamma knife treatment Status: Resolved Family History Asthma DAUGHTER SON Diabetes mellitus MOTHER Hypertension FATHER Stroke FATHER GRANDFATHER Social History Smoking Status: Never Smoker Drug Use: none Marital Status: Housing status: lives with significant other Occupational Status: retired, disabled Immunizations History of Influenza Vaccine: Yes Influenza Vaccine Date: Apr 30, 2016 History of Tetanus Vaccine?: Yes Tetanus Immunization Date: Oct 03, 2015 History of Pneumococcal: Yes Pneumococcal Date: Aug 13, 2008 History of Hepatitis B Vaccine: Yes Hepatitis Immunization Date: November 18, 2009 Multi-Drug Resistant Organisms History of MDRO: Yes Type of MDRO: MRSA Allergies Coded Allergies: Erythromycin (Unverified Adverse Reaction, Unknown, GI UPSET, 05/01/17) Home Medications Scheduled Amitriptyline Hcl (Elavil), 100 MG PO HS Baclofen (Lioresal), 20 MG PO TID Capecitabine (Xeloda), 1,500 MG PO Q12H Cholecalciferol (Vitamin D3), 1,000 UNITS PO DAILY Cholestyramine (Bulk) (Cholestyramine), 4 GM PO QID Dexamethasone (Decadron), 4 MG PO TID Estrogens, Conjugated (Premarin), 1 APPLN PV DAILY Fluticasone Propionate (Flovent Hfa), 2 PUFFS INH BID Fluticasone Propionate (Nasal) (Flonase Allergy Relief), 2 SPRAYS JUDE QAM Insulin Aspart (Novolog Flexpen), 1 UNIT SC UD Insulin Glargine (Lantus), 9 UNITS SC QAM Lamotrigine (Lamictal), 150 MG PO BID Levetiracetam (Keppra), 750 MG PO BID Lovastatin (Mevacor), 10 MG PO QPM Montelukast Sodium (Montelukast Sodium), 10 MG PO QAM Morphine Sulfate (Morphine Sulfate Er), 15 MG PO BID Multivitamin (Multivitamin), 1 TAB PO QAM Omeprazole (Prilosec), 20 MG PO QAM Potassium Ext Rel (Klor-Con), 20 MEQ PO BID Ropinirole (Requip), 1 MG PO TID Sulfa/Trimethoprim (Bactrim Ds 800MG/160MG), 1 TAB PO BID Topiramate (Topiramate), 200 MG PO BID Verapamil Hcl (Verapamil Hcl Sr), 120 MG PO BID Scheduled PRN Acetamin/Butalbital/Caffeine (Fioricet), 1 TAB PO Q4 PRN for Headache Albuterol Sulfate (Proventil Hfa), 2 PUFFS INH QID PRN for SOB/Wheezing Dicyclomine Hcl (Dicyclomine Hcl), 20 MG PO Q6 PRN for GI Upset Diphenoxylate/Atropine (Lomotil), 1 TAB PO QID PRN for Diarrhea Lorazepam (Ativan), 1 MG PO HS PRN for Sleep Meclizine Hcl (Meclizine Hcl), 25 MG PO Q6H PRN for Dizziness or Vertigo Oxycodone/Acetaminophen 5MG/325MG (Percocet 5MG/325MG), 1 TABLET PO Q6H PRN for Pain Polyethylene Glycol 3350 (Miralax), 17 GM PO DAILY PRN for Constipation Prochlorperazine Maleate (Compazine), 10 MG PO Q6H PRN for Nausea Promethazine HCl (Promethazine HCl), 25 MG PO Q6 PRN for Nausea or Vomiting Miscellaneous Medications Sumatriptan Succinate (Imitrex Statdose) Review of Systems obtained from family Constitutional- no fever; no weight loss Eyes- no acute visual changes ENT- no sinus drainage; no pharyngitis Pulmonary- no cough, no wheezing, no shortness of breath Cardiac- no chest pain, no palpitations, no orthopnea, no dependent edema GI- no nausea, no vomiting, no diarrhea, no melena, no hematochezia - no dysuria, no hematuria Musculoskeletal- no arthralgias, no myalgias Derm- no rashes, no new skin lesions, no changing skin lesions Hematologic- no unusual bruising, no unusual bleeding Lymphatics- no adenopathy Endocrine- no polyuria or polydipsia; no heat or cold intolerance Neuro- (+) as noted above Psych- no anxiety, no depression Physical Exam Vital Signs Date Time Temp Pulse Resp B/P (MAP) Pulse Ox O2 Delivery O2 Flow Rate FiO2 05/01/17 19:59 36.3 94 14 126/87 (100) 99 Room Air 05/01/17 19:32 100 Nasal Cannula 2.0 05/01/17 18:03 36.4 86 15 112/76 99 05/01/17 16:17 83 18 107/75 98 Room Air 05/01/17 15:18 83 12 113/75 98 Room Air 05/01/17 14:49 85 12 97 05/01/17 14:45 105/73 05/01/17 14:34 81 16 97 05/01/17 14:30 110/81 05/01/17 14:25 128/74 05/01/17 14:19 89 12 97 05/01/17 14:08 90 05/01/17 14:06 36.5 89 18 119/81 96 Room Air 05/01/17 14:05 119/81 General Appearance: + pertinent finding (very lethargic, tries to open eyes with painful stimuli) Head: normocephalic, atraumatic Eyes: normal inspection, PERRL ENT: normal ENT inspection Neck: supple, no adenopathy, thyroid normal, no JVD, trachea midline Respiratory/Chest: lungs clear, normal breath sounds, no respiratory distress, no accessory muscle use Cardiovascular: regular rate, rhythm, no edema, no gallop, no JVD, no murmur Abdomen/GI: normal bowel sounds, non tender, soft, no organomegaly Extremities/Musculoskelatal: normal inspection, no calf tenderness, normal capillary refill, no pedal edema Neurologic/Psych: + pertinent finding (lethargic, minimal eye movements with painful stimuli) Skin: normal color, warm/dry, no rash Lymphatic: no adenopathy Diagnostics Laboratory Results Results Past 24 Hours Test 05/01/17 14:24 05/01/17 18:12 05/01/17 19:05 05/01/17 20:39 Range/Units White Blood Count 7.82 4.8-10.8 K/uL Red Blood Count 3.28 4.2-5.4 M/uL Hemoglobin 10.7 12.0-16.0 g/dL Hematocrit 32.1 37-47 % Mean Corpuscular Volume 97.9 80-100 fL Mean Corpuscular Hemoglobin 32.6 25-34 pg Mean Corpuscular Hemoglobin Concent 33.3 32-36 g/dl Platelet Count 242 130-400 K/uL Mean Platelet Volume 8.6 7.4-10.4 fL Neutrophils (%) (Auto) 94.7 % Lymphocytes (%) (Auto) 2.6 % Monocytes (%) (Auto) 2.3 % Eosinophils (%) (Auto) 0.0 % Basophils (%) (Auto) 0.0 % Neutrophils # (Auto) 7.41 1.4-6.5 K/uL Lymphocytes # (Auto) 0.20 1.2-3.4 K/uL Monocytes # (Auto) 0.18 0.11-0.59 K/uL Eosinophils # (Auto) 0.00 0-0.5 K/uL Basophils # (Auto) 0.00 0-0.2 K/uL RDW Standard Deviation 56.5 36.4-46.3 fL RDW Coefficient of Variation 15.8 11.5-14.5 % Immature Granulocyte % (Auto) 0.4 % Immature Granulocyte # (Auto) 0.03 0.00-0.02 K/uL Sodium Level 137 136-145 mmol/L Potassium Level 3.3 3.5-5.1 mmol/L Chloride Level 106 98-107 mmol/L Carbon Dioxide Level 23 21-32 mmol/L Anion Gap 8.0 3-11 mmol/L Blood Urea Nitrogen 12 7-18 mg/dl Creatinine 0.42 0.60-1.20 mg/dl Est Creatinine Clear Calc Drug Dose 158.3 ml/min Estimated GFR () 132.8 Estimated GFR (Non- 114.6 BUN/Creatinine Ratio 29.2 10-20 Random Glucose 157 70-99 mg/dl Calcium Level 8.0 8.5-10.1 mg/dl Magnesium Level 2.3 2.2 1.8-2.4 mg/dl Total Bilirubin 0.2 0.2-1 mg/dl Direct Bilirubin < 0.1 0-0.2 mg/dl Aspartate Amino Transf (AST/SGOT) 30 15-37 U/L Alanine Aminotransferase (ALT/SGPT) 31 12-78 U/L Alkaline Phosphatase 132 45-117 U/L Total Protein 6.4 6.4-8.2 gm/dl Albumin 2.3 3.4-5.0 gm/dl Urine Color YELLOW Urine Appearance CLOUDY CLEAR Urine pH 7.5 4.5-7.5 Urine Specific [place] 1.024 1.000-1.030 Urine Protein NEG NEG Urine Glucose (UA) TRACE NEG Urine Ketones NEG NEG Urine Occult Blood 2+ NEG Urine Nitrite NEG NEG Urine Bilirubin NEG NEG Urine Urobilinogen NEG NEG Urine Leukocyte Esterase NEG NEG Urine WBC (Auto) 1-5 0-5 /hpf Urine RBC (Auto) >30 0-4 /hpf Urine Hyaline Casts (Auto) 1-5 0-5 /lpf Urine Epithelial Cells (Auto) 20-30 0-5 /lpf Urine Bacteria (Auto) NEG NEG Bedside Glucose 187 70-90 mg/dl Diagnostic Radiology CT HEAD WITHOUT CONTRAST (CT) CLINICAL HISTORY: seizure, mets breast CA COMPARISON STUDY: 03/13/2017 TECHNIQUE: Axial CT of the brain is performed from the vertex to the skull base. IV contrast was not administered for this examination. A dose lowering technique was utilized adhering to the principles of ALARA. CT DOSE: 537.48 mGy.cm FINDINGS: There is a persistent right parafalcine mass measuring approximate 17 mm. There is surrounding vasogenic edema which is decreased when compared the preceding study. There is no evidence of acute hemorrhage. There is 4 mm of right to left midline shift. In addition to the vasogenic edema, there is minor periventricular white matter edema most pronounced adjacent to the anterior horn left lateral ventricle. There is no evidence of pathologic ventricular dilatation. There is no evidence of acute sinusitis There are postsurgical changes of a prior suboccipital craniotomy IMPRESSION: 1. Persistent right parafalcine mass with diminished surrounding vasogenic edema. 2. No evidence of acute hemorrhage Impression Assessment and Plan 56 year old female with history of Breast CA, with mets to the brain, bone, liver; Seizure, DM 1, other problems notes below presenting with altered mental status. AMS POSSIBLE BREAKTHROUGH SEIZURES BREAST CANCER WITH BRAIN METASTASES - discussed with Dr. Soares - increase Keppra to 1g BID start Dilantin loading dose 1g then 300mg daily increase Decadron to 4mg QID - monitor HYPOKALEMIA - IV K ordered BREAST CANCER WITH METS - on Xeloda DM 1 - ISS HYPERTENSION - stable HOLD ORAL MEDICATIONS FOR NOW FULL CODE PER FAMILY DVT prophylaxis SCDs DISPOSITION pending Advanced Directives Existing Living Will: No Existing Power of Dining Room Coordinator: Yes VTE Prophylaxis VTE Risk Assessment Done? Y/N: Yes Risk Level: Moderate Given or contraindicated: Contraindicated (patient has brain metastases)
[2017-05-01] MEDS ORDERED: NURSING VERBAL MED ORDER ONE (21:30)
[2017-05-01] MEDS: DEXAMETHASONE INJ 4 MG in SYRINGE 0 ML IV SCH (23:09)
[2017-05-01 23:52] VITALS: BP 137/91; PULSE 87; TEMP 36.6; O2SAT 100
[2017-05-02] VITALS (8 sets, daily range): BP systolic 160–180; BP diastolic 96–111; PULSE 96–111; TEMP 36.8–37.2; O2SAT 96–99
[2017-05-02] MEDS: INSULIN ASPART 100 UNITS/ML 3 ML PEN SC SCH ×5 (00:28→21:00)
[2017-05-02 01:06] LABS: CALCIUM 7.6 mg/dl (8.5-10.1); CREATININE 0.48 mg/dl (0.60-1.20); POTASSIUM 4.2 mmol/L (3.5-5.1)
[2017-05-02] MEDS: D5W AND NSS 1,000 ML IV SCH (05:24)
[2017-05-02] MEDS: DEXAMETHASONE INJ 4 MG in SYRINGE 0 ML IV SCH ×2 (05:25→12:33)
[2017-05-02 07:23] LABS: COMPLETE YES; HEMATOCRIT 35.9 % (37-47); IG% 0.4 %; LYMPH % 2.5 %; LYMPH ABS # 0.23 K/uL (1.2-3.4); MEAN CELL VOLUME 98.6 fL (80-100); MEAN CORPUSCULAR HEMOGLOBIN 32.4 pg (25-34); MEAN CORPUSCULAR HGB CONC 32.9 g/dl (32-36); MEAN PLATELET VOLUME 8.8 fL (7.4-10.4); MONO % 5.5 %; NEUT % 91.6 %; PLATELET COUNT 287 K/uL (130-400); RED BLOOD COUNT 3.64 M/uL (4.2-5.4); WHITE BLOOD COUNT 9.33 K/uL (4.8-10.8)
[2017-05-02] MEDS ORDERED: LEVETIRACETAM IV 1,000 MG in DEXTROSE 5% 100ML 100 ML IV SCH (08:00)
[2017-05-02 08:02] LABS: BUN/CREATININE RATIO 20.8 (10-20); CALCIUM 7.8 mg/dl (8.5-10.1); CREATININE 0.53 mg/dl (0.60-1.20); POTASSIUM 3.6 mmol/L (3.5-5.1)
[2017-05-02] MEDS ORDERED: SODIUM CHLOR 0.9% 10ML FLUSH 20 ML in SYRINGE 0 ML IV SCH (09:00)
[2017-05-02] MEDS ORDERED: PHENYTOIN IV SCH (09:00)
[2017-05-02] MEDS ORDERED: LORAZEPAM 1 MG TAB PO PRN (10:00)
[2017-05-02] MEDS ORDERED: MoRPHine SULFATE CR 15 MG TAB (MS CONTIN) PO ONE (10:30)
[2017-05-02] MEDS ORDERED: MONTELUKAST SOD 10 MG TAB PO ONE (10:30)
[2017-05-02] MEDS ORDERED: FLUTICASONE PROPIONATE NA SPR 16 GM BTL NAE ONE (10:30)
[2017-05-02] MEDS ORDERED: VERAPAMIL HCL 40 MG TAB PO ONE (10:30)
[2017-05-02] MEDS ORDERED: FLUTICASONE HFA 110MCG INHALER INH ONE (10:30)
[2017-05-02] MEDS ORDERED: POTASSIUM CHLORIDE 20 MEQ TABCR PO ONE (10:30)
--- NOTE | 2017-05-02 10:31 | Progress Note ---
Medicine Progress Note Date & Time of Visit: May 02, 2017 at 10:07. Subjective patient seen sitting up in bed, alert, oriented x 2, somewhat confused but follows simple commands denies headache, blurred vision, focal neuro deficits states she has some mild chest wall discomfort worse with breathing denies nausea, dizziness, palpitations no abdominal pain, changes with BM or urination Objective Last 8 Hrs Date Time Temp Pulse Resp B/P (MAP) Pulse Ox O2 Delivery O2 Flow Rate FiO2 05/02/17 07:15 37.2 111 16 165/104 (124) 97 Room Air 05/02/17 06:30 96 Room Air 05/02/17 04:00 Room Air 05/02/17 03:49 36.8 96 22 160/96 (117) 99 Nasal Cannula 1.0 Physical Exam: General- oriented x 2, flat affect, somewhat confused, not in distress, speaks in sentences with no effort Head- atraumatic Eyes- PERRL, EOMI, anicteric ENT- oropharynx clear Neck- supple, no JVD Lungs- clear breath sounds bilaterally, no rales/wheezes Heart- regular rhythm; no murmur, normal rate Abdomen- normal bowel sounds, soft, nontender Extremities- no pretibial edema, no calf tenderness; peripheral pulses intact Neuro- alert, oriented x 2; PERRL, EOMI; no facial palsy; no dysarthria; motor 5 /5 bilaterally; sensation 100% bilaterally Skin- warm & dry Laboratory Results: Last 24 Hours Test 05/01/17 14:24 05/01/17 18:01 05/01/17 18:12 05/01/17 19:05 White Blood Count 7.82 K/uL Red Blood Count 3.28 M/uL Hemoglobin 10.7 g/dL Hematocrit 32.1 % Mean Corpuscular Volume 97.9 fL Mean Corpuscular Hemoglobin 32.6 pg Mean Corpuscular Hemoglobin Concent 33.3 g/dl Platelet Count 242 K/uL Mean Platelet Volume 8.6 fL Neutrophils (%) (Auto) 94.7 % Lymphocytes (%) (Auto) 2.6 % Monocytes (%) (Auto) 2.3 % Eosinophils (%) (Auto) 0.0 % Basophils (%) (Auto) 0.0 % Neutrophils # (Auto) 7.41 K/uL Lymphocytes # (Auto) 0.20 K/uL Monocytes # (Auto) 0.18 K/uL Eosinophils # (Auto) 0.00 K/uL Basophils # (Auto) 0.00 K/uL RDW Standard Deviation 56.5 fL RDW Coefficient of Variation 15.8 % Immature Granulocyte % (Auto) 0.4 % Immature Granulocyte # (Auto) 0.03 K/uL Sodium Level 137 mmol/L Potassium Level 3.3 mmol/L Chloride Level 106 mmol/L Carbon Dioxide Level 23 mmol/L Anion Gap 8.0 mmol/L Blood Urea Nitrogen 12 mg/dl Creatinine 0.42 mg/dl Est Creatinine Clear Calc Drug Dose 158.3 ml/min Estimated GFR () 132.8 Estimated GFR (Non- 114.6 BUN/Creatinine Ratio 29.2 Random Glucose 157 mg/dl Calcium Level 8.0 mg/dl Magnesium Level 2.3 mg/dl 2.2 mg/dl Total Bilirubin 0.2 mg/dl Direct Bilirubin < 0.1 mg/dl Aspartate Amino Transf (AST/SGOT) 30 U/L Alanine Aminotransferase (ALT/SGPT) 31 U/L Alkaline Phosphatase 132 U/L Total Protein 6.4 gm/dl Albumin 2.3 gm/dl Bedside Glucose 164 mg/dl Urine Color YELLOW Urine Appearance CLOUDY Urine pH 7.5 Urine Specific [place] 1.024 Urine Protein NEG Urine Glucose (UA) TRACE Urine Ketones NEG Urine Occult Blood 2+ Urine Nitrite NEG Urine Bilirubin NEG Urine Urobilinogen NEG Urine Leukocyte Esterase NEG Urine WBC (Auto) 1-5 /hpf Urine RBC (Auto) >30 /hpf Urine Hyaline Casts (Auto) 1-5 /lpf Urine Epithelial Cells (Auto) 20-30 /lpf Urine Bacteria (Auto) NEG Test 05/01/17 20:39 05/01/17 23:56 05/02/17 00:38 05/02/17 06:12 Bedside Glucose 187 mg/dl 228 mg/dl 228 mg/dl Sodium Level 137 mmol/L Potassium Level 4.2 mmol/L Chloride Level 107 mmol/L Carbon Dioxide Level 23 mmol/L Anion Gap 7.0 mmol/L Blood Urea Nitrogen 13 mg/dl Creatinine 0.48 mg/dl Est Creatinine Clear Calc Drug Dose 94.0 ml/min Estimated GFR () 127.1 Estimated GFR (Non- 109.7 BUN/Creatinine Ratio 28.0 Random Glucose 261 mg/dl Calcium Level 7.6 mg/dl Test 05/02/17 07:03 White Blood Count 9.33 K/uL Red Blood Count 3.64 M/uL Hemoglobin 11.8 g/dL Hematocrit 35.9 % Mean Corpuscular Volume 98.6 fL Mean Corpuscular Hemoglobin 32.4 pg Mean Corpuscular Hemoglobin Concent 32.9 g/dl Platelet Count 287 K/uL Mean Platelet Volume 8.8 fL Neutrophils (%) (Auto) 91.6 % Lymphocytes (%) (Auto) 2.5 % Monocytes (%) (Auto) 5.5 % Eosinophils (%) (Auto) 0.0 % Basophils (%) (Auto) 0.0 % Neutrophils # (Auto) 8.55 K/uL Lymphocytes # (Auto) 0.23 K/uL Monocytes # (Auto) 0.51 K/uL Eosinophils # (Auto) 0.00 K/uL Basophils # (Auto) 0.00 K/uL RDW Standard Deviation 57.6 fL RDW Coefficient of Variation 15.9 % Immature Granulocyte % (Auto) 0.4 % Immature Granulocyte # (Auto) 0.04 K/uL Sodium Level 139 mmol/L Potassium Level 3.6 mmol/L Chloride Level 107 mmol/L Carbon Dioxide Level 21 mmol/L Anion Gap 10.0 mmol/L Blood Urea Nitrogen 11 mg/dl Creatinine 0.53 mg/dl Est Creatinine Clear Calc Drug Dose 85.1 ml/min Estimated GFR () 123.0 Estimated GFR (Non- 106.1 BUN/Creatinine Ratio 20.8 Random Glucose 225 mg/dl Calcium Level 7.8 mg/dl Magnesium Level 2.0 mg/dl Date/Time Source Procedure Growth Status 05/02/17 08:00 Nasal MRSA DNA Surveillance Screen Pending Received Assessment & Plan 56 year old female with history of Breast CA, with mets to the brain, bone, liver; Seizure, DM 1, other problems notes below presenting with altered mental status. AMS POSSIBLE BREAKTHROUGH SEIZURES BREAST CANCER WITH BRAIN METASTASES - discussed with Dr. Soares last night - increase Keppra to 1g BID start Dilantin loading dose 1g then 300mg daily increase Decadron to 4mg QID -- alert today, but still somewhat confused (+) facial flushing will hold off on Dilantin continue Keppra 1000mg BID continue Decadron 4mg QID -- will transition consult to [facility] Neurologist- patient follows with Dr. Goodman discussed case with Dr. Jaramillo, awaiting further recommendations CHEST DISCOMFORT - CXR: Persistent left lung volume loss with left-sided pleural thickening. Interstitial opacities left greater than right, similar to the prior study given the differences in technique. - not hypoxic possible muscular etiology monitor HYPOKALEMIA - IV K ordered - K normalized - continue usual Potassium supplement BID BREAST CANCER WITH METS - on Xeloda will verify dose with patient's Dann follows with Dr. Junior Washington DM 1 - ISS - Pharmacy Glycemic Consult HYPERTENSION - resume usual Verapamil 120mg BID MIGRAINE - continue usual medications Neurology consulted FULL CODE PER FAMILY DVT prophylaxis SCDs for (+) brain mets DISPOSITION pending lives at home with family Current Inpatient Medications: Current Inpatient Medications Medications (Trade) Dose Ordered Sig/Crow Route Start Time Stop Time Status Last Admin Dose Admin Dexamethasone Sodium Phosphate 4 mg/Syringe 1 ml @ 1 mls/min Q6H IV 05/01/17 23:00 05/31/17 22:59 05/02/17 05:25 1 MLS/MIN Levetiracetam 1000 mg/Dextrose 110 ml @ 440 mls/hr Q12H IV 05/02/17 08:00 06/01/17 07:59 05/02/17 08:10 440 MLS/HR Dextrose/Sodium Chloride 1,000 ml @ 100 mls/hr Q10H IV 05/01/17 19:00 05/31/17 18:59 05/02/17 05:24 100 MLS/HR Glucose (Glucose 40% Gel) 15-30 GRAMS 15 GRAMS... UD PRN PO 05/01/17 18:30 05/31/17 18:29 Glucose (Glucose Chew Tab) 4-8 Tablets 4 Tabl... UD PRN PO 05/01/17 18:30 05/31/17 18:29 Dextrose (Dextrose 50% 50ML Syringe) 25-50ML OF 50% DW IV FOR... UD PRN IV 05/01/17 18:30 05/31/17 18:29 Glucagon (Glucagon Inj) 1 mg UD PRN SQ 05/01/17 18:30 05/31/17 18:29 Miscellaneous Information (Consult Glycemic Management Pharmacy) 1 ea UD PRN N/A 05/01/17 19:00 05/31/17 18:59 Phenytoin Sodium 300 mg/Syringe 6 ml @ 1 mls/min DAILY IV 05/02/17 09:00 06/01/17 08:59 Sodium Chloride 20 ml/Syringe 20 ml @ 0 mls/min DAILY IV 05/02/17 09:00 06/01/17 08:59 Insulin Aspart (novoLOG ASPART) SLIDING SCALE If C... Q6 SC 05/02/17 00:00 06/01/17 00:00 05/02/17 06:30 2 UNITS Heparin Sodium (Porcine) (Heparin 100 Unit/ml 5ml Flush) 5 ml PRN PRN IV 05/02/17 01:15 06/01/17 01:14 Amitriptyline HCl (Elavil Tab) 100 mg HS PO 05/02/17 21:00 06/01/17 20:59 UNV Baclofen (Lioresal Tab) 20 mg TID PO 05/02/17 14:00 06/01/17 13:59 UNV Fluticasone Propionate (Flovent Hfa 110MCG Inhaler) 2 puffs BID INH 05/02/17 21:00 06/01/17 20:59 UNV Fluticasone Propionate (Flonase Nasal [place]) 2 sprays QAM JUDE 05/03/17 09:00 06/02/17 08:59 UNV Lorazepam (Ativan Tab) 1 mg HS PRN PO 05/02/17 10:00 06/01/17 09:59 UNV Montelukast Sodium (Singulair Tab) 10 mg QAM PO 05/03/17 09:00 06/02/17 08:59 UNV Morphine Sulfate (Oramorph Sr Tab) 15 mg BID PO 05/02/17 21:00 05/16/17 20:59 UNV Oxycodone/ Acetaminophen (Percocet 5-325mg Tab) 1 tab Q6H PRN PO 05/02/17 10:00 05/16/17 09:59 UNV Potassium Chloride (Klor-Con Tab) 20 meq BID PO 05/02/17 21:00 06/01/17 20:59 UNV Ropinirole HCl (Requip Tab) 1 mg TID PO 05/02/17 14:00 06/01/17 13:59 UNV Topiramate (Topamax Tab) 200 mg BID PO 05/02/17 21:00 06/01/17 20:59 UNV Non-Formulary Medication (Cholestyramine (Bulk) (Cholestyramine)) 4 gm QID PO 05/02/17 13:00 06/01/17 12:59 UNV Non-Formulary Medication (Omeprazole (Prilosec)) 20 mg QAM PO 05/03/17 09:00 06/02/17 08:59 UNV Non-Formulary Medication (Polyethylene Glycol 3350 (Miralax)) 17 gm DAILY PRN PO 05/02/17 10:00 06/01/17 09:59 UNV Non-Formulary Medication (Verapamil Hcl (Verapamil Hcl Sr)) 120 mg BID PO 05/02/17 21:00 06/01/17 20:59 UNV Fluticasone Propionate (Flovent Hfa 110MCG Inhaler) 2 puffs 0951 ONCE INH 05/02/17 09:51 05/02/17 09:52 UNV Fluticasone Propionate (Flonase Nasal [place]) 2 sprays 0951 ONCE JUDE 05/02/17 09:51 05/02/17 09:52 UNV Montelukast Sodium (Singulair Tab) 10 mg 0951 ONCE PO 05/02/17 09:51 05/02/17 09:52 UNV Morphine Sulfate (Oramorph Sr Tab) 15 mg 0951 ONCE PO 05/02/17 09:51 05/02/17 09:52 UNV Potassium Chloride (Klor-Con Tab) 20 meq 0951 ONCE PO 05/02/17 09:51 05/02/17 09:52 UNV Verapamil HCl (Isoptin Tab) 120 mg ONE PO 05/02/17 10:15 06/01/17 10:14 UNV
[2017-05-02] MEDS ORDERED: NSS + 20MEQ KCL 1000ML 1,000 ML IV SCH (11:30)
[2017-05-02] MEDS: INSULIN GLARGINE SOLOSTAR 100 UNITS/ML 3 ML PEN SC SCH (12:04)
[2017-05-02] MEDS: POLYETHYLENE (MIRALAX) 17 GM PACK PO PRN (12:33)
--- NOTE | 2017-05-02 13:41 | Neurology Consultation ---
Neurology Consultation Date of Consultation: May 02, 2017. Attending Physician: Bruce Raines MD Primary Care Physician: Marbin Peace D.O. Reason for Consultation: Acute encephalopathy and seizure History of Present Illness Source: patient, family, clinic records, hospital records This is a 56-year-old female who presents with acute unresponsiveness and breakthrough seizure. Family reports that she did have a witnessed tonic-clonic seizure. After which she was unresponsive the next morning which is why they brought her to the emergency room. Family reports that she was 30 years seizure free, but in the last few months since January she's been having breakthrough seizures likely secondary to metastatic brain metastases and vasogenic edema. Reports that she's had approximately 4 generalized seizures since January, but may have had a few smaller seizures that were unrecognized before that. CT of the head reported images reviewed by myself. The patient has persistent right parafalcine mass with decreased vasogenic edema compared to scan in February Extensive past medical history was reviewed. The patient has been seen in neurology clinic for many years for mixed chronic migrainous type headaches status post occipital decompressive surgery for Chiari malformation. She did have seizures when she was in her early 20s that were well controlled on Lamictal for over 30 years. Patient had a left mastectomy and chemotherapy in follow-up 2014 to June patient was found to have a right parafalcine/parietal mass with vasogenic edema. August 2015 she had Gamma knife surgery Continue to have chemotherapy treatment in 2015October 2016 was noted to have a new posterior fossa and left occipital masses PET scan also showed L1 bony lesion Patient received more Gamma knife surgery in November 2016. Last Gamma knife surgery was April 15. Patient then had treatment at [facility] and was home around earlier this week. It was then that the patient started to have some mild altered mental status ultimately cumulating and what was described as a tonic-clonic seizure and unresponsiveness the morning of May 01. Family reports that she is much improved but not 100% back to baseline. She does have some mild confusion at baseline due to her medical issues. On the review of systems patient reports that her headaches are currently under control. She denies any new numbness or tingling. Denies any changes in her vision. Does report some occasional shortness of breath. No issues with swallowing Past Medical/Surgical History Medical Problems: (1) Abscess Status: Acute (2) Altered mental status Status: Acute (3) Altered mental status Status: Acute (4) Ataxia Status: Acute (5) Brain tumor Status: Acute (6) Cerebral edema Status: Acute (7) Headache Status: Acute (8) Headache Status: Acute (9) Intractable headache Status: Acute (10) Intractable headache Status: Acute (11) Malignant neoplasm metastatic to brain Status: Acute (12) Seizure Status: Acute (13) Sinus pain Status: Acute As noted above in history of present illness with the addition of diabetes, asthma, Medina's esophagus Family History Family history significant for mother with Parkinson's disease and diabetes Father with hypertension and stroke in his 30s Social History Patient does live with family to help with her care. No tobacco use. rare alcohol use in the past. Smoking Status: Never smoker Drug Use: none Marital Status: Housing Status: lives with significant other Occupation Status: retired, disabled Allergies Coded Allergies: Erythromycin (Unverified Adverse Reaction, Unknown, GI UPSET, 05/01/17) Current Inpatient Medications Current Inpatient Medications Medications (Trade) Dose Ordered Sig/Crow Route Start Time Stop Time Status Last Admin Dose Admin Dexamethasone Sodium Phosphate 4 mg/Syringe 1 ml @ 1 mls/min Q6H IV 05/01/17 23:00 05/31/17 22:59 05/02/17 12:33 1 MLS/MIN Levetiracetam 1000 mg/Dextrose 110 ml @ 440 mls/hr Q12H IV 05/02/17 08:00 06/01/17 07:59 05/02/17 08:10 440 MLS/HR Glucose (Glucose 40% Gel) 15-30 GRAMS 15 GRAMS... UD PRN PO 05/01/17 18:30 05/31/17 18:29 Glucose (Glucose Chew Tab) 4-8 Tablets 4 Tabl... UD PRN PO 05/01/17 18:30 05/31/17 18:29 Dextrose (Dextrose 50% 50ML Syringe) 25-50ML OF 50% DW IV FOR... UD PRN IV 05/01/17 18:30 05/31/17 18:29 Glucagon (Glucagon Inj) 1 mg UD PRN SQ 05/01/17 18:30 05/31/17 18:29 Miscellaneous Information (Consult Glycemic Management Pharmacy) 1 ea UD PRN N/A 05/01/17 19:00 05/31/17 18:59 Phenytoin Sodium 300 mg/Syringe 6 ml @ 1 mls/min DAILY IV 05/02/17 09:00 06/01/17 08:59 Sodium Chloride 20 ml/Syringe 20 ml @ 0 mls/min DAILY IV 05/02/17 09:00 06/01/17 08:59 Insulin Aspart (novoLOG ASPART) SLIDING SCALE If C... Q6 SC 05/02/17 00:00 06/01/17 00:00 05/02/17 12:14 2 UNITS Heparin Sodium (Porcine) (Heparin 100 Unit/ml 5ml Flush) 5 ml PRN PRN IV 05/02/17 01:15 06/01/17 01:14 Amitriptyline HCl (Elavil Tab) 100 mg HS PO 05/02/17 21:00 06/01/17 20:59 Baclofen (Lioresal Tab) 20 mg TID PO 05/02/17 14:00 06/01/17 13:59 Fluticasone Propionate (Flovent Hfa 110MCG Inhaler) 2 puffs BID INH 05/02/17 21:00 06/01/17 20:59 Fluticasone Propionate (Flonase Nasal [place]) 2 sprays QAM JUDE 05/03/17 09:00 06/02/17 08:59 Lorazepam (Ativan Tab) 1 mg HS PRN PO 05/02/17 10:00 06/01/17 09:59 Montelukast Sodium (Singulair Tab) 10 mg QAM PO 05/03/17 09:00 06/02/17 08:59 Morphine Sulfate (Oramorph Sr Tab) 15 mg BID PO 05/02/17 21:00 05/16/17 20:59 Oxycodone/ Acetaminophen (Percocet 5-325mg Tab) 1 tab Q6H PRN PO 05/02/17 10:00 05/16/17 09:59 Potassium Chloride (Klor-Con Tab) 20 meq BID PO 05/02/17 21:00 06/01/17 20:59 Ropinirole HCl (Requip Tab) 1 mg TID PO 05/02/17 14:00 06/01/17 13:59 Topiramate (Topamax Tab) 200 mg BID PO 05/02/17 21:00 06/01/17 20:59 Cholestyramine Resin (Questran Powder Light) 4 gm QID@1000,1400,1800,2200 PO 05/02/17 14:00 06/01/17 13:59 Pantoprazole Sodium (Protonix Tab) 40 mg QAM PO 05/03/17 09:00 06/02/17 08:59 Polyethylene (Miralax Powder Packet) 17 gm DAILY PRN PO 05/02/17 10:45 06/01/17 10:44 05/02/17 12:33 17 GM Verapamil HCl ([place]-Sr Tab) 120 mg BID PO 05/02/17 21:00 06/01/17 20:59 Insulin Glargine (Lantus Solostar Pen) 12 units QAM SC 05/02/17 11:00 06/01/17 10:59 05/02/17 12:04 12 UNITS Insulin Aspart (novoLOG ASPART) SLIDING SCALE If C... 0300 SC 05/03/17 03:00 05/03/17 03:01 Potassium Chloride/Sodium Chloride 1,000 ml @ 60 mls/hr [id number] IV 05/02/17 11:30 05/03/17 04:09 05/02/17 11:57 60 MLS/HR Review of Systems Complete review of systems otherwise negative except for the above-noted history of present illness Physical Exam Vital Signs (Past 24 Hrs): Date Time Temp Pulse Resp B/P (MAP) Pulse Ox O2 Delivery O2 Flow Rate FiO2 05/02/17 12:00 Room Air 05/02/17 11:24 37.1 111 18 167/111 (129) 97 Room Air 05/02/17 08:00 Room Air 05/02/17 07:15 37.2 111 16 165/104 (124) 97 Room Air 05/02/17 06:30 96 Room Air 05/02/17 04:00 Room Air 05/02/17 03:49 36.8 96 22 160/96 (117) 99 Nasal Cannula 1.0 05/01/17 23:59 Room Air 05/01/17 23:52 36.6 87 22 137/91 (106) 100 Nasal Cannula 1.0 05/01/17 19:59 36.3 94 14 126/87 (100) 99 Room Air 05/01/17 19:32 100 Nasal Cannula 2.0 05/01/17 18:03 36.4 86 15 112/76 99 05/01/17 16:17 83 18 107/75 98 Room Air 05/01/17 15:18 83 12 113/75 98 Room Air 05/01/17 14:49 85 12 97 05/01/17 14:45 105/73 05/01/17 14:34 81 16 97 05/01/17 14:30 110/81 05/01/17 14:25 128/74 05/01/17 14:19 89 12 97 05/01/17 14:08 90 05/01/17 14:06 36.5 89 18 119/81 96 Room Air 05/01/17 14:05 119/81 Gen.: Patient is alert and sitting in bed, in no acute distress. HEENT: Normocephalic /atraumatic, no scleral icterus Heart: Regular rate and rhythm Extremities: No gross deformities or rashes noted Neurological examination: Mental status: Patient is alert and oriented x3. She is oriented to person lays and year. She incorrectly stated the month was March. Attention and concentration normal for the situation. Fair fund of knowledge. Remote and recent memory intact. Speech is fluent without any dysarthria or aphasia noted Cranial nerve: Funduscopic examination was unremarkable. No papilledema. Pupils equally round and reactive to light. Extraocular muscles intact without nystagmus. No facial asymmetry noted. Facial sensation intact. Tongue is midline. Good palatal elevation. Good shoulder shrug bilaterally. Hearing grossly intact to voice. Strength: 5/5 both proximal and distally in all extremities. There is no arm drift. Tone is normal. Sensation: Grossly intact to light touch in all extremities. Deep tendon reflexes: +1 in bilateral biceps, brachioradialis and patellar. Coordination: Patient had good finger to nose without dysmetria Station within the bed was normal Laboratory Results Past 24 Hours: 05/02/17 07:03 Red Blood Count 3.64, Mean Corpuscular Volume 98.6, Mean Corpuscular Hemoglobin 32.4, Mean Corpuscular Hemoglobin Concent 32.9, Mean Platelet Volume 8.8, Neutrophils (%) (Auto) 91.6, Lymphocytes (%) (Auto) 2.5, Monocytes (%) (Auto) 5.5, Eosinophils (%) (Auto) 0.0, Basophils (%) (Auto) 0.0, Neutrophils # (Auto) 8.55, Lymphocytes # (Auto) 0.23, Monocytes # (Auto) 0.51, Eosinophils # (Auto) 0.00, Basophils # (Auto) 0.00 05/02/17 07:03 Test 05/01/17 14:24 05/01/17 18:12 05/02/17 07:03 05/02/17 10:41 Total Bilirubin 0.2 mg/dl (0.2-1) Direct Bilirubin < 0.1 mg/dl (0-0.2) Aspartate Amino Transf (AST/SGOT) 30 U/L (15-37) Alanine Aminotransferase (ALT/SGPT) 31 U/L (12-78) Alkaline Phosphatase 132 U/L (45-117) Total Protein 6.4 gm/dl (6.4-8.2) Albumin 2.3 gm/dl (3.4-5.0) Urine Color YELLOW Urine Appearance CLOUDY (CLEAR) Urine pH 7.5 (4.5-7.5) Urine Specific [place] 1.024 (1.000-1.030) Urine Protein NEG (NEG) Urine Glucose (UA) TRACE (NEG) Urine Ketones NEG (NEG) Urine Occult Blood 2+ (NEG) Urine Nitrite NEG (NEG) Urine Bilirubin NEG (NEG) Urine Urobilinogen NEG (NEG) Urine Leukocyte Esterase NEG (NEG) Urine WBC (Auto) 1-5 /hpf (0-5) Urine RBC (Auto) >30 /hpf (0-4) Urine Hyaline Casts (Auto) 1-5 /lpf (0-5) Urine Epithelial Cells (Auto) 20-30 /lpf (0-5) Urine Bacteria (Auto) NEG (NEG) White Blood Count 9.33 K/uL (4.8-10.8) Red Blood Count 3.64 M/uL (4.2-5.4) Hemoglobin 11.8 g/dL (12.0-16.0) Hematocrit 35.9 % (37-47) Mean Corpuscular Volume 98.6 fL (80-100) Mean Corpuscular Hemoglobin 32.4 pg (25-34) Mean Corpuscular Hemoglobin Concent 32.9 g/dl (32-36) Platelet Count 287 K/uL (130-400) Mean Platelet Volume 8.8 fL (7.4-10.4) Neutrophils (%) (Auto) 91.6 % Lymphocytes (%) (Auto) 2.5 % Monocytes (%) (Auto) 5.5 % Eosinophils (%) (Auto) 0.0 % Basophils (%) (Auto) 0.0 % Neutrophils # (Auto) 8.55 K/uL (1.4-6.5) Lymphocytes # (Auto) 0.23 K/uL (1.2-3.4) Monocytes # (Auto) 0.51 K/uL (0.11-0.59) Eosinophils # (Auto) 0.00 K/uL (0-0.5) Basophils # (Auto) 0.00 K/uL (0-0.2) RDW Standard Deviation 57.6 fL (36.4-46.3) RDW Coefficient of Variation 15.9 % (11.5-14.5) Immature Granulocyte % (Auto) 0.4 % Immature Granulocyte # (Auto) 0.04 K/uL (0.00-0.02) Anion Gap 10.0 mmol/L (3-11) Est Creatinine Clear Calc Drug Dose 85.1 ml/min Estimated GFR () 123.0 Estimated GFR (Non- 106.1 BUN/Creatinine Ratio 20.8 (10-20) Calcium Level 7.8 mg/dl (8.5-10.1) Magnesium Level 2.0 mg/dl (1.8-2.4) Phenytoin (Dilantin) Level 14.3 mcg/mL (10-20) Test 05/02/17 11:10 Bedside Glucose 179 mg/dl (70-90) Date/Time Source Procedure Growth Status 05/02/17 08:00 Nasal MRSA DNA Surveillance Screen - Final Specimen Negative for MRSA by DNA Probe Complete Imaging As noted above in history of present illness Impression This is a 56-year-old female with breakthrough tonic-clonic seizure and prolonged encephalopathy around the event. Appears to be improved this morning. While the patient does have a remote history of seizures, current seizure etiology likely secondary to brain metastasis. Decreased vasogenic edema compared to scans in February. Plan Agree with increasing Keppra to 1000 mg twice a day for seizure prophylaxis Continue home Lamictal 150 mg twice a day and Topamax 200 mg twice a day. Lamictal level is pending but will likely take a week to come back Decadron management per the patient's oncologist. I do not think that there is any reason to increase the dose at this time since there is decreased vasogenic edema compared to a previous scan. Patient could reasonably be discharged later today if she appears to be close to her baseline. If there is any concerns that the patient has not reasonably recovered, could consider repeating an MRI of her brain. I discussed with family that she does not need to come to the emergency room for every breakthrough seizure and could call the neurology clinic for instructions. I do agree so that if she does not return back to normal within a few hours that she does need to come to the hospital for further evaluation and IV medication management. Thank you for allowing me to participate in this patient's care. If there is any questions or concerns, feel free to call/page me
--- NOTE | 2017-05-02 13:59 | Pharmacy Progress Note ---
Glycemic Control Intl Consult Date of Service May 02, 2017. Scope Glycemic Pharmacist consulted by Dr Raines on 05/01/17 for glycemic control and to write orders per [facility] inpatient glycemic control protocol Objective Weight (Kilograms): 50.400 Accuchecks BSG (last 24hrs): Test 05/01/17 14:24 05/01/17 18:01 05/01/17 20:39 05/01/17 23:56 Random Glucose 157 mg/dl (70-99) Bedside Glucose 164 mg/dl (70-90) 187 mg/dl (70-90) 228 mg/dl (70-90) Test 05/02/17 00:38 05/02/17 06:12 05/02/17 07:03 05/02/17 11:10 Random Glucose 261 mg/dl (70-99) 225 mg/dl (70-99) Bedside Glucose 228 mg/dl (70-90) 179 mg/dl (70-90) Laboratory Data (last 24hrs) Test 05/01/17 14:24 05/02/17 00:38 05/02/17 07:03 Anion Gap 8.0 mmol/L 7.0 mmol/L 10.0 mmol/L BUN/Creatinine Ratio 29.2 28.0 20.8 Blood Urea Nitrogen 12 mg/dl 13 mg/dl 11 mg/dl Creatinine 0.42 mg/dl 0.48 mg/dl 0.53 mg/dl Potassium Level 3.3 mmol/L 4.2 mmol/L 3.6 mmol/L Sodium Level 137 mmol/L 137 mmol/L 139 mmol/L White Blood Count 7.82 K/uL 9.33 K/uL Red Blood Count 3.28 M/uL 3.64 M/uL Hemoglobin 10.7 g/dL 11.8 g/dL Hematocrit 32.1 % 35.9 % Mean Corpuscular Volume 97.9 fL 98.6 fL Mean Corpuscular Hemoglobin 32.6 pg 32.4 pg Mean Corpuscular Hemoglobin Concent 33.3 g/dl 32.9 g/dl Platelet Count 242 K/uL 287 K/uL Mean Platelet Volume 8.6 fL 8.8 fL Neutrophils (%) (Auto) 94.7 % 91.6 % Lymphocytes (%) (Auto) 2.6 % 2.5 % Monocytes (%) (Auto) 2.3 % 5.5 % Eosinophils (%) (Auto) 0.0 % 0.0 % Basophils (%) (Auto) 0.0 % 0.0 % Neutrophils # (Auto) 7.41 K/uL 8.55 K/uL Lymphocytes # (Auto) 0.20 K/uL 0.23 K/uL Monocytes # (Auto) 0.18 K/uL 0.51 K/uL Eosinophils # (Auto) 0.00 K/uL 0.00 K/uL Basophils # (Auto) 0.00 K/uL 0.00 K/uL HbA1c Test 05/02/17 07:03 Recent Pertinent Medications Outpatient Anti-diabetic Regimen: * Lantus 9 units SQ qam (12-14 units while on steroids) + Novolog CR: 1 units per 20 grams CHO * A1c = 6.2 % (11/28/16) - ordered for 05/03 Risk Factors for Insulin Resistance: * Steroids: Dexamethasone 4 mg IV q6h (on 4 mg PO TID as outpatient) * IVF: D5NS @ 60 ml/hr * Diet: NPO -> T1DM Assessment & Plan ASSESSMENT: * 56 yr old T1DM female admitted with AMS on high dose IV steroids. Good outpatient control. * Patient was previously admitted to [facility] (November 2016) and was also on steroids during this admission (dexamethasone PO). * Lantus 12 units daily + Novolog CF/CR: 60/15 produced adequate BSG control. Will start the patient on this regimen and titrate as needed. * CF/CR will likely need loosened back to 75/20 with decrease in steroids. * ADA & AACE recommend a goal blood sugar range 140-180 mg/dl for the majority of critically ill & non-critically ill patients. However, more stringent targets may be selected in individual cases. PLAN FOR INPATIENT GLYCEMIC CONTROL: * Basal insulin * LANTUS 12 units SQ qAM * Correctional Insulin with NOVOLOG per scale ACHS or Q6hrs while NPO * Goal Range: Low 140 mg/dL - High 180 mg/dL * Correction Factor: 60 mg/dL/unit * Nutritional / Prandial insulin per carb ratio of 1 unit per 15 grams CHO consumed DISCHARGE RECOMMENDATIONS: * Good outpatient control evidenced by most recent A1c of 6.2% * Patient can likely continue home regimen on discharge. * Please note that the plan above was derived based on current level of insulin resistance and hospital stress. These recommendations are appropriate for inpatient admission only. Plan of care upon discharge will need to be reassessed to avoid potential outpatient hypo/hyperglycemia. Thank you.
[2017-05-02] MEDS: CHOLESTYRAMINE LIGHT 4 GM PKT PO SCH ×3 (14:00→21:00)
[2017-05-02] MEDS ORDERED: TOPIRAMATE 100 MG TAB PO ONE (14:15)
[2017-05-02] MEDS: ROPINIROLE HCL 1 MG TAB PO SCH ×2 (14:40→21:02)
[2017-05-02] MEDS: BACLOFEN 10 MG TAB PO SCH ×2 (14:40→21:02)
[2017-05-02] MEDS ORDERED: CLONIDINE HCL 0.1 MG TAB PO PRN (16:15)
[2017-05-02] MEDS: PANTOprazole SOD 40 MG TAB PO SCH (19:09)
[2017-05-02] MEDS ORDERED: NURSING VERBAL MED ORDER ONE (19:15)
[2017-05-02] MEDS ORDERED: VERAPAMIL HCL 120 MG TABCR PO SCH (21:00)
[2017-05-02] MEDS ORDERED: DEXAMETHASONE 4 MG TAB PO SCH (21:00)
[2017-05-02] MEDS ORDERED: LEVETIRACETAM 500 MG TAB PO SCH (21:00)
[2017-05-02] MEDS ORDERED: BOOST GLUCOSE CONTROL PO SCH (21:00)
[2017-05-02] MEDS: AMITRIPTYLINE HCL 50 MG TAB PO SCH (21:01)
[2017-05-02] MEDS: TOPIRAMATE 100 MG TAB PO SCH (21:01)
[2017-05-02] MEDS: FLUTICASONE HFA 110MCG INHALER INH SCH (21:04)
[2017-05-02] MEDS: POTASSIUM CHLORIDE 20 MEQ TABCR PO SCH (21:05)
[2017-05-02] MEDS: MoRPHine SULFATE CR 15 MG TAB (MS CONTIN) PO SCH (21:09)
[2017-05-03] VITALS (10 sets, daily range): BP systolic 144–188; BP diastolic 89–110; PULSE 97–130; TEMP 36.4–37; O2SAT 96–99
[2017-05-03] MEDS ORDERED: INSULIN ASPART 100 UNITS/ML 3 ML PEN SC SCH (03:00)
[2017-05-03 05:14] LABS: BASO % 0.2 %; BASO ABS # 0.02 K/uL (0-0.2); COMPLETE YES; HEMATOCRIT 37.6 % (37-47); IG% 0.5 %; LYMPH % 3.8 %; LYMPH ABS # 0.32 K/uL (1.2-3.4); MEAN CELL VOLUME 97.4 fL (80-100); MEAN CORPUSCULAR HEMOGLOBIN 31.9 pg (25-34); MEAN CORPUSCULAR HGB CONC 32.7 g/dl (32-36); MEAN PLATELET VOLUME 8.8 fL (7.4-10.4); MONO % 7.4 %; NEUT % 88.1 %; PLATELET COUNT 274 K/uL (130-400); RED BLOOD COUNT 3.86 M/uL (4.2-5.4)
[2017-05-03] MEDS ORDERED: NALOXONE HCL 0.4 MG/1 ML VIAL/CARP IV STA ×2 (05:20→05:36)
[2017-05-03] MEDS ORDERED: NALOXONE HCL 0.4 MG/1 ML VIAL/CARP ONE (05:24)
[2017-05-03] MEDS ORDERED: DILTIAZEM HCL 5 MG/ML 5 ML VIAL IV STA ×3 (05:36→06:27)
[2017-05-03 05:48] LABS: BUN/CREATININE RATIO 15.4 (10-20); CALCIUM 8.1 mg/dl (8.5-10.1); CREATININE 0.36 mg/dl (0.60-1.20); MAGNESIUM 2.2 mg/dl (1.8-2.4); POTASSIUM 3.9 mmol/L (3.5-5.1)
[2017-05-03] MEDS ORDERED: LORAZEPAM 2 MG/ML 1 ML VIAL IV STA (06:30)
[2017-05-03] MEDS ORDERED: LORAZEPAM 2 MG/ML 1 ML VIAL ONE (06:31)
[2017-05-03] MEDS: INSULIN ASPART 100 UNITS/ML 3 ML PEN SC SCH ×4 (07:00→20:24)
--- NOTE | 2017-05-03 07:17 | DIAGNOSTIC IMAGING REPORT ---
HEAD WITHOUT CONTRAST (CT) CLINICAL HISTORY: 56 years-old Female with ams. Acute altered mental status . History of metastatic breast cancer TECHNIQUE: Multiple axial CT images of the head were obtained without contrast. A dose lowering technique was utilized adhering to the principles of ALARA. CT DOSE: 537.48 mGy.cm COMPARISON: CT head 05/01/2017, brain MR 03/13/2017. FINDINGS: 1.9 x 1.4 cm mass of the right parietal lobe abutting the falx cerebri is again seen with moderate amount of surrounding vasogenic edema, unchanged from comparison. There is unchanged 5 mm leftward midline shift/subfalcine herniation. There is no acute intracranial hemorrhage or abnormal extra-axial collections. No territorial ischemia. Ill-defined areas of low attenuation are again seen involving the periventricular white matter suggesting chronic microvascular ischemic changes. No hydrocephalus. Skull appears intact. Paranasal sinuses are generally clear. Soft tissues are unremarkable. Orbits appear symmetric. IMPRESSION: 1. Intra-axial mass of the right parietal lobe abutting the falx cerebri appears unchanged with moderate associated vasogenic edema and 5 mm leftward midline shift/subfalcine herniation. 2. No hydrocephalus or intracranial hemorrhage. The above report was generated using voice recognition software. It may contain grammatical, syntax or spelling errors. Electronically signed by: Agapito Maloney M.D. 05/03/2017 7:16 AM Dictated Date/Time: 05/03/2017 7:09 AM
[2017-05-03] MEDS: BOOST GLUCOSE CONTROL PO SCH ×2 (07:30→15:23)
[2017-05-03] MEDS: CHOLESTYRAMINE LIGHT 4 GM PKT PO SCH ×4 (08:31→20:17)
[2017-05-03 08:39] LABS: ESTIMATED AVERAGE GLUCOSE 146 mg/dl; HA1C FLAG Normal (Normal)
[2017-05-03] MEDS: FLUTICASONE HFA 110MCG INHALER INH SCH ×2 (09:00→20:08)
[2017-05-03] MEDS: MONTELUKAST SOD 10 MG TAB PO SCH (09:00)
[2017-05-03] MEDS: POTASSIUM CHLORIDE 20 MEQ TABCR PO SCH ×2 (09:00→20:16)
[2017-05-03] MEDS ORDERED: LEVETIRACETAM IV 1,000 MG in DEXTROSE 5% 100ML 100 ML IV SCH (09:00)
[2017-05-03] MEDS: BACLOFEN 10 MG TAB PO SCH ×3 (09:00→20:17)
[2017-05-03] MEDS: ROPINIROLE HCL 1 MG TAB PO SCH ×3 (09:00→20:15)
[2017-05-03] MEDS: TOPIRAMATE 100 MG TAB PO SCH ×2 (09:00→20:15)
[2017-05-03] MEDS: MoRPHine SULFATE CR 15 MG TAB (MS CONTIN) PO SCH ×2 (09:00→20:20)
[2017-05-03] MEDS: PANTOprazole SOD 40 MG TAB PO SCH (09:00)
[2017-05-03] MEDS: FLUTICASONE PROPIONATE NA SPR 16 GM BTL NAE SCH (09:00)
--- NOTE | 2017-05-03 09:26 | Progress Note ---
Medicine Progress Note Date & Time of Visit: May 03, 2017 at 09:18. Subjective noted to be unresponsive this morning with twitching given Narcan, Ativan, Cardizem this morning, able to have some breakfast but still drowsy barely opens eye to verbal stimuli, says no when asked if she is in pain no other symptoms Objective Last 8 Hrs Date Time Temp Pulse Resp B/P (MAP) Pulse Ox O2 Delivery O2 Flow Rate FiO2 05/03/17 08:01 36.8 108 18 144/91 (108) 98 Room Air 05/03/17 06:39 119 165/100 (121) 05/03/17 06:17 121 155/96 (115) 05/03/17 05:58 125 172/104 (126) 05/03/17 05:50 130 188/110 (136) 05/03/17 04:45 36.8 108 16 155/102 (119) 96 Room Air 150/95 (113) 05/03/17 04:00 Room Air Physical Exam: General-drowsy, somewhat confused, not in distress,no acc muscle use Eyes- PERRL, anicteric Neck- supple, no JVD Lungs- clear breath sounds bilaterally, no rales/wheezes Heart- regular rhythm; no murmur, normal rate Abdomen- normal bowel sounds, soft, nontender Extremities- no pretibial edema, no calf tenderness; peripheral pulses intact Neuro- drowsy, no gross focal deficits Skin- warm & dry Laboratory Results: Last 24 Hours Test 05/02/17 10:41 05/02/17 11:10 05/02/17 11:48 05/02/17 17:11 Phenytoin (Dilantin) Level 14.3 mcg/mL Bedside Glucose 179 mg/dl 162 mg/dl 173 mg/dl Test 05/02/17 20:59 05/03/17 03:13 05/03/17 05:04 05/03/17 05:08 Bedside Glucose 142 mg/dl 112 mg/dl 116 mg/dl White Blood Count 8.50 K/uL Red Blood Count 3.86 M/uL Hemoglobin 12.3 g/dL Hematocrit 37.6 % Mean Corpuscular Volume 97.4 fL Mean Corpuscular Hemoglobin 31.9 pg Mean Corpuscular Hemoglobin Concent 32.7 g/dl Platelet Count 274 K/uL Mean Platelet Volume 8.8 fL Neutrophils (%) (Auto) 88.1 % Lymphocytes (%) (Auto) 3.8 % Monocytes (%) (Auto) 7.4 % Eosinophils (%) (Auto) 0.0 % Basophils (%) (Auto) 0.2 % Neutrophils # (Auto) 7.49 K/uL Lymphocytes # (Auto) 0.32 K/uL Monocytes # (Auto) 0.63 K/uL Eosinophils # (Auto) 0.00 K/uL Basophils # (Auto) 0.02 K/uL RDW Standard Deviation 57.1 fL RDW Coefficient of Variation 16.1 % Immature Granulocyte % (Auto) 0.5 % Immature Granulocyte # (Auto) 0.04 K/uL Sodium Level 138 mmol/L Potassium Level 3.9 mmol/L Chloride Level 108 mmol/L Carbon Dioxide Level 22 mmol/L Anion Gap 8.0 mmol/L Blood Urea Nitrogen 6 mg/dl Creatinine 0.36 mg/dl Est Creatinine Clear Calc Drug Dose 125.3 ml/min Estimated GFR () 139.7 Estimated GFR (Non- 120.5 BUN/Creatinine Ratio 15.4 Random Glucose 121 mg/dl Calcium Level 8.1 mg/dl Magnesium Level 2.2 mg/dl Assessment & Plan 56 year old female with history of Breast CA, with mets to the brain, bone, liver; Seizure, DM 1, other problems notes below presenting with altered mental status. AMS POSSIBLE BREAKTHROUGH SEIZURES BREAST CANCER WITH BRAIN METASTASES - 05/01 increase Keppra to 1g BID start Dilantin loading dose 1g then 300mg daily increase Decadron to 4mg QID -- 05/02 mental status almost back to baseline continued increase dose of Keppra 1000mg BID continued usual medications for seizure -- 05/03 lethargic, (+) twitching CT head: unchanged overall discussed with Dr. Goodman, will continue Keppra 1000mg IV BID, continue other usual medications MRI brain, EEG discussed with patient's Dann at the bedside CHEST DISCOMFORT - CXR: Persistent left lung volume loss with left-sided pleural thickening. Interstitial opacities left greater than right, similar to the prior study given the differences in technique. - not hypoxic possible muscular etiology -- denies pain today HYPOKALEMIA - IV K ordered - K normalized - continue usual Potassium supplement BID BREAST CANCER WITH METS - Xeloda on hold on Palliative Care SVC at home follows with Dr. Junior YOUNGBLOOD 1 - ISS - Pharmacy Glycemic Consult HYPERTENSION - continue usual Verapamil 120mg BID MIGRAINE - continue usual medications Neurology consulted CHRONIC PAIN - continue Morphine FULL CODE PER FAMILY DVT prophylaxis SCDs for (+) brain mets DISPOSITION pending lives at home with family Current Inpatient Medications: Current Inpatient Medications Medications (Trade) Dose Ordered Sig/Crow Route Start Time Stop Time Status Last Admin Dose Admin Glucose (Glucose 40% Gel) 15-30 GRAMS 15 GRAMS... UD PRN PO 05/01/17 18:30 05/31/17 18:29 Glucose (Glucose Chew Tab) 4-8 Tablets 4 Tabl... UD PRN PO 05/01/17 18:30 05/31/17 18:29 Dextrose (Dextrose 50% 50ML Syringe) 25-50ML OF 50% DW IV FOR... UD PRN IV 05/01/17 18:30 05/31/17 18:29 Glucagon (Glucagon Inj) 1 mg UD PRN SQ 05/01/17 18:30 05/31/17 18:29 Miscellaneous Information (Consult Glycemic Management Pharmacy) 1 ea UD PRN N/A 05/01/17 19:00 05/31/17 18:59 Heparin Sodium (Porcine) (Heparin 100 Unit/ml 5ml Flush) 5 ml PRN PRN IV 05/02/17 01:15 06/01/17 01:14 05/02/17 19:09 5 ML Amitriptyline HCl (Elavil Tab) 100 mg HS PO 05/02/17 21:00 06/01/17 20:59 05/02/17 21:01 100 MG Baclofen (Lioresal Tab) 20 mg TID PO 05/02/17 14:00 06/01/17 13:59 05/02/17 21:02 20 MG Fluticasone Propionate (Flovent Hfa 110MCG Inhaler) 2 puffs BID INH 05/02/17 21:00 06/01/17 20:59 05/02/17 21:04 2 PUFFS Fluticasone Propionate (Flonase Nasal [place]) 2 sprays QAM JUDE 05/03/17 09:00 06/02/17 08:59 Lorazepam (Ativan Tab) 1 mg HS PRN PO 05/02/17 10:00 06/01/17 09:59 Montelukast Sodium (Singulair Tab) 10 mg QAM PO 05/03/17 09:00 06/02/17 08:59 Morphine Sulfate (Oramorph Sr Tab) 15 mg BID PO 05/02/17 21:00 05/16/17 20:59 05/02/17 21:09 15 MG Oxycodone/ Acetaminophen (Percocet 5-325mg Tab) 1 tab Q6H PRN PO 05/02/17 10:00 05/16/17 09:59 Potassium Chloride (Klor-Con Tab) 20 meq BID PO 05/02/17 21:00 06/01/17 20:59 05/02/17 21:05 20 MEQ Ropinirole HCl (Requip Tab) 1 mg TID PO 05/02/17 14:00 06/01/17 13:59 05/02/17 21:02 1 MG Topiramate (Topamax Tab) 200 mg BID PO 05/02/17 21:00 06/01/17 20:59 05/02/17 21:01 200 MG Cholestyramine Resin (Questran Powder Light) 4 gm QID@1000,1400,1800,2200 PO 05/02/17 14:00 06/01/17 13:59 Pantoprazole Sodium (Protonix Tab) 40 mg QAM PO 05/03/17 09:00 06/02/17 08:59 05/02/17 19:09 40 MG Polyethylene (Miralax Powder Packet) 17 gm DAILY PRN PO 05/02/17 10:45 06/01/17 10:44 05/02/17 12:33 17 GM Insulin Glargine (Lantus Solostar Pen) 12 units QAM SC 05/02/17 11:00 06/01/17 10:59 05/02/17 12:04 12 UNITS Insulin Aspart (novoLOG ASPART) SLIDING SCALE If C... ACHS SC 05/02/17 16:15 06/01/17 16:14 Dexamethasone (Decadron Tab) 4 mg TID PO 05/02/17 21:00 06/01/17 20:59 05/02/17 21:03 4 MG Lamotrigine (Lamictal Tab) 150 mg BID PO 05/02/17 21:00 06/01/17 20:59 05/02/17 21:03 150 MG Clonidine HCl (Catapres Tab) 0.1 mg Q6H PRN PO 05/02/17 16:15 06/01/17 16:14 05/02/17 16:56 0.1 MG Verapamil HCl (Calan-Sr Tab) 120 mg BID PO 05/03/17 21:00 06/01/17 20:59 Enteral Nutritional Formula (Boost Glucose Control) 1 can BIDM PO 05/03/17 07:30 06/02/17 07:29 Levetiracetam 1000 mg/Dextrose 110 ml @ 440 mls/hr Q12H IV 05/03/17 09:00 06/02/17 08:59
--- NOTE | 2017-05-03 09:56 | Neurology Progress Notes ---
Neurology Progress Note Date of Service May 03, 2017. Subjective Follow-up for seizures, brain metastases The patient is a 56-year-old female with a history of metastatic breast cancer but unfortunately has been progressive over the past few years. She has continued to follow with Dr. Soto at [facility] and has had several gamma knife procedures to address metastatic deposits within her brain. She was last seen by Dr. Soto in March, about 3 weeks ago, and had an up-to-date brain MRI completed at that time. 38 brain metastases were identified according to a clinic note from Dr. Soto dated 04/15/2017. Discussion was also have regarding proceeding with whole brain radiation of additional disease were to be identified. She has been prescribed corticosteroids to address persistent cerebral edema related to her metastatic disease. I been following this patient for seizures and migraines. She is prescribed several anticonvulsants including Lamictal, Keppra, and topiramate. She presented with seizures and was given Dilantin as well during this hospitalization. She continues to have some lethargy and confusion and may have had another seizure this morning as she was poorly responsive and had some observed muscular twitching. Her Keppra dosage has been increased during this hospitalization. The Dilantin has been discontinued. Another brain MRI has been ordered for today. A CT of the head completed this morning reveals a stable right parietal lobe lesion abutting the falx with associated cerebral edema. Objective Date Time Temp Pulse Resp B/P (MAP) Pulse Ox O2 Delivery O2 Flow Rate FiO2 05/03/17 08:01 36.8 108 18 144/91 (108) 98 Room Air 05/03/17 06:39 119 165/100 (121) 05/03/17 06:17 121 155/96 (115) 05/03/17 05:58 125 172/104 (126) 05/03/17 05:50 130 188/110 (136) 05/03/17 04:45 36.8 108 16 155/102 (119) 96 Room Air 150/95 (113) 05/03/17 04:00 Room Air 05/03/17 00:19 36.7 114 16 149/94 (112) 96 Room Air 05/02/17 23:59 Room Air 05/02/17 20:55 36.9 103 18 169/98 (121) 96 Room Air 05/02/17 20:00 Room Air 05/02/17 18:10 167/97 (120) 05/02/17 16:00 Room Air 05/02/17 15:50 36.8 109 20 175/104 (127) 96 Room Air 05/02/17 14:51 180/99 (126) 05/02/17 12:00 Room Air 05/02/17 11:24 37.1 111 18 167/111 (129) 97 Room Air Last 24 Hours Test 05/02/17 10:41 05/02/17 11:10 05/02/17 11:48 05/02/17 17:11 Phenytoin (Dilantin) Level 14.3 mcg/mL Bedside Glucose 179 mg/dl 162 mg/dl 173 mg/dl Test 05/02/17 20:59 05/03/17 03:13 05/03/17 05:04 05/03/17 05:08 Bedside Glucose 142 mg/dl 112 mg/dl 116 mg/dl White Blood Count 8.50 K/uL Red Blood Count 3.86 M/uL Hemoglobin 12.3 g/dL Hematocrit 37.6 % Mean Corpuscular Volume 97.4 fL Mean Corpuscular Hemoglobin 31.9 pg Mean Corpuscular Hemoglobin Concent 32.7 g/dl Platelet Count 274 K/uL Mean Platelet Volume 8.8 fL Neutrophils (%) (Auto) 88.1 % Lymphocytes (%) (Auto) 3.8 % Monocytes (%) (Auto) 7.4 % Eosinophils (%) (Auto) 0.0 % Basophils (%) (Auto) 0.2 % Neutrophils # (Auto) 7.49 K/uL Lymphocytes # (Auto) 0.32 K/uL Monocytes # (Auto) 0.63 K/uL Eosinophils # (Auto) 0.00 K/uL Basophils # (Auto) 0.02 K/uL RDW Standard Deviation 57.1 fL RDW Coefficient of Variation 16.1 % Immature Granulocyte % (Auto) 0.5 % Immature Granulocyte # (Auto) 0.04 K/uL Sodium Level 138 mmol/L Potassium Level 3.9 mmol/L Chloride Level 108 mmol/L Carbon Dioxide Level 22 mmol/L Anion Gap 8.0 mmol/L Blood Urea Nitrogen 6 mg/dl Creatinine 0.36 mg/dl Est Creatinine Clear Calc Drug Dose 125.3 ml/min Estimated GFR () 139.7 Estimated GFR (Non- 120.5 BUN/Creatinine Ratio 15.4 Random Glucose 121 mg/dl Calcium Level 8.1 mg/dl Magnesium Level 2.2 mg/dl Exam: The patient is lethargic this morning. She opens her eyes briefly to verbal stimulation. She is oriented to person and hospital and recognizes her at bedside. Attention and concentration are impaired. I do not appreciate any gross facial asymmetry or droop. She appears not agitated and is able to spontaneously move her limbs and does so in an equal fashion. Current Inpatient Medications Medications (Trade) Dose Ordered Sig/Crow Route Start Time Stop Time Status Last Admin Dose Admin Glucose (Glucose 40% Gel) 15-30 GRAMS 15 GRAMS... UD PRN PO 05/01/17 18:30 05/31/17 18:29 Glucose (Glucose Chew Tab) 4-8 Tablets 4 Tabl... UD PRN PO 05/01/17 18:30 05/31/17 18:29 Dextrose (Dextrose 50% 50ML Syringe) 25-50ML OF 50% DW IV FOR... UD PRN IV 05/01/17 18:30 05/31/17 18:29 Glucagon (Glucagon Inj) 1 mg UD PRN SQ 05/01/17 18:30 05/31/17 18:29 Miscellaneous Information (Consult Glycemic Management Pharmacy) 1 ea UD PRN N/A 05/01/17 19:00 05/31/17 18:59 Heparin Sodium (Porcine) (Heparin 100 Unit/ml 5ml Flush) 5 ml PRN PRN IV 05/02/17 01:15 06/01/17 01:14 05/02/17 19:09 5 ML Amitriptyline HCl (Elavil Tab) 100 mg HS PO 05/02/17 21:00 06/01/17 20:59 05/02/17 21:01 100 MG Baclofen (Lioresal Tab) 20 mg TID PO 05/02/17 14:00 06/01/17 13:59 05/02/17 21:02 20 MG Fluticasone Propionate (Flovent Hfa 110MCG Inhaler) 2 puffs BID INH 05/02/17 21:00 06/01/17 20:59 05/02/17 21:04 2 PUFFS Fluticasone Propionate (Flonase Nasal [place]) 2 sprays QAM JUDE 05/03/17 09:00 06/02/17 08:59 Lorazepam (Ativan Tab) 1 mg HS PRN PO 05/02/17 10:00 06/01/17 09:59 Montelukast Sodium (Singulair Tab) 10 mg QAM PO 05/03/17 09:00 06/02/17 08:59 Morphine Sulfate (Oramorph Sr Tab) 15 mg BID PO 05/02/17 21:00 05/16/17 20:59 05/02/17 21:09 15 MG Oxycodone/ Acetaminophen (Percocet 5-325mg Tab) 1 tab Q6H PRN PO 05/02/17 10:00 05/16/17 09:59 Potassium Chloride (Klor-Con Tab) 20 meq BID PO 05/02/17 21:00 06/01/17 20:59 05/02/17 21:05 20 MEQ Ropinirole HCl (Requip Tab) 1 mg TID PO 05/02/17 14:00 06/01/17 13:59 05/02/17 21:02 1 MG Topiramate (Topamax Tab) 200 mg BID PO 05/02/17 21:00 06/01/17 20:59 05/02/17 21:01 200 MG Cholestyramine Resin (Questran Powder Light) 4 gm QID@1000,1400,1800,2200 PO 05/02/17 14:00 06/01/17 13:59 Pantoprazole Sodium (Protonix Tab) 40 mg QAM PO 05/03/17 09:00 06/02/17 08:59 05/02/17 19:09 40 MG Polyethylene (Miralax Powder Packet) 17 gm DAILY PRN PO 05/02/17 10:45 06/01/17 10:44 05/02/17 12:33 17 GM Insulin Glargine (Lantus Solostar Pen) 12 units QAM SC 05/02/17 11:00 06/01/17 10:59 05/02/17 12:04 12 UNITS Insulin Aspart (novoLOG ASPART) SLIDING SCALE If C... ACHS SC 05/02/17 16:15 06/01/17 16:14 Dexamethasone (Decadron Tab) 4 mg TID PO 05/02/17 21:00 06/01/17 20:59 05/02/17 21:03 4 MG Lamotrigine (Lamictal Tab) 150 mg BID PO 05/02/17 21:00 06/01/17 20:59 05/02/17 21:03 150 MG Clonidine HCl (Catapres Tab) 0.1 mg Q6H PRN PO 05/02/17 16:15 06/01/17 16:14 05/02/17 16:56 0.1 MG Verapamil HCl (Calan-Sr Tab) 120 mg BID PO 05/03/17 21:00 06/01/17 20:59 Enteral Nutritional Formula (Boost Glucose Control) 1 can BIDM PO 05/03/17 07:30 06/02/17 07:29 Levetiracetam 1000 mg/Dextrose 110 ml @ 440 mls/hr Q12H IV 05/03/17 09:00 06/02/17 08:59 Potassium Chloride/Sodium Chloride 1,000 ml @ 75 mls/hr [id number] IV 05/03/17 09:30 06/02/17 09:29 Morphine Sulfate (MoRPHine SULFATE INJ) 4 mg Q12H PRN IV 05/03/17 09:30 05/17/17 09:29 UNV Impression Progressive metastatic disease with multiple [employer] metastases in a 56 year old female with a history of breast cancer. She's been experiencing recurrent seizures and is currently encephalopathic. Plan I agree with obtaining an up-to-date brain MRI today. I would like this patient have an up-to-date EEG as well. Increase Keppra to 1500 mg twice daily. Continue topiramate and Lamictal. I will make further recommendations pending completion of the above testing.
[2017-05-03] MEDS: NSS + 20MEQ KCL 1000ML 1,000 ML IV SCH (10:04)
[2017-05-03] MEDS: INSULIN GLARGINE SOLOSTAR 100 UNITS/ML 3 ML PEN SC SCH (10:06)
--- NOTE | 2017-05-03 12:16 | Pharmacy Progress Note ---
Glycemic Control Progress Note Date of Service May 03, 2017. Scope Glycemic Pharmacist consulted for glycemic control to write orders per [facility] ED inpatient glycemic control protocol. Objective Accuchecks BSG (last 24hrs): Test 05/02/17 17:11 05/02/17 20:59 05/03/17 03:13 05/03/17 05:04 Bedside Glucose 173 mg/dl (70-90) 142 mg/dl (70-90) 112 mg/dl (70-90) Random Glucose 121 mg/dl (70-99) Test 05/03/17 05:08 05/03/17 11:14 Bedside Glucose 116 mg/dl (70-90) 121 mg/dl (70-90) HbA1c: Test 05/02/17 07:03 Hemoglobin A1c 6.7 % (4.5-5.6) H Recent Pertinent Medications The patient is currently receiving: * Basal insulin: Lantus 12 units SC qAM * Correctional Insulin: Novolog Correction per scale ACHS Goal Range: Low 140 mg/dL - High 180 mg/dL Correction Factor: 60 mg/dL/unit * Prandial insulin: Per carb ratio of 1 unit per 15 grams CHO consumed Outpatient Anti-Diabetic Meds Lantus 9 units SQ qam (12-14 units while on steroids) + Novolog CR: 1 units per 20 grams CHO A1c = 6.7 % on 05/02/17 Assessment & Plan ASSESSMENT: * 56 yo F Type 1 diabetic with metastatic breast cancer and significant brain mets admitted with AMS * Changes in stressors / patient status * Patient lethargic, confused with possible seizure this AM per neurology * Patient is not eating a significant amount of CHO at this time * Dexamethasone was switched to home po regimen yesterday (4 mg po TID) but then switched back to IV today, likely 2nd AMS * Changes to/assessment of insulin regimen * Would normally decrease basal by ~20% in T1DM for minimal po intake. However , will maintain at current as steroids were switched back to IV today * Will maintain CF/CR at tighter regimen as steroids switched back to IV today PLAN FOR INPATIENT GLYCEMIC CONTROL: * Basal insulin * Lantus 12 units SQ qAM * Bolus insulin * NovoLog per scale ACHS or Q6hrs while NPO * Goal Range: Low 140 mg/dL - High 180 mg/dL * Correction Factor: 60 mg/dL/unit * Nutritional / Prandial insulin per carb ratio of 1 unit per 15 grams CHO consumed * Please note that the plan above was derived based on current level of insulin resistance and hospital stress. These recommendations are appropriate for inpatient admission only. Plan of care upon discharge will need to be reassessed to avoid potential outpatient hypo/hyperglycemia. Thank you.
[2017-05-03] MEDS: DEXAMETHASONE INJ 4 MG in SYRINGE 0 ML IV SCH ×2 (13:36→20:09)
--- NOTE | 2017-05-03 13:50 | DIAGNOSTIC IMAGING REPORT ---
Brain MRI WITH AND WITHOUT CONTRAST HISTORY: Breakthrough seizure; r/o new mets TECHNIQUE: Multiplanar multisequence MRI of the brain was performed both before and after the intravenous administration of contrast. Coronal postcontrast sequences were obtained as the patient deferred additional imaging. COMPARISON STUDY: Head CT 05/03/2017. Brain MRI 03/13/2017. FINDINGS: Interval improvement in the vasogenic edema within the right parietal lobe with improvement in the left midline shift. Midline shift currently measures 3 mm. Paranasal sinuses and mastoid air cells are clear. The major vascular flow-voids at the skull base are well-maintained. No hydrocephalus. Dominant right parietal heterogeneous lesion has slightly increased in size. This currently measures 3.3 x 2.1 cm, previously measuring approximately 3.0 x 1.8 cm. In addition there are now greater than 30 subcentimeter T2 hyperintense lesions seen throughout the supratentorial and infratentorial brain. These have significantly increased in number compared to the prior study and are consistent with progression of metastatic disease. No acute infarct or intracranial hematoma. IMPRESSION: 1. Significant increase in number of the multiple subcentimeter metastatic lesions throughout the brain consistent with worsening metastatic disease. 2. Slight increase in size in the dominant right parietal mass. 3. Interval improvement in the right parietal vasogenic edema and midline shift. Electronically signed by: Misael Sage M.D. 05/03/2017 1:49 PM Dictated Date/Time: 05/03/2017 1:37 PM
[2017-05-03] MEDS: MoRPHine SULFATE 4 MG/ML 1 ML CARP\\VIAL IV PRN (15:56)
[2017-05-03] MEDS: METOPROLOL TARTRATE 1 MG/ML VIAL IV. SCH ×2 (15:57→20:15)
--- NOTE | 2017-05-03 17:12 | EEG Procedure Note ---
EEG Procedure Note Date of Service May 03, 2017. Start / End Times Start Time: 9:26am End Time: 9:46am Referring Physician Dionicio Goodman History 56 year old female who presents with seizures. EEG for further eval of seizures. Home Medication List Scheduled Amitriptyline Hcl (Elavil), 100 MG PO HS Baclofen (Lioresal), 20 MG PO TID Capecitabine (Xeloda), 1,500 MG PO Q12H Cholecalciferol (Vitamin D3), 1,000 UNITS PO DAILY Cholestyramine (Bulk) (Cholestyramine), 4 GM PO QID Dexamethasone (Decadron), 4 MG PO TID Estrogens, Conjugated (Premarin), 1 APPLN PV DAILY Fluticasone Propionate (Flovent Hfa), 2 PUFFS INH BID Fluticasone Propionate (Nasal) (Flonase Allergy Relief), 2 SPRAYS JUDE QAM Insulin Aspart (Novolog Flexpen), 1 UNIT SC UD Insulin Glargine (Lantus), 9 UNITS SC QAM Lamotrigine (Lamictal), 150 MG PO BID Levetiracetam (Keppra), 750 MG PO BID Lovastatin (Mevacor), 10 MG PO QPM Montelukast Sodium (Montelukast Sodium), 10 MG PO QAM Morphine Sulfate (Morphine Sulfate Er), 15 MG PO BID Multivitamin (Multivitamin), 1 TAB PO QAM Omeprazole (Prilosec), 20 MG PO QAM Potassium Ext Rel (Klor-Con), 20 MEQ PO BID Ropinirole (Requip), 1 MG PO TID Sulfa/Trimethoprim (Bactrim Ds 800MG/160MG), 1 TAB PO BID Topiramate (Topiramate), 200 MG PO BID Verapamil Hcl (Verapamil Hcl Sr), 120 MG PO BID Scheduled PRN Acetamin/Butalbital/Caffeine (Fioricet), 1 TAB PO Q4 PRN for Headache Albuterol Sulfate (Proventil Hfa), 2 PUFFS INH QID PRN for SOB/Wheezing Dicyclomine Hcl (Dicyclomine Hcl), 20 MG PO Q6 PRN for GI Upset Diphenoxylate/Atropine (Lomotil), 1 TAB PO QID PRN for Diarrhea Lorazepam (Ativan), 1 MG PO HS PRN for Sleep Meclizine Hcl (Meclizine Hcl), 25 MG PO Q6H PRN for Dizziness or Vertigo Oxycodone/Acetaminophen 5MG/325MG (Percocet 5MG/325MG), 1 TABLET PO Q6H PRN for Pain Polyethylene Glycol 3350 (Miralax), 17 GM PO DAILY PRN for Constipation Prochlorperazine Maleate (Compazine), 10 MG PO Q6H PRN for Nausea Promethazine HCl (Promethazine HCl), 25 MG PO Q6 PRN for Nausea or Vomiting Miscellaneous Medications Sumatriptan Succinate (Imitrex Statdose) Inpatient Medication List Current Inpatient Medications Medications (Trade) Dose Ordered Sig/Crow Route Start Time Stop Time Status Last Admin Dose Admin Glucose (Glucose 40% Gel) 15-30 GRAMS 15 GRAMS... UD PRN PO 05/01/17 18:30 05/31/17 18:29 Glucose (Glucose Chew Tab) 4-8 Tablets 4 Tabl... UD PRN PO 05/01/17 18:30 05/31/17 18:29 Dextrose (Dextrose 50% 50ML Syringe) 25-50ML OF 50% DW IV FOR... UD PRN IV 05/01/17 18:30 05/31/17 18:29 Glucagon (Glucagon Inj) 1 mg UD PRN SQ 05/01/17 18:30 05/31/17 18:29 Miscellaneous Information (Consult Glycemic Management Pharmacy) 1 ea UD PRN N/A 05/01/17 19:00 05/31/17 18:59 Heparin Sodium (Porcine) (Heparin 100 Unit/ml 5ml Flush) 5 ml PRN PRN IV 05/02/17 01:15 06/01/17 01:14 05/02/17 19:09 5 ML Amitriptyline HCl (Elavil Tab) 100 mg HS PO 05/02/17 21:00 06/01/17 20:59 05/02/17 21:01 100 MG Baclofen (Lioresal Tab) 20 mg TID PO 05/02/17 14:00 06/01/17 13:59 05/02/17 21:02 20 MG Fluticasone Propionate (Flovent Hfa 110MCG Inhaler) 2 puffs BID INH 05/02/17 21:00 06/01/17 20:59 05/02/17 21:04 2 PUFFS Fluticasone Propionate (Flonase Nasal [place]) 2 sprays QAM JUDE 05/03/17 09:00 06/02/17 08:59 Lorazepam (Ativan Tab) 1 mg HS PRN PO 05/02/17 10:00 06/01/17 09:59 Montelukast Sodium (Singulair Tab) 10 mg QAM PO 05/03/17 09:00 06/02/17 08:59 Morphine Sulfate (Oramorph Sr Tab) 15 mg BID PO 05/02/17 21:00 05/16/17 20:59 05/02/17 21:09 15 MG Oxycodone/ Acetaminophen (Percocet 5-325mg Tab) 1 tab Q6H PRN PO 05/02/17 10:00 05/16/17 09:59 Potassium Chloride (Klor-Con Tab) 20 meq BID PO 05/02/17 21:00 06/01/17 20:59 05/02/17 21:05 20 MEQ Ropinirole HCl (Requip Tab) 1 mg TID PO 05/02/17 14:00 06/01/17 13:59 05/02/17 21:02 1 MG Topiramate (Topamax Tab) 200 mg BID PO 05/02/17 21:00 06/01/17 20:59 05/02/17 21:01 200 MG Cholestyramine Resin (Questran Powder Light) 4 gm QID@1000,1400,1800,2200 PO 05/02/17 14:00 06/01/17 13:59 Pantoprazole Sodium (Protonix Tab) 40 mg QAM PO 05/03/17 09:00 06/02/17 08:59 05/02/17 19:09 40 MG Polyethylene (Miralax Powder Packet) 17 gm DAILY PRN PO 05/02/17 10:45 06/01/17 10:44 05/02/17 12:33 17 GM Insulin Glargine (Lantus Solostar Pen) 12 units QAM SC 05/02/17 11:00 06/01/17 10:59 05/03/17 10:06 12 UNITS Insulin Aspart (novoLOG ASPART) SLIDING SCALE If C... ACHS SC 05/02/17 16:15 06/01/17 16:14 Lamotrigine (Lamictal Tab) 150 mg BID PO 05/02/17 21:00 06/01/17 20:59 05/02/17 21:03 150 MG Clonidine HCl (Catapres Tab) 0.1 mg Q6H PRN PO 05/02/17 16:15 06/01/17 16:14 05/02/17 16:56 0.1 MG Enteral Nutritional Formula (Boost Glucose Control) 1 can BIDM PO 05/03/17 07:30 06/02/17 07:29 Potassium Chloride/Sodium Chloride 1,000 ml @ 75 mls/hr [id number] IV 05/03/17 09:30 06/02/17 09:29 05/03/17 10:04 75 MLS/HR Morphine Sulfate (MoRPHine SULFATE INJ) 4 mg Q12H PRN IV 05/03/17 09:30 05/17/17 09:29 05/03/17 15:56 4 MG Levetiracetam 1500 mg/Dextrose 115 ml @ 440 mls/hr Q12H IV 05/03/17 21:00 06/02/17 08:59 Dexamethasone Sodium Phosphate 4 mg/Syringe 1 ml @ 1 mls/min Q8H IV 05/03/17 12:00 06/02/17 11:59 05/03/17 13:36 1 MLS/MIN Metoprolol Tartrate (Lopressor Iv) 5 mg Q6 IV. 05/03/17 14:00 06/02/17 13:59 05/03/17 15:57 5 MG Description This is a 21 electrode EEG with a single channel dedicated to limited EKG. The electrodes were placed in accordance with the International 10-20 system. At the start of the recording the patient was in an awake state. The background was well organized and composed of symmetric mixed alpha/beta frequencies and excess theta frequencies. There was a symmetric moderate amplitude posterior dominant rhythm of 7-8Hz that was more well formed on the left. Hyperventilation was not done. Photic stimulation at various frequencies produced no abnormalities. Drowsiness was indicated by vertex waves. Interpretation This is an abnormal EEG secondary to mild background slowing. There was no electrographic seizures or epileptiform discharges. Clinical Correlation This EEG indicated mild encephalopathy of nonspecific etiology
[2017-05-03] MEDS: OXYCODONE/ACETAMINOPHEN 5-325 TAB PO PRN (18:11)
[2017-05-03] MEDS: LEVETIRACETAM IV 1,500 MG in DEXTROSE 5% 100ML 100 ML IV SCH (20:08)
[2017-05-03] MEDS: AMITRIPTYLINE HCL 50 MG TAB PO SCH (20:16)
[2017-05-03] MEDS ORDERED: VERAPAMIL HCL 120 MG TABCR PO SCH (21:00)
[2017-05-04] VITALS (9 sets, daily range): BP systolic 128–179; BP diastolic 63–121; PULSE 93–106; TEMP 36.4–37; O2SAT 95–99
[2017-05-04] MEDS: NSS + 20MEQ KCL 1000ML 1,000 ML IV SCH ×2 (00:38→12:01)
[2017-05-04] MEDS: OXYCODONE/ACETAMINOPHEN 5-325 TAB PO PRN ×2 (00:38→16:30)
[2017-05-04] MEDS: METOPROLOL TARTRATE 1 MG/ML VIAL IV. SCH ×4 (00:45→18:27)
[2017-05-04] MEDS: DEXAMETHASONE INJ 4 MG in SYRINGE 0 ML IV SCH ×3 (04:26→20:16)
[2017-05-04 04:55] LABS: BASO % 0.2 %; BASO ABS # 0.01 K/uL (0-0.2); COMPLETE YES; HEMATOCRIT 36.8 % (37-47); IG% 0.5 %; LYMPH % 8.1 %; MEAN CELL VOLUME 98.1 fL (80-100); MEAN CORPUSCULAR HEMOGLOBIN 33.1 pg (25-34); MEAN CORPUSCULAR HGB CONC 33.7 g/dl (32-36); MEAN PLATELET VOLUME 8.9 fL (7.4-10.4); MONO % 9.5 %; NEUT % 81.7 %; PLATELET COUNT 269 K/uL (130-400); RED BLOOD COUNT 3.75 M/uL (4.2-5.4); WHITE BLOOD COUNT 6.21 K/uL (4.8-10.8)
[2017-05-04 05:22] LABS: BLOOD UREA NITROGEN 7 mg/dl (7-18); BUN/CREATININE RATIO 26.4 (10-20); CALCIUM 7.7 mg/dl (8.5-10.1); CARBON DIOXIDE 22 mmol/L (21-32); CHLORIDE 110 mmol/L (98-107); CREATININE 0.28 mg/dl (0.60-1.20); GLUCOSE 118 mg/dl (70-99); MAGNESIUM 1.8 mg/dl (1.8-2.4); POTASSIUM 3.8 mmol/L (3.5-5.1); SODIUM 139 mmol/L (136-145)
[2017-05-04] MEDS: INSULIN ASPART 100 UNITS/ML 3 ML PEN SC SCH ×4 (07:00→20:18)
[2017-05-04] MEDS: BOOST GLUCOSE CONTROL PO SCH ×2 (08:05→16:30)
[2017-05-04] MEDS: FLUTICASONE HFA 110MCG INHALER INH SCH ×2 (08:06→20:17)
[2017-05-04] MEDS: TOPIRAMATE 100 MG TAB PO SCH ×2 (08:08→20:19)
[2017-05-04] MEDS: LEVETIRACETAM IV 1,500 MG in DEXTROSE 5% 100ML 100 ML IV SCH ×2 (08:08→22:10)
[2017-05-04] MEDS: FLUTICASONE PROPIONATE NA SPR 16 GM BTL NAE SCH (08:08)
[2017-05-04] MEDS: MONTELUKAST SOD 10 MG TAB PO SCH (08:09)
[2017-05-04] MEDS: PANTOprazole SOD 40 MG TAB PO SCH (08:09)
[2017-05-04] MEDS: POTASSIUM CHLORIDE 20 MEQ TABCR PO SCH ×2 (08:11→20:20)
[2017-05-04] MEDS: ROPINIROLE HCL 1 MG TAB PO SCH ×3 (08:11→20:18)
[2017-05-04] MEDS: BACLOFEN 10 MG TAB PO SCH ×3 (08:11→20:19)
[2017-05-04] MEDS: INSULIN GLARGINE SOLOSTAR 100 UNITS/ML 3 ML PEN SC SCH (08:13)
[2017-05-04] MEDS: MoRPHine SULFATE CR 15 MG TAB (MS CONTIN) PO SCH ×2 (08:14→20:39)
[2017-05-04] MEDS: CHOLESTYRAMINE LIGHT 4 GM PKT PO SCH ×4 (10:03→22:00)
--- NOTE | 2017-05-04 10:49 | Neurology Progress Notes ---
Neurology Progress Note Date of Service May 04, 2017. Subjective Follow-up for encephalopathy, seizures, brain metastases The patient is more alert this morning compared with yesterday. She does not really recall my assessment of her yesterday. She does report a very mild chronic headache. She denies any recent changes in vision but does admit to feeling generally weak and has noticed some slight coordination problems with the left hand. The patient completed the requested up-to-date brain MRI and electroencephalogram yesterday. The brain MRI reveals multiple metastatic deposits within the brain parenchyma which are increased in number compared with the previous MRI done in February. The right parietal lobe lesion has also increased slightly in size although the associated vasogenic edema is improved. I reviewed both images as well as the radiologist's interpretation of this test. An EEG completed yesterday revealed generalized moderate slowing suggesting a mild encephalopathy. Objective Date Time Temp Pulse Resp B/P (MAP) Pulse Ox O2 Delivery O2 Flow Rate FiO2 05/04/17 08:35 37.0 99 18 148/63 (91) 96 05/04/17 08:00 97 Room Air 1.0 05/04/17 05:47 106 155/97 (116) 05/04/17 04:26 36.7 96 17 154/98 (116) 97 Room Air 05/04/17 04:00 Room Air 05/04/17 00:45 98 179/121 (140) 05/04/17 00:45 98 179/121 05/03/17 23:59 Room Air 05/03/17 23:53 37.0 97 17 157/103 (121) 98 05/03/17 20:15 110 155/96 05/03/17 20:05 36.4 110 18 155/96 (115) 99 Room Air 05/03/17 20:00 Room Air 05/03/17 17:23 Room Air 05/03/17 16:34 Room Air 05/03/17 15:57 114 164/105 05/03/17 12:00 Room Air 05/03/17 11:33 37.0 107 18 153/89 (110) 97 Room Air Last 24 Hours Test 05/03/17 11:14 05/03/17 16:19 05/03/17 20:22 05/04/17 04:29 Bedside Glucose 121 mg/dl 119 mg/dl 154 mg/dl White Blood Count 6.21 K/uL Red Blood Count 3.75 M/uL Hemoglobin 12.4 g/dL Hematocrit 36.8 % Mean Corpuscular Volume 98.1 fL Mean Corpuscular Hemoglobin 33.1 pg Mean Corpuscular Hemoglobin Concent 33.7 g/dl Platelet Count 269 K/uL Mean Platelet Volume 8.9 fL Neutrophils (%) (Auto) 81.7 % Lymphocytes (%) (Auto) 8.1 % Monocytes (%) (Auto) 9.5 % Eosinophils (%) (Auto) 0.0 % Basophils (%) (Auto) 0.2 % Neutrophils # (Auto) 5.08 K/uL Lymphocytes # (Auto) 0.50 K/uL Monocytes # (Auto) 0.59 K/uL Eosinophils # (Auto) 0.00 K/uL Basophils # (Auto) 0.01 K/uL RDW Standard Deviation 57.5 fL RDW Coefficient of Variation 16.1 % Immature Granulocyte % (Auto) 0.5 % Immature Granulocyte # (Auto) 0.03 K/uL Sodium Level 139 mmol/L Potassium Level 3.8 mmol/L Chloride Level 110 mmol/L Carbon Dioxide Level 22 mmol/L Anion Gap 7.0 mmol/L Blood Urea Nitrogen 7 mg/dl Creatinine 0.28 mg/dl Est Creatinine Clear Calc Drug Dose 161.1 ml/min Estimated GFR () > 150.0 Estimated GFR (Non- 130.9 BUN/Creatinine Ratio 26.4 Random Glucose 118 mg/dl Calcium Level 7.7 mg/dl Magnesium Level 1.8 mg/dl Test 05/04/17 06:19 Bedside Glucose 116 mg/dl Exam: The patient is alert this morning. She is oriented to person and place and has a normal attention span. She is able to name objects and repeat phrases and follow simple commands without difficulty. She speaks in a very soft voice. Visual manning are full to confrontation. Pupils equal round reactive to light and accommodation. Eye movements normal. No nystagmus. There is normal facial symmetry and strength. The patient does have an outward and upward drift of the left upper extremity while holding the arms extended with eyes closed. She also exhibited some dysmetria of finger to nose on the left. Strength examination reveals mild generalized weakness. Current Inpatient Medications Medications (Trade) Dose Ordered Sig/Crow Route Start Time Stop Time Status Last Admin Dose Admin Glucose (Glucose 40% Gel) 15-30 GRAMS 15 GRAMS... UD PRN PO 05/01/17 18:30 05/31/17 18:29 Glucose (Glucose Chew Tab) 4-8 Tablets 4 Tabl... UD PRN PO 05/01/17 18:30 05/31/17 18:29 Dextrose (Dextrose 50% 50ML Syringe) 25-50ML OF 50% DW IV FOR... UD PRN IV 05/01/17 18:30 05/31/17 18:29 Glucagon (Glucagon Inj) 1 mg UD PRN SQ 05/01/17 18:30 05/31/17 18:29 Miscellaneous Information (Consult Glycemic Management Pharmacy) 1 ea UD PRN N/A 05/01/17 19:00 05/31/17 18:59 Heparin Sodium (Porcine) (Heparin 100 Unit/ml 5ml Flush) 5 ml PRN PRN IV 05/02/17 01:15 06/01/17 01:14 05/04/17 04:26 5 ML Amitriptyline HCl (Elavil Tab) 100 mg HS PO 05/02/17 21:00 06/01/17 20:59 05/03/17 20:16 100 MG Baclofen (Lioresal Tab) 20 mg TID PO 05/02/17 14:00 06/01/17 13:59 05/04/17 08:11 20 MG Fluticasone Propionate (Flovent Hfa 110MCG Inhaler) 2 puffs BID INH 05/02/17 21:00 06/01/17 20:59 05/04/17 08:06 2 PUFFS Fluticasone Propionate (Flonase Nasal [place]) 2 sprays QAM JUDE 05/03/17 09:00 06/02/17 08:59 05/04/17 08:08 2 SPRAYS Lorazepam (Ativan Tab) 1 mg HS PRN PO 05/02/17 10:00 06/01/17 09:59 Montelukast Sodium (Singulair Tab) 10 mg QAM PO 05/03/17 09:00 06/02/17 08:59 05/04/17 08:09 10 MG Morphine Sulfate (Oramorph Sr Tab) 15 mg BID PO 05/02/17 21:00 05/16/17 20:59 05/04/17 08:14 15 MG Oxycodone/ Acetaminophen (Percocet 5-325mg Tab) 1 tab Q6H PRN PO 05/02/17 10:00 05/16/17 09:59 05/04/17 00:38 1 TAB Potassium Chloride (Klor-Con Tab) 20 meq BID PO 05/02/17 21:00 06/01/17 20:59 05/04/17 08:11 20 MEQ Ropinirole HCl (Requip Tab) 1 mg TID PO 05/02/17 14:00 06/01/17 13:59 05/04/17 08:11 1 MG Topiramate (Topamax Tab) 200 mg BID PO 05/02/17 21:00 06/01/17 20:59 05/04/17 08:08 200 MG Cholestyramine Resin (Questran Powder Light) 4 gm QID@1000,1400,1800,2200 PO 05/02/17 14:00 06/01/17 13:59 05/04/17 10:03 4 GM Pantoprazole Sodium (Protonix Tab) 40 mg QAM PO 05/03/17 09:00 06/02/17 08:59 05/04/17 08:09 40 MG Polyethylene (Miralax Powder Packet) 17 gm DAILY PRN PO 05/02/17 10:45 06/01/17 10:44 05/02/17 12:33 17 GM Insulin Glargine (Lantus Solostar Pen) 12 units QAM SC 05/02/17 11:00 06/01/17 10:59 05/04/17 08:13 12 UNITS Insulin Aspart (novoLOG ASPART) SLIDING SCALE If C... ACHS SC 05/02/17 16:15 06/01/17 16:14 Lamotrigine (Lamictal Tab) 150 mg BID PO 05/02/17 21:00 06/01/17 20:59 05/04/17 08:10 150 MG Clonidine HCl (Catapres Tab) 0.1 mg Q6H PRN PO 05/02/17 16:15 06/01/17 16:14 05/02/17 16:56 0.1 MG Enteral Nutritional Formula (Boost Glucose Control) 1 can BIDM PO 05/03/17 07:30 06/02/17 07:29 05/04/17 08:05 1 CAN Potassium Chloride/Sodium Chloride 1,000 ml @ 75 mls/hr [id number] IV 05/03/17 09:30 06/02/17 09:29 05/04/17 00:38 75 MLS/HR Morphine Sulfate (MoRPHine SULFATE INJ) 4 mg Q12H PRN IV 05/03/17 09:30 05/17/17 09:29 05/03/17 15:56 4 MG Levetiracetam 1500 mg/Dextrose 115 ml @ 440 mls/hr Q12H IV 05/03/17 21:00 06/02/17 08:59 05/04/17 08:08 440 MLS/HR Dexamethasone Sodium Phosphate 4 mg/Syringe 1 ml @ 1 mls/min Q8H IV 05/03/17 12:00 06/02/17 11:59 05/04/17 04:26 1 MLS/MIN Metoprolol Tartrate (Lopressor Iv) 5 mg Q6 IV. 05/03/17 14:00 06/02/17 13:59 05/04/17 05:47 5 MG Impression This patient's encephalopathy appears to be improved compared with yesterday. She does have what appears to be a parietal drift affecting the left upper limb which likely relates to the right parietal lobe metastatic lesion with associated vasogenic edema. She has not had any further seizures and seems to be doing well on her current anticonvulsant regimen. Plan Continue with Keppra 1500 mg twice daily. Continue with current dosages of topiramate and lamotrigine. May transition Keppra to tablets when able to reliably take by mouth. Continue with corticosteroids to address tumor associated vasogenic edema. This patient may continue to follow with me in clinic for monitoring of her seizures and headaches which are also a chronic issue for her. She will need to continue to follow with her oncologist for management of her metastatic disease.
--- NOTE | 2017-05-04 17:22 | Progress Note ---
Medicine Progress Note Date & Time of Visit: May 04, 2017 at 17:22. Subjective Patient reports feeling incredibly tired; PO intake has been poor as a result. Slight headache but otherwise feels her pain is controlled. States she just feels like sleeping despite sleeping all night. No overnight events noted. No other complaints at this time. Objective Last 8 Hrs Date Time Temp Pulse Resp B/P (MAP) Pulse Ox O2 Delivery O2 Flow Rate FiO2 05/04/17 16:26 36.4 93 20 128/84 (99) 98 Room Air 05/04/17 12:43 37.0 96 18 139/76 (97) 95 05/04/17 12:00 97 Room Air 1.0 05/04/17 12:00 110 Physical Exam: GENERAL: Patient is in no acute distress. Drowsy. HEENT: No acute trauma, normocephalic, mucous membranes moist, no nasal congestion, no scleral icterus. NECK: No stridor, trachea is midline. LUNGS: Clear to auscultation bilaterally, no wheeze, no rhonchi, breath sounds equal. HEART: Without murmurs gallops or rubs, regular rate and rhythm. ABDOMEN: Soft, nontender, bowel sounds positive, no hepatosplenomegaly EXTREMITIES: No cyanosis or edema, full range of motion of all the joints without pain or difficulty, no signs for acute trauma. NEUROLOGIC: Oriented x 3, no acute motor or sensory deficits, no focal weakness. SKIN: No rash, no jaundice, no diaphoresis. Laboratory Results: Last 24 Hours Test 05/03/17 20:22 05/04/17 04:29 05/04/17 06:19 05/04/17 11:30 Bedside Glucose 154 mg/dl 116 mg/dl 238 mg/dl White Blood Count 6.21 K/uL Red Blood Count 3.75 M/uL Hemoglobin 12.4 g/dL Hematocrit 36.8 % Mean Corpuscular Volume 98.1 fL Mean Corpuscular Hemoglobin 33.1 pg Mean Corpuscular Hemoglobin Concent 33.7 g/dl Platelet Count 269 K/uL Mean Platelet Volume 8.9 fL Neutrophils (%) (Auto) 81.7 % Lymphocytes (%) (Auto) 8.1 % Monocytes (%) (Auto) 9.5 % Eosinophils (%) (Auto) 0.0 % Basophils (%) (Auto) 0.2 % Neutrophils # (Auto) 5.08 K/uL Lymphocytes # (Auto) 0.50 K/uL Monocytes # (Auto) 0.59 K/uL Eosinophils # (Auto) 0.00 K/uL Basophils # (Auto) 0.01 K/uL RDW Standard Deviation 57.5 fL RDW Coefficient of Variation 16.1 % Immature Granulocyte % (Auto) 0.5 % Immature Granulocyte # (Auto) 0.03 K/uL Sodium Level 139 mmol/L Potassium Level 3.8 mmol/L Chloride Level 110 mmol/L Carbon Dioxide Level 22 mmol/L Anion Gap 7.0 mmol/L Blood Urea Nitrogen 7 mg/dl Creatinine 0.28 mg/dl Est Creatinine Clear Calc Drug Dose 161.1 ml/min Estimated GFR () > 150.0 Estimated GFR (Non- 130.9 BUN/Creatinine Ratio 26.4 Random Glucose 118 mg/dl Calcium Level 7.7 mg/dl Magnesium Level 1.8 mg/dl Test 05/04/17 16:16 Bedside Glucose 117 mg/dl Assessment & Plan BREAKTHROUGH SEIZURES: with Encephalopathy -known to have seizures related to brain mets from breast cancer -Neurology consulted, have been titrating Keppra, last seizure and lethargy 05/03 , Keppra increased to 1500 BID -also started on Dilantin loading dose 1g then 300mg daily -Decadron increased to 4mg QID -CT head: unchanged overall -MRI Brain shows increased metastatic lesions and increase in the right parietal met compared to MRI in February -EEG did not show epileptiform activity CHEST DISCOMFORT: -CXR: Persistent left lung volume loss with left-sided pleural thickening. Interstitial opacities left greater than right, similar to the prior study given the differences in technique. -possibly related to musculoskeletal source -improved HYPOKALEMIA: -resolved -monitor -continue Potassium supplement BID BREAST CANCER WITH METS TO BRAIN: -Xeloda on hold -on Palliative Care SVC at home, will discuss with patient and if they would like consult while in the hospital -follows with [facility] DM Type I: -Pharmacy Glycemic Consulted, appreciate recommendations -on SSI -patient on IV decadron HTN: -continue verapamil MIGRAINE: - continue usual medications -no current symptoms CHRONIC PAIN: -continue Morphine, titrate meds as needed Current Inpatient Medications: Current Inpatient Medications Medications (Trade) Dose Ordered Sig/Crow Route Start Time Stop Time Status Last Admin Dose Admin Glucose (Glucose 40% Gel) 15-30 GRAMS 15 GRAMS... UD PRN PO 05/01/17 18:30 05/31/17 18:29 Glucose (Glucose Chew Tab) 4-8 Tablets 4 Tabl... UD PRN PO 05/01/17 18:30 05/31/17 18:29 Dextrose (Dextrose 50% 50ML Syringe) 25-50ML OF 50% DW IV FOR... UD PRN IV 05/01/17 18:30 05/31/17 18:29 Glucagon (Glucagon Inj) 1 mg UD PRN SQ 05/01/17 18:30 05/31/17 18:29 Miscellaneous Information (Consult Glycemic Management Pharmacy) 1 ea UD PRN N/A 05/01/17 19:00 05/31/17 18:59 Heparin Sodium (Porcine) (Heparin 100 Unit/ml 5ml Flush) 5 ml PRN PRN IV 05/02/17 01:15 06/01/17 01:14 05/04/17 04:26 5 ML Amitriptyline HCl (Elavil Tab) 100 mg HS PO 05/02/17 21:00 06/01/17 20:59 05/03/17 20:16 100 MG Baclofen (Lioresal Tab) 20 mg TID PO 05/02/17 14:00 06/01/17 13:59 05/04/17 14:04 20 MG Fluticasone Propionate (Flovent Hfa 110MCG Inhaler) 2 puffs BID INH 05/02/17 21:00 06/01/17 20:59 05/04/17 08:06 2 PUFFS Fluticasone Propionate (Flonase Nasal [place]) 2 sprays QAM JUDE 05/03/17 09:00 06/02/17 08:59 05/04/17 08:08 2 SPRAYS Lorazepam (Ativan Tab) 1 mg HS PRN PO 05/02/17 10:00 06/01/17 09:59 Montelukast Sodium (Singulair Tab) 10 mg QAM PO 05/03/17 09:00 06/02/17 08:59 05/04/17 08:09 10 MG Morphine Sulfate (Oramorph Sr Tab) 15 mg BID PO 05/02/17 21:00 05/16/17 20:59 05/04/17 08:14 15 MG Oxycodone/ Acetaminophen (Percocet 5-325mg Tab) 1 tab Q6H PRN PO 05/02/17 10:00 05/16/17 09:59 05/04/17 16:30 1 TAB Potassium Chloride (Klor-Con Tab) 20 meq BID PO 05/02/17 21:00 06/01/17 20:59 05/04/17 08:11 20 MEQ Ropinirole HCl (Requip Tab) 1 mg TID PO 05/02/17 14:00 06/01/17 13:59 05/04/17 14:05 1 MG Topiramate (Topamax Tab) 200 mg BID PO 05/02/17 21:00 06/01/17 20:59 05/04/17 08:08 200 MG Cholestyramine Resin (Questran Powder Light) 4 gm QID@1000,1400,1800,2200 PO 05/02/17 14:00 06/01/17 13:59 05/04/17 10:03 4 GM Pantoprazole Sodium (Protonix Tab) 40 mg QAM PO 05/03/17 09:00 06/02/17 08:59 05/04/17 08:09 40 MG Polyethylene (Miralax Powder Packet) 17 gm DAILY PRN PO 05/02/17 10:45 06/01/17 10:44 05/02/17 12:33 17 GM Insulin Glargine (Lantus Solostar Pen) 12 units QAM SC 05/02/17 11:00 06/01/17 10:59 05/04/17 08:13 12 UNITS Insulin Aspart (novoLOG ASPART) SLIDING SCALE If C... ACHS SC 05/02/17 16:15 06/01/17 16:14 05/04/17 11:57 2 UNITS Lamotrigine (Lamictal Tab) 150 mg BID PO 05/02/17 21:00 06/01/17 20:59 05/04/17 08:10 150 MG Clonidine HCl (Catapres Tab) 0.1 mg Q6H PRN PO 05/02/17 16:15 06/01/17 16:14 05/02/17 16:56 0.1 MG Enteral Nutritional Formula (Boost Glucose Control) 1 can BIDM PO 05/03/17 07:30 06/02/17 07:29 05/04/17 16:30 1 CAN Potassium Chloride/Sodium Chloride 1,000 ml @ 75 mls/hr [id number] IV 05/03/17 09:30 06/02/17 09:29 05/04/17 12:01 75 MLS/HR Morphine Sulfate (MoRPHine SULFATE INJ) 4 mg Q12H PRN IV 05/03/17 09:30 05/17/17 09:29 05/03/17 15:56 4 MG Levetiracetam 1500 mg/Dextrose 115 ml @ 440 mls/hr Q12H IV 05/03/17 21:00 06/02/17 08:59 05/04/17 08:08 440 MLS/HR Dexamethasone Sodium Phosphate 4 mg/Syringe 1 ml @ 1 mls/min Q8H IV 05/03/17 12:00 06/02/17 11:59 05/04/17 12:00 1 MLS/MIN Metoprolol Tartrate (Lopressor Iv) 5 mg Q6 IV. 05/03/17 14:00 06/02/17 13:59 05/04/17 12:00 5 MG
[2017-05-04] MEDS: AMITRIPTYLINE HCL 50 MG TAB PO SCH (20:20)
[2017-05-05] VITALS (8 sets, daily range): BP systolic 131–173; BP diastolic 78–109; PULSE 96–109; TEMP 36.3–37; O2SAT 96–99
[2017-05-05] MEDS: METOPROLOL TARTRATE 1 MG/ML VIAL IV. SCH ×4 (00:12→19:36)
[2017-05-05] MEDS: NSS + 20MEQ KCL 1000ML 1,000 ML IV SCH ×2 (04:14→14:54)
[2017-05-05] MEDS: DEXAMETHASONE INJ 4 MG in SYRINGE 0 ML IV SCH ×3 (04:15→19:36)
[2017-05-05 05:18] LABS: BASO % 0.2 %; BASO ABS # 0.01 K/uL (0-0.2); COMPLETE YES; EOS % 0.2 %; HEMATOCRIT 33.3 % (37-47); IG% 1.1 %; LYMPH % 6.4 %; MEAN CELL VOLUME 98.2 fL (80-100); MEAN CORPUSCULAR HEMOGLOBIN 32.4 pg (25-34); MEAN PLATELET VOLUME 8.4 fL (7.4-10.4); NEUT % 86.1 %; PLATELET COUNT 247 K/uL (130-400); RED BLOOD COUNT 3.39 M/uL (4.2-5.4); WHITE BLOOD COUNT 6.21 K/uL (4.8-10.8)
[2017-05-05 05:51] LABS: BLOOD UREA NITROGEN 10 mg/dl (7-18); BUN/CREATININE RATIO 39.7 (10-20); CALCIUM 7.7 mg/dl (8.5-10.1); CARBON DIOXIDE 23 mmol/L (21-32); CHLORIDE 115 mmol/L (98-107); CREATININE 0.26 mg/dl (0.60-1.20); GLUCOSE 110 mg/dl (70-99); POTASSIUM 4.1 mmol/L (3.5-5.1); SODIUM 142 mmol/L (136-145)
[2017-05-05] MEDS: BOOST GLUCOSE CONTROL PO SCH ×2 (08:45→19:31)
[2017-05-05] MEDS: FLUTICASONE HFA 110MCG INHALER INH SCH ×2 (08:46→20:45)
[2017-05-05] MEDS: POLYETHYLENE (MIRALAX) 17 GM PACK PO PRN (08:46)
[2017-05-05] MEDS: MoRPHine SULFATE CR 15 MG TAB (MS CONTIN) PO SCH ×2 (08:46→20:51)
[2017-05-05] MEDS: LEVETIRACETAM IV 1,500 MG in DEXTROSE 5% 100ML 100 ML IV SCH ×2 (08:47→20:44)
[2017-05-05] MEDS: FLUTICASONE PROPIONATE NA SPR 16 GM BTL NAE SCH (08:47)
[2017-05-05] MEDS: BACLOFEN 10 MG TAB PO SCH ×3 (08:48→20:45)
[2017-05-05] MEDS: MONTELUKAST SOD 10 MG TAB PO SCH (08:48)
[2017-05-05] MEDS: ROPINIROLE HCL 1 MG TAB PO SCH ×3 (08:48→20:46)
[2017-05-05] MEDS: PANTOprazole SOD 40 MG TAB PO SCH (08:48)
[2017-05-05] MEDS: TOPIRAMATE 100 MG TAB PO SCH ×2 (08:49→20:46)
[2017-05-05] MEDS: POTASSIUM CHLORIDE 20 MEQ TABCR PO SCH ×2 (08:50→20:48)
[2017-05-05] MEDS: INSULIN GLARGINE SOLOSTAR 100 UNITS/ML 3 ML PEN SC SCH (08:54)
[2017-05-05] MEDS: INSULIN ASPART 100 UNITS/ML 3 ML PEN SC SCH ×4 (08:54→21:02)
[2017-05-05] MEDS: CHOLESTYRAMINE LIGHT 4 GM PKT PO SCH ×4 (10:00→21:29)
[2017-05-05] MEDS: OXYCODONE/ACETAMINOPHEN 5-325 TAB PO PRN (12:24)
--- NOTE | 2017-05-05 14:12 | Pharmacy Progress Note ---
Glycemic: Assessment & Plan Date of Service May 05, 2017. Assessment & Plan The patient is currently receiving ~17 units of insulin per day. BSGs ranging 110 - 210 mg/dl over the past 24hrs. * Basal insulin: Lantus 12 units every 24 hours given in the morning * Correctional Insulin: Novolog Correction per scale ACHS Goal Range: Low 110 mg/dL - High 150 mg/dL Correction Factor: 60 mg/dL/unit * Prandial insulin: Per carb ratio of 1 unit per 15 grams CHO consumed BSGs continue to improve, no changes needed to inpatient regimen at this time. Pharmacy will continue to monitor patient daily and write orders per [facility] inpatient glycemic control protocol. Thanks. * Please note that the plan above was derived based on current level of insulin resistance and hospital stress. These recommendations are appropriate for inpatient admission only. Plan of care upon discharge will need to be reassessed to avoid potential outpatient hypo/hyperglycemia.
[2017-05-05] MEDS ORDERED: BISACODYL 10 MG SUPP PR ONE ×2 (15:30→19:30)
--- NOTE | 2017-05-05 15:55 | Palliative Care Progress Note ---
Palliative Care Progress Note Date of Service May 05, 2017. Subjective Consult received. Went to room 237 and spoke with patient and . Will meet with them tomorrow, tentatively around 1000. Thank you for this consult.
--- NOTE | 2017-05-05 19:39 | Progress Note ---
Medicine Progress Note Date & Time of Visit: May 05, 2017 at 19:39. Subjective Patient reports feeling pain in her LUQ, her is at the bedside and states this pain occurs when she is constipated and has not had a BM since Wednesday. No overnight events noted. Patient's believes he witnessed a seizure at the bedside this morning, stating that the patient was staring and unresponsive for a few minutes and following that became very tired/sleepy and diaphoretic. She also had elevated BP at the time of the event which her states is typical. No other events noted. She feels her pain is not fully controlled and complains of headache and pain in her back. Oral intake was better until today when she felt "full" and has not been able to move her bowels. No additional complaints noted. Objective Last 8 Hrs Date Time Temp Pulse Resp B/P (MAP) Pulse Ox O2 Delivery O2 Flow Rate FiO2 05/05/17 19:36 108 164/109 05/05/17 15:45 36.6 108 18 164/109 (127) 97 Room Air 05/05/17 12:19 100 05/05/17 12:02 36.7 109 18 146/78 (100) 99 05/05/17 12:00 97 Room Air 1.0 Physical Exam: GENERAL: Patient is in no acute distress. HEENT: No acute trauma, normocephalic, mucous membranes moist, no nasal congestion, no scleral icterus. Conjunctivae clear NECK: No stridor, trachea is midline. LUNGS: Clear to auscultation bilaterally, no wheeze, no rhonchi, breath sounds equal. HEART: Without murmurs gallops or rubs, regular rate and rhythm. ABDOMEN: Soft, nontender, bowel sounds positive, no hepatosplenomegaly EXTREMITIES: No cyanosis or edema, full range of motion of all the joints without pain or difficulty, no signs for acute trauma. NEUROLOGIC: Oriented x 3, no acute motor or sensory deficits, no focal weakness. SKIN: No rash, no jaundice, no diaphoresis. Laboratory Results: Last 24 Hours Test 05/04/17 20:05 05/05/17 05:05 05/05/17 07:09 05/05/17 11:24 Bedside Glucose 145 mg/dl 112 mg/dl 210 mg/dl White Blood Count 6.21 K/uL Red Blood Count 3.39 M/uL Hemoglobin 11.0 g/dL Hematocrit 33.3 % Mean Corpuscular Volume 98.2 fL Mean Corpuscular Hemoglobin 32.4 pg Mean Corpuscular Hemoglobin Concent 33.0 g/dl Platelet Count 247 K/uL Mean Platelet Volume 8.4 fL Neutrophils (%) (Auto) 86.1 % Lymphocytes (%) (Auto) 6.4 % Monocytes (%) (Auto) 6.0 % Eosinophils (%) (Auto) 0.2 % Basophils (%) (Auto) 0.2 % Neutrophils # (Auto) 5.35 K/uL Lymphocytes # (Auto) 0.40 K/uL Monocytes # (Auto) 0.37 K/uL Eosinophils # (Auto) 0.01 K/uL Basophils # (Auto) 0.01 K/uL RDW Standard Deviation 59.1 fL RDW Coefficient of Variation 16.4 % Immature Granulocyte % (Auto) 1.1 % Immature Granulocyte # (Auto) 0.07 K/uL Sodium Level 142 mmol/L Potassium Level 4.1 mmol/L Chloride Level 115 mmol/L Carbon Dioxide Level 23 mmol/L Anion Gap 4.0 mmol/L Blood Urea Nitrogen 10 mg/dl Creatinine 0.26 mg/dl Est Creatinine Clear Calc Drug Dose 173.5 ml/min Estimated GFR () > 150.0 Estimated GFR (Non- 134.2 BUN/Creatinine Ratio 39.7 Random Glucose 110 mg/dl Calcium Level 7.7 mg/dl Magnesium Level 2.0 mg/dl Test 05/05/17 16:34 Bedside Glucose 139 mg/dl Assessment & Plan BREAKTHROUGH SEIZURES: with Encephalopathy -known to have seizures related to brain mets from breast cancer -Neurology consulted, have been titrating Keppra, last seizure and lethargy 05/03 , Keppra increased to 1500 BID -also started on Dilantin loading dose 1g then 300mg daily -Decadron increased to 4mg QID -continued on lamictal and topamax -CT head: unchanged overall -MRI Brain shows increased metastatic lesions and increase in the right parietal met compared to MRI in February -EEG did not show epileptiform activity -will try to switch medications to PO tomorrow and monitor CHEST DISCOMFORT: -CXR: Persistent left lung volume loss with left-sided pleural thickening. Interstitial opacities left greater than right, similar to the prior study given the differences in technique. -possibly related to musculoskeletal source -improved HYPOKALEMIA: -resolved -monitor -continue Potassium supplement BID BREAST CANCER WITH METS TO BRAIN: -Xeloda on hold -on Palliative Care SVC at home, have consulted while in the hospital as well to address goals of care -follows with [facility] in [facility] DM Type I: -Pharmacy Glycemic Consulted, appreciate recommendations -on SSI -patient on IV decadron HTN: -continue verapamil MIGRAINE: -continue usual medications -no current symptoms CHRONIC PAIN: -continue Morphine, titrate meds as needed Current Inpatient Medications: Current Inpatient Medications Medications (Trade) Dose Ordered Sig/Crow Route Start Time Stop Time Status Last Admin Dose Admin Glucose (Glucose 40% Gel) 15-30 GRAMS 15 GRAMS... UD PRN PO 05/01/17 18:30 05/31/17 18:29 Glucose (Glucose Chew Tab) 4-8 Tablets 4 Tabl... UD PRN PO 05/01/17 18:30 05/31/17 18:29 Dextrose (Dextrose 50% 50ML Syringe) 25-50ML OF 50% DW IV FOR... UD PRN IV 05/01/17 18:30 05/31/17 18:29 Glucagon (Glucagon Inj) 1 mg UD PRN SQ 05/01/17 18:30 05/31/17 18:29 Miscellaneous Information (Consult Glycemic Management Pharmacy) 1 ea UD PRN N/A 05/01/17 19:00 05/31/17 18:59 Heparin Sodium (Porcine) (Heparin 100 Unit/ml 5ml Flush) 5 ml PRN PRN IV 05/02/17 01:15 06/01/17 01:14 05/04/17 04:26 5 ML Amitriptyline HCl (Elavil Tab) 100 mg HS PO 05/02/17 21:00 06/01/17 20:59 05/04/17 20:20 100 MG Baclofen (Lioresal Tab) 20 mg TID PO 05/02/17 14:00 06/01/17 13:59 05/05/17 14:32 20 MG Fluticasone Propionate (Flovent Hfa 110MCG Inhaler) 2 puffs BID INH 05/02/17 21:00 06/01/17 20:59 05/05/17 08:46 2 PUFFS Fluticasone Propionate (Flonase Nasal [place]) 2 sprays QAM JUDE 05/03/17 09:00 06/02/17 08:59 05/05/17 08:47 2 SPRAYS Lorazepam (Ativan Tab) 1 mg HS PRN PO 05/02/17 10:00 06/01/17 09:59 Montelukast Sodium (Singulair Tab) 10 mg QAM PO 05/03/17 09:00 06/02/17 08:59 05/05/17 08:48 10 MG Morphine Sulfate (Oramorph Sr Tab) 15 mg BID PO 05/02/17 21:00 05/16/17 20:59 05/05/17 08:46 15 MG Oxycodone/ Acetaminophen (Percocet 5-325mg Tab) 1 tab Q6H PRN PO 05/02/17 10:00 05/16/17 09:59 05/05/17 12:24 1 TAB Potassium Chloride (Klor-Con Tab) 20 meq BID PO 05/02/17 21:00 06/01/17 20:59 05/05/17 08:50 20 MEQ Ropinirole HCl (Requip Tab) 1 mg TID PO 05/02/17 14:00 06/01/17 13:59 05/05/17 14:32 1 MG Topiramate (Topamax Tab) 200 mg BID PO 05/02/17 21:00 06/01/17 20:59 05/05/17 08:49 200 MG Cholestyramine Resin (Questran Powder Light) 4 gm QID@1000,1400,1800,2200 PO 05/02/17 14:00 06/01/17 13:59 05/04/17 10:03 4 GM Pantoprazole Sodium (Protonix Tab) 40 mg QAM PO 05/03/17 09:00 06/02/17 08:59 05/05/17 08:48 40 MG Polyethylene (Miralax Powder Packet) 17 gm DAILY PRN PO 05/02/17 10:45 06/01/17 10:44 05/05/17 08:46 17 GM Insulin Glargine (Lantus Solostar Pen) 12 units QAM SC 05/02/17 11:00 06/01/17 10:59 05/05/17 08:54 12 UNITS Insulin Aspart (novoLOG ASPART) SLIDING SCALE If C... ACHS SC 05/02/17 16:15 06/01/17 16:14 05/05/17 08:54 4 UNITS Lamotrigine (Lamictal Tab) 150 mg BID PO 05/02/17 21:00 06/01/17 20:59 05/05/17 08:49 150 MG Clonidine HCl (Catapres Tab) 0.1 mg Q6H PRN PO 05/02/17 16:15 06/01/17 16:14 05/02/17 16:56 0.1 MG Enteral Nutritional Formula (Boost Glucose Control) 1 can BIDM PO 05/03/17 07:30 06/02/17 07:29 05/05/17 19:31 1 CAN Potassium Chloride/Sodium Chloride 1,000 ml @ 75 mls/hr [id number] IV 05/03/17 09:30 06/02/17 09:29 05/05/17 14:54 75 MLS/HR Morphine Sulfate (MoRPHine SULFATE INJ) 4 mg Q12H PRN IV 05/03/17 09:30 05/17/17 09:29 05/03/17 15:56 4 MG Levetiracetam 1500 mg/Dextrose 115 ml @ 440 mls/hr Q12H IV 05/03/17 21:00 06/02/17 08:59 05/05/17 08:47 440 MLS/HR Dexamethasone Sodium Phosphate 4 mg/Syringe 1 ml @ 1 mls/min Q8H IV 05/03/17 12:00 06/02/17 11:59 05/05/17 19:36 1 MLS/MIN Metoprolol Tartrate (Lopressor Iv) 5 mg Q6 IV. 05/03/17 14:00 06/02/17 13:59 05/05/17 19:36 5 MG
[2017-05-05] MEDS: METHYLNALTREXONE BROMIDE INJ 12 MG/0.6 ML SYR SQ SCH (20:45)
[2017-05-05] MEDS: AMITRIPTYLINE HCL 50 MG TAB PO SCH (20:45)
[2017-05-06] VITALS (10 sets, daily range): BP systolic 133–190; BP diastolic 85–120; PULSE 101–114; TEMP 36.3–37.1; O2SAT 94–100
[2017-05-06] MEDS: METOPROLOL TARTRATE 1 MG/ML VIAL IV. SCH ×4 (00:03→17:40)
[2017-05-06 04:26] LABS: HEMATOCRIT 38.6 % (37-47); MEAN CELL VOLUME 97.5 fL (80-100); MEAN CORPUSCULAR HEMOGLOBIN 32.1 pg (25-34); MEAN CORPUSCULAR HGB CONC 32.9 g/dl (32-36); MEAN PLATELET VOLUME 8.9 fL (7.4-10.4); PLATELET COUNT 312 K/uL (130-400); RED BLOOD COUNT 3.96 M/uL (4.2-5.4); WHITE BLOOD COUNT 8.63 K/uL (4.8-10.8)
[2017-05-06 04:45] LABS: BUN/CREATININE RATIO 20.4 (10-20); CALCIUM 8.1 mg/dl (8.5-10.1); CREATININE 0.34 mg/dl (0.60-1.20); MAGNESIUM 1.9 mg/dl (1.8-2.4); POTASSIUM 3.9 mmol/L (3.5-5.1)
[2017-05-06] MEDS: NSS + 20MEQ KCL 1000ML 1,000 ML IV SCH ×2 (04:51→17:39)
[2017-05-06] MEDS: DEXAMETHASONE INJ 4 MG in SYRINGE 0 ML IV SCH ×2 (04:51→12:17)
[2017-05-06] MEDS: MoRPHine SULFATE 4 MG/ML 1 ML CARP\\VIAL IV PRN ×2 (04:55→12:08)
[2017-05-06 05:06] LABS: BASO % 0.2 %; BASO ABS # 0.02 K/uL (0-0.2); COMPLETE YES; EOS % 0.3 %; IG% 1.5 %; LYMPH % 6.4 %; LYMPH ABS # 0.55 K/uL (1.2-3.4); MONO % 7.8 %; NEUT % 83.8 %
[2017-05-06] MEDS: BOOST GLUCOSE CONTROL PO SCH ×2 (08:32→17:39)
[2017-05-06] MEDS: MoRPHine SULFATE CR 15 MG TAB (MS CONTIN) PO SCH ×2 (08:32→20:25)
[2017-05-06] MEDS: POTASSIUM CHLORIDE 20 MEQ TABCR PO SCH ×2 (08:33→20:22)
[2017-05-06] MEDS: MONTELUKAST SOD 10 MG TAB PO SCH (08:34)
[2017-05-06] MEDS: TOPIRAMATE 100 MG TAB PO SCH ×2 (08:34→20:25)
[2017-05-06] MEDS: ROPINIROLE HCL 1 MG TAB PO SCH ×3 (08:34→20:25)
[2017-05-06] MEDS: BACLOFEN 10 MG TAB PO SCH ×3 (08:34→20:24)
[2017-05-06] MEDS: PANTOprazole SOD 40 MG TAB PO SCH (08:34)
[2017-05-06] MEDS: FLUTICASONE PROPIONATE NA SPR 16 GM BTL NAE SCH (08:36)
[2017-05-06] MEDS: FLUTICASONE HFA 110MCG INHALER INH SCH ×2 (08:36→20:21)
[2017-05-06] MEDS: INSULIN GLARGINE SOLOSTAR 100 UNITS/ML 3 ML PEN SC SCH (08:39)
[2017-05-06] MEDS: INSULIN ASPART 100 UNITS/ML 3 ML PEN SC SCH ×4 (08:39→21:56)
[2017-05-06] MEDS: LEVETIRACETAM IV 1,500 MG in DEXTROSE 5% 100ML 100 ML IV SCH (09:30)
[2017-05-06] MEDS: CHOLESTYRAMINE LIGHT 4 GM PKT PO SCH ×4 (10:00→21:58)
--- NOTE | 2017-05-06 11:29 | Palliative Care Consultation ---
Consultation Date of Consultation: May 06, 2017. Requesting Physician: Dr. Childs Attending Physician: Dr. Childs Reason for Consultation: Goals of care History of Present Illness This 56 year old female patient with PMH metastatic breast CA with mets to brain , bone, and liver, presented to the ED five days ago with c/o altered mental status and breakthrough seizures. She is being seen by neurology who is adjusting her medications. She is normally on Topamax, Lamictal, and Keppra. Keppra has been increased to 1500mg IV BID. Patient's mental status is much improved, last seizure was on 05/03. Patient has undergone gamma knife radiosurgery three times, last on 04/15. During patient's hospitalization at [facility], she was told that there would be no further gamme knife. She was visited once by palliative care at that time. She went from [facility] to [facility] rehab, went home for only a couple days, then came back to our ED for the altered mental status. Palliative care is consulted now to establish goals of care. I met with the patient and her , Dann, in room [address] Wright. Sabrina is awake, alert and oriented, but is quite forgetful with occasional word searching/trailing of thoughts. Still able to participate in meaningful conversation. She does have pain about 8/10 in back. The pain is constant in upper back and between shoulder blades. She also has some pleuritic pain occasionally where she had lung mets on left side. Patient and her expressed that they know at this point the goal is for symptom management and management of seizure disorder. They recalled being seen by palliative care and being told there would be no further treatment for the brain mets or cancer, but that was the extent as they only saw them once. After [facility], the plan was for patient to go home with home health and continue therapy. Home health never had a chance to make it in to patient's home. We discussed patient' s current goals of care at this point. Patient's wish is to be at home indefinitely, agrees. Given that patient would like to focus her care on comfort and to stay out of the hospital, I recommended hospice. After discussion, patient and both agree that they would like to pursue hospice care in the home. states someone will be with patient 18/01. We discussed a POLST form and will likely complete one prior to discharge. Dann then spoke to me outside of room. He stated that he anticipates a rapid decline in patient's condition and definitely thinks hospice is what's best at this point. Past Medical/Surgical History Medical History: Allergic rhinitis Asthma Medina's esophagus Brain metastases Breast cancer Permanent Comment: "DIAGNOSIS: Left breast cancer, invasive ductal carcinoma, grade 3, ER negative, SC weakly positive, Her2 negative, cT1N1, ypT1N0(i+) with a indeterminate lesion in the right parietal lobe followed with MRI" "TREATMENT: 1. Neoadjuvant chemotherapy - AC/T chemotherapy (Dr. Junior Washington) 2. Lumpectomy with SLN - 08/21/2015 (Dr. Zurita) 3. Status post gamma knife radiation therapy to single brain lesion at [facility] 4. Status post completion of radiation therapy 12/31/2015 received 7240 cGy, left breast, supraclavicular, and axilla area. 5. Status post lung wedge resection 02/10/2016 due to metastatic breast carcinoma 6. Ongoing treatment with Gemzar, Herceptin, Perjeta, and Xgeva. 7. Brain MRI is followed by Dr. Fernando at [facility] 8. Status post gamma knife radiation therapy to 3 lesions 11/19/2016 9. Back pain with finding of metastasis to L1 10. 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 Osteoporosis Surgical Problems: History of cataract surgery History of Chiari malformation History of lumpectomy of left breast History of tonsillectomy and adenoidectomy S/p axillary lymph node biopsy S/p breast cyst removal S/P craniotomy Permanent Comment: 09/27/2014- suboccipital craniectomy, C1 laminectomy, duraplasty, microdissection S/p Gamma knife radiosurgery for brain metastatic lesion last treatment 04/15 S/p insertion tunneled central venous access with SQ port S/P partial mastectomy S/P sinus surgery S/P tonsillectomy and adenoidectomy S/P tubal ligation Social History Smoking Status: Never Smoker History of Alcohol Use: No (1-2 glasses every few weeks) Drug Use: none Marital Status: Housing Status: lives with significant other Occupation Status: retired, disabled Review of Systems Constitutional: + weakness, + fatigue ENT: No trouble swallowing Respiratory: No cough, No shortness of breath Cardiac: No chest pain, No edema Abdomen: No pain, No nausea, No vomiting Musculoskeletal: + problem reported (back pain) Female : No problem reported Psychiatric: No depression symptoms, No anxiety Allergies Coded Allergies: Erythromycin (Unverified Adverse Reaction, Unknown, GI UPSET, 05/01/17) Medications Current Inpatient Medications Medications (Trade) Dose Ordered Sig/Crow Route Start Time Stop Time Status Last Admin Dose Admin Glucose (Glucose 40% Gel) 15-30 GRAMS 15 GRAMS... UD PRN PO 05/01/17 18:30 05/31/17 18:29 Glucose (Glucose Chew Tab) 4-8 Tablets 4 Tabl... UD PRN PO 05/01/17 18:30 05/31/17 18:29 Dextrose (Dextrose 50% 50ML Syringe) 25-50ML OF 50% DW IV FOR... UD PRN IV 05/01/17 18:30 05/31/17 18:29 Glucagon (Glucagon Inj) 1 mg UD PRN SQ 05/01/17 18:30 05/31/17 18:29 Miscellaneous Information (Consult Glycemic Management Pharmacy) 1 ea UD PRN N/A 05/01/17 19:00 05/31/17 18:59 Heparin Sodium (Porcine) (Heparin 100 Unit/ml 5ml Flush) 5 ml PRN PRN IV 05/02/17 01:15 06/01/17 01:14 05/04/17 04:26 5 ML Amitriptyline HCl (Elavil Tab) 100 mg HS PO 05/02/17 21:00 06/01/17 20:59 05/05/17 20:45 100 MG Baclofen (Lioresal Tab) 20 mg TID PO 05/02/17 14:00 06/01/17 13:59 05/06/17 08:34 20 MG Fluticasone Propionate (Flovent Hfa 110MCG Inhaler) 2 puffs BID INH 05/02/17 21:00 06/01/17 20:59 05/06/17 08:36 2 PUFFS Fluticasone Propionate (Flonase Nasal [place]) 2 sprays QAM JUDE 05/03/17 09:00 06/02/17 08:59 05/06/17 08:36 2 SPRAYS Lorazepam (Ativan Tab) 1 mg HS PRN PO 05/02/17 10:00 06/01/17 09:59 Montelukast Sodium (Singulair Tab) 10 mg QAM PO 05/03/17 09:00 06/02/17 08:59 05/06/17 08:34 10 MG Morphine Sulfate (Oramorph Sr Tab) 15 mg BID PO 05/02/17 21:00 05/16/17 20:59 05/06/17 08:32 15 MG Potassium Chloride (Klor-Con Tab) 20 meq BID PO 05/02/17 21:00 06/01/17 20:59 05/06/17 08:33 20 MEQ Ropinirole HCl (Requip Tab) 1 mg TID PO 05/02/17 14:00 06/01/17 13:59 05/06/17 08:34 1 MG Topiramate (Topamax Tab) 200 mg BID PO 05/02/17 21:00 06/01/17 20:59 05/06/17 08:34 200 MG Cholestyramine Resin (Questran Powder Light) 4 gm QID@1000,1400,1800,2200 PO 05/02/17 14:00 06/01/17 13:59 05/04/17 10:03 4 GM Pantoprazole Sodium (Protonix Tab) 40 mg QAM PO 05/03/17 09:00 06/02/17 08:59 05/06/17 08:34 40 MG Polyethylene (Miralax Powder Packet) 17 gm DAILY PRN PO 05/02/17 10:45 06/01/17 10:44 05/05/17 08:46 17 GM Insulin Glargine (Lantus Solostar Pen) 12 units QAM SC 05/02/17 11:00 06/01/17 10:59 05/06/17 08:39 12 UNITS Insulin Aspart (novoLOG ASPART) SLIDING SCALE If C... ACHS SC 05/02/17 16:15 06/01/17 16:14 05/06/17 08:39 4 UNITS Lamotrigine (Lamictal Tab) 150 mg BID PO 05/02/17 21:00 06/01/17 20:59 05/06/17 08:33 150 MG Clonidine HCl (Catapres Tab) 0.1 mg Q6H PRN PO 05/02/17 16:15 06/01/17 16:14 05/02/17 16:56 0.1 MG Enteral Nutritional Formula (Boost Glucose Control) 1 can BIDM PO 05/03/17 07:30 06/02/17 07:29 05/06/17 08:32 1 CAN Potassium Chloride/Sodium Chloride 1,000 ml @ 75 mls/hr [id number] IV 05/03/17 09:30 06/02/17 09:29 05/06/17 04:51 75 MLS/HR Morphine Sulfate (MoRPHine SULFATE INJ) 4 mg Q12H PRN IV 05/03/17 09:30 05/17/17 09:29 05/06/17 04:55 4 MG Levetiracetam 1500 mg/Dextrose 115 ml @ 440 mls/hr Q12H IV 05/03/17 21:00 06/02/17 08:59 05/06/17 09:30 440 MLS/HR Dexamethasone Sodium Phosphate 4 mg/Syringe 1 ml @ 1 mls/min Q8H IV 05/03/17 12:00 06/02/17 11:59 05/06/17 04:51 1 MLS/MIN Metoprolol Tartrate (Lopressor Iv) 5 mg Q6 IV. 05/03/17 14:00 06/02/17 13:59 05/06/17 06:30 5 MG Methylnaltrexone [place] (Relistor Inj) 12 mg Q2D SQ 05/05/17 19:45 06/04/17 19:44 05/05/17 20:45 12 MG Oxycodone/ Acetaminophen (Percocet 7.5-325MG Tab) 1 tab Q4H PRN PO 05/05/17 19:45 05/19/17 19:44 Physical Exam Date Time Temp Pulse Resp B/P (MAP) Pulse Ox O2 Delivery O2 Flow Rate FiO2 05/06/17 08:00 97 Room Air 2.0 05/06/17 08:00 113 05/06/17 06:30 98 146/98 05/06/17 04:00 Room Air 05/06/17 03:37 36.6 104 18 157/99 (118) 98 05/06/17 00:03 109 170/107 05/06/17 00:01 36.7 109 16 170/107 (128) 99 Room Air 05/05/17 23:59 Room Air 05/05/17 22:39 36.9 106 17 173/97 (122) 98 05/05/17 20:05 Room Air 05/05/17 19:36 108 164/109 05/05/17 17:00 Room Air 05/05/17 15:45 36.6 108 18 164/109 (127) 97 Room Air 05/05/17 12:19 100 05/05/17 12:02 36.7 109 18 146/78 (100) 99 05/05/17 12:00 97 Room Air 1.0 General Appearance: no apparent distress, + thin ENT: hearing grossly normal Neck: supple, no JVD Respiratory: lungs clear, no respiratory distress, no accessory muscle use Cardiovascular: regular rate, rhythm, no edema, + normal peripheral pulses Abdomen: normal bowel sounds, non tender, soft Neurologic/Psychiatric: alert, normal mood/affect, oriented x 3 (but is forgetful) Skin: normal color Laboratory Results Last 24 Hours Test 05/05/17 16:34 05/05/17 20:52 05/06/17 04:00 05/06/17 11:11 Bedside Glucose 139 mg/dl 151 mg/dl 215 mg/dl White Blood Count 8.63 K/uL Red Blood Count 3.96 M/uL Hemoglobin 12.7 g/dL Hematocrit 38.6 % Mean Corpuscular Volume 97.5 fL Mean Corpuscular Hemoglobin 32.1 pg Mean Corpuscular Hemoglobin Concent 32.9 g/dl Platelet Count 312 K/uL Mean Platelet Volume 8.9 fL Neutrophils (%) (Auto) 83.8 % Lymphocytes (%) (Auto) 6.4 % Monocytes (%) (Auto) 7.8 % Eosinophils (%) (Auto) 0.3 % Basophils (%) (Auto) 0.2 % Neutrophils # (Auto) 7.23 K/uL Lymphocytes # (Auto) 0.55 K/uL Monocytes # (Auto) 0.67 K/uL Eosinophils # (Auto) 0.03 K/uL Basophils # (Auto) 0.02 K/uL RDW Standard Deviation 57.5 fL RDW Coefficient of Variation 16.1 % Immature Granulocyte % (Auto) 1.5 % Immature Granulocyte # (Auto) 0.13 K/uL Sodium Level 138 mmol/L Potassium Level 3.9 mmol/L Chloride Level 106 mmol/L Carbon Dioxide Level 25 mmol/L Anion Gap 7.0 mmol/L Blood Urea Nitrogen 7 mg/dl Creatinine 0.34 mg/dl Est Creatinine Clear Calc Drug Dose 132.7 ml/min Estimated GFR () 142.4 Estimated GFR (Non- 122.8 BUN/Creatinine Ratio 20.4 Random Glucose 143 mg/dl Calcium Level 8.1 mg/dl Magnesium Level 1.9 mg/dl Assessment & Plan Palliative Performance Scale: 40 % Problem list: Pain, back Headaches/migraines Weakness Altered mental status- improved Seizure disorder- IV Keppra increased. Neurology following. Breast cancer with mets to brain Goals of care (Z51.5) Palliative care recs: discussed with patient, patient's Dr. Kyle Quigley and Dr. Childs. -Patient's goal at this point is to be as comfortable as possible at home and not keep coming to hospital. - and patient both know that there is no further plans for gamma knife and focus is now on symptom management/management of seizures. -Patient was previously at [facility] for rehab. She does want to maintain her functionality at home, but after discussion, she and her both agreed that they would like her to go home with hospice. - states that someone will be with patient 18/01. -Recommend adding two lidocaine patches to patient's back. Can actually leave the patches on for full 24 hours. -For now, acute care continues. Patient still on IV Keppra BID, IVF, and IV dexamethasone. Will need everything converted to PO. -Had dose of Relistor yesterday and did have BM last night. -We discussed POLST form. Will likely complete one with patient and prior to discharge. Thank you kindly for this consult. I will follow as needed.
--- NOTE | 2017-05-06 18:38 | Progress Note ---
Medicine Progress Note Date & Time of Visit: May 06, 2017 at 18:23. Subjective Patient reports feeling well today, pain has been well controlled. Participated in therapy today, again had an episode where she felt dizzy, flushed, and was staring out with a blank expression, followed by drowsiness. Her and OT were in the room at the time of the event and the patient could have fallen out of the chair if he was not there to stabilize her and help her into bed. No overnight events noted. No other complaints. Had 2 BM last night. Objective Last 8 Hrs Date Time Temp Pulse Resp B/P (MAP) Pulse Ox O2 Delivery O2 Flow Rate FiO2 05/06/17 17:40 110 05/06/17 16:00 97 Room Air 2.0 05/06/17 15:11 114 18 156/99 (118) 97 Room Air 05/06/17 12:17 112 05/06/17 12:00 97 Room Air 2.0 05/06/17 12:00 36.3 112 18 168/90 (116) 100 Room Air Physical Exam: GENERAL: Patient is in no acute distress. HEENT: No acute trauma, normocephalic, mucous membranes moist, no nasal congestion, no scleral icterus. Conjunctivae clear NECK: No stridor, trachea is midline. LUNGS: Clear to auscultation bilaterally, no wheeze, no rhonchi, breath sounds equal. HEART: Without murmurs gallops or rubs, regular rate and rhythm. ABDOMEN: Soft, nontender, bowel sounds positive, no hepatosplenomegaly EXTREMITIES: No cyanosis or edema, full range of motion of all the joints without pain or difficulty, no signs for acute trauma. NEUROLOGIC: Oriented x 3, no acute motor or sensory deficits, no focal weakness. SKIN: No rash, no jaundice, no diaphoresis. Laboratory Results: Last 24 Hours Test 05/05/17 20:52 05/06/17 04:00 05/06/17 06:25 05/06/17 11:11 Bedside Glucose 151 mg/dl 119 mg/dl 215 mg/dl White Blood Count 8.63 K/uL Red Blood Count 3.96 M/uL Hemoglobin 12.7 g/dL Hematocrit 38.6 % Mean Corpuscular Volume 97.5 fL Mean Corpuscular Hemoglobin 32.1 pg Mean Corpuscular Hemoglobin Concent 32.9 g/dl Platelet Count 312 K/uL Mean Platelet Volume 8.9 fL Neutrophils (%) (Auto) 83.8 % Lymphocytes (%) (Auto) 6.4 % Monocytes (%) (Auto) 7.8 % Eosinophils (%) (Auto) 0.3 % Basophils (%) (Auto) 0.2 % Neutrophils # (Auto) 7.23 K/uL Lymphocytes # (Auto) 0.55 K/uL Monocytes # (Auto) 0.67 K/uL Eosinophils # (Auto) 0.03 K/uL Basophils # (Auto) 0.02 K/uL RDW Standard Deviation 57.5 fL RDW Coefficient of Variation 16.1 % Immature Granulocyte % (Auto) 1.5 % Immature Granulocyte # (Auto) 0.13 K/uL Sodium Level 138 mmol/L Potassium Level 3.9 mmol/L Chloride Level 106 mmol/L Carbon Dioxide Level 25 mmol/L Anion Gap 7.0 mmol/L Blood Urea Nitrogen 7 mg/dl Creatinine 0.34 mg/dl Est Creatinine Clear Calc Drug Dose 132.7 ml/min Estimated GFR () 142.4 Estimated GFR (Non- 122.8 BUN/Creatinine Ratio 20.4 Random Glucose 143 mg/dl Calcium Level 8.1 mg/dl Magnesium Level 1.9 mg/dl Test 05/06/17 16:01 Bedside Glucose 150 mg/dl Assessment & Plan BREAKTHROUGH SEIZURES: with Encephalopathy -known to have seizures related to brain mets from breast cancer -Neurology consulted, have been titrating Keppra, last seizure and lethargy 05/03 , Keppra increased to 1500 BID, now on PO -also started on Dilantin loading dose 1g then 300mg daily, now off -Decadron increased to 4mg QID, decreased back to TID; will switch to PO -continued on lamictal and topamax -CT head: unchanged overall -MRI Brain shows increased metastatic lesions and increase in the right parietal met compared to MRI in February, bu decrease in the edema -EEG did not show epileptiform activity CHEST DISCOMFORT: -CXR: Persistent left lung volume loss with left-sided pleural thickening. Interstitial opacities left greater than right, similar to the prior study given the differences in technique. -possibly related to musculoskeletal source -improved, no additional complaints SINUS TACHYCARDIA: -has been ongoing since admission, has been requiring lopressor IV -will place patient on PO lopressor HYPOKALEMIA: -resolved -monitor -continue Potassium supplement BID -can stop IV fluids BREAST CANCER WITH METS TO BRAIN: -Xeloda on hold -on Palliative Care SVC at home, have consulted while in the hospital as well to address goals of care -follows with [facility]. [facility] in [facility] DM Type I: -Pharmacy Glycemic Consulted, appreciate recommendations -on SSI -patient on IV decadron HTN: -continue verapamil + added metoprolol -stop clonidine PRN MIGRAINE: -continue usual medications -no current symptoms CHRONIC PAIN: -continue Morphine, titrate meds as needed CONSTIPATION: -resolved -continue miralax, relistor, and bisacodyl supp Current Inpatient Medications: Current Inpatient Medications Medications (Trade) Dose Ordered Sig/Crow Route Start Time Stop Time Status Last Admin Dose Admin Glucose (Glucose 40% Gel) 15-30 GRAMS 15 GRAMS... UD PRN PO 05/01/17 18:30 05/31/17 18:29 Glucose (Glucose Chew Tab) 4-8 Tablets 4 Tabl... UD PRN PO 05/01/17 18:30 05/31/17 18:29 Dextrose (Dextrose 50% 50ML Syringe) 25-50ML OF 50% DW IV FOR... UD PRN IV 05/01/17 18:30 05/31/17 18:29 Glucagon (Glucagon Inj) 1 mg UD PRN SQ 05/01/17 18:30 05/31/17 18:29 Miscellaneous Information (Consult Glycemic Management Pharmacy) 1 ea UD PRN N/A 05/01/17 19:00 05/31/17 18:59 Heparin Sodium (Porcine) (Heparin 100 Unit/ml 5ml Flush) 5 ml PRN PRN IV 05/02/17 01:15 06/01/17 01:14 05/04/17 04:26 5 ML Amitriptyline HCl (Elavil Tab) 100 mg HS PO 05/02/17 21:00 06/01/17 20:59 05/05/17 20:45 100 MG Baclofen (Lioresal Tab) 20 mg TID PO 05/02/17 14:00 06/01/17 13:59 05/06/17 14:24 20 MG Fluticasone Propionate (Flovent Hfa 110MCG Inhaler) 2 puffs BID INH 05/02/17 21:00 06/01/17 20:59 05/06/17 08:36 2 PUFFS Fluticasone Propionate (Flonase Nasal [place]) 2 sprays QAM JUDE 05/03/17 09:00 06/02/17 08:59 05/06/17 08:36 2 SPRAYS Lorazepam (Ativan Tab) 1 mg HS PRN PO 05/02/17 10:00 06/01/17 09:59 Montelukast Sodium (Singulair Tab) 10 mg QAM PO 05/03/17 09:00 06/02/17 08:59 05/06/17 08:34 10 MG Morphine Sulfate (Oramorph Sr Tab) 15 mg BID PO 05/02/17 21:00 05/16/17 20:59 05/06/17 08:32 15 MG Potassium Chloride (Klor-Con Tab) 20 meq BID PO 05/02/17 21:00 06/01/17 20:59 05/06/17 08:33 20 MEQ Ropinirole HCl (Requip Tab) 1 mg TID PO 05/02/17 14:00 06/01/17 13:59 05/06/17 14:24 1 MG Topiramate (Topamax Tab) 200 mg BID PO 05/02/17 21:00 06/01/17 20:59 05/06/17 08:34 200 MG Cholestyramine Resin (Questran Powder Light) 4 gm QID@1000,1400,1800,2200 PO 05/02/17 14:00 06/01/17 13:59 05/04/17 10:03 4 GM Pantoprazole Sodium (Protonix Tab) 40 mg QAM PO 05/03/17 09:00 06/02/17 08:59 05/06/17 08:34 40 MG Polyethylene (Miralax Powder Packet) 17 gm DAILY PRN PO 05/02/17 10:45 06/01/17 10:44 05/05/17 08:46 17 GM Insulin Glargine (Lantus Solostar Pen) 12 units QAM SC 05/02/17 11:00 06/01/17 10:59 05/06/17 08:39 12 UNITS Insulin Aspart (novoLOG ASPART) SLIDING SCALE If C... ACHS SC 05/02/17 16:15 06/01/17 16:14 05/06/17 12:16 7 UNITS Lamotrigine (Lamictal Tab) 150 mg BID PO 05/02/17 21:00 06/01/17 20:59 05/06/17 08:33 150 MG Enteral Nutritional Formula (Boost Glucose Control) 1 can BIDM PO 05/03/17 07:30 06/02/17 07:29 05/06/17 17:39 1 CAN Potassium Chloride/Sodium Chloride 1,000 ml @ 75 mls/hr [id number] IV 05/03/17 09:30 06/02/17 09:29 05/06/17 17:39 75 MLS/HR Morphine Sulfate (MoRPHine SULFATE INJ) 4 mg Q12H PRN IV 05/03/17 09:30 05/17/17 09:29 05/06/17 12:08 4 MG Dexamethasone Sodium Phosphate 4 mg/Syringe 1 ml @ 1 mls/min Q8H IV 05/03/17 12:00 06/02/17 11:59 05/06/17 12:17 1 MLS/MIN Metoprolol Tartrate (Lopressor Iv) 5 mg Q6 IV. 05/03/17 14:00 06/02/17 13:59 05/06/17 17:40 5 MG Methylnaltrexone [place] (Relistor Inj) 12 mg Q2D SQ 05/05/17 19:45 06/04/17 19:44 05/05/17 20:45 12 MG Oxycodone/ Acetaminophen (Percocet 7.5-325MG Tab) 1 tab Q4H PRN PO 05/05/17 19:45 05/19/17 19:44 Levetiracetam (Keppra Tab) 1,500 mg BID PO 05/06/17 21:00 06/05/17 20:59
[2017-05-06] MEDS: LEVETIRACETAM 500 MG TAB PO SCH (20:22)
[2017-05-06] MEDS: AMITRIPTYLINE HCL 50 MG TAB PO SCH (20:25)
[2017-05-06] MEDS: METOPROLOL TARTRATE 25 MG TAB PO SCH (20:25)
[2017-05-06] MEDS: OXYCODONE/ACETAMINOPHEN 7.5-325 TAB PO PRN (21:51)
[2017-05-06] MEDS: DEXAMETHASONE 4 MG TAB PO SCH (21:58)
[2017-05-07] VITALS (7 sets, daily range): BP systolic 118–194; BP diastolic 83–113; PULSE 91–102; TEMP 36.5–36.8; O2SAT 95–97
[2017-05-07] MEDS ORDERED: CLONIDINE HCL 0.1 MG TAB PO ONE (00:15)
[2017-05-07] MEDS: MoRPHine SULFATE 4 MG/ML 1 ML CARP\\VIAL IV PRN (00:44)
[2017-05-07] MEDS: NSS + 20MEQ KCL 1000ML 1,000 ML IV SCH (06:09)
[2017-05-07] MEDS: DEXAMETHASONE 4 MG TAB PO SCH ×3 (06:09→22:13)
[2017-05-07] MEDS: OXYCODONE/ACETAMINOPHEN 7.5-325 TAB PO PRN ×3 (06:10→22:14)
[2017-05-07] MEDS: FLUTICASONE HFA 110MCG INHALER INH SCH ×2 (07:53→20:35)
[2017-05-07] MEDS: METOPROLOL TARTRATE 25 MG TAB PO SCH ×2 (07:54→20:53)
[2017-05-07] MEDS: BACLOFEN 10 MG TAB PO SCH ×3 (07:54→20:52)
[2017-05-07] MEDS: MONTELUKAST SOD 10 MG TAB PO SCH (07:54)
[2017-05-07] MEDS: PANTOprazole SOD 40 MG TAB PO SCH (07:54)
[2017-05-07] MEDS: TOPIRAMATE 100 MG TAB PO SCH ×2 (07:55→20:53)
[2017-05-07] MEDS: LEVETIRACETAM 500 MG TAB PO SCH ×2 (07:55→20:51)
[2017-05-07] MEDS: POTASSIUM CHLORIDE 20 MEQ TABCR PO SCH ×2 (07:56→20:52)
[2017-05-07] MEDS: ROPINIROLE HCL 1 MG TAB PO SCH ×3 (07:56→20:53)
[2017-05-07] MEDS: FLUTICASONE PROPIONATE NA SPR 16 GM BTL NAE SCH (07:57)
[2017-05-07] MEDS: BOOST GLUCOSE CONTROL PO SCH ×2 (08:43→17:49)
[2017-05-07] MEDS: MoRPHine SULFATE CR 15 MG TAB (MS CONTIN) PO SCH ×2 (08:46→20:53)
--- NOTE | 2017-05-07 08:50 | Pharmacy Progress Note ---
Glycemic: Assessment & Plan Date of Service May 07, 2017. Assessment & Plan The patient is currently receiving ~17-24 units of insulin per day. BSGs ranging 143-215 mg/dl over the past 24hrs. BSGs have trended up slightly - but IV steroids have been changed to PO. Increase basal insulin by 2 units and reassess in the AM. * Basal insulin: Lantus 14 units every 24 hours given in the morning * Correctional Insulin: Novolog Correction per scale ACHS Goal Range: Low 110 mg/dL - High 150 mg/dL Correction Factor: 60 mg/dL/unit * Prandial insulin: Per carb ratio of 1 unit per 15 grams CHO consumed Pharmacy will continue to monitor patient daily and write orders per [facility] inpatient glycemic control protocol. Thanks. * Please note that the plan above was derived based on current level of insulin resistance and hospital stress. These recommendations are appropriate for inpatient admission only. Plan of care upon discharge will need to be reassessed to avoid potential outpatient hypo/hyperglycemia.
[2017-05-07] MEDS: INSULIN ASPART 100 UNITS/ML 3 ML PEN SC SCH ×4 (09:17→20:45)
[2017-05-07] MEDS: INSULIN GLARGINE SOLOSTAR 100 UNITS/ML 3 ML PEN SC SCH (09:20)
[2017-05-07] MEDS: CHOLESTYRAMINE LIGHT 4 GM PKT PO SCH ×4 (10:00→22:13)
--- NOTE | 2017-05-07 14:11 | Palliative Care Progress Note ---
Palliative Care Progress Note Date of Service May 07, 2017. Subjective Pt evaluation today including: conversation w/ patient, conversation w/ family (, Dann), physical exam, chart review, conversation w/ showroom consultant (Dr. Childs) Pain: "better" PO Intake: tolerating diet Voiding: no voiding problems -Patient is feeling a little better today. More alert, pain is better. Still requesting Lidoderm patches. -Appetite is good. -Patient and met with [facility]. Plan is for DC Wednesday home with hospice. Review of Systems Constitutional: + weakness (improved) ENT: No trouble swallowing Respiratory: No cough, No shortness of breath Cardiac: No chest pain, No edema Abdomen: No pain, No nausea, No vomiting Musculoskeletal: + problem reported (back pain) Psychiatric: No depression symptoms, No anxiety Objective Vital Signs Date Time Temp Pulse Resp B/P (MAP) Pulse Ox O2 Delivery O2 Flow Rate FiO2 05/07/17 11:51 36.8 91 16 118/83 (95) 96 Room Air 05/07/17 08:02 36.8 102 18 155/98 (117) 97 Room Air 05/07/17 04:16 36.5 102 20 157/100 (119) 96 Room Air 05/07/17 00:35 194/113 (140) 05/07/17 00:00 97 Room Air 05/06/17 23:56 101 18 190/120 (143) 05/06/17 23:55 36.9 104 18 186/113 (137) 94 Room Air 05/06/17 19:24 37.1 109 18 133/85 (101) 98 Room Air 05/06/17 18:55 36.3 110 18 97 2.0 05/06/17 17:40 110 05/06/17 16:00 97 Room Air 2.0 05/06/17 15:11 114 18 156/99 (118) 97 Room Air Physical Exam General Appearance: no apparent distress, + thin Eyes: + pertinent finding (wandering gaze) ENT: hearing grossly normal Neck: supple, no JVD Respiratory/Chest: no respiratory distress, no accessory muscle use Cardiovascular: regular rate, rhythm, no edema Abdomen: + pertinent finding (abdomen not assessed at this time) Neurologic/Psychiatric: alert, normal mood/affect, oriented x 3 (forgetful, word searches) Laboratory Results Last 24 Hours Test 05/06/17 16:01 05/06/17 20:09 05/07/17 07:50 05/07/17 11:52 Bedside Glucose 150 mg/dl 197 mg/dl 146 mg/dl 183 mg/dl Assessment and Plan Problem list: Pain, back Headaches/migraines Weakness Altered mental status- improved Seizure disorder- IV Keppra increased. Neurology following. Breast cancer with mets to brain Goals of care (Z51.5) Palliative care recs: -Spoke with Dr. Childs, she will order lidoderm patches for patient's back. -Still on IV Keppra, will need to be switched to PO prior to discharge. -Hospice met with patient today, she will be discharged tentatively Wednesday. She is going home with her and [facility]. -POLST form can be completed Wednesday prior to discharge. Thank you again for this consult. Please contact me with any further palliative needs. Palliative Performance Scale: 40 % Discharge planning: home with Hospice
--- NOTE | 2017-05-07 19:19 | Progress Note ---
Medicine Progress Note Date & Time of Visit: May 07, 2017 at 19:19. Subjective Patient sleeping, daughter at the bedside and stated she has not noted any seizure type activity today. States the patient did not sleep well and is extremely tired. No overnight events noted other than elevated BP. Patient was having pain in her back and requested lidoderm patches. Objective Last 8 Hrs Date Time Temp Pulse Resp B/P (MAP) Pulse Ox O2 Delivery O2 Flow Rate FiO2 05/07/17 16:10 36.5 93 16 139/91 (107) 95 Room Air 05/07/17 11:51 36.8 91 16 118/83 (95) 96 Room Air Physical Exam: GENERAL: Patient is in no acute distress. Sleeping HEENT: No acute trauma, normocephalic, mucous membranes moist, no nasal congestion, no scleral icterus. Conjunctivae clear NECK: No stridor, trachea is midline. LUNGS: Clear to auscultation bilaterally, no wheeze, no rhonchi, breath sounds equal. HEART: Without murmurs gallops or rubs, regular rate and rhythm. ABDOMEN: Soft, nontender, bowel sounds positive, no hepatosplenomegaly EXTREMITIES: No cyanosis or edema, full range of motion of all the joints without pain or difficulty, no signs for acute trauma. NEUROLOGIC: Oriented x 3, no acute motor or sensory deficits, no focal weakness. SKIN: No rash, no jaundice, no diaphoresis. Laboratory Results: Last 24 Hours Test 05/06/17 20:09 05/07/17 07:50 05/07/17 11:52 05/07/17 16:57 Bedside Glucose 197 mg/dl 146 mg/dl 183 mg/dl 122 mg/dl Assessment & Plan BREAKTHROUGH SEIZURES: with Encephalopathy -known to have seizures 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 Goodman that the patient was having "staring/absence " type episodes -also started on Dilantin loading dose 1g then 300mg daily, now off -Decadron increased to 4mg QID, decreased back to TID; switched to PO -continued on lamictal and topamax -CT head: unchanged overall -MRI Brain shows increased metastatic lesions and increase in the right parietal met compared to MRI in February, bu decrease in the edema -EEG did not show epileptiform activity CHEST DISCOMFORT: -CXR: Persistent left lung volume loss with left-sided pleural thickening. Interstitial opacities left greater than right, similar to the prior study given the differences in technique. -possibly related to musculoskeletal source -improved, no additional complaints SINUS TACHYCARDIA: -has been ongoing since admission, has been requiring lopressor IV -on PO lopressor, can titrate further if needed HYPOKALEMIA: -resolved -monitor -continue Potassium supplement BID -stop IV fluids BREAST CANCER WITH METS TO BRAIN: -Xeloda on hold -on Palliative Care SVC at home, have consulted while in the hospital as well to address goals of care -follows with [facility] in [facility] DM Type I: -Pharmacy Glycemic Consulted, appreciate recommendations -on SSI -patient on IV decadron HTN: -continue verapamil + added metoprolol -stopped clonidine PRN MIGRAINE: -continue usual medications -no current symptoms CHRONIC PAIN: -continue Morphine, titrate meds as needed CONSTIPATION: -resolved -continue miralax, relistor, and bisacodyl supp Discharge planning: home with Hospice Current Inpatient Medications: Current Inpatient Medications Medications (Trade) Dose Ordered Sig/Crow Route Start Time Stop Time Status Last Admin Dose Admin Glucose (Glucose 40% Gel) 15-30 GRAMS 15 GRAMS... UD PRN PO 05/01/17 18:30 05/31/17 18:29 Glucose (Glucose Chew Tab) 4-8 Tablets 4 Tabl... UD PRN PO 05/01/17 18:30 05/31/17 18:29 Dextrose (Dextrose 50% 50ML Syringe) 25-50ML OF 50% DW IV FOR... UD PRN IV 05/01/17 18:30 05/31/17 18:29 Glucagon (Glucagon Inj) 1 mg UD PRN SQ 05/01/17 18:30 05/31/17 18:29 Miscellaneous Information (Consult Glycemic Management Pharmacy) 1 ea UD PRN N/A 05/01/17 19:00 05/31/17 18:59 Heparin Sodium (Porcine) (Heparin 100 Unit/ml 5ml Flush) 5 ml PRN PRN IV 05/02/17 01:15 06/01/17 01:14 05/04/17 04:26 5 ML Amitriptyline HCl (Elavil Tab) 100 mg HS PO 05/02/17 21:00 06/01/17 20:59 05/06/17 20:25 100 MG Baclofen (Lioresal Tab) 20 mg TID PO 05/02/17 14:00 06/01/17 13:59 05/07/17 14:48 20 MG Fluticasone Propionate (Flovent Hfa 110MCG Inhaler) 2 puffs BID INH 05/02/17 21:00 06/01/17 20:59 05/07/17 07:53 2 PUFFS Fluticasone Propionate (Flonase Nasal [place]) 2 sprays QAM JUDE 05/03/17 09:00 06/02/17 08:59 05/07/17 07:57 2 SPRAYS Lorazepam (Ativan Tab) 1 mg HS PRN PO 05/02/17 10:00 06/01/17 09:59 Montelukast Sodium (Singulair Tab) 10 mg QAM PO 05/03/17 09:00 06/02/17 08:59 05/07/17 07:54 10 MG Morphine Sulfate (Oramorph Sr Tab) 15 mg BID PO 05/02/17 21:00 05/16/17 20:59 05/07/17 08:46 15 MG Potassium Chloride (Klor-Con Tab) 20 meq BID PO 05/02/17 21:00 06/01/17 20:59 05/07/17 07:56 20 MEQ Ropinirole HCl (Requip Tab) 1 mg TID PO 05/02/17 14:00 06/01/17 13:59 05/07/17 14:49 1 MG Topiramate (Topamax Tab) 200 mg BID PO 05/02/17 21:00 06/01/17 20:59 05/07/17 07:55 200 MG Cholestyramine Resin (Questran Powder Light) 4 gm QID@1000,1400,1800,2200 PO 05/02/17 14:00 06/01/17 13:59 05/07/17 17:49 4 GM Pantoprazole Sodium (Protonix Tab) 40 mg QAM PO 05/03/17 09:00 06/02/17 08:59 05/07/17 07:54 40 MG Polyethylene (Miralax Powder Packet) 17 gm DAILY PRN PO 05/02/17 10:45 06/01/17 10:44 05/05/17 08:46 17 GM Insulin Aspart (novoLOG ASPART) SLIDING SCALE If C... ACHS SC 05/02/17 16:15 06/01/17 16:14 05/07/17 17:54 4 UNITS Lamotrigine (Lamictal Tab) 150 mg BID PO 05/02/17 21:00 06/01/17 20:59 05/07/17 07:58 150 MG Enteral Nutritional Formula (Boost Glucose Control) 1 can BIDM PO 05/03/17 07:30 06/02/17 07:29 05/07/17 17:49 1 CAN Potassium Chloride/Sodium Chloride 1,000 ml @ 75 mls/hr [id number] IV 05/03/17 09:30 06/02/17 09:29 05/07/17 06:09 75 MLS/HR Morphine Sulfate (MoRPHine SULFATE INJ) 4 mg Q12H PRN IV 05/03/17 09:30 05/17/17 09:29 05/07/17 00:44 4 MG Methylnaltrexone [place] (Relistor Inj) 12 mg Q2D SQ 05/05/17 19:45 06/04/17 19:44 05/05/17 20:45 12 MG Oxycodone/ Acetaminophen (Percocet 7.5-325MG Tab) 1 tab Q4H PRN PO 05/05/17 19:45 05/19/17 19:44 05/07/17 12:44 1 TAB Dexamethasone (Decadron Tab) 4 mg Q8 PO 05/06/17 22:00 06/05/17 21:59 05/07/17 14:50 4 MG Metoprolol Tartrate (Lopressor Tab) 25 mg BID PO 05/06/17 20:00 06/05/17 20:59 05/07/17 07:54 25 MG Insulin Glargine (Lantus Solostar Pen) 14 units QAM SC 05/07/17 09:00 06/06/17 08:59 05/07/17 09:20 14 UNITS Lidocaine (Lidoderm Patch 5%) 2 patch QAM TD 05/08/17 08:00 06/07/17 07:59 Levetiracetam (Keppra Tab) 2,000 mg BID PO 05/07/17 20:00 06/05/17 20:59 Miscellaneous (Remove Lidoderm Patch) 2 ea HS N/A 05/08/17 21:00 06/07/17 20:59
[2017-05-07] MEDS ORDERED: NURSING VERBAL MED ORDER ONE (20:15)
[2017-05-07] MEDS: METHYLNALTREXONE BROMIDE INJ 12 MG/0.6 ML SYR SQ SCH (20:34)
[2017-05-07] MEDS: AMITRIPTYLINE HCL 50 MG TAB PO SCH (20:54)
[2017-05-07] MEDS: POLYETHYLENE (MIRALAX) 17 GM PACK PO PRN (21:07)
[2017-05-08] VITALS (8 sets, daily range): BP systolic 112–191; BP diastolic 77–131; PULSE 95–117; TEMP 36.4–37.1; O2SAT 96–100
[2017-05-08] MEDS: MoRPHine SULFATE 4 MG/ML 1 ML CARP\\VIAL IV PRN (04:05)
[2017-05-08] MEDS: METOPROLOL TARTRATE 25 MG TAB PO SCH ×2 (05:51→20:46)
[2017-05-08] MEDS: DEXAMETHASONE 4 MG TAB PO SCH ×3 (05:51→20:44)
[2017-05-08] MEDS: OXYCODONE/ACETAMINOPHEN 7.5-325 TAB PO PRN (05:54)
[2017-05-08] MEDS: FLUTICASONE PROPIONATE NA SPR 16 GM BTL NAE SCH (07:47)
[2017-05-08] MEDS: MoRPHine SULFATE CR 15 MG TAB (MS CONTIN) PO SCH ×2 (07:47→20:37)
[2017-05-08] MEDS: FLUTICASONE HFA 110MCG INHALER INH SCH ×2 (07:47→20:43)
[2017-05-08] MEDS: ROPINIROLE HCL 1 MG TAB PO SCH ×3 (07:49→20:42)
[2017-05-08] MEDS: MONTELUKAST SOD 10 MG TAB PO SCH (07:49)
[2017-05-08] MEDS: LIDODERM (LIDOCAINE) PATCH 5% TD SCH (07:49)
[2017-05-08] MEDS: TOPIRAMATE 100 MG TAB PO SCH ×2 (07:50→20:42)
[2017-05-08] MEDS: PANTOprazole SOD 40 MG TAB PO SCH (07:52)
[2017-05-08] MEDS: BACLOFEN 10 MG TAB PO SCH ×3 (07:53→20:37)
[2017-05-08] MEDS: LEVETIRACETAM 500 MG TAB PO SCH ×2 (07:54→20:40)
[2017-05-08] MEDS: POTASSIUM CHLORIDE 20 MEQ TABCR PO SCH ×2 (07:55→20:40)
[2017-05-08] MEDS: BOOST GLUCOSE CONTROL PO SCH ×2 (07:59→17:51)
[2017-05-08] MEDS: INSULIN ASPART 100 UNITS/ML 3 ML PEN SC SCH ×4 (08:46→20:52)
[2017-05-08] MEDS: INSULIN GLARGINE SOLOSTAR 100 UNITS/ML 3 ML PEN SC SCH (08:46)
[2017-05-08] MEDS: CHOLESTYRAMINE LIGHT 4 GM PKT PO SCH ×4 (10:00→21:44)
[2017-05-08 14:36] LABS: TOPIRAMATE (TOPAMAX)**30965 22.6 mcg/mL
--- NOTE | 2017-05-08 18:20 | Progress Note ---
Medicine Progress Note Date & Time of Visit: May 08, 2017 at 18:20. Subjective Patient doing ok, has a visitor at the bedside, no reports of seizure type activities. Did not have a BM yet but scheduled to get relistor today which generally helps. No overnight events noted. Tolerating PO, appetite is fair. Pain is controlled. Objective Last 8 Hrs Date Time Temp Pulse Resp B/P (MAP) Pulse Ox O2 Delivery O2 Flow Rate FiO2 05/08/17 16:00 Room Air 05/08/17 15:42 36.4 98 16 128/87 (101) 97 Room Air 05/08/17 11:55 36.4 95 16 112/77 (89) 97 Room Air Physical Exam: GENERAL: Patient is in no acute distress. HEENT: No acute trauma, normocephalic, mucous membranes moist, no nasal congestion, no scleral icterus. Conjunctivae clear NECK: No stridor, trachea is midline. LUNGS: Clear to auscultation bilaterally, no wheeze, no rhonchi, breath sounds equal. HEART: Without murmurs gallops or rubs, regular rate and rhythm. ABDOMEN: Soft, nontender, bowel sounds positive, no hepatosplenomegaly EXTREMITIES: No cyanosis or edema, full range of motion of all the joints without pain or difficulty, no signs for acute trauma. NEUROLOGIC: Oriented x 3, no acute motor or sensory deficits, no focal weakness. SKIN: No rash, no jaundice, no diaphoresis. Laboratory Results: Last 24 Hours Test 05/07/17 20:26 05/08/17 07:35 05/08/17 11:44 05/08/17 16:50 Bedside Glucose 177 mg/dl 136 mg/dl 160 mg/dl 130 mg/dl Assessment & Plan BREAKTHROUGH SEIZURES: with Encephalopathy, now improved -known to have seizures 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 Goodman that the patient was having "staring/absence " type episodes which have subsided -also was on Dilantin loading dose 1g then 300mg but that was stopped several days ago -Decadron increased to 4mg QID, decreased back to TID and switched back to PO -continued on lamictal and topamax -CT head: unchanged overall -MRI Brain shows increased metastatic lesions and increase in the right parietal met compared to MRI in February, but decrease in the edema -EEG did not show epileptiform activity CHEST DISCOMFORT: -CXR: Persistent left lung volume loss with left-sided pleural thickening. Interstitial opacities left greater than right, similar to the prior study given the differences in technique. -possibly related to musculoskeletal source -improved, no additional complaints SINUS TACHYCARDIA: -has been ongoing since admission, was requiring lopressor IV when in tele -on PO lopressor, can titrate further if needed HYPOKALEMIA: -resolved -monitor -continue Potassium supplement BID -stop IV fluids BREAST CANCER WITH METS TO BRAIN: -Xeloda on hold -on Palliative Care SVC at home, have consulted while in the hospital as well to address goals of care -follows with Dr. [facility] in [facility] DM Type I: -Pharmacy Glycemic Consulted, appreciate recommendations -on SSI -patient on decadron chronically HTN: -continue verapamil + added metoprolol -stopped clonidine PRN MIGRAINE: -continue usual medications -no current symptoms CHRONIC PAIN: -continue Morphine, titrate meds as needed CONSTIPATION: -intermittent -continue miralax, relistor, and bisacodyl supp Discharge planning: home with Hospice Current Inpatient Medications: Current Inpatient Medications Medications (Trade) Dose Ordered Sig/Crow Route Start Time Stop Time Status Last Admin Dose Admin Glucose (Glucose 40% Gel) 15-30 GRAMS 15 GRAMS... UD PRN PO 05/01/17 18:30 05/31/17 18:29 Glucose (Glucose Chew Tab) 4-8 Tablets 4 Tabl... UD PRN PO 05/01/17 18:30 05/31/17 18:29 Dextrose (Dextrose 50% 50ML Syringe) 25-50ML OF 50% DW IV FOR... UD PRN IV 05/01/17 18:30 05/31/17 18:29 Glucagon (Glucagon Inj) 1 mg UD PRN SQ 05/01/17 18:30 05/31/17 18:29 Miscellaneous Information (Consult Glycemic Management Pharmacy) 1 ea UD PRN N/A 05/01/17 19:00 05/31/17 18:59 Heparin Sodium (Porcine) (Heparin 100 Unit/ml 5ml Flush) 5 ml PRN PRN IV 05/02/17 01:15 06/01/17 01:14 05/07/17 20:29 5 ML Amitriptyline HCl (Elavil Tab) 100 mg HS PO 05/02/17 21:00 06/01/17 20:59 05/07/17 20:54 100 MG Baclofen (Lioresal Tab) 20 mg TID PO 05/02/17 14:00 06/01/17 13:59 05/08/17 13:31 20 MG Fluticasone Propionate (Flovent Hfa 110MCG Inhaler) 2 puffs BID INH 05/02/17 21:00 06/01/17 20:59 05/08/17 07:47 2 PUFFS Fluticasone Propionate (Flonase Nasal [place]) 2 sprays QAM JUDE 05/03/17 09:00 06/02/17 08:59 05/08/17 07:47 2 SPRAYS Lorazepam (Ativan Tab) 1 mg HS PRN PO 05/02/17 10:00 06/01/17 09:59 Montelukast Sodium (Singulair Tab) 10 mg QAM PO 05/03/17 09:00 06/02/17 08:59 05/08/17 07:49 10 MG Morphine Sulfate (Oramorph Sr Tab) 15 mg BID PO 05/02/17 21:00 05/16/17 20:59 05/08/17 07:47 15 MG Potassium Chloride (Klor-Con Tab) 20 meq BID PO 05/02/17 21:00 06/01/17 20:59 05/08/17 07:55 20 MEQ Ropinirole HCl (Requip Tab) 1 mg TID PO 05/02/17 14:00 06/01/17 13:59 05/08/17 13:33 1 MG Topiramate (Topamax Tab) 200 mg BID PO 05/02/17 21:00 06/01/17 20:59 05/08/17 07:50 200 MG Cholestyramine Resin (Questran Powder Light) 4 gm QID@1000,1400,1800,2200 PO 05/02/17 14:00 06/01/17 13:59 05/07/17 22:13 4 GM Pantoprazole Sodium (Protonix Tab) 40 mg QAM PO 05/03/17 09:00 06/02/17 08:59 05/08/17 07:52 40 MG Polyethylene (Miralax Powder Packet) 17 gm DAILY PRN PO 05/02/17 10:45 06/01/17 10:44 05/07/17 21:07 17 GM Insulin Aspart (novoLOG ASPART) SLIDING SCALE If C... ACHS SC 05/02/17 16:15 06/01/17 16:14 05/08/17 17:50 3 UNITS Lamotrigine (Lamictal Tab) 150 mg BID PO 05/02/17 21:00 06/01/17 20:59 05/08/17 07:52 150 MG Enteral Nutritional Formula (Boost Glucose Control) 1 can BIDM PO 05/03/17 07:30 06/02/17 07:29 05/08/17 17:51 1 CAN Morphine Sulfate (MoRPHine SULFATE INJ) 4 mg Q12H PRN IV 05/03/17 09:30 05/17/17 09:29 05/08/17 04:05 4 MG Methylnaltrexone [place] (Relistor Inj) 12 mg Q2D SQ 05/05/17 19:45 06/04/17 19:44 05/07/17 20:34 12 MG Oxycodone/ Acetaminophen (Percocet 7.5-325MG Tab) 1 tab Q4H PRN PO 05/05/17 19:45 05/19/17 19:44 05/08/17 05:54 1 TAB Dexamethasone (Decadron Tab) 4 mg Q8 PO 05/06/17 22:00 06/05/17 21:59 05/08/17 13:30 4 MG Metoprolol Tartrate (Lopressor Tab) 25 mg BID PO 05/06/17 20:00 06/05/17 20:59 05/08/17 05:51 25 MG Insulin Glargine (Lantus Solostar Pen) 14 units QAM SC 05/07/17 09:00 06/06/17 08:59 05/08/17 08:46 14 UNITS Lidocaine (Lidoderm Patch 5%) 2 patch QAM TD 05/08/17 08:00 06/07/17 07:59 05/08/17 07:49 2 PATCH Levetiracetam (Keppra Tab) 2,000 mg BID PO 05/07/17 20:00 06/05/17 20:59 05/08/17 07:54 2,000 MG Miscellaneous (Remove Lidoderm Patch) 2 ea HS N/A 05/08/17 21:00 06/07/17 20:59
[2017-05-08] MEDS: AMITRIPTYLINE HCL 50 MG TAB PO SCH (20:43)
[2017-05-09] MEDS: OXYCODONE/ACETAMINOPHEN 7.5-325 TAB PO PRN ×2 (00:17→06:15)
[2017-05-09 04:20] VITALS: BP 170/108; PULSE 104; TEMP 36.5; O2SAT 96
[2017-05-09] MEDS: DEXAMETHASONE 4 MG TAB PO SCH ×3 (06:15→20:18)
[2017-05-09 07:49] VITALS: BP 118/82; PULSE 107; TEMP 36.6; O2SAT 98
[2017-05-09] MEDS: BOOST GLUCOSE CONTROL PO SCH ×2 (09:12→17:00)
[2017-05-09] MEDS: FLUTICASONE HFA 110MCG INHALER INH SCH ×2 (09:12→20:15)
[2017-05-09] MEDS: FLUTICASONE PROPIONATE NA SPR 16 GM BTL NAE SCH (09:12)
[2017-05-09] MEDS: LEVETIRACETAM 500 MG TAB PO SCH ×2 (09:13→20:19)
[2017-05-09] MEDS: POTASSIUM CHLORIDE 20 MEQ TABCR PO SCH ×2 (09:13→20:17)
[2017-05-09] MEDS: BACLOFEN 10 MG TAB PO SCH ×3 (09:14→20:15)
[2017-05-09] MEDS: METOPROLOL TARTRATE 25 MG TAB PO SCH ×2 (09:14→20:16)
[2017-05-09] MEDS: INSULIN ASPART 100 UNITS/ML 3 ML PEN SC SCH ×4 (09:16→20:32)
[2017-05-09] MEDS: LIDODERM (LIDOCAINE) PATCH 5% TD SCH (09:17)
[2017-05-09] MEDS: TOPIRAMATE 100 MG TAB PO SCH ×2 (09:17→20:16)
[2017-05-09] MEDS: INSULIN GLARGINE SOLOSTAR 100 UNITS/ML 3 ML PEN SC SCH (09:17)
[2017-05-09] MEDS: MoRPHine SULFATE CR 15 MG TAB (MS CONTIN) PO SCH ×2 (09:18→20:15)
[2017-05-09] MEDS: PANTOprazole SOD 40 MG TAB PO SCH (09:18)
[2017-05-09] MEDS: ROPINIROLE HCL 1 MG TAB PO SCH ×3 (09:18→20:16)
[2017-05-09] MEDS: MONTELUKAST SOD 10 MG TAB PO SCH (09:18)
[2017-05-09] MEDS: CHOLESTYRAMINE LIGHT 4 GM PKT PO SCH ×4 (10:00→20:34)
--- NOTE | 2017-05-09 10:51 | Pharmacy Progress Note ---
Glycemic: Assessment & Plan Date of Service May 09, 2017. Assessment & Plan The patient is currently receiving ~20-27 units of insulin per day. BSGs ranging 130-180mg/dl over the past 24hrs. * Basal insulin: Lantus 14 units every 24 hours given in the morning * Correctional Insulin: Novolog Correction per scale ACHS Goal Range: Low 110 mg/dL - High 150 mg/dL Correction Factor: 60 mg/dL/unit * Prandial insulin: Per carb ratio of 1 unit per 15 grams CHO consumed Pharmacy will continue to monitor patient daily and write orders per [facility] inpatient glycemic control protocol. Thanks. * Please note that the plan above was derived based on current level of insulin resistance and hospital stress. These recommendations are appropriate for inpatient admission only. Plan of care upon discharge will need to be reassessed to avoid potential outpatient hypo/hyperglycemia.
[2017-05-09 11:19] VITALS: BP 116/79; PULSE 105; TEMP 36.5; O2SAT 98
[2017-05-09] MEDS ORDERED: PROCHLORPERAZINE MALEATE 5 MG TAB PO ONE (14:00)
[2017-05-09 15:46] VITALS: BP 108/74; PULSE 92; TEMP 36.6; O2SAT 99
--- NOTE | 2017-05-09 15:57 | Progress Note ---
Medicine Progress Note Date & Time of Visit: May 09, 2017 at 15:57. Subjective Patient denies any new complaints, has had many visitors today. She still has not moved her bowels and feels bloated. She had an episode of nausea earlier which has resolved. No overnight events noted. Discussed with the patient's that she will likely be able to go home tomorrow pending delivery of hospice equipment. Objective Last 8 Hrs Date Time Temp Pulse Resp B/P (MAP) Pulse Ox O2 Delivery O2 Flow Rate FiO2 05/09/17 15:46 36.6 92 18 108/74 (85) 99 Room Air 05/09/17 11:38 Room Air 05/09/17 11:19 36.5 105 16 116/79 (91) 98 Room Air Physical Exam: GENERAL: Patient is in no acute distress. Sleeping HEENT: No acute trauma, normocephalic, mucous membranes moist, no nasal congestion, no scleral icterus. Conjunctivae clear NECK: No stridor, trachea is midline. LUNGS: Clear to auscultation bilaterally, no wheeze, no rhonchi, breath sounds equal. HEART: Without murmurs gallops or rubs, regular rate and rhythm. ABDOMEN: Soft, nontender, bowel sounds positive, no hepatosplenomegaly, slightly distended EXTREMITIES: No cyanosis or edema, full range of motion of all the joints without pain or difficulty, no signs for acute trauma. NEUROLOGIC: Oriented x 3, no acute motor or sensory deficits, no focal weakness. SKIN: No rash, no jaundice, no diaphoresis. 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 Goodman that the patient was having "staring/absence " type episodes -also started on Dilantin loading dose 1g then 300mg daily, now off -Decadron increased to 4mg QID, decreased back to TID; switched to PO -continued on lamictal and topamax -CT head: unchanged overall -MRI Brain shows increased metastatic lesions and increase in the right parietal met compared to MRI in February, but decrease in the edema -EEG did not show epileptiform activity -no additional seizure like activity noted in the last 48 hours CHEST DISCOMFORT: -CXR: Persistent left lung volume loss with left-sided pleural thickening. Interstitial opacities left greater than right, similar to the prior study given the differences in technique. -possibly related to musculoskeletal source -improved, no additional complaints SINUS TACHYCARDIA: -has been ongoing since admission, was requiring lopressor IV -on PO lopressor, can titrate further if needed HYPOKALEMIA: -resolved -monitor -continue Potassium supplement BID -stopped IV fluids BREAST CANCER WITH METS TO BRAIN: -Xeloda on hold -on Palliative Care SVC at home, have consulted while in the hospital as well to address goals of care -follows with Dr. Washington [facility] in [facility] DM Type I: -Pharmacy Glycemic Consulted, appreciate recommendations -on SSI -patient on IV decadron HTN: -continue verapamil + added metoprolol -stopped clonidine PRN MIGRAINE: -continue usual medications -no current symptoms CHRONIC PAIN: -continue Morphine, titrate meds as needed CONSTIPATION: -resolved -continue miralax, relistor, and bisacodyl supp Discharge planning: home with Hospice Current Inpatient Medications: Current Inpatient Medications Medications (Trade) Dose Ordered Sig/Crow Route Start Time Stop Time Status Last Admin Dose Admin Glucose (Glucose 40% Gel) 15-30 GRAMS 15 GRAMS... UD PRN PO 05/01/17 18:30 05/31/17 18:29 Glucose (Glucose Chew Tab) 4-8 Tablets 4 Tabl... UD PRN PO 05/01/17 18:30 05/31/17 18:29 Dextrose (Dextrose 50% 50ML Syringe) 25-50ML OF 50% DW IV FOR... UD PRN IV 05/01/17 18:30 05/31/17 18:29 Glucagon (Glucagon Inj) 1 mg UD PRN SQ 05/01/17 18:30 05/31/17 18:29 Miscellaneous Information (Consult Glycemic Management Pharmacy) 1 ea UD PRN N/A 05/01/17 19:00 05/31/17 18:59 Heparin Sodium (Porcine) (Heparin 100 Unit/ml 5ml Flush) 5 ml PRN PRN IV 05/02/17 01:15 06/01/17 01:14 05/09/17 15:46 5 ML Amitriptyline HCl (Elavil Tab) 100 mg HS PO 05/02/17 21:00 06/01/17 20:59 05/08/17 20:43 100 MG Baclofen (Lioresal Tab) 20 mg TID PO 05/02/17 14:00 06/01/17 13:59 05/09/17 14:14 20 MG Fluticasone Propionate (Flovent Hfa 110MCG Inhaler) 2 puffs BID INH 05/02/17 21:00 06/01/17 20:59 05/09/17 09:12 2 PUFFS Fluticasone Propionate (Flonase Nasal [place]) 2 sprays QAM JUDE 05/03/17 09:00 06/02/17 08:59 05/09/17 09:12 2 SPRAYS Lorazepam (Ativan Tab) 1 mg HS PRN PO 05/02/17 10:00 06/01/17 09:59 Montelukast Sodium (Singulair Tab) 10 mg QAM PO 05/03/17 09:00 06/02/17 08:59 05/09/17 09:18 10 MG Morphine Sulfate (Oramorph Sr Tab) 15 mg BID PO 05/02/17 21:00 05/16/17 20:59 05/09/17 09:18 15 MG Potassium Chloride (Klor-Con Tab) 20 meq BID PO 05/02/17 21:00 06/01/17 20:59 05/09/17 09:13 20 MEQ Ropinirole HCl (Requip Tab) 1 mg TID PO 05/02/17 14:00 06/01/17 13:59 05/09/17 14:14 1 MG Topiramate (Topamax Tab) 200 mg BID PO 05/02/17 21:00 06/01/17 20:59 05/09/17 09:17 200 MG Cholestyramine Resin (Questran Powder Light) 4 gm QID@1000,1400,1800,2200 PO 05/02/17 14:00 06/01/17 13:59 05/07/17 22:13 4 GM Pantoprazole Sodium (Protonix Tab) 40 mg QAM PO 05/03/17 09:00 06/02/17 08:59 05/09/17 09:18 40 MG Polyethylene (Miralax Powder Packet) 17 gm DAILY PRN PO 05/02/17 10:45 06/01/17 10:44 05/07/17 21:07 17 GM Insulin Aspart (novoLOG ASPART) SLIDING SCALE If C... ACHS SC 05/02/17 16:15 06/01/17 16:14 05/09/17 09:16 6 UNITS Lamotrigine (Lamictal Tab) 150 mg BID PO 05/02/17 21:00 06/01/17 20:59 05/09/17 09:13 150 MG Enteral Nutritional Formula (Boost Glucose Control) 1 can BIDM PO 05/03/17 07:30 06/02/17 07:29 05/09/17 09:12 1 CAN Morphine Sulfate (MoRPHine SULFATE INJ) 4 mg Q12H PRN IV 05/03/17 09:30 05/17/17 09:29 05/08/17 04:05 4 MG Methylnaltrexone [place] (Relistor Inj) 12 mg Q2D SQ 05/05/17 19:45 06/04/17 19:44 05/07/17 20:34 12 MG Oxycodone/ Acetaminophen (Percocet 7.5-325MG Tab) 1 tab Q4H PRN PO 05/05/17 19:45 05/19/17 19:44 05/09/17 06:15 1 TAB Dexamethasone (Decadron Tab) 4 mg Q8 PO 05/06/17 22:00 06/05/17 21:59 05/09/17 14:14 4 MG Metoprolol Tartrate (Lopressor Tab) 25 mg BID PO 05/06/17 20:00 06/05/17 20:59 05/09/17 09:14 25 MG Insulin Glargine (Lantus Solostar Pen) 14 units QAM SC 05/07/17 09:00 06/06/17 08:59 05/09/17 09:17 14 UNITS Lidocaine (Lidoderm Patch 5%) 2 patch QAM TD 05/08/17 08:00 06/07/17 07:59 05/09/17 09:17 2 PATCH Levetiracetam (Keppra Tab) 2,000 mg BID PO 05/07/17 20:00 06/05/17 20:59 05/09/17 09:13 2,000 MG Miscellaneous (Remove Lidoderm Patch) 2 ea HS N/A 05/08/17 21:00 06/07/17 20:59 05/08/17 20:43 2 EA
[2017-05-09 16:10] VITALS: O2SAT 99
[2017-05-09] MEDS: METHYLNALTREXONE BROMIDE INJ 12 MG/0.6 ML SYR SQ SCH (20:14)
[2017-05-09] MEDS: POLYETHYLENE (MIRALAX) 17 GM PACK PO PRN (20:15)
[2017-05-09] MEDS: AMITRIPTYLINE HCL 50 MG TAB PO SCH (20:16)
[2017-05-09 23:28] VITALS: BP 149/89; PULSE 87; TEMP 36.8; O2SAT 95
[2017-05-10] VITALS: O2SAT 99
[2017-05-10 03:59] VITALS: BP 123/83; PULSE 94; TEMP 36.4; O2SAT 96
[2017-05-10] MEDS: DEXAMETHASONE 4 MG TAB PO SCH ×3 (05:17→20:14)
[2017-05-10] MEDS: OXYCODONE/ACETAMINOPHEN 7.5-325 TAB PO PRN ×2 (05:18→15:31)
[2017-05-10 07:25] VITALS: BP 126/83; PULSE 99; TEMP 36.6; O2SAT 96
[2017-05-10] MEDS ORDERED: BISACODYL 10 MG SUPP PR STA (08:56)
[2017-05-10] MEDS: LEVETIRACETAM 500 MG TAB PO SCH ×2 (09:20→20:09)
[2017-05-10] MEDS: FLUTICASONE PROPIONATE NA SPR 16 GM BTL NAE SCH (09:20)
[2017-05-10] MEDS: FLUTICASONE HFA 110MCG INHALER INH SCH ×2 (09:20→20:08)
[2017-05-10] MEDS: BACLOFEN 10 MG TAB PO SCH ×3 (09:21→20:12)
[2017-05-10] MEDS: POTASSIUM CHLORIDE 20 MEQ TABCR PO SCH (09:21)
[2017-05-10] MEDS: MoRPHine SULFATE CR 15 MG TAB (MS CONTIN) PO SCH ×2 (09:21→20:17)
[2017-05-10] MEDS: METOPROLOL TARTRATE 25 MG TAB PO SCH ×2 (09:21→20:12)
[2017-05-10] MEDS: MONTELUKAST SOD 10 MG TAB PO SCH (09:22)
[2017-05-10] MEDS: PANTOprazole SOD 40 MG TAB PO SCH (09:22)
[2017-05-10] MEDS: ROPINIROLE HCL 1 MG TAB PO SCH ×3 (09:22→20:13)
[2017-05-10] MEDS: TOPIRAMATE 100 MG TAB PO SCH ×2 (09:22→20:13)
[2017-05-10] MEDS: LIDODERM (LIDOCAINE) PATCH 5% TD SCH (09:22)
[2017-05-10] MEDS: INSULIN GLARGINE SOLOSTAR 100 UNITS/ML 3 ML PEN SC SCH (09:27)
[2017-05-10] MEDS: INSULIN ASPART 100 UNITS/ML 3 ML PEN SC SCH ×3 (09:27→17:19)
[2017-05-10 11:03] VITALS: BP 125/80; PULSE 97; TEMP 36.8; O2SAT 96
[2017-05-10] MEDS: CHOLESTYRAMINE LIGHT 4 GM PKT PO SCH ×3 (11:27→17:20)
[2017-05-10] MEDS: BOOST GLUCOSE CONTROL PO SCH ×2 (11:40→17:00)
[2017-05-10] MEDS: DOCUSATE SODIUM 100 MG CAP PO SCH ×2 (13:03→20:09)
[2017-05-10 14:39] VITALS: BP 107/73; PULSE 98; TEMP 36.9; O2SAT 96
[2017-05-10] MEDS ORDERED: MORP1TAB11 PO (18:36)
[2017-05-10] MEDS ORDERED: OXYC-57 PO (18:36)
[2017-05-10] MEDS ORDERED: LEVE500T13 PO (18:36)
[2017-05-10] MEDS ORDERED: LPR25 PO (18:36)
[2017-05-10] MEDS ORDERED: DXM/4 PO (18:36)
[2017-05-10] MEDS ORDERED: LDDP5 TD (19:25)
[2017-05-10] MEDS ORDERED: DLCS RE (19:25)
[2017-05-10] MEDS ORDERED: RLSI SQ (19:25)
--- NOTE | 2017-05-10 19:32 | Discharge Instructions ---
Discharge Instructions Date of Service May 10, 2017. Admission Reason for Admission: Altered Mental Status Discharge Discharge Diagnosis / Problem: AMS, Breakthrough seizures Discharge Goals Goal(s): Therapeutic intervention Activity Recommendations Activity Limitations: resume your previous activity . Instructions / Follow-Up Instructions / Follow-Up Please expect a phone call regarding scheduling appointments with Dr. Washington and Dr. Peace Please call Dr. Goodman's office for any questions related to seizure medications or seizure activity Current Hospital Diet Patient's current hospital diet: Diabetes Type 1 Diet Discharge Diet Recommended Diet: Diabetes Type 1 Diet Procedures Procedures Performed: Franco catheter, MRI, EEG Pending Studies Studies pending at discharge: no Laboratory Results Hemoglobin A1c Test 05/02/17 07:03 Range/Units Estimated Average Glucose 146 mg/dl Hemoglobin A1c 6.7 H 4.5-5.6 % Medical Emergencies . Who to Call and When: Medical Emergencies: If at any time you feel your situation is an emergency, please call 911 immediately. . Non-Emergent Contact Non-Emergency issues call your: Primary Care Provider, Neurologist Call Non-Emergent contact if: you have a fever, you have any medication questions . . "Provider Documentation" section prepared by Jovana Childs. . VTE Core Measure Inpt VTE Proph given/why not?: Contraindicated (patient has brain metastases)
--- NOTE | 2017-05-10 19:35 | Discharge Summary ---
Discharge Summary Date of Service May 10, 2017. Discharge Summary Admission Date: May 01, 2017 at 16:24 Discharge Date: May 10, 2017 Admission Information HPI (per Admitting provider): 56 year old female with history of Breast CA, with mets to the brain, bone, liver; Seizure, DM 1, other problems notes below presenting with altered mental status. Patient underwent Gamma Knife Surgery last 04/15 and was transitioned to . She did well and was able to return home last . She was doing well until last night when she started to have some confusion. Through the night, the patient's children noted that she was twitching. This morning patient was unresponsive, hence was brought to the ED. Physical Exam (per Admitting): General Appearance: + pertinent finding (very lethargic, tries to open eyes with painful stimuli) Head: normocephalic, atraumatic Eyes: normal inspection, PERRL ENT: normal ENT inspection Neck: supple, no adenopathy, thyroid normal, no JVD, trachea midline Respiratory/Chest: lungs clear, normal breath sounds, no respiratory distress, no accessory muscle use Cardiovascular: regular rate, rhythm, no edema, no gallop, no JVD, no murmur Abdomen/GI: normal bowel sounds, non tender, soft, no organomegaly Extremities/Musculoskelatal: normal inspection, no calf tenderness, normal capillary refill, no pedal edema Neurologic/Psych: + pertinent finding (lethargic, minimal eye movements with painful stimuli) Skin: normal color, warm/dry, no rash Lymphatic: no adenopathy Hospital Course BREAKTHROUGH SEIZURES: with Encephalopathy -known to have seizures 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 Goodman that the patient was having "staring/absence " type episodes -also started on Dilantin loading dose 1g then 300mg daily, now off -Decadron increased to 4mg QID, decreased back to TID; switched to PO -continued on lamictal and topamax -CT head: unchanged overall -MRI Brain shows increased metastatic lesions and increase in the right parietal met compared to MRI in February, but decrease in the edema -EEG did not show epileptiform activity -no additional seizure like activity noted in the last 48 hours CHEST DISCOMFORT: -CXR: Persistent left lung volume loss with left-sided pleural thickening. Interstitial opacities left greater than right, similar to the prior study given the differences in technique. -possibly related to musculoskeletal source -improved, no additional complaints SINUS TACHYCARDIA: -has been ongoing since admission, was requiring lopressor IV -on PO lopressor, can titrate further if needed HYPOKALEMIA: -resolved -monitor -continue Potassium supplement BID -stopped IV fluids BREAST CANCER WITH METS TO BRAIN: -Xeloda on hold -on Palliative Care SVC at home, have consulted while in the hospital as well to address goals of care -follows with Dr. [facility] in [facility] DM Type I: -Pharmacy Glycemic Consulted, appreciate recommendations -on SSI -patient on IV decadron HTN: -continue verapamil + added metoprolol -stopped clonidine PRN MIGRAINE: -continue usual medications -no current symptoms CHRONIC PAIN: -continue Morphine, titrate meds as needed CONSTIPATION: -resolved -continue miralax, relistor, and bisacodyl supp Total time spent on discharge = This includes examination of the patient, discharge planning, medication reconciliation, and communication with other providers.
[2017-05-10] MEDS: AMITRIPTYLINE HCL 50 MG TAB PO SCH (20:14)
[2017-05-10 20:18] VITALS: BP 107/73; PULSE 98; TEMP 36.9; O2SAT 96
== END 2017-05-10 20:45 | disposition hospice, home (50) | DRG 100 ==
LOC: C.EDB 13:50 → C.2T 16:24 → EDBEDREQ 16:30 → ENRESERV 16:37 → C.4E 05-06 19:19
PROVIDERS: ADMIT Internal Medicine; ATTEND Internal Medicine
DX: G40.89 Other seizures (principal); G93.40 Encephalopathy, unspecified; G93.6 Cerebral edema; C79.31 Secondary malignant neoplasm of brain; C79.51 Secondary malignant neoplasm of bone; C78.7 Secondary malignant neoplasm of liver and intrahepatic bile duct; R07.89 Other chest pain; E87.6 Hypokalemia; R00.0 Tachycardia, unspecified; K59.00 Constipation, unspecified; G40.409 Other generalized epilepsy and epileptic syndromes, not intractable, without status epilepticus; I10 Essential (primary) hypertension; G89.29 Other chronic pain; E10.9 Type 1 diabetes mellitus without complications; J45.909 Unspecified asthma, uncomplicated; G43.909 Migraine, unspecified, not intractable, without status migrainosus; M81.0 Age-related osteoporosis without current pathological fracture; Z79.899 Other long term (current) drug therapy; Z79.52 Long term (current) use of systemic steroids; Z79.891 Long term (current) use of opiate analgesic; Z85.3 Personal history of malignant neoplasm of breast; Z98.890 Other specified postprocedural states; Z85.118 Personal history of other malignant neoplasm of bronchus and lung; Z86.73 Personal history of transient ischemic attack (TIA), and cerebral infarction without residual deficits; Z82.5 Family history of asthma and other chronic lower respiratory diseases; Z83.3 Family history of diabetes mellitus; Z82.49 Family history of ischemic heart disease and other diseases of the circulatory system; Z82.3 Family history of stroke; Z82.0 Family history of epilepsy and other diseases of the nervous system